=== PATIENT | female | born 1960 | race Caucasian/White ===

== ENCOUNTER 2022-12-29 11:53 | Observation (INO) | payer MEDICAID, SELFPAY ==
[2022-12-29 11:57] VITALS: BP 139/99; PULSE 93; RESP 18; TEMP 36.6; O2SAT 93; BMI 22.6
--- NOTE | 2022-12-29 12:11 | ED.RN ---
INITIAL EMS REPORT THIS RN RECEIVED WAS THAT THE PATIENT WAS HAVING SUDDEN EPISODE OF NAUSEA AND VOMITING HIS MORNING. PT WAS GIVEN ZOFRAN AND FLUIDS PER EMS PRIOR TO ARRIVAL. THIS RN IS TRIAGING, PT REPORTS ONGOING DIZZINESS, LIGHTHEADEDNESS AND DESCRIBES GENERALIZED WEAKNESS AND SWELLING TO RIGHT SIDE OF FACE. DR. RAMIRES INFORMED OF PT SX, AND COMES TO ROOM FOR EVALUATION AT 1208. PT NOW REPORTING TO DR. RAMIRES TALKING SLOWLY AND CLEARLY.
--- NOTE | 2022-12-29 12:17 | CT_ITS ---
STUDY: CTA HEAD AND NECK WITH CONTRAST REASON FOR EXAM: Female, 62 years old. Dysarthria. Sudden onset of nausea and vomiting. Dizziness. History of prior cerebral aneurysm and clipping. RADIATION DOSAGE (If Supplied By Facility): CTDIvol = ( 26.10 ) mGy, DLP = ( 1423.81 ) mGycm TECHNIQUE: CT angiography was performed with a multi-detector CT scanner. Data acquisition was obtained from the skull base through the vertex following intravenous administration of IV 100mL [id number]-[id number]. MIP images were reconstructed from the axial data set. Post-processing of the angiographic images was performed, with multiplanar reformation and 3D reconstruction. Individualized dose optimization techniques were used for this CT. COMPARISON: No relevant priors. FINDINGS: Normal bilateral petrous carotid arteries. Normal right cavernous carotid artery with a normal supraclinoid bifurcation. Normal left cavernous carotid artery with a normal supraclinoid bifurcation. Normal right A1 segments of the anterior cerebral artery. Normal left A1 segments of the anterior cerebral artery. Normal intact anterior communicating artery (ACOM). Normal bilateral A2 segments of the anterior cerebral arteries. Normal right M1 and M2 segments of the middle cerebral arteries, with a normal M1 bifurcation. Normal left M1 and M2 segments of the middle cerebral arteries, with a normal M1 bifurcation. Normal right posterior communicating artery (PCOM). Normal left posterior communicating artery (PCOM). Normal bilateral vertebral arteries. Normal basilar artery with a normal basilar bifurcation. The visualized bilateral superior cerebellar (SCA) arteries are normal. Normal bilateral P1, P2 and visualized P3 segments of the posterior cerebral arteries. There is no demonstrated aneurysm of the [place]. The vascular clip is seen in the region of the right posterior inferior cerebellar artery causing streak artifacts. Mild degree of cerebral atrophy. AORTIC ARCH: There is atherosclerotic calcific plaque formation of the aortic arch and great vessels arising from the aortic arch, without a hemodynamically significant stenosis. There is a normal origin of the brachiocephalic, left common carotid, and left subclavian arteries. RIGHT CAROTID ARTERIES: Normal right common carotid artery (CCA). Normal right common carotid bulb. Normal origin of the right internal carotid (ICA) artery without a hemodynamically significant stenosis. Normal visualized cervical portion of the right internal carotid artery. Normal origin of the right external carotid artery (ECA). LEFT CAROTID ARTERIES: Normal left common carotid artery (CCA). Normal left common carotid bulb. There is mild atherosclerotic plaque formation of the origin of the left internal carotid artery with less than 50% cross sectional diameter stenosis. Normal visualized cervical portion of the left internal carotid artery. Normal origin of the left external carotid artery (ECA). VERTEBRAL ARTERIES: There is enhancement within the bilateral vertebral arteries with a small right vertebral artery, and a dominant left vertebral artery. CT/CTA Head AND Neck W/ Contrast IMPRESSION: Minimal plaque formation at the origin of the left internal carotid artery. Findings include with prior aneurysmal clip placement in the region of the right posterior inferior cerebellar artery. Electronically Signed: Young De Oliveira MD at 13:54 EDT ,
--- NOTE | 2022-12-29 12:17 | EKG12_ITS ---
Test Reason : DIZZINESS Blood Pressure : / mmHG Vent. Rate : 091 BPM Atrial Rate : 091 BPM P-R Int : 144 ms QRS Dur : 116 ms QT Int : 398 ms P-R-T Axes : 065 -48 060 degrees QTc Int : 489 ms Normal sinus rhythm Incomplete right bundle branch block Left anterior fascicular block Minimal voltage criteria for LVH, may be normal variant ( Bereket product ) Septal infarct , age undetermined Cannot rule out Inferior infarct (masked by fascicular block?) , age undetermined Abnormal ECG Confirmed by VICKEY JONES, BLAKE ([id number]), editor city CHERYLE MILLER ([id number]) on 01/01/2023 10:50:12 AM Referred By: Confirmed By:BRIGHT HURD MD
--- NOTE | 2022-12-29 12:19 | EX.ED.DYSGE1 ---
HPI History of Present Illness Chief Complaint: Nausea/Vomiting Informant: patient and EMS Narrative Narrative: 62-year-old female presenting to the emergency room with lightheadedness and vomiting. Patient states that she is moving to the area has never been to this hospital before. She states that several weeks ago she had an episode very similar to this was admitted into the hospital overnight in [place]. She states they gave her IV fluids and was discharged home the next day but I went home in a very bad way. By this she means that she was still sick. States today she was eating when she developed sudden onset of nausea vomiting and dizziness. By dizziness she means lightheaded and blacked out. She states she could not get to her medicine cabinet to get her Zofran. She states that she had her phone with her and called for help. She states that her right side of her face feels swollen. She states she is having a hard time speaking. When asked to describe that further she states that she is not having problems finding the words but the right face feels swollen which is making it hard for her to speak. She denies any headache. No spinning sensation. Patient is a very difficult historian and that I cannot get her to expound on symptoms. I specifically asked her to tell me what symptoms she has and she begins to talk about past diagnoses. For example she starts to tell me that her abdomen and then stops NSAIDs well they looked at that a while ago and then does not tell me anything more other than stating that her abdomen feels okay. Patient states that the symptoms are episodic and she has had them several times before. [facility] Medical History Aneurysm Skin cancer Uterine cancer Allergy/AdvReac Type Severity Reaction Status Date / Time Sulfa (Sulfonamide AdvReac NEEDS Verified 12/29/22 11:57 Antibiotics) FOLLOW-UP BACTRIM AdvReac Intermediate NEEDS Uncoded 12/29/22 11:57 FOLLOW-UP Social History Smoking Status: Former smoker ROS ROS ED ROS Narrative Global weakness and light redness Constitutional Constitutional ED: Denies chills, fever(s) or weight loss Eyes Eyes: Denies change in vision or diplopia ENT ENT ED: Reports other Details: Paresthesias right face ; Denies ear pain, rhinorrhea or sore throat Cardiovascular Cardiovascular: Denies chest pain, orthopnea, palpitations or racing heartbeat Respiratory/Chest Respiratory/Chest: Denies cough, dyspnea or orthopnea Gastrointestinal Gastrointestinal: Reports nausea and vomiting; Denies abdominal pain or diarrhea Genitourinary Genitourinary ED: Denies dysuria, hematuria or urinary frequency Musculoskeletal Musculoskeletal: Denies arthralgias, back pain, myalgias or neck pain Integumentary Denies abscess or rash Neurologic Neurologic: Reports paresthesias and other; Denies headache(s) or weakness Psychiatric Psychiatric: Denies anxiety, depression, suicidal ideation or suicidal thoughts Endocrine Endocrinology: Denies polydipsia, polyphagia or polyuria Allergic/Immunologic Allergic/Immunologic ED: Denies mouth swelling, tongue swelling or urticaria EXAM Physical Exam Const Vital Signs: 12/29/22 11:57 12/29/22 14:49 Temperature 97.9 F Temperature Source Oral Pulse Rate 93 92 Respiratory Rate 18 18 Blood Pressure 139/99 H 147/96 H Blood Pressure Mean 112 113 Pulse Ox 93 96 Oxygen Delivery Method Room Air Room Air Positive well nourished and well developed General Appearance ED: well developed HEENT Reports normocephalic, head/scalp atraumatic and moist mucous membranes Eyes PERRL and EOMs intact bilaterally Eyes Narrative: There is no nystagmus Neck no lymphadenopathy, supple and no JVD Resp normal respiratory effort and clear to auscultation bilaterally Cardio regular rate, regular rhythm and no murmurs GI normal to inspection, nondistended, normoactive bowel sounds and non-tender Palpation: soft Back/Spine no CVA tenderness and normal ROM Extremity normal to inspection General Extremety ED: Negative for edema General Extremity: Negative for edema Neuro oriented x3 and CN's II-XII intact bilaterally Neuro Narrative: NIH is 0. Sensorium / Orientation: alert Motor Exam: strength 5/5 throughout Psych mental status grossly normal Mood & Affect: Negative for depressed or tearful Skin no rashes or lesions noted and no wounds MDM MDM MDM Narrative Medical decision making narrative: White count 10.4 with hemoglobin 13.2. Normal coags. BMP showed a potassium of 3.2. Glucose of 161. Liver enzymes were normal lipase 164. Urinalysis is negative for infection. CTA of the head and neck was obtained which demonstrated no acute stroke hemorrhage or LVO. Patient received IV fluids and Zofran. Patient is still nauseated and retching at times. She states she cannot sit up without getting dizzy in her words I am so dizzy, I know there is so many meetings of that word, I mean lightheaded and blacked out. Patient received additional Zofran andm I will give her some Antivert to see if that will help. There continues to be no facial droop. I score her NIH is 0. History & Record Review Discussion w/independent historian: Patient Lab Data Attestation: I reviewed the patient's lab results. Labs: Laboratory Results - last 24 hr 12/29/22 12/29/22 12:10 14:50 WBC 10.4 RBC 4.48 Hgb 13.2 Hct 39.5 MCV 88.2 MCH 29.5 MCHC 33.4 RDW Std Deviation 43.9 RDW Coeff of Eunice 13.5 Plt Count 361 MPV 9.0 Immature Gran % (Auto) 0.200 Neut % (Auto) 57.0 Lymph % (Auto) 34.0 [place] % (Auto) 7.8 Eos % (Auto) 0.6 Baso % (Auto) 0.4 Absolute Neuts (auto) 5.9 Absolute Lymphs (auto) 3.54 Nucleated RBC % 0 PT 14.0 INR 1.1 APTT 28.6 Sodium 135 L Potassium 3.2 L Chloride 101 Carbon Dioxide 25.0 Anion Gap 9 BUN 8 Creatinine 0.55 Estim Creat Clear Calc 95.43 Est GFR (MDRD) Af Amer 143 Est GFR (MDRD) Non-Af 119 BUN/Creatinine Ratio 14.5 Glucose 161 H Calcium 8.6 Total Bilirubin 0.60 AST 12 L ALT 23 Alkaline Phosphatase 76 Total Protein 7.2 Albumin 3.7 Globulin 3.5 Albumin/Globulin Ratio 1.1 Lipase 164 H Urine Color Yellow Urine Clarity Sl. Cloudy Urine pH 7.0 Ur Specific [place] 1.010 Urine Protein Negative Urine Glucose (UA) Normal Urine Ketones 15 H Urine Occult Blood 25 H Urine Nitrite Negative Urine Bilirubin Negative Urine Urobilinogen Normal Ur Leukocyte Esterase Negative Urine RBC 0-5 SEEN Urine WBC 0 SEEN Ur Squamous Epith Cells 0 SEEN Urine Bacteria 0 SEEN Urine Mucus 0 SEEN Radiography Diagnostic Testing: Clinical Impression(s) from Imaging Studies Head/Neck CTA 12/29/22 12:17 IMPRESSION: Minimal plaque formation at the origin of the left internal carotid artery. Findings include with prior aneurysmal clip placement in the region of the right posterior inferior cerebellar artery. Electronically Signed: Young De Oliveira MD at 13:54 EDT , Chest X-Ray 12/29/22 13:33 IMPRESSION: Hyperinflation. Scattered calcified granulomas. Electronically Signed: Young De Oliveira MD at 13:46 EDT , EKG Initial EKG: Attestation: I personally reviewed and interpreted this EKG as follows: Interpretation: Sinus Rhythm Comments: Normal sinus rhythm with a ventricular rate of 91 bpm. Incomplete right bundle branch block noted. Management Discussion w/another healthcare provider: Hospitalist Discharge Plan Dx/Rx/DC Orders Clinical Impression: Lightheadedness, Intractable vomiting with nausea Disposition Disposition: Acute Care [facility]
--- NOTE | 2022-12-29 12:22 | ED.RN ---
PER DR. RAMIRES NO STROKE ALERT.
[2022-12-29 12:36] LABS: Absolute Lymphocyte Count 3.54 X10^3/uL (0.83-4.51); Absolute Neutrophil Count 5.9 X10^3/uL (2.0-7.7); Basophil# 0.04 X10^3/uL; Basophil% 0.4 % (0-1); Eosinophil# 0.06 X10^3/uL; Eosinophils% 0.6 % (0-5); Hematocrit 39.5 % (37-47); Hemoglobin 13.2 g/dL (12.0-15.0); Lymphocyte # 3.54 X10^3/ul (0.83-4.51); Mean Corp Hgb Conc 33.4 g/dL (32-36); Mean Corpuscular Hgb 29.5 pg (27.0-32.0); Mean Corpuscular Volume 88.2 fL (81-99); Monocyte# 0.81 X10^3/uL; Monocyte% 7.8 % (0-10); NRBC Flagged by Analyzer 0 % (0-5); Neutrophil # 5.94 X10^3/uL (2.7-7.7); Platelet Count 361 K/mm3 (150-450); RBC Distribution Width CV 13.5 % (11.6-14.6); RBC Distribution Width SD 43.9 fl (35.1-43.9); Red Blood Count 4.48 M/mm3 (4.2-5.4); White Blood Count 10.4 K/mm3 (4.4-11.0)
[2022-12-29] MEDS: 0.9% Normal Saline (1000mL) 1,000 ML 1000 ML IV (12:43)
[2022-12-29 12:44] LABS: ALB/GLOB Ratio 1.1 RATIO (0.9-2.4); AST(SGOT) 12 U/L (15-37); Alanine Aminotransfer ALT/SGPT 23 U/L (13-56); Albumin, Serum 3.7 g/dL (3.2-5.0); Alkaline Phosphatase 76 U/L (45-117); Anion Gap 9 (5-15); BUN 8 mg/dL (7-18); BUN/Creat Ratio 14.5 RATIO (10-20); Calcium,Total 8.6 mg/dL (8.5-10.1); Chloride 101 mmol/L (98-107); Creatinine, Serum 0.55 mg/dL (0.55-1.02); EST Glomerular Filtration Rate 119 mL/min (>60); Est Glom Filt Rate - Afr Amer 143 mL/min (>60); Estimated Creatinine Clearance 95.43 ml/min; Globulin 3.5 g/dL (2.2-4.2); Glucose 161 mg/dL (74-106); Lipase 164 U/L (13-75); Potassium 3.2 mmol/L (3.5-5.1); Protein, Total 7.2 g/dL (6.4-8.2); Sodium Level 135 mmol/L (136-145)
[2022-12-29 12:48] LABS: International Normalized Ratio 1.1
[2022-12-29 12:49] LABS: Partial Thromboplast Time 28.6 Seconds (24.1-36.2)
--- NOTE | 2022-12-29 13:04 | NURSING ---
NO OLD EKGS
--- NOTE | 2022-12-29 13:33 | RAD_ITS ---
STUDY: X-RAY CHEST REASON FOR EXAM: Female, 62 years old. Altered mental status. Nausea and vomiting. TECHNIQUE: Single AP portable view of the chest. COMPARISON: None. FINDINGS: EKG electrodes are seen. Hyperinflation. Scattered calcified granulomas. There is no demonstrated pleural abnormality. Normal size heart. Normal mediastinum and anayeli. Normal visualized pulmonary arteries. Normal visualized aortic arch and descending thoracic aorta. Normal visualized thoracic spine. Normal visualized ribs, clavicles, and shoulders. There is no demonstrated abnormality of the visualized soft tissue structures of the upper abdomen. RAD/Chest 1 View (Portable) IMPRESSION: Hyperinflation. Scattered calcified granulomas. Electronically Signed: Young De Oliveira MD at 13:46 EDT ,
[2022-12-29] MEDS: Ondansetron 4 MG/2 ML Vial IV ×2 (14:43→16:09)
[2022-12-29 14:49] VITALS: BP 147/96; PULSE 92; RESP 18; O2SAT 96
[2022-12-29 14:59] LABS: Bacteria 0 SEEN /hpf (None Seen); Mucous, Urine 0 SEEN /hpf (<or=2+); Squamous Epithelial Cells - UA 0 SEEN /hpf (5-10); White Blood Cells 0 SEEN /hpf (0-5)
[2022-12-29 15:03] LABS: Color, Urine Yellow (Yellow); Glucose, Dipstick Normal (Normal); Ketone-Dipstick 15 mg/dl (Negative); Leukocyte Esterase-Dipstick Negative /ul (Negative); Nitrite-Dipstick Negative (Negative); Occult Blood-Urine 25 /ul (Negative); Protein-Dipstick Negative (Negative); Urine Bilirubin Dipstick Negative (Negative); Urine Clarity Sl. Cloudy (Clear); Urine Urobilinogen Normal (Normal)
[2022-12-29 15:15] LABS: Red Blood Cells-Urine 0-5 SEEN /hpf (0-5)
--- NOTE | 2022-12-29 15:52 | HP.PCM.HOS_ITS ---
HPI - General General Date of Admission: 12/29/22 Date of Service: 12/29/22 Chief Complaint: Dizziness, lightheadedness following episodes/bouts of emesis, ongoing N/V, epigastric discomfort. HPI Narrative The patient is a 62 y/o F w/ PMHx: Chronic migraines, Anxiety and Depression, Fibromyalgia, IC Aneurysm s/p clipping, Chart reported history of prior ETOH abuse, Former Tobacco use, Former cocaine abuse who presents to the [facility] ED [place] to ongoing persistent nausea and dizziness with episodes of lightheaded and blackening of her vision following strong bouts of emesis and specifically with positional changes if she is getting up and attempting to move quickly ever since she has been having recurrent nausea, decreased oral intake and epigastric discomfort, admitted approximate 1 week prior to [facility] on 12/08/22 with similar symptoms except at that time she did not have any epigastric discomfort now representing secondary to his noted recurrent issues with now epigastric discomfort as well. Work-up at that facility during that evaluation including chest x-ray with possible nodule right midlung with recommended future follow-up CT, SARS COVID/influenza/RSV PCR negative, EKG with sinus tachycardia with nonspecific changes, CMP with glucose 131 otherwise not marked appearing, lipase 43, high sensitive troponin 2.6, creatinine kinase 65, CBC with WBC 12.37, MCV 8.8, absolute lymphocytes 0.94 otherwise not marked appearing, lactic acid 0.8, magnesium 2.0, CT of the brain with no acute intracranial findings, unchanged postsurgical findings in the right occipital craniectomy with associated chronic fluid collection and right vertebral artery aneurysm coiling, unremarkable urinalysis. Patient was admitted with SIRS with mild tachycardia with intractable nausea and emesis and dehydration felt secondary to GI losses eventually discharged to home on oral Zofran. Patient states that she has remained both clean and sober. Current evaluation included in the ED T97.9, heart rate 93, BP 139/99, respiratory rate 18, 93 to 96% on room air, CBC with WC 10.4 coming 113.2, platelet 361 without marked shift, unremarkable coags, CMP with sodium 135, potassium 3.2, glucose 161, hepatic profile not marked appearing, lipase 134 and as noted during recent prior outside facility evaluation lipase had been 43 at that time, EKG with SR with incomplete RBBB, chest ray with hyperinflation and scattered calcified granulomas, CTA head and neck with minimal plaque formation at the origin of the left ICA and findings with evidence of prior aneurysmal clip placement the region of the right posterior inferior cerebellar artery region. Patient initially was a very poor historian and had initially described her dizziness is potentially a spinning which prompted the CT of the head and neck however upon further discussions she denied any kind of vertigo symptoms and was more forthcoming with her GI discomfort as well as intractable nausea and emesis. [facility] Medical History (Updated 12/29/22 @ 17:[address] Madeleine Zamora MD) Anxiety and depression Fibromyalgia Former tobacco use History of alcohol abuse History of intracranial aneurysm Polysubstance abuse Prolapse of bladder Prolapse of intestine Skin cancer Uterine cancer Home Medications ondansetron 4 mg disintegrating tablet 4 mg PO Q8H PRN nausea and vomiting 12/29/22 [History Last Taken Unknown] tramadol 50 mg tablet 50 mg PO Q8H PRN pain 12/29/22 [History Last Taken Unknown] Allergy/AdvReac Type Severity Reaction Status Date / Time Sulfa (Sulfonamide AdvReac NEEDS Verified 12/29/22 11:57 Antibiotics) FOLLOW-UP BACTRIM AdvReac Intermediate NEEDS Uncoded 12/29/22 11:57 FOLLOW-UP Family History (Updated 12/29/22 @ 17:[address] Madeleine Zamora MD) Father Melanoma Mother Brain aneurysm CVA (cerebral vascular accident) Surgical History (Updated 12/29/22 @ 17:[address] Madeleine Zamora MD) H/O cerebral aneurysm repair History of hysterectomy S/P rotator cuff repair Social History (Updated 12/29/22 @ 17:[address] Madeleine Zamora MD) household members: none Smoking Status: Former smoker how long ago did patient quit smokin/2 ppd until quit 2018. alcohol intake: former details: Previous EtOH abuse, currently sober. substance use type: former substance user Date of last use: Cocaine. ROS ROS Narrative Admission Review of Systems: CONSTITUTIONAL: No weight loss, fever, chills, + weakness or fatigue. HEENT: + Chronic headaches, lightheadedness, dizziness. Eyes: No visual loss, blurred vision, double vision or yellow sclerae. Ears, Nose, Throat: No hearing loss, sneezing, congestion, runny nose or sore throat. SKIN: No rash or itching, lesions, wounds. CARDIOVASCULAR: + LH/dizziness. No chest pain, chest pressure or chest discomfort, palpitations, edema, orthopnea, syncopal events. RESPIRATORY: No shortness of breath, cough or sputum, wheezing, hemoptysis. GASTROINTESTINAL: + anorexia, nausea, vomiting, epigastric discomfort. No curren t diarrhea, melena, BRBPR. GENITOURINARY: No dysuria, frequency, urgency or retention. NEUROLOGICAL: + Chronic headaches, dizziness, lightheadedness. No syncope, paralysis, ataxia, numbness or tingling in the extremities, focal weakness, change in bowel or bladder control, seizure. MUSCULOSKELETAL: + muscle, back pain, joint pain or stiffness. HEMATOLOGIC: No anemia, bleeding or bruising. LYMPHATICS: No enlarged nodes. No history of splenectomy. PSYCHIATRIC: + history of depression or anxiety. ENDOCRINOLOGIC: No reports of sweating, cold or heat intolerance. No polyuria or polydipsia. ALLERGIES: No history of asthma, hives, eczema or rhinitis. Vital Signs Vital Signs Vital Signs: 12/29/22 11:57 12/29/22 14:49 Temperature 97.9 F Temperature Source Oral Pulse Rate 93 92 Respiratory Rate 18 18 Blood Pressure 139/99 H 147/96 H Blood Pressure Mean 112 113 Pulse Ox 93 96 Oxygen Delivery Method Room Air Room Air Weight Weight: 136 lb 0.403 oz Body Mass Index (BMI) 22.6 Physical Exam Narrative Physical Examination: General: Awake, alert, oriented x 3 and cooperative, seated upright in the ED bed in no apparent distress, denies any lightheadedness or dizziness but states it is primarily when she has emesis bouts or significant quick positional changes with her recent symptoms. Skin: Normal color, normal turgor, no icterus, no cyanosis. HEENT: AT/NC, EOMI, PERRLA, dry MM, no carotid bruits or JVD noted. Lungs: CTA bilaterally, moderate effort, mild decrease BL bases, no rales, juan chi or wheezing. Heart: Regular rate and rhythm but certainly upper limits of normal; no gallop, rub audible. Abdomen: Soft, mild epigastric discomfort with palpation with no rebound or guarding, no marked distention, mildly hyperactive BS, difficult to assess HSM given discomfort with deep palpation. Extremities: No cyanosis, clubbing, or edema. Neurological: Patient awake, alert, oriented as noted, cognitive function intact; pupils equally reactive to light and accommodation, cranial nerves II- XII grossly normal, moving all 4 extremities, no focal deficits, strength moderately global decrease secondary to acute presentation complaints. Psychiatric: Affect appears fatigued, uncomfortable, no acute evidence of depressive or anxiety feelings but does have underlying history. Results Lab / Micro Data 12/29/22 12:10 12/29/22 12:10 Labs: Laboratory Results - last 24 hr 12/29/22 12:10: WBC 10.4, RBC 4.48, Hgb 13.2, Hct 39.5, MCV 88.2, MCH 29.5, MCHC 33.4, RDW Std Deviation 43.9, RDW Coeff of [place]unice 13.5, Plt Count 361, MPV 9.0, Immature Gran % (Auto) 0.200, Neut % (Auto) 57.0, Lymph % (Auto) 34.0, [place] % (Auto) 7.8, Eos % (Auto) 0.6, Baso % (Auto) 0.4, Absolute Neuts (auto) 5.9, Absolute Lymphs (auto) 3.54, Nucleated RBC % 0, PT 14.0, INR 1.1, APTT 28.6, Sodium 135 L, Potassium 3.2 L, Chloride 101, Carbon Dioxide 25.0, Anion Gap 9, BUN 8, Creatinine 0.55, Estim Creat Clear Calc 95.43, Est GFR (MDRD) Af Amer 143, Est GFR (MDRD) Non-Af 119, BUN/Creatinine Ratio 14.5, Glucose 161 H, Calcium 8.6, Total Bilirubin 0.60, AST 12 L, ALT 23, Alkaline Phosphatase 76, Total Protein 7.2, Albumin 3.7, Globulin 3.5, Albumin/Globulin Ratio 1.1, Lipase 164 H 12/29/22 14:50: Urine Color Yellow, Urine Clarity Sl. Cloudy, Urine pH 7.0, Ur Specific [place] 1.010, Urine Protein Negative, Urine Glucose (UA) Normal, Urine Ketones 15 H, Urine Occult Blood 25 H, Urine Nitrite Negative, Urine Bilirubin Negative, Urine Urobilinogen Normal, Ur Leukocyte Esterase Negative, Urine RBC 0-5 SEEN, Urine WBC 0 SEEN, Ur Squamous Epith Cells 0 SEEN, Urine Bacteria 0 SEEN, Urine Mucus 0 SEEN Radiology Impression Head/Neck CTA 12/29/22 12:17 IMPRESSION: Minimal plaque formation at the origin of the left internal carotid artery. Findings include with prior aneurysmal clip placement in the region of the right posterior inferior cerebellar artery. Electronically Signed: Young De Oliveira MD at 13:54 EDT , Chest X-Ray 12/29/22 13:33 IMPRESSION: Hyperinflation. Scattered calcified granulomas. Electronically Signed: Young De Oliveira MD at 13:46 EDT , Assessment & Plan Assessment/Plan (1) Intractable vomiting with nausea: PLAN: Plan The patient is a 62 y/o F w/ PMHx: Chronic migraines, Anxiety and Depression, Fibromyalgia, IC Aneurysm s/p clipping, Chart reported history of prior ETOH abuse, Former Tobacco use, Former cocaine abuse who presents to the [facility] ED secondary to ongoing persistent nausea and dizziness with episodes of lightheaded and blackening of her vision following strong bouts of emesis and specifically with positional changes if she is getting up and attempting to move quickly ever since she has been having recurrent nausea, decreased oral intake and epigastric discomfort, admitted approximate 1 week prior to [facility] on 12/08/22 with similar symptoms except at that time she did not have any epigastric discomfort now representing secondary to his noted recurrent issues with now epigastric discomfort as well. #1. Possible Acute pancreatitis w/ persistent abdominal pain, N/V: Will admit to [facility], maintain on IVFs, clears, IV PPI, IV/po pain control, trend lipase, CMP. Will obtain RUQ US, FLP, notes she has been sober, denies EtOH consumption risk as etiology for pancreatitis, if not improving may consider obtaining CT abdomen pelvis as this does not appear to have been performed at outside facility. #2. Hyperglycemia: Admission glucose 161, no diabetic history, HgBA1c requested. #3. Hypokalemia: Admission K+ 3.2, magnesium level requested, supplementation given, repeat level in AM. #4. Anxiety and depression: Not on any chronic regimen, encourage continued outpatient follow-up and assessment with therapy medications if appropriate. #5. History intracranial aneurysm: Status postcraniotomy with clipping and coiling, CT stable compared to previous at [facility]. #6. Former alcohol abuse: Encouraged continued sobriety, denies any recent history of alcohol use although an outside facility did report occasional intake thus alcohol of was up and in the ED and unremarkable. Magnesium and phosphorus levels requested. To be cautious we will maintain on thiamine, folic acid and multivitamin. Case management consulted. #7. Former polysubstance abuse, primarily cocaine: Patient denies any recent use, notes she has been clean, urine drug screen obtained the ED and unremarkable. Case management consulted. #8. Former tobacco use: Encourage continued tobacco cessation. #9. DVT prophylaxis: Low risk for type of admission. Charges/Coding Visit Charges Inpatient E&M: 32124 Init Hosp L3
[2022-12-29] MEDS: Meclizine HCl 25 MG Tablet PO (16:09)
--- NOTE | 2022-12-29 16:10 | NURSING ---
107 OBS WHITE INTRACTABLE NAUSEA, LIGHTHEADEDNESS
[2022-12-29 16:42] VITALS: BP 158/102; PULSE 99; RESP 20; O2SAT 94
[2022-12-29 16:53] VITALS: BMI 20.1
--- NOTE | 2022-12-29 16:53 | US_ITS ---
STUDY: ABDOMINAL ULTRASOUND - RIGHT UPPER QUADRANT REASON FOR VISIT: Female, 62 years old ? Cholelithiasis TECHNIQUE: Ultrasound evaluation of the right upper quadrant was performed with real-time and static robledo-scale imaging. TECHNICAL QUALITY: Adequate. COMPARISON: None. FINDINGS: Liver: The liver measures 18.3 cm. There is normal echogenicity of the liver. The bile ducts are within normal limits. There is hepatic color flow. The direction of portal flow is hepatopetal. There is no demonstrated mass lesion. Gallbladder: Normal distended gallbladder. The gallbladder wall measures 2 mm. There is a negative sonographic Guerrero''s sign. There is no pericholecystic fluid. There is biliary sludge dependent within the gallbladder. Common Bile Duct (C.B.D.): The common bile duct measures 3 mm. Pancreas: Normal size of the head, body and tail of the pancreas. There is normal echogenicity of the pancreas. There is no demonstrated pancreatic mass or cyst. Right Kidney: Normal size of the right kidney. The right kidney measures 12.1 cm. Normal renal cortex. The right cortex measures 1.2 cm. 1.5 cm septated cyst in the midsection of right kidney. There is no right hydronephrosis. US/Gallbladder IMPRESSION: Gallbladder sludge. Electronically Signed: Ruben Amador MD at 20:40 EDT ,
[2022-12-29 17:03] LABS: Magnesium 2.3 mg/dL (1.6-2.6); Phosphorus 2.9 mg/dL (2.5-4.9)
[2022-12-29 17:10] LABS: Amphetamine Urine VISTA NEGATIVE (<1000 ng/mL); Barbiturate Urine VISTA NEGATIVE (< 200 ng/mL); Benzodiazepine Urine VISTA NEGATIVE (< 200 ng/mL); Cocaine Urine VISTA NEGATIVE (< 300 ng/mL); Ecstacy Urine VISTA NEGATIVE (< 500 ng/mL); Methadone Urine VISTA NEGATIVE (< 300 ng/mL); PCP Urine VISTA NEGATIVE (< 25 ng/mL); THC Urine VISTA NEGATIVE (< 50 ng/mL); Vista UDS pH Range 6
[2022-12-29] MEDS: proCHLORPERazine 10 MG/2 ML Vial 5 MG IV (17:15)
[2022-12-29] MEDS: 0.9% Normal Saline (1000mL) 1,000 ML 999 ML IV (17:16)
[2022-12-29 17:22] VITALS: BP 153/93; PULSE 98; RESP 16; TEMP 36.4; O2SAT 96
[2022-12-29 17:27] LABS: Alcohol, Blood (Medical)-Serum < 3.0 mg/dL
[2022-12-29] MEDS: 0.9% Normal Saline (1000mL) 1,000 ML 150 ML IV (17:31)
[2022-12-29 18:00] VITALS: O2SAT 99
[2022-12-29] MEDS: Pantoprazole Sodium 40 MG in 0.9% Normal Saline (100mL MB+) 100 ML 330 MG IV (18:44)
[2022-12-29 20:30] VITALS: O2SAT 96
[2022-12-30 03:00] VITALS: BP 141/82; PULSE 91; RESP 16; TEMP 36.6; O2SAT 96
[2022-12-30 03:34] VITALS: BMI 21.2
[2022-12-30] MEDS: 0.9% Normal Saline (1000mL) 1,000 ML 150 ML IV ×3 (03:39→09:25)
[2022-12-30] MEDS: proCHLORPERazine 10 MG/2 ML Vial 5 MG IV (05:12)
[2022-12-30 06:30] LABS: Absolute Lymphocyte Count 1.94 X10^3/uL (0.83-4.51); Absolute Neutrophil Count 6.9 X10^3/uL (2.0-7.7); Basophil# 0.03 X10^3/uL; Basophil% 0.3 % (0-1); Eosinophil# 0.06 X10^3/uL; Eosinophils% 0.6 % (0-5); Hematocrit 36.6 % (37-47); Hemoglobin 11.9 g/dL (12.0-15.0); Lymphocyte # 1.94 X10^3/ul (0.83-4.51); Lymphocyte % 19.8 % (19-41); Mean Corp Hgb Conc 32.5 g/dL (32-36); Mean Corpuscular Hgb 29.1 pg (27.0-32.0); Mean Corpuscular Volume 89.5 fL (81-99); Mean Platelet Vol. 8.9 fl (6.2-12.0); Monocyte# 0.85 X10^3/uL; Monocyte% 8.7 % (0-10); NRBC Flagged by Analyzer 0 % (0-5); Neutrophil # 6.89 X10^3/uL (2.7-7.7); Neutrophil % 70.3 % (47-70); Platelet Count 317 K/mm3 (150-450); RBC Distribution Width CV 13.7 % (11.6-14.6); RBC Distribution Width SD 45.1 fl (35.1-43.9); Red Blood Count 4.09 M/mm3 (4.2-5.4); White Blood Count 9.8 K/mm3 (4.4-11.0)
[2022-12-30 06:55] LABS: AST(SGOT) 11 U/L (15-37); Alanine Aminotransfer ALT/SGPT 21 U/L (13-56); Alkaline Phosphatase 65 U/L (45-117); Anion Gap 9 (5-15); BUN 5 mg/dL (7-18); BUN/Creat Ratio 13.1 RATIO (10-20); Chloride 112 mmol/L (98-107); Creatinine, Serum 0.38 mg/dL (0.55-1.02); EST Glomerular Filtration Rate 180 mL/min (>60); Est Glom Filt Rate - Afr Amer 218 mL/min (>60); Estimated Creatinine Clearance 138.13 ml/min; Glucose 96 mg/dL (74-106); Lipase 21 U/L (13-75); Potassium 3.2 mmol/L (3.5-5.1); Sodium Level 144 mmol/L (136-145)
[2022-12-30 07:19] VITALS: O2SAT 96
[2022-12-30 09:16] VITALS: BP 146/91; PULSE 104; RESP 18; TEMP 36.8; O2SAT 96
[2022-12-30] MEDS: Potassium Chloride Oral Tablet 20 MEQ 40 MEQ PO (09:22)
[2022-12-30] MEDS: Pantoprazole Sodium 40 MG in 0.9% Normal Saline (100mL MB+) 100 ML 330 MG IV (09:23)
[2022-12-30] MEDS: Ketorolac 30 MG/ML Syringe IV (09:24)
[2022-12-30] MEDS: Thiamine Hydrochloride 100 MG Tablet PO (09:24)
[2022-12-30] MEDS: Folic Acid 1 MG Tablet PO (09:25)
[2022-12-30 09:39] LABS: Hemoglobin A1c 5.3 % (3.8-5.6)
[2022-12-30] MEDS: Acetaminophen 325 MG Tablet 650 MG PO (11:54)
[2022-12-30] MEDS: oxyCODONE 5 MG Tablet PO (11:54)
--- NOTE | 2022-12-30 13:58 | DS.PCM_ITS ---
Providers Date of Admission: 12/29/22 Date of Discharge: 12/30/22 Primary Care Physician: Dr. Lindsey Centeno MD Reason For Visit: SUSPECTED ACUTE PANCRETITIS N/V ABD PAIN Diagnosis Discharge Diagnosis (1) Intractable vomiting with nausea: Status: Acute Code(s): R11.2 - Nausea with vomiting, unspecified Medications at Discharge Home Medications ondansetron 4 mg disintegrating tablet 4 mg PO Q8H PRN nausea and vomiting 12/29/22 tramadol 50 mg tablet 50 mg PO Q8H PRN pain 12/29/22 Hospital Course Operations None Procedures None Summary of Care Provided Minutes Spent on Discharge: 48 Hospital Course: Patient is a 62-year-old female with an extensive past medical history as outlined. She was admitted through the ED on 12/29/2022 with a complaint of nausea and dizziness as well as lightheadedness and vomiting. She had been having worsening vomiting and epigastric discomfort for about a week. She had been admitted at [facility] with similar symptoms and subsequently discharged. Facility she had chest x-ray done which showed right lung nodule with follow-up up recommendation on outpatient basis for CT. There were however no other findings. She came into the ED subsequently with the above-mentioned symptoms. CT of the head and neck showed mild plaque formation at the origin of the left ICA and findings with evidence of prior aneurysmal clip placement in the region of the right posterior inferior cerebellar artery. CBC was unremarkable. No abdominal imaging was done. She was admitted and managed for possible acute pancreatitis in light of mildly elevated creatinine. Right upper lobe quadrant ultrasound done just showed mild biliary sludge but no evidence of thickened gallbladder and no stones. She did have a history of alcohol abuse but says she had not used alcohol in a long while. Patient's abdominal pain subsequently resolved and at time of my review abdomen was completely benign and she denied any nausea or vomiting or any other symptoms. Reviewed abdominal imaging was done, considering the fact that at the time my review Sarabjit determined was soft and nontender, I did not really have a justification to do the abdominal CAT scan. Patient also wanted to be discharged home and says she prefer to follow-up with her primary care doctor for decision to be made about C AT scan as needed. Patient was therefore discharged on 12/30/2022 and is follow-up with her primary care doctor within 1 week. Patient seen and examined prior to discharge. She had no other complaints and had an uneventful night. Review of systems otherwise negative. Labs and vitals reviewed. Home medication reviewed and reconciled. Physical Exam Const alert, oriented x3 and no apparent distress General Appearance: cooperative and comfortable Orientation / Consciousness: awake Exam Limitations: no limitations HEENT normocephalic, head/scalp atraumatic, hearing grossly normal bilaterally and moist oral mucous membranes Mouth: oral and palatal mucosa normal Eyes PERRL, EOMs intact bilaterally and conjunctivae normal Neck no lymphadenopathy, supple and no JVD Resp normal respiratory effort, no retractions, no use of accessory muscles and clear to auscultation bilaterally Cardio regular rate, regular rhythm, S1 normal heart sound, S2 normal heart sound and no murmurs GI normal to inspection, nondistended, normoactive bowel sounds, soft to palpation, non-tender and non-distended Extremity normal to inspection, full ROM and no clubbing, cyanosis or edema Skin no rashes or lesions noted Neuro oriented x3, CN's II-XII intact bilaterally, moves all extremities, no focal motor deficits and no sensory deficits noted Sensorium / Orientation: awake and alert Speech: speech normal Motor Exam: strength 5/5 throughout Psych affect normal Weight / BMI Weight Weight: 127 lb 10.362 oz Body Mass Index (BMI) 21.2 ABG / Lab / Microbiology Data 12/30/22 06:10 12/30/22 06:10 Laboratory: Laboratory Results - last 24 hr 12/29/22 12:10: Phosphorus 2.9, Magnesium 2.3 12/29/22 14:50: Urine Color Yellow, Urine Clarity Sl. Cloudy, Urine pH 7.0, Ur Specific [place] 1.010, Urine Protein Negative, Urine Glucose (UA) Normal, Urine Ketones 15 H, Urine Occult Blood 25 H, Urine Nitrite Negative, Urine Bilirubin Negative, Urine Urobilinogen Normal, Ur Leukocyte Esterase Negative, Urine RBC 0-5 SEEN, Urine WBC 0 SEEN, Ur Squamous Epith Cells 0 SEEN, Urine Bacteria 0 SEEN, Urine Mucus 0 SEEN, Urine Opiates Screen NEGATIVE, Urine Methadone Screen NEGATIVE, Ur Barbiturates Screen NEGATIVE, Ur Phencyclidine Scrn NEGATIVE, Ur Amphetamines Screen NEGATIVE, MDMA (Ecstasy) Screen NEGATIVE, U Benzodiazepines Scrn NEGATIVE, Urine Cocaine Screen NEGATIVE, U Cannabinoids Screen NEGATIVE, Ur Drug Screen Comment 12/29/22 16:15: Ethyl Alcohol < 3.0 12/30/22 06:10: WBC 9.8, RBC 4.09 L, Hgb 11.9 L, Hct 36.6 L, MCV 89.5, MCH 29.1, MCHC 32.5, RDW Std Deviation 45.1 H, RDW Coeff of [place]unice 13.7, Plt Count 317, MPV 8.9, Immature Gran % (Auto) 0.300, Neut % (Auto) 70.3 H, Lymph % (Auto) 19.8, [place] % (Auto) 8.7, Eos % (Auto) 0.6, Baso % (Auto) 0.3, Absolute Neuts (auto) 6.9, Absolute Lymphs (auto) 1.94, Nucleated RBC % 0, Sodium 144, Potassium 3.2 L , Chloride 112 H, Carbon Dioxide 23.0, Anion Gap 9, BUN 5 L, Creatinine 0.38 L, Estim Creat Clear Calc 138.13, Est GFR (MDRD) Af Amer 218, Est GFR (MDRD) Non-Af 180, BUN/Creatinine Ratio 13.1, Glucose 96, Hemoglobin A1c 5.3, Calcium 8.0 L, Total Bilirubin 0.50, AST 11 L, ALT 21, Alkaline Phosphatase 65, Total Protein 6.0 L, Albumin 3.0 L, Globulin 3.0, Albumin/Globulin Ratio 1.0, Lipase 21 Radiography Diagnostic Testing: Radiology Impression Gallbladder Ultrasound 12/29/22 16:53 IMPRESSION: Gallbladder sludge. Electronically Signed: Ruben Amador MD at 20:40 EDT , D/C Instructions Discharge Diet: Low fat / Low cholesterol Discharge Activity: Return to Normal Activity Weight Bearing Status: Weight bearing as tolerated Call your doctor if you observe: Fever of 101 or Higher, Shortness of breath, Swelling in the ankles, Chest pain and Increased palpitations (irregular heartbeat) Meaningful Use Info Meaningful Use Diagnoses (Choose all that apply): None applicable Discharge Plan Admission Admit Date/Time: 12/29/22 16:34 Primary Reason for Your Visit: nausea, vomiting Attending Provider: Fernanda Burch Primary Care Provider: Lindsey Centeno Consulting Providers: Madeleine Zamora Instructions Patient Instructions: ED Gastroenteritis, Viral (Adult) Discharge Orders/Prescriptions Prescriptions: Continued ondansetron 4 mg tablet,disintegrating 4 mg PO Q8H PRN (Reason: nausea and vomiting) Patient Comments: DISSOLVE 1 (ONE) TABLET on the tongue EVERY 6 HOURS NEEDED FOR NAUSEA AND VOMITING tramadol 50 mg tablet 50 mg PO Q8H PRN (Reason: pain) Patient Comments: Take 1 tablet by mouth every 8 hours as needed for pain for up to 90 days. 60 per month; with 2 refills this prescription is for up to 90 days Referrals / Follow Up: Lindsey Centeno MD [Primary Care Provider] - Within 2 Weeks Disposition Disposition (needs filled in before D/C Order can be placed): Home, Self Care Charges/Coding Visit Charges Inpatient E&M: 89555 Disch Hosp >30min
== END 2022-12-30 13:57 | disposition home or self-care (01) ==
LOC: ED 15:56 → PCU 16:47
PROVIDERS: Admitting Provider Family Medicine; Emergency Provider Emergency Medicine; PCP Internal Medicine; Visit Provider Student in an Organized Health Care Education/Training Program
DX: R11.2 Nausea with vomiting, unspecified (principal); R42 Dizziness and giddiness; R55 Syncope and collapse; Z87.891 Personal history of nicotine dependence; R91.1 Solitary pulmonary nodule; E86.0 Dehydration; R10.13 Epigastric pain; M79.7 Fibromyalgia; E87.6 Hypokalemia; R73.9 Hyperglycemia, unspecified
CPT/HCPCS: 36415; 70496; 70498; 71045; 76705; 80053; 80307; 81001; 82077; 83036; 83690; 83735; 84100; 85025; 85610; 85730; 93005; 94668; 96361; 96365; 96366; 96375; 96376; 99221; 99285; J7030; Q9967; A4216; G0378; J2405

== ENCOUNTER 2023-04-03 12:12 | Observation (INO) | payer MEDICAID, SELFPAY ==
[2023-04-03] VITALS (7 sets, daily range): BP systolic 150–167; BP diastolic 99–106; PULSE 83–88; RESP 12–18; TEMP 35.5–36.6; O2SAT 98–100; BMI 21.4
--- NOTE | 2023-04-03 12:58 | EDS_ITS ---
HPI History of Present Illness Chief Complaint: Nausea/Vomiting Informant: patient and EMS Narrative Narrative: 63-year-old female presenting to the emergency department via EMS with a chief complaint of dizziness/nausea/vomiting. This is recurrent for the patient. She was previously hospitalized here in December and before that at [facility] in [place]. No definitive cause has been found. She states that her doctor is trying elimination . She states by this she has seen surgery who did not feel was her gallbladder and she saw cardiology. She does not have an upcoming gastroenterology appointment that she knows about. She reports that she started vomiting this morning. She states there is really nothing different with this episode compared to the others. Patient states that she believes that the dizziness/lightheadedness is the cause for her nausea and vomiting. She states that her symptoms are made worse with turning her head and movements. No ringing in the ears. She has previously at this institution had chest x-ray gallbladder ultrasound a nd head and neck CTA. Patient has had a prior aneurysmal clipping in the cerebellum region. Her last CTA in December when she had the symptoms did not show any concerning features. [facility] Medical History Anxiety and depression Fibromyalgia Former tobacco use History of alcohol abuse History of intracranial aneurysm Polysubstance abuse Prolapse of bladder Prolapse of intestine Skin cancer Uterine cancer Home Medications ondansetron 4 mg disintegrating tablet 4 mg PO Q6H PRN NAUSEA/VOMITING 12/29/22 [History Last Taken Unknown] tramadol 50 mg tablet 50 mg PO 4X/DAY PRN PAIN 12/29/22 [History Last Taken Unkn own] multivitamin 1 tab PO DAILY HEALTH MAINTENANCE 04/03/23 [History Last Taken Unknown] omeprazole 20 mg capsule,delayed release 20 mg PO DAILY ACID REFLUX 04/03/23 [History Last Taken Unknown] promethazine 12.5 mg tablet 12.5 mg PO Q6H PRN NAUSEA/VOMITING 04/03/23 [History Last Taken Unknown] Allergy/AdvReac Type Severity Reaction Status Date / Time sulfamethoxazole Allergy Mild Other Verified 04/03/23 12:14 [From Bactrim] trimethoprim [From Bactrim] Allergy Mild Other Verified 04/03/23 12:14 Sulfa (Sulfonamide AdvReac NEEDS Verified 04/03/23 12:14 Antibiotics) FOLLOW-UP Family History Father Melanoma Mother Brain aneurysm CVA (cerebral vascular accident) Surgical History H/O cerebral aneurysm repair History of hysterectomy S/P rotator cuff repair Social History household members: none Smoking Status: Former smoker how long ago did patient quit smokin/2 ppd until quit 2018. alcohol intake: former details: Previous EtOH abuse, currently sober. substance use type: former substance user Date of last use: Cocaine. ROS ROS ED Constitutional Constitutional ED: Denies chills, fever(s) or weight loss Eyes Eyes: Denies change in vision or diplopia ENT ENT ED: Denies ear pain, rhinorrhea or sore throat Cardiovascular Cardiovascular: Denies chest pain, orthopnea, palpitations or racing heartbeat Respiratory/Chest Respiratory/Chest: Denies cough, dyspnea or orthopnea Gastrointestinal Gastrointestinal: Reports nausea and vomiting; Denies abdominal pain or diarrhea Genitourinary Genitourinary ED: Denies dysuria, hematuria or urinary frequency Musculoskeletal Musculoskeletal: Denies arthralgias or myalgias Integumentary Denies abscess or rash Neurologic Neurologic: Reports other Details: Dizziness/lightheadedness ; Denies headache(s) or weakness Psychiatric Psychiatric: Denies anxiety, depression, suicidal ideation or suicidal thoughts Endocrine Endocrinology: Denies polydipsia, polyphagia or polyuria Allergic/Immunologic Allergic/Immunologic ED: Denies mouth swelling, tongue swelling or urticaria EXAM Physical Exam Narrative Exam Narrative: Patient is holding an emesis bag with tissues in it. Const Vital Signs: 04/03/23 12:15 04/03/23 12:19 04/03/23 14:14 Temperature 95.9 F L Temperature Source Temporal Pulse Rate 83 84 Respiratory Rate 18 12 Blood Pressure 167/106 H 165/99 H Blood Pressure Mean 126 121 Pulse Ox 98 100 Oxygen Delivery Method Room Air Room Air 04/03/23 15:43 Temperature Temperature Source Pulse Rate 84 Respiratory Rate Blood Pressure 150/100 H Blood Pressure Mean 116 Pulse Ox Oxygen Delivery Method Positive well nourished and well developed General Appearance ED: well developed HEENT Reports normocephalic, head/scalp atraumatic and moist mucous membranes Eyes PERRL and EOMs intact bilaterally Eyes Narrative: No nystagmus Neck no lymphadenopathy, supple and no JVD Resp normal respiratory effort and clear to auscultation bilaterally Cardio regular rate, regular rhythm and no murmurs GI normal to inspection, nondistended, normoactive bowel sounds and non-tender Palpation: soft Back/Spine no CVA tenderness and normal ROM Extremity normal to inspection General Extremety ED: Negative for edema General Extremity: Negative for edema Neuro oriented x3 and CN's II-XII intact bilaterally Sensorium / Orientation: alert Motor Exam: strength 5/5 throughout Psych mental status grossly normal Mood & Affect: Negative for depressed or tearful Skin no rashes or lesions noted and no wounds MDM MDM MDM Narrative Medical decision making narrative: Patient received IV fluids Pepcid Ativan and Zofran. She continues to feel very nauseated and have small amounts of emesis. She feels it is related to dizziness. I will write for some diazepam. She is very hesitant as to go home as she lives alone.` Discharge Plan Dx/Rx/DC Orders Clinical Impression: Dizziness, Intractable nausea and vomiting Disposition Disposition: Acute [facility]
[2023-04-03] MEDS: Ondansetron 4 MG/2 ML Vial IV (13:08)
[2023-04-03] MEDS: 0.9% Normal Saline (1000mL) 1,000 ML 999 ML IV (13:08)
[2023-04-03] MEDS: LORazepam 2 MG/ML Syringe 0.5 MG IV (13:09)
[2023-04-03] MEDS: Famotidine 200 MG/20 ML MDV 20 MG in 0.9% Normal Saline (Pres. free 8 ML 300 MG IV (13:15)
--- NOTE | 2023-04-03 16:29 | CT_ITS ---
STUDY: CT BRAIN WITHOUT CONTRAST REASON FOR EXAM: Female, 63 years old. dizziness RADIATION DOSAGE (If Supplied By Facility): CTDIvol = ( 44.99 ) mGy, DLP = ( 779.24 ) mGycm TECHNIQUE: Transaxial CT imaging of the brain was performed without administration of intravenous contrast material. Individualized dose optimization techniques were used for this CT. COMPARISON: 12/29/2022 FINDINGS: Stable appearance of a previous craniotomy in the right occipital region with aneurysm clipping likely at the right posterior inferior cerebellar artery. Normal size ventricles and extra-axial spaces for the patient''s age. Normal white matter tracts of the cerebral hemispheres. Normal basal ganglia and thalami. Normal brainstem. Normal cerebellum. There is no intracranial hemorrhage. There are no findings of an acute ischemic infarction. Normal visualized paranasal sinuses. CT/Brain/Head without Contrast IMPRESSION: Chronic involutional changes of the brain. No acute hemorrhage Stable postsurgical changes in the right occipital region with stable aneurysm clipping in the posterior fossa Electronically Signed: Anton Tavares MD at 17:06 EST ,
--- NOTE | 2023-04-03 16:29 | PCM.HP.STD ---
HPI - General General Date of Admission: 04/03/23 Date of Service: 04/03/23 Chief Complaint: Dizziness, nausea/vomiting HPI Narrative GLORIA DE LA GARZA, is a 63 F who presented to [facility] ED on 04/03/2023 with dizziness and nausea/vomiting. Patient seen at bedside in the ED. Patient was laying in bed and appeared fairly fatigued. She was alert and able to answer my questions appropriately. She appeared somewhat uncomfortable and stated this was due to her ongoing nausea. At the end of our encounter, she stated that she needed to vomit and was heaving when I exited the room. Patient had been given a dose of IV Ativan and a dose of IV Zofran prior to my interview, and she states these were not very helpful for her. She has been taking Phenergan at home as needed for the symptoms with generally good relief, however she threw up multiple doses of Phenergan this morning. Patient states the dizziness began overnight and she had multiple episodes of vomiting this morning before coming into the ED. Patient has had multiple episodes like this over the past year or so. 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 She initially had a coil placed for this by neurosurgery at the [facility] in 2017. However, the coil apparently failed and she had to have a clip placed by neurosurgery in 2019. Patient states that she did not have any episodes like this until about 1 year ago. The aneurysm was incidentally found in 2017. She was hospitalized at [facility] in December 2022 for a very similar presentation. CTA head/neck was negative at that time. Lab workup was fairly benign. Patient improved fairly quickly was able to be discharged home the next day. No clear etiology has been determined for these episodes. Patient did have gallbladder sludge noted on ultrasound during that admission, but this was felt to be an incidental finding and not contributing to her presentation. She has previous history of substance abuse with cocaine, as well as tobacco abuse and alcohol abuse. However, she states she has not been using any substances in the past several months. Urine tox screen done during December admission was clean and alcohol level was 0. Has never used marijuana. Patient states the symptoms do seem to worsen with positional changes of her head. States she has seen physical therapy in the past, but does not remember them doing testing with moving her head to try to elicit symptoms. She denies any recent illnesses. She denies any feelings of ear fullness. Patient otherwise denies any acute pain or discomfort today. No other acute concerns at this time. [facility] History Anxiety and depression Fibromyalgia Former tobacco use History of alcohol abuse History of intracranial aneurysm Polysubstance abuse Prolapse of bladder Prolapse of intestine Skin cancer Uterine cancer Home Medications ondansetron 4 mg disintegrating tablet 4 mg PO Q6H PRN NAUSEA/VOMITING 12/29/22 [History Last Taken Unknown] tramadol 50 mg tablet 50 mg PO 4X/DAY PRN PAIN 12/29/22 [History Last Taken Unknown] albuterol sulfate 90 mcg/actuation aerosol inhaler 2 puff inhalation Q4H PRN shortness of breath or wheezing 04/03/23 [History Last Taken 04/02/23] multivitamin 1 tab PO DAILY HEALTH MAINTENANCE 04/03/23 [History Last Taken Unknown] omeprazole 20 mg capsule,delayed release 20 mg PO DAILY ACID REFLUX 04/03/23 [History Last Taken Unknown] promethazine 12.5 mg tablet 12.5 mg PO Q6H PRN NAUSEA/VOMITING 04/03/23 [History Last Taken Unknown] Allergy/AdvReac Type Severity Reaction Status Date / Time sulfamethoxazole Allergy Mild Other Verified 04/03/23 12:14 [From Bactrim] trimethoprim [From Bactrim] Allergy Mild Other Verified 04/03/23 12:14 Sulfa (Sulfonamide AdvReac NEEDS Verified 04/03/23 12:14 Antibiotics) FOLLOW-UP Family History Father Melanoma Mother Brain aneurysm CVA (cerebral vascular accident) Surgical History H/O cerebral aneurysm repair History of hysterectomy S/P rotator cuff repair Social History household members: none Smoking Status: Former smoker how long ago did patient quit smokin/2 ppd until quit 2018. alcohol intake: former details: Previous EtOH abuse, currently sober. substance use type: former substance user Date of last use: Cocaine. ROS Constitutional Constitutional: Reports fatigue and malaise; Denies chills, fever(s) or weakness Eyes Eyes: Denies change in vision Cardiovascular Cardiovascular: Denies chest pain, dyspnea on exertion or edema Respiratory/Chest Respiratory/Chest: Denies cough, shortness of breath at rest or wheezing Gastrointestinal Gastrointestinal: Reports nausea and vomiting; Denies abdominal pain, constipation or diarrhea Genitourinary Genitourinary: Denies dysuria Musculoskeletal Musculoskeletal: Reports back pain; Denies arthralgias Neurologic Neurologic: Reports disequilibrium and dizziness; Denies abnormal gait, confusion, focal weakness, headache(s), numbness, paresthesias, tingling or tremor(s) Vital Signs Vital Signs Vital Signs: 04/03/23 12:15 04/03/23 12:19 04/03/23 14:14 Temperature 95.9 F L Temperature Source Temporal Pulse Rate 83 84 Respiratory Rate 18 12 Blood Pressure 167/106 H 165/99 H Blood Pressure Mean 126 121 Pulse Ox 98 100 Oxygen Delivery Method Room Air Room Air 04/03/23 15:43 Temperature Temperature Source Pulse Rate 84 Respiratory Rate Blood Pressure 150/100 H Blood Pressure Mean 116 Pulse Ox Oxygen Delivery Method Weight Weight: 58.5 kg Body Mass Index (BMI) 21.4 Physical Exam Const alert, oriented x3 and no apparent distress Constitutional Narrative: Middle-age female, thin and chronically ill-appearing, laying back in bed, appears fatigued but answering questions appropriately, mild distress due to nausea. General Appearance: cooperative HEENT normocephalic, head/scalp atraumatic, hearing grossly normal bilaterally and nasal mucous membranes and turbinates normal Eyes PERRL, EOMs intact bilaterally and conjunctivae normal Neck full ROM, no lymphadenopathy and supple Lymph Lymphatic: no lymphadenopathy noted Chest inspection of chest normal Resp normal respiratory effort, normal air movement, no use of accessory muscles and clear to auscultation bilaterally Cardio regular rate, regular rhythm, no murmurs and peripheral pulses 2+ throughout GI normal to inspection, nondistended, normoactive bowel sounds, soft to palpation, non-tender and non-distended Back/Spine normal ROM Extremity normal to inspection, full ROM and no pedal edema Skin no rashes or lesions noted Neuro moves all extremities and no focal motor deficits Speech: speech normal Motor Exam: strength 5/5 throughout Psych mental status grossly normal Mood & Affect: anxious Results Lab / Micro Data 04/03/23 17:00 04/03/23 17:00 Assessment & Plan Assessment/Plan (1) Dizziness: (2) Intractable nausea and vomiting: (3) Elevated BP without diagnosis of hypertension: PLAN: Plan Patient is a 63-year-old female who presented to [facility] ED on 04/03/2023 with dizziness and nausea/vomiting. 1. Recurrent episodes of dizziness with nausea/vomiting concerning for vertigo Unclear etiology to this point but most likely diagnosis seems to be vertigo. CT brain on admit nonacute. CTA head/neck in December also nonacute. Notably has stable postsurgical changes in right occipital region with stable aneurysm clipping noted on both scans. Lab work fairly benign. No recent illnesses. Unclear if previous cerebellar aneurysm could be contributing to symptoms. ? Admit under observation status to [facility]. Neurology consulted. PT/OT/case management consulted. IM Phenergan every 6 hours as needed and IV Compazine every 4 hours as needed for nausea. Given 1 L IV fluids in ED, encouraged p.o. intake but can supplement with further IV fluids as needed. 2. Elevated blood pressure BP persistently in 150-160/90-100 since admission. Patient has no formal diagnosis of hypertension but states that her blood pressure has been running high over the last several months. On review of vitals during admission in December, blood pressure was consistently in the 140s systolic. Kidney function normal, satting well on room air, very low concern for hypertensive urgency causing her above symptoms. ? Suspect patient does have essential hypertension. Will start amlodipine 5 mg daily and give first dose evening. Will start labetalol every 4 hours as needed for elevated BPs. Monitor. 3. Mild leukocytosis ? WBC count 13.9 on admit. Suspect due to acute stress state and mild hemoconcentration. No infectious symptoms noted, afebrile, hemodynamically stable. Received 1 L of IV fluids in the ED, encouraged p.o. intake as able. Follow-up a.m. CBC. Chronic medical conditions: ? 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 Chronic pain: Continue home tramadol as needed. ? GERD: Continue home PPI. ? History of polysubstance abuse, tobacco abuse, alcohol abuse: Reports abstinence from all substances for many months. Urine drug screen ordered. DVT prophylaxis: Lovenox CODE STATUS: Full code, verified Expected disposition: Home, 1 to 2 days Total clinical time spent by myself addressing the patient's medical issues, reviewing all the data, and collaborating with patient's care team: 55 minutes. Charges/Coding Visit Charges Inpatient E&M: 19415 Init Hosp L2
--- NOTE | 2023-04-03 16:32 | NURSING ---
DR MODESTO RAMIRES
[2023-04-03] MEDS: diazePAM 5 MG Tablet PO (16:41)
--- NOTE | 2023-04-03 16:45 | NURSING ---
MED SURG OBS MOSTELLER VERTIGO, INTRACTABLE VERTIGO
--- OUTSIDE RECORDS SUMMARY | 2023-04-03 16:57 | XMS RPT_ITS | CCD ---
Author Name Unknown Address [address] [place] [address] Organization [facility] Care Team Providers Care Thermite Bomb Loader Name Role Phone Anjum Diggs MD Primary Care Provider Anjum Diggs MD Primary Care Provider Nicole Quintero RN Unavailable Unavailable TALAMPAS, ANJUM D Primary Care Unavailable PEMA RAMIREZ Admitting Unavailable FELICITA HEAD Attending Unavailable ELISE WAGNER Referring Unavailable TALAMPAS, ANJUM D Primary Care Unavailable TALAMPAS, ANJUM D Primary Care Unavailable PRINCESS WHALEN Attending Unavailable PROVIDER, UNKNOWN Referring Unavailable TALAMPAS, ANJUM D Primary Care Unavailable PROVIDER, UNKNOWN Referring Unavailable TALAMPAS, ANJUM D Primary Care Unavailable TALAMPAS, ANJUM D Primary Care Unavailable TALAMPAS, ANJUM D Attending Unavailable ELSY ROSA Attending Unavailable TALAMPAS, ANJUM D Primary Care Unavailable TALAMPAS, ANJUM D Referring Unavailable EMELY WEST Attending Unavailable TALAMPAS, ANJUM D Primary Care Unavailable SLEIK, KHALED MELOUD Attending Unavailable TALAMPAS, ANJUM D Primary Care Unavailable CARTERSUSHANTI Attending Unavailable TALAMPAS, ANJUM D Primary Care Unavailable SLEIK, KHALED MELOUD Referring Unavailable SLEIK, KHALED MELOUD Attending Unavailable TALAMPAS, ANJUM D Primary Care Unavailable TALAMPAS, ANJUM D Primary Care Unavailable TALAMPAS, ANJUM D Attending Unavailable CARTERSUSHANTI Attending Unavailable TALAMPAS, ANJUM D Primary Care Unavailable TALAMPAS, ANJUM D Primary Care Unavailable TALAMPAS, ANJUM D Attending Unavailable CARTER, FABBY Referring Unavailable CARTRESUSHANTI Attending Unavailable TALAMPAS, ANJUM D Primary Care Unavailable ADELAIDA ANDERSON Attending Unavailable TALAMPAS, ANJUM D Primary Care Unavailable TOALEMELY Referring Unavailable TOAL, EMELY Attending Unavailable TALAMPAS, ANJUM D Primary Care Unavailable MARGARET DIAZ Admitting Unavailable TALAMPAS, ANJUM D Primary Care Unavailable JOSE LUIS UREÑA Attending Unavailable SLEIK, KHALED MELOUD Referring Unavailable TALAMPAS, ANJUM D Primary Care Unavailable CARTER, FABBY Attending Unavailable TALAMPAS, ANJUM D Primary Care Unavailable CARTER, FABBY Referring Unavailable TALAMPAS, ANJUM D Primary Care Unavailable TALAMPAS, ANJUM D Primary Care Unavailable TALAMPAS, ANJUM D Attending Unavailable TALAMPAS, ANJUM D Primary Care Unavailable TALAMPAS, ANJUM D Attending Unavailable ADELAIDA ANDERSON Referring Unavailable TALAMPAS, ANJUM D Primary Care Unavailable ADELAIDA ANDERSON Referring Unavailable TALAMPAS, ANJUM D Primary Care Unavailable SLEIK, KHALED MELOUD Referring Unavailable TALAMPAS, ANJUM D Primary Care Unavailable ADELAIDA ANDERSON Referring Unavailable TALAMPAS, ANJUM D Primary Care Unavailable CARTER, FABBY Referring Unavailable TALAMPAS, ANJUM D Primary Care Unavailable CARTER, FABBY Referring Unavailable ELSY ROSA Attending Unavailable TALAMPAS, ANJUM D Primary Care Unavailable Allergies Allergy Classification Reported Allergen(s) Allergy Type Date of Onset Reaction(s) Facility (20 sources) DULoxetine; Translations: [DULOXETINE] Drug Allergy 07-07-19 20 Diarrhea [facility] Work Phone: (20 sources) Sulfamethoxazole; Translations: [SULFAMETHOXAZOLE] Drug Allergy 11-05-19 18 Unknown, Other: See Comments [facility] Work Phone: (20 sources) Sulfamethoxazole / Trimethoprim; Translations: [SULFAMETHOXAZOLE-TR IMETHOPRIM] Drug Allergy 11-05-19 18 Unknown, Other: See Comments [facility] Work Phone: (20 sources) Sulfites; Translations: [SULFITES] Propensity to adverse reactions to drug 11-05-19 18 Unknown, Other: See Comments [facility] Work Phone: (20 sources) topiramate; Translations: [TOPIRAMATE] Drug Allergy 07-07-19 20 Mental Status Change [facility] Work Phone: Medications Current Medications Medication Drug Class(es) Dates Sig (Normalized) Sig (Original) acetaminophen 300 mg / codeine phosphate 30 mg oral tablet (2 sources) Opioid Agonist Start: 04-04-2022 End: 04-11-2022 take 1 tablet by mouth every six hours as needed for pain acetaminophen-cod eine (TYLENOL-CODEINE #3) 300-30 mg per tablet Indications: Vaginal prolapse Take 1 tablet by mouth every 6 hours as needed for pain for up to 7 days. For pain not adequately treated with tramadol 28 tablet 0 04/04/2022 04/11/2022 Active Completed/Discontinued Medications Medication Drug Class(es) Dates Sig (Normalized) Sig (Original) [id number] 200 actuat albuterol 0.09 mg/actuat metered dose inhaler (12 sources) beta2-Adrenergic Agonist Start: 12-12-2022 take 2 puff(s) by inhalation every four hours as needed for wheezing albuterol HFA (VENTOLIN HFA) 90 mcg/actuation inhaler Indications: Acute viral syndrome , Wheezing Inhale 2 Puffs as instructed every 4 hours as needed for wheezing/shortnes s of breath. 1 Each 0 12/12/2022 Active Problems Active Problems Problem Classification Problem Date Documented Date Episodic/Chronic Abdominal pain (4 sources) Generalized abdominal pain; Translations: [Generalized abdominal pain] Episodic Alcohol-related disorders (20 sources) Alcohol abuse; Translations: [Alcohol abuse, uncomplicated] Onset: 11-04-2017 11-07-2017 Chronic Anxiety disorders (20 sources) Mixed anxiety and depressive disorder; Translations: [Anxiety disorder, unspecified] Onset: 03-31-2019 03-31-2019 Chronic Aortic; peripheral; and visceral artery aneurysms (3 sources) Aneurysm; Translations: [Aneurysm of unspecified site] Onset: 03-24-2022 Chronic Biliary tract disease (4 sources) Biliary sludge; Translations: [Other specified diseases of gallbladder] Onset: 01-08-2023 01-02-2023 Episodic Cardiac dysrhythmias (3 sources) Palpitations; Translations: [Palpitations] Onset: 01-29-2023 01-22-2023 Episodic Chronic obstructive pulmonary disease and bronchiectasis (2 sources) Centriacinar emphysema; Translations: [Centrilobular emphysema] Onset: 02-06-2023 01-26-2023 Chronic Chronic obstructive pulmonary disease and bronchiectasis (1 source) Bronchitis, not specified as acute or chronic; Translations: [Sinobronchitis] Onset: 03-21-2023 Episodic Conditions associated with dizziness or vertigo (2 sources) Dizziness; Translations: [Dizziness and giddiness] Episodic Coronary atherosclerosis and other heart disease (2 sources) Stable angina; Translations: [Stable angina pectoris] 01-22-2023 Chronic Disorders of lipid metabolism (1 source) Mixed hyperlipidemia; Translations: [Mixed hyperlipidemia] Chronic Esophageal disorders (1 source) Gastroesophageal reflux disease; Translations: [Gastro-esophageal reflux disease without esophagitis] 01-25-2023 Chronic Essential hypertension (2 sources) Essential hypertension; Translations: [Essential (primary) hypertension] Chronic Fluid and electrolyte disorders (2 sources) Hypokalemia; Translations: [Hypokalemia] Onset: 01-02-2023 01-02-2023 Episodic Headache; including migraine (20 sources) Refractory migraine without aura; Translations: [Migraine without aura, intractable, without status migrainosus] Onset: 02-12-2018 02-12-2018 Chronic Headache; including migraine (1 source) Other headache syndrome; Translations: [Other headache syndrome] Onset: 03-21-2023 Episodic Miscellaneous mental health disorders (2 sources) Dream anxiety disorder; 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 Neoplasms of unspecified nature or uncertain behavior (2 sources) Neoplastic disease; Translations: [Neoplasm of unspecified behavior of bone, soft tissue, and skin] Episodic Other aftercare (1 source) H/O: malignant neoplasm; Translations: [Encounter for follow-up examination after completed treatment for malignant neoplasm] Episodic Other and ill-defined cerebrovascular disease (20 sources) Cerebral arterial aneurysm; Translations: [Cerebral aneurysm, nonruptured] Onset: 11-04-2017 11-07-2017 Chronic Other and ill-defined cerebrovascular disease (20 sources) Aneurysm of posterior inferior cerebellar artery; Translations: [Cerebral aneurysm, nonruptured] Onset: 04-08-2019 04-08-2019 Chronic Other and ill-defined cerebrovascular disease (17 sources) Intracranial aneurysm; Translations: [Cerebral aneurysm, nonruptured] Onset: 03-31-2022 03-31-2022 Chronic Other and ill-defined cerebrovascular disease (1 source) Cerebral aneurysm, nonruptured; Translations: [Cerebral aneurysm] Onset: 03-31-2022 Chronic Other and unspecified benign neoplasm (2 sources) Benign neoplasm of skin; Translations: [Melanocytic nevi of unspecified upper limb, including shoulder] Episodic Other and unspecified benign neoplasm (2 sources) Senile angioma; Translations: [Hemangioma of skin and subcutaneous tissue] Episodic Other circulatory disease (1 source) Labile hypertension due to being in a clinical environment; Translations: [Elevated blood-pressure reading, without diagnosis of hypertension] Episodic Other inflammatory condition of skin (1 source) Seborrheic dermatitis; Translations: [Seborrheic dermatitis, unspecified] Episodic Other injuries and conditions due to external causes (2 sources) Injury of head; Translations: [Unspecified injury of head, subsequent encounter] Episodic Other injuries and conditions due to external causes (1 source) Systemic inflammatory response syndrome (SIRS) of non-infectious origin without acute organ dysfunction; Translations: [SIRS (systemic inflammatory response syndrome) (HCC)] Onset: 12-08-2022 Episodic Other lower respiratory disease (3 sources) Multiple nodules of lung; Translations: [Other nonspecific abnormal finding of lung field] 01-02-2023 Episodic Other lower respiratory disease (2 sources) Dyspnea; Translations: [Shortness of breath] 01-22-2023 Episodic Other lower respiratory disease (1 source) Nodule of lung; Translations: [Solitary pulmonary nodule] 01-26-2023 Episodic Other lower respiratory disease (2 sources) Other nonspecific abnormal finding of lung field; Translations: [Lung nodules] Onset: 01-19-2023 Episodic Other lower respiratory disease (1 source) Shortness of breath; Translations: [Shortness of breath] Onset: 01-29-2023 Episodic Other nervous system disorders (7 sources) Postoperative pain ; Translations: [Other acute postprocedural pain] Episodic Other nervous system disorders (1 source) Other acute postprocedural pain; Translations: [Post-operative pain] Onset: 03-21-2023 Episodic Other non-epithelial cancer of skin (3 sources) History of malignant neoplasm of skin excluding melanoma; Translations: [Personal history of other malignant neoplasm of skin] Episodic Other non-traumatic joint disorders (1 source) Shoulder pain; Translations: [Pain in right shoulder] Episodic Other skin disorders (1 source) Skin lesion; Translations: [Disorder of the skin and subcutaneous tissue, unspecified] Episodic Other skin disorders (1 source) Scar conditions and fibrosis of skin; Translations: [Scar conditions and fibrosis of skin] Episodic Other skin disorders (2 sources) Lentiginosis; Translations: [Other melanin hyperpigmentation] Episodic Other skin disorders (2 sources) Seborrheic keratosis; Translations: [Other seborrheic keratosis] Episodic Other skin disorders (1 source) Actinic keratosis; Translations: [Actinic keratosis] Episodic Other upper respiratory disease (1 source) Seasonal allergic rhinitis; Translations: [Other seasonal allergic rhinitis] Chronic Other upper respiratory infections (1 source) Chronic sinusitis, unspecified; Translations: [Sinobronchitis] Onset: 03-21-2023 Chronic Prolapse of female genital organs (13 sources) Vaginal wall prolapse; Translations: [Cystocele, unspecified] Onset: 03-21-2023 Chronic Residual codes; unclassified (1 source) Family history of malignant melanoma; Translations: [Family history of malignant neoplasm of other organs or systems] 10-09-2022 Episodic Unclassified (1 source) Radiology NM Onset: 03-13-2023 Unclassified (1 source) Stable angina pectoris; Translations: [Stable angina pectoris] Onset: 05-10-2021 Viral infection (1 source) Viral infection, unspecified; Translations: [Acute viral syndrome] Onset: 03-21-2023 Episodic Past or Other Problems Problem Classification Problem Date Documented Date Episodic/Chronic Complications of surgical procedures or medical care (20 sources) Headache disorder; Translations: [Other complications of procedures, not elsewhere classified, initial encounter] Onset: 02-12-2018 02-12-2018 Episodic Genitourinary symptoms and ill-defined conditions (5 sources) Urinary symptoms ; Translations: [Unspecified symptoms and signs involving the genitourinary system] Onset: 05-25-2022 Episodic Immunizations and screening for infectious disease (4 sources) Needs influenza immunization; Translations: [Encounter for immunization] Onset: 12-12-2022 Episodic Nausea and vomiting (4 sources) Vomiting without nausea; Translations: [Vomiting without nausea] Onset: 12-12-2022 Episodic Nonspecific chest pain (20 sources) Chest pain; Translations: [Chest pain, unspecified] Onset: 05-10-2021 05-10-2021 Episodic Other lower respiratory disease (1 source) Wheezing; Translations: [Wheezing] Onset: 12-12-2022 Episodic Other non-traumatic joint disorders (1 source) Pain in right shoulder; Translations: [Acute pain of right shoulder] Onset: 07-04-2022 Episodic Other screening for suspected conditions (not mental disorders or infectious disease) (7 sources) Electrocardiogram abnormal; Translations: [Abnormal electrocardiogram [ECG] [EKG]] Onset: 09-25-2022 Episodic Residual codes; unclassified (20 sources) At risk of apnea; Translations: [Other specified personal risk factors, not elsewhere classified] Onset: 05-10-2021 05-10-2021 Episodic Screening and history of mental health and substance abuse codes (20 sources) Ex-smoker; Translations: [Personal history of nicotine dependence] Onset: 11-05-2017 03-31-2019 Episodic Spondylosis; intervertebral disc disorders; other back problems (2 sources) Neck pain; Translations: [Cervicalgia] Onset: 07-04-2022 Episodic Results Test Name Value Interpretation Reference Range Facil ity Vital Signs Date Time Vital Sign Value Performing Clinician Brenna mao 01-25-2023 08:16-0500 Diastolic blood pressure 86 mm[Hg] Fabby Carter SPEED OPERATOR.SENIOR POLICY ANALYST Work Phone: [facility] 01-25-2023 08:16-0500 Systolic blood pressure 130 mm[Hg] Fabby Carter SPEED OPERATOR.SENIOR POLICY ANALYST Work Phone: [facility] 01-25-2023 08:15-0500 Body weight 57.15 kg Fabby Raul SPEED OPERATOR.SENIOR POLICY ANALYST Work Phone: [facility] 01-25-2023 08:15-0500 Heart rate 101 /min Fabby Carter SPEED OPERATOR.SENIOR POLICY ANALYST Work Phone: [facility] 01-25-2023 08:15-0500 Respiratory rate 16 /min Fabby Carter SPEED OPERATOR.SENIOR POLICY ANALYST Work Phone: [facility] 01-22-2023 10:19-0500 Body weight 58.51 kg Rosa Maria Kelly MD Work Phone: [facility] 01-22-2023 10:19-0500 Diastolic blood pressure 99 mm[Hg] Rosa Maria Kelly MD Work Phone: [facility] 01-22-2023 10:19-0500 Heart rate 107 /min Rosa Maria Kelly MD Work Phone: [facility] 01-22-2023 10:19-0500 SaO2% (BldA) [Mass fraction] 95 % Rosa Maria Kelly MD Work Phone: [facility] 01-22-2023 10:19-0500 Systolic blood pressure 146 mm[Hg] Rosa Maria Kelly MD Work Phone: [facility] 01-08-2023 10:32-0400 Body height 165.1 cm Elsy Rosa MD Work Phone: [facility] 01-08-2023 10:32-0400 Body temperature 97 [degF] Elsy Rosa MD Work Phone: [facility] 01-08-2023 10:32-0400 Body weight 56.7 kg Elsy Rosa MD Work Phone: [facility] 01-08-2023 10:32-0400 Diastolic blood pressure 88 mm[Hg] Elsy Rosa MD Work Phone: [facility] 01-08-2023 10:32-0400 Heart rate 110 /min Elsy Rosa MD Work Phone: [facility] 01-08-2023 10:32-0400 SaO2% (BldA) [Mass fraction] 95 % Elsy Rosa MD Work Phone: [facility] 01-08-2023 10:32-0400 Systolic blood pressure 142 mm[Hg] Elsy Rosa MD Work Phone: [facility] 01-02-2023 10:15-0400 Body weight 57.15 kg Fabby Carter SPEED OPERATOR.SENIOR POLICY ANALYST Work Phone: [facility] 01-02-2023 10:15-0400 Diastolic blood pressure 91 mm[Hg] Fabby Carter SPEED OPERATOR.SENIOR POLICY ANALYST Work Phone: [facility] 01-02-2023 10:15-0400 Heart rate 105 /min Fabby Carter SPEED OPERATOR.SENIOR POLICY ANALYST Work Phone: [facility] 01-02-2023 10:15-0400 Respiratory rate 16 /min Fabby Carter SPEED OPERATOR.SENIOR POLICY ANALYST Work Phone: [facility] 01-02-2023 10:15-0400 Systolic blood pressure 134 mm[Hg] Fabby Carter SPEED OPERATOR.SENIOR POLICY ANALYST Work Phone: [facility] 07-04-2022 14:52-0400 Body weight 58.51 kg Fabby Carter SPEED OPERATOR.SENIOR POLICY ANALYST Work Phone: [facility] 07-04-2022 14:52-0400 Diastolic blood pressure 88 mm[Hg] Fabby Carter SPEED OPERATOR.SENIOR POLICY ANALYST Work Phone: [facility] 07-04-2022 14:52-0400 Heart rate 101 /min Fabby Carter SPEED OPERATOR.SENIOR POLICY ANALYST Work Phone: [facility] 07-04-2022 14:52-0400 Respiratory rate 16 /min Fabby Carter SPEED OPERATOR.SENIOR POLICY ANALYST Work Phone: [facility] 07-04-2022 14:52-0400 SaO2% (BldA) [Mass fraction] 99 % Fabby Carter SPEED OPERATOR.SENIOR POLICY ANALYST Work Phone: [facility] 07-04-2022 14:52-0400 Systolic blood pressure 138 mm[Hg] Fabby Carter SPEED OPERATOR.SENIOR POLICY ANALYST Work Phone: [facility] 06-21-2022 14:56-0400 Body temperature 97.7 [degF] Anjum Diggs MD Work Phone: [facility] 06-21-2022 14:56-0400 Body weight 57.29 kg Anjum Diggs MD Work Phone: [facility] 06-21-2022 14:56-0400 Diastolic blood pressure 66 mm[Hg] Anjum Diggs MD Work Phone: [facility] 06-21-2022 14:56-0400 Heart rate 104 /min Anjum Diggs MD Work Phone: [facility] 06-21-2022 14:56-0400 Respiratory rate 18 /min Anjum Diggs MD Work Phone: [facility] 06-21-2022 14:56-0400 SaO2% (BldA) [Mass fraction] 97 % Anjum Diggs MD Work Phone: [facility] 06-21-2022 14:56-0400 Systolic blood pressure 112 mm[Hg] Anjum Diggs MD Work Phone: [facility] 04-19-2022 12:03-0500 Body temperature 97.9 [degF] Anjum Diggs MD Work Phone: [facility] 04-19-2022 12:03-0500 Body weight 58.97 kg Anjum Diggs MD Work Phone: [facility] 04-19-2022 12:03-0500 Diastolic blood pressure 88 mm[Hg] Anjum Diggs MD Work Phone: [facility] 04-19-2022 12:03-0500 Heart rate 99 /min Anjum Diggs MD Work Phone: [facility] 04-19-2022 12:03-0500 Respiratory rate 18 /min Anjum Diggs MD Work Phone: [facility] 04-19-2022 12:03-0500 SaO2% (BldA) [Mass fraction] 98 % Anjum Diggs MD Work Phone: [facility] 04-19-2022 12:03-0500 Systolic blood pressure 138 mm[Hg] Anjum Diggs MD Work Phone: [facility] 03-21-2022 15:01-0500 Body temperature 98.6 [degF] Anjum Diggs MD Work Phone: [facility] 03-21-2022 15:01-0500 Body weight 57.61 kg Anjum Diggs MD Work Phone: [facility] 03-21-2022 15:01-0500 Diastolic blood pressure 62 mm[Hg] Anjum Diggs MD Work Phone: [facility] 03-21-2022 15:01-0500 Heart rate 94 /min Anjum Diggs MD Work Phone: [facility] 03-21-2022 15:01-0500 Respiratory rate 18 /min Anjum Diggs MD Work Phone: [facility] 03-21-2022 15:01-0500 SaO2% (BldA) [Mass fraction] 96 % Anjum Diggs MD Work Phone: [facility] 03-21-2022 15:01-0500 Systolic blood pressure 116 mm[Hg] Anjum Diggs MD Work Phone: [facility] 12-20-2021 15:18-0400 Body weight 58.51 kg Anjum Diggs MD Work Phone: [facility] 12-20-2021 15:18-0400 Diastolic blood pressure 82 mm[Hg] Anjum Diggs MD Work Phone: [facility] 12-20-2021 15:18-0400 Heart rate 98 /min Anjum Diggs MD Work Phone: [facility] 12-20-2021 15:18-0400 SaO2% (BldA) [Mass fraction] 98 % Anjum Diggs MD Work Phone: [facility] 12-20-2021 15:18-0400 Systolic blood pressure 132 mm[Hg] Anjum Diggs MD Work Phone: [facility] 11-28-2021 14:47-0400 Body weight 58.97 kg Fabby Carter SPEED OPERATOR.SENIOR POLICY ANALYST Work Phone: [facility] 11-28-2021 14:47-0400 Diastolic blood pressure 82 mm[Hg] Fabby Martinezs SPEED OPERATOR.SENIOR POLICY ANALYST Work Phone: [facility] 11-28-2021 14:47-0400 Heart rate 80 /min Fabby Carter SPEED OPERATOR.SENIOR POLICY ANALYST Work Phone: [facility] 11-28-2021 14:47-0400 Respiratory rate 16 /min Fabby Carter SPEED OPERATOR.SENIOR POLICY ANALYST Work Phone: [facility] 11-28-2021 14:47-0400 Systolic blood pressure 136 mm[Hg] Fabby Carter SPEED OPERATOR.SENIOR POLICY ANALYST Work Phone: [facility] 10-17-2021 09:33-0400 Body weight 57.61 kg Jacque Yaritza SPEED OPERATOR.RUG WASHER Work Phone: [facility] 10-17-2021 09:33-0400 Diastolic blood pressure 90 mm[Hg] Jacque Yaritza SPEED OPERATOR.RUG WASHER Work Phone: [facility] 10-17-2021 09:33-0400 Heart rate 96 /min Jacque Yaritza SPEED OPERATOR.RUG WASHER Work Phone: [facility] 10-17-2021 09:33-0400 Systolic blood pressure 150 mm[Hg] Jacque Yaritza SPEED OPERATOR.RUG WASHER Work Phone: [facility] 09-02-2021 11:32-0400 Body weight 58.06 kg Mili Older SPEED OPERATOR.RUG WASHER Work Phone: [facility] 09-02-2021 11:32-0400 Diastolic blood pressure 84 mm[Hg] Mili Older SPEED OPERATOR.RUG WASHER Work Phone: [facility] 09-02-2021 11:32-0400 Heart rate 92 /min Mili Older SPEED OPERATOR.RUG WASHER Work Phone: [facility] 09-02-2021 11:32-0400 Respiratory rate 16 /min Mili Older SPEED OPERATOR.RUG WASHER Work Phone: [facility] 09-02-2021 11:32-0400 Systolic blood pressure 122 mm[Hg] Mili Older SPEED OPERATOR.RUG WASHER Work Phone: [facility] 08-15-2021 10:37-0400 Body weight 58.51 kg Anjum Diggs MD Work Phone: [facility] 08-15-2021 10:37-0400 Diastolic blood pressure 84 mm[Hg] Anjum Diggs MD Work Phone: [facility] 08-15-2021 10:37-0400 Heart rate 83 /min Anjum Diggs MD Work Phone: [facility] 08-15-2021 10:37-0400 SaO2% (BldA) [Mass fraction] 98 % Anjum Diggs MD Work Phone: [facility] 08-15-2021 10:37-0400 Systolic blood pressure 122 mm[Hg] Anjum Diggs MD Work Phone: [facility] 05-10-2021 16:04-0500 Diastolic blood pressure 88 mm[Hg] Anjum Diggs MD Work Phone: [facility] 05-10-2021 16:04-0500 Systolic blood pressure 130 mm[Hg] Anjum Diggs MD Work Phone: [facility] 05-10-2021 15:09-0500 Body weight 58.06 kg Anjum Diggs MD Work Phone: [facility] 05-10-2021 15:09-0500 Heart rate 102 /min Anjum Diggs MD Work Phone: [facility] Encounters Encounter Date Encounter Type Care Provider Facility Start: 03-21-2023 End: 03-22-2023 ambulatory ANJUM DIGGS Facility:[facility] Start: 03-19-2023 End: 03-19-2023 ambulatory ROSA MARIA KELLY Facility:[facility] Start: 03-13-2023 ambulatory UNKNOWN PROVIDER Facili ty:[facility] Start: 02-21-2023 ambulatory Anjum rosenberg MD Work Phone: [facility] [place] Start: 02-19-2023 End: 02-19-2023 ambulatory DHARMESHD LOU KELLY Facility:[facility] Start: 02-19-2023 End: 02-19-2023 Patient encounter procedure Nurse Card Admin [facility] Work Phone: Cardiology Procedures Date Procedure Procedure Detail Performing Clinician Start: 01-02-2023 PFIZER-BIONTECH COVI D-19 VACCINE (2022- SEASON) AGE 12+ YR Fabby Carter SPEED OPERATOR.SENIOR POLICY ANALYST Work Phone: Start: 04-19-2022 Culture bacterial quanttative colony count urine Anjum Diggs MD Work Phone: Start: 04-19-2022 Urnls dip stick/tabl et rgnt auto w/o microscopy Anjum Diggs MD Work Phone: Start: 04-10-2022 CRYOTHERAPY SKIN LESION Emely West PA-C Work Phone: Start: 03-21-2022 Culture bacterial quanttative colony count urine Anjum Diggs MD Work Phone: Start: 03-21-2022 Urnls dip stick/tabl et rgnt auto w/o microscopy Anjum Diggs MD Work Phone: Start: 12-20-2021 PFIZER-BIONTECH COVI D-19 BIVALENT BOOSTER VACCINE, AGE 12+ YR Anjum Diggs MD Work Phone: Start: 11-28-2021 INFLUENZA VACCINE QUADRIVALENT 6 MO - 64 YRS IM Fabby Carter SPEED OPERATOR.SENIOR POLICY ANALYST Work Phone: Start: 11-07-2021 Myocardial spect mul tiple studies Jacque Vigil SPEED OPERATOR.RUG WASHER Work Phone: Start: 05-09-2021 Lipid 1996 panel - S filemon or Plasma Anjum Diggs MD Work Phone: Start: 10-04-2020 Mammography Anjum hester MD Work Phone: H/O: surgery Status post Mohs surgery Da Olivier MD Work Phone: Plan of Treatment Date Care Activity Detail Author Start: 05-09-2026 Lipid 1996 panel - S filemon or Plasma Lipid Screening [facility] Start: 05-09-2026 Lipid panel Lipid Screening [facility] Start: 05-09-2026 LIPID SCREEN LIPID SCREEN [facility] Start: 01-02-2026 Diabetes Screening Diabetes Screenin g [facility] Start: 12-08-2025 Diabetes Screening Diabetes Screenin g [facility] Start: 12-07-2025 Diabetes Screening Diabetes Screenin g [facility] Start: 03-24-2025 DIABETES SCREEN DIABETES SCREEN [facility] Start: 05-09-2024 DIABETES SCREEN DIABETES SCREEN [facility] Start: 01-20-2024 Influenza vaccination Lung Cancer Sc reening [facility] Start: 01-20-2024 Screening for malign ant neoplasm of lung Lung Cancer Screening [facility] Start: 12-13-2023 Annual PCP Team Pipe Maker dionna Disease Visit Annual PCP Team Chronic Disease Visit [facility] Start: 09-20-2023 SHINGRIX VACCINE (2 of 3) MILAIN GRIX VACCINE (2 of 3) [facility] Immunizations Immunization Date Immunization Notes Care Provider Fa tank 01-02-2023 COVID-19 vaccine, ag e 12+ yr, season (PFIZER-BIONTECH) Fabby Carter SPEED OPERATOR.SENIOR POLICY ANALYST Work Phone: [facility] Work Phone: 12-12-2022 influenza, injectabl e, quadrivalent, contains preservative Anjum Diggs MD Work Phone: [facility] 12-20-2021 pneumococcal Conjuga te, unspecified formulation Anjum Diggs MD Work Phone: [facility] Work Phone: 12-20-2021 COVID-19 booster vaccine, age 12+ yr, bivalent (PFIZER-BIONTECH) Anjum Diggs MD Work Phone: [facility] 12-20-2021 pneumococcal (PCV20) vaccine, 20 valent (PREVNAR 20) Anjum Diggs MD Work Phone: [facility] 11-28-2021 influenza, injectabl e, quadrivalent, contains preservative Fabby Carter APRN.SENIOR POLICY ANALYST Work Phone: [facility] Work Phone: 11-28-2021 influenza virus vacc ine, unspecified formulation Anjum Diggs MD Work Phone: [facility] 12-13-2020 influenza, injectabl e, quadrivalent, contains preservative Anjum Diggs MD Work Phone: [facility] Work Phone: 04-14-2020 influenza, seasonal, injectable Anjum Diggs MD Work Phone: [facility] Work Phone: 04-14-2020 pneumococcal polysaccharide vaccine, 23 valent Anjum Diggs MD Work Phone: [facility] Work Phone: 04-08-2019 influenza, injectabl e, quadrivalent, preservative free Anjum Diggs MD Work Phone: [facility] 03-26-2012 zoster vaccine, live Anjum pierre MD Work Phone: [facility] Payers Date Payer Category Payer Medicaid [id number] 2020 Medicaid [employer] [id number] 2020-[facility] [phone] [address] Medicaid [id number] 2020 Medicaid [id number] 2020 Medicaid [id number] Social History Date Type Detail Facility Start: 01-29-2018 End: 01-26-2023 Tobacco smoking status NHIS Ex-smoker [facility] End: 03-12-2017 History of tobacco use Current smoker [facility] End: 03-12-2017 History of tobacco use Cigarette Smoker [facility] Start: 01-29-2018 End: 09-18-2022 Cigarettes smoked current (pack per day) - Reported 0.5 [facility] Start: 01-29-2018 End: 01-26-2023 Tobacco use and exposure Smokeless tobacco non-user [facility] Start: 05-10-2021 End: 02-06-2023 Alcohol intake Current drinker of alcohol (finding) [facility] Start: 05-10-2021 History SDOH Alcohol Frequency 98 [facility] Start: 05-09-2021 History SDOH Alcohol Comment Social [facility] Start: 05-10-2021 History SDOH Social Connections Phone 5 [facility] Start: 05-10-2021 History SDOH Social Connections Membership 1 [facility] Start: 05-10-2021 History SDOH Physica l Activity MPS 6 [facility] Start: 05-10-2021 History SDOH Stress 2 [facility] Start: 05-10-2021 History SDOH Food Worry 3 [facility] Start: 07-07-2019 Education 12 [facility] Start: 1960 Sex Assigned At Not on file [facility] Start: 04-09-2021 End: 12-20-2021 Exposure to SARS-CoV-2 (event) Not sure [facility] Start: 06-25-2021 End: 07-05-2021 Exposure to SARS-CoV-2 (event) Unable to assess [facility] Work Phone: Start: 12-13-2020 End: 03-21-2022 Alcohol intake Ex-drinker (finding) [facility] Start: 05-25-2022 Alcohol Comment Rarely [facility] Start: 12-20-2021 End: 09-18-2022 Social connection and isolation panel [facility] Do you belong to any clubs or organizations such as moravian groups, unions, fraternal or athletic groups, or school groups? Yes [facility] Are you now , , , , never or living with a partner? [facility] How often to you hav e a drink containing alcohol? Never [facility] How many standard dr inks containing alcohol do you have on a typical day? Patient does not drink [facility] How hard is it for y ou to pay for the very basics like food, housing, medical care, and heating Somewhat hard [facility] Do you feel stress - tense, restless, nervous, or anxious, or unable to sleep at night because your mind is troubled all the time - these days [OSQ] Only a little [facility] (I/We) worried wheth er (my/our) food would run out before (I/we) got money to buy more. Often true [facility] The food that (I/we) bought just didn't last, and (I/we) didn't have money to get more. Sometimes true [facility] In the past 12 month s, was there a time when you were not able to pay the mortgage or rent on time? No [facility] Medical Equipment Procedure Code Equipment Code Equipment Original Text Equipment Identifier Dates Lazic Clip 7mm P erm Light Cvd L-Clip [id number] Start: 04-08-2019 Patch Durepair B ovine Collagen Matrix 2x2in Dural Resorbable Duraplasty - [id number] Start: 04-08-2019 Mesh Standard Go ld Titanium 90x90x.6mm Dynamic Craniomaxillofacial - [id number] Start: 04-08-2019 Screw 1.5mm 4mm Bone Self Drill Cross Pin Craniomaxillofacial - [id number] Start: 04-08-2019 Clinical Notes 11-05-2017 to 03-19-2023 Stacie Rincon RN - 02/19/2023 2:32 PM Adelaida Carpio MD - 01/26/2023 3:15 PM Fabby Latham APRN.SENIOR POLICY ANALYST - 01/25/2023 9:07 AM Rosa Maria Connell MD - 01/22/2023 12:18 PM EST Note Date & Type Note Facility 03-19-2023 Note HNO ID: [id number] Author: ROSA MARIA KELLY MD Service: ? Author Type: Physician Type: Progress Notes Filed: 03/19/2023 12:14 Note Text: Rosa Maria Kelly MD Interventional Cardiology [address] [place] [address] [id number] Chief Complaint Patient presents with: Follow Up HISTORY OF PRESENT ILLNESS: Ms. Pandey is a 63 year old female seen in my office for follow-up and assessment of her cardiovascular testing patient had prior history of intracranial aneurysm required coiling and eventually surgical clipping she has been having recurrent episodes of sudden dizziness Holter monitor was ordered shows no evidence of arrhythmias just premature ectopics and ventricular ectopics Cardiac Risk Factors age (male over 45, female over 55), family history of CAD PAST MEDICAL HISTORY Diagnosis Date At risk for sleep apnea 05/10/2021 Chest pain 05/10/2021 Depression Emphysema lung (HCC) Fibromyalgia HTN (hypertension) Inguinal hernia 2019 Intracranial aneurysm 2018 Cerebral clip PAST SURGICAL HISTORY Procedure Laterality Date COLONOSCOPY 2000 HYSTERECTOMY PAST SURGICAL HISTORY OF 10/2018 Titanium coil and stent instertion for intracranial aneurysm PAST SURGICAL HISTORY OF 03/2019 brain aneurysm repair PAST SURGICAL HISTORY OF Rotator cuff repair FAMILY HISTORY Problem Relation Age of Onset other (Aortic aneurysm) Mother Melanoma Father Stroke Father Anesthesia Problems No Family History Social History Tobacco Use Smoking status: Former Packs/day: 0.50 Years: 45.00 Additional pack years: 0.00 Total pack years: 22.50 Types: Cigarettes Quit date: 2017 Years since quittin.0 Smokeless tobacco: Never Vaping Use Vaping Use: Never used Substance Use Topics Alcohol use: Yes Comment: Rarely Drug use: Not Currently Types: Cocaine ALLERGIES Allergen Reactions Cymbalta [Duloxetin* Diarrhea Severe diarrhea Topamax [Topiramate] Mental Status Change Terrible confusion Bactrim [Sulfametho* Other: See Comments Yeast Infection Sulfamethoxazole Other: See Comments Yeast Infection Sulfites Other: See Comments Yeast Infection Medications: Current Outpatient Medications Medication Sig Dispense Refill omeprazole (PRILOSEC) 20 mg capsule Take 1 capsule by mouth daily before breakfast. 90 capsule 1 promethazine (PHENERGAN) 12.5 mg tablet Take 1 tablet by mouth every 6 hours as needed for nausea/vomiting. 20 tablet 0 mometasone (NASONEX) 50 mcg/actuation nasal spray Use 2 Sprays in the nose once daily. Rinse mouth after use. 17 g 2 multivitamin tablet Take 1 tablet by mouth once daily. 90 tablet 3 traMADol (ULTRAM) 50 mg tablet Take 1 tablet by mouth every 8 hours as needed for pain for up to 90 days. 60 per month; with 2 refills this prescription is for up to 90 days 60 tablet 2 albuterol HFA (VENTOLIN HFA) 90 mcg/actuation inhaler Inhale 2 Puffs as instructed every 4 hours as needed for wheezing/shortness of breath. 1 Each 0 ondansetron (ZOFRAN) 4 mg tablet Take 1 tablet by mouth every 8 hours as needed for nausea/vomiting. 30 tablet 0 methocarbamol (ROBAXIN) 750 mg tablet Take 1 tablet by mouth three times daily as needed (Neck pain/soreness). 40 tablet 2 naproxen (NAPROSYN) 500 mg tablet Take 1 tablet by mouth twice daily as needed for pain (for pain/inflammation). Take with food. 60 tablet 0 Ceramides 1,3,6-11 (CERAVE) clsr Apply 1 application to affected area once daily. 355 mL 4 ceramides 1,3,6-II (CERAVE) Apply to affected area as needed. 453 g 5 sucralfate (CARAFATE) 1 gram tablet Take 1 tablet by mouth before meals and at bedtime. (Patient not taking: Reported on 01/25/2023) 56 tablet 0 No current facility-administered medications for this visit. Review of Systems Constitutional: Negative for chills, diaphoresis, fever, malaise/fatigue and weight loss. HENT: Negative for congestion, ear discharge, ear pain, hearing loss, nosebleeds, sinus pain, sore throat and tinnitus. Eyes: Negative for blurred vision, double vision, photophobia, pain, discharge and redness. Respiratory: Negative for cough, hemoptysis, sputum production, shortness of breath, wheezing and stridor. Cardiovascular: Negative for chest pain, palpitations, orthopnea, claudication, leg swelling and PND. Gastrointestinal: Negative for abdominal pain, blood in stool, constipation, diarrhea, heartburn, melena, nausea and vomiting. Genitourinary: Negative for dysuria, flank pain, frequency, hematuria and urgency. Musculoskeletal: Negative for back pain, falls, joint pain, myalgias and neck pain. Skin: Negative for itching and rash. Neurological: Negative for dizziness, tingling, tremors, sensory change, speech change, focal weakness, seizures, loss of consciousness, weakness and headaches. Endo/Heme/Allergies: Negative for environmental allergies and polydipsia. Does not bruise/bleed easily. Psychiatric/Behavio (more content not included)... [facility] 03-13-2023 Note HNO ID: [id number] Author: Eddi Rico RT(R) Service: Nuclear Medicine Author Type: Technologist Type: Progress Notes Filed: 03/13/2023 1:09 PM Note Text: RADIOLOGY SERVICE PROGRESS NOTE SERVICE DATE: 03/13/2023 SERVICE TIME: 1:06 PM PATIENT IDENTITY VERIFICATION COMPLETED USING TWO (2) STANDARD IDENTIFIERS: Name and Date of confirmed by patient verbally FALL SCREENING: Has the patient had 2 falls in the last year or 1 fall with injury or currently using an Ambulatory Assistive Device (Walker, Cane, Wheelchair, Crutches, etc.)? No PATIENT GENDER DATA: .female : No ALLERGIES: Reviewed and unchanged MEDICATIONS REVIEWED: Yes PATIENT RELEVANT IMPLANT DATA REVIEWED: Not Applicable CREATININE: Creatinine Date Value Ref Range Status 01/02/2023 0.56 (L) 0.58 - 0.96 mg/dL Final 12/08/2022 0.47 (L) 0.51 - 0.95 mg/dL Final Comment: Patients receiving either N-Acetylcysteine (NAC) or Metamizole prior to venipuncture, may have falsely depressed results. 12/07/2022 0.50 (L) 0.51 - 0.95 mg/dL Final Comment: Patients receiving either N-Acetylcysteine (NAC) or Metamizole prior to venipuncture, may have falsely depressed results. Estimated Glomerular Filtration Rate Date Value Ref Range Status 01/02/2023 103 >=60 mL/min/1.73m? Final Comment: Estimated Glomerular Filtration Rate (eGFR) is calculated using the 2020 CKD-EPI creatinine equation. This equation utilizes serum creatinine, sex, and age as parameters. The creatinine assay has traceable calibration to isotope dilution-mass spectrometry. Refer to KDIGO guidelines for clinical interpretation. In patients with unstable renal function, e.g. those with acute kidney injury, the eGFR may not accurately reflect actual GFR. eGFR- Date Value Ref Range Status 10/15/2020 >60 Final P.O.C.T. RESULTS: N/A March 13, [address] PERFORMED: No IV SITE: Ambulatory: NM only - direct IV injection in the Right antecubital site POST EXAM PIV STATUS: Not applicable PROCEDURE TYPE: NM INJECT: PET/CT BODY SCAN. 8.3 mCi F18 FDG. No other medications given.. ADMINISTRATION TIME: 1308 PATIENT DISCHARGED TO: Ambulatory patient, left NM department area. A Diagnostic radioactive procedure has taken place, with no further precautions necessary other than routine body substance precautions. More information regarding radiation safety can be found using this link: [email or web address] SIGNATURE: Eddi Rico RT(R) PATIENT NAME: Gloria Pandey DATE: March 13, 2023 TIME: 1:06 PM PAGER/CONTACT #: [facility] 02-21-2023 Note Patient Outreach (IN TMMN) HOLLIGLORIA ([id number]) 1960 F Date Time Provider Department 02/21/23 ANJUM DIGGS During your visit today, we recorded the following information about you: Allergies As of Date: 02/21/2023 Noted Allergy Reaction CYMBALTA (DULOXETINE) 07/07/2019 6 - Diarrhea Comments: Severe diarrhea TOPAMAX (TOPIRAMATE) 07/07/2019 1 - Mental Status Change Comments: Terrible confusion BACTRIM (SULFAMETHOXAZOLE-TRIMETH*2017 14 - Other: See Comments Comments: Yeast Infection SULFAMETHOXAZOLE 11/04/2017 14 - Other: See Comments Comments: Yeast Infection SULFITES 11/04/2017 14 - Other: See Comments Comments: Yeast Infection Date Reviewed: 01/26/2023 Reviewed by: Adelaida Anderson MD - Fully Assessed Visit Diagnosis:Encounter for screening mammogram for breast cancer [Z12.31] Order(s):[facility] SCREENING [[id number]] Order #: [id number] FUTURE Prescriptions as of 02/26/2023 - omeprazole (PRILOSEC) 20 mg capsule Take 1 capsule by mouth daily before breakfast. - sucralfate (CARAFATE) 1 gram tablet Take 1 tablet by mouth before meals and at bedtime. - promethazine (PHENERGAN) 12.5 mg tablet Take 1 tablet by mouth every 6 hours as needed for nausea/vomiting. - mometasone (NASONEX) 50 mcg/actuation nasal spray Use 2 Sprays in the nose once daily. Rinse mouth after use. - multivitamin tablet Take 1 tablet by mouth once daily. - traMADol (ULTRAM) 50 mg tablet Take 1 tablet by mouth every 8 hours as needed for pain for up to 90 days. 60 per month; with 2 refills this prescription is for up to 90 days - albuterol HFA (VENTOLIN HFA) 90 mcg/actuation inhaler Inhale 2 Puffs as instructed every 4 hours as needed for wheezing/shortness of breath. - ondansetron (ZOFRAN) 4 mg tablet Take 1 tablet by mouth every 8 hours as needed for nausea/vomiting. - methocarbamol (ROBAXIN) 750 mg tablet Take 1 tablet by mouth three times daily as needed (Neck pain/soreness). - naproxen (NAPROSYN) 500 mg tablet Take 1 tablet by mouth twice daily as needed for pain (for pain/inflammation). Take with food. - Ceramides 1,3,6-11 (CERAVE) clsr Apply 1 application to affected area once daily. - ceramides 1,3,6-II (CERAVE) Apply to affected area as needed. Problem List As Of Date 02/21/2023 Noted Resolved Cerebral aneurysm without rupture [I67.1] 11/04/2017 01/12/2023 Alcohol abuse [F10.10] 11/04/2017 Cocaine abuse (HCC) [F14.10] 11/04/2017 11/06/2017 Bilateral leg numbness [R20.0] 11/05/2017 11/06/2017 Former smoker [Z87.891] 11/05/2017 Unruptured cerebral aneurysm [I67.1] 11/04/2017 01/12/2023 Post-procedural headache [T81.89XA, R51.9] 02/12/2018 Intractable migraine without aura and without s*02/12/2018 Anxiety and depression [F41.9, F32.A] 03/31/2019 Aneurysm of posterior inferior cerebellar arter*04/08/2019 01/12/2023 At risk for sleep apnea [Z91.89] 05/10/2021 Chest pain [R07.9] 05/10/2021 Cerebral aneurysm [I67.1] 03/31/2022 01/12/2023 SIRS (systemic inflammatory response syndrome) *12/08/2022 12/08/2022 Tachycardia [R00.0] 12/08/2022 12/08/2022 Intractable nausea and vomiting [R11.2] 12/08/2022 12/08/2022 Dehydration [E86.0] 12/08/2022 12/08/2022 Encounter Status:Closed by EPIC, PRODUSER on 02/26/23 [facility] 02-19-2023 Note HNO ID: [id number] Author: Stacie Rincon RN Service: ? Author Type: Registered Nurse Type: Progress Notes Filed: 02/19/2023 2:33 PM Note Text: Due to physical limitations patient unable to complete stress Echo. Dr. Kelly notified. Stacie Rincon RN [facility] 02-19-2023 History of Presen t illness Narrative Due to physical limitations patient unable to complete stress Echo. Dr. Kelly notified. Stacie Rincon RN documented in this encounter [facility] 02-06-2023 Note HNO ID: [id number] Author: Maria T Padilla RPFT Service: ? Author Type: Respiratory Therapist Type: Progress Notes Filed: 02/06/2023 2:24 PM Note Text: PULM FUNCTION SMARTBLOCK: Provider: Adelaida Anderson MD Assisting Tech: Adelaida Anderson MD Spirometry w/BD: 1 DLCO: 1 LV - Box: 1 [facility] 01-26-2023 Note HNO ID: [id number] Author: Adelaida Anderson MD Service: ? Author Type: Physician Type: Progress Notes Filed: 01/26/2023 6:01 PM Note Text: . Respiratory [place] Note Patient name: Gloria Pandey PCP: Anjum Diggs MD Referring Physician: Fabby Carter CNP Consultation requested by Fabby Carter for an opinion regarding lung nodule. My final recommendations will be communicated back to the requesting physician by way of shared Medical record or letter to requesting physician via US mail. CC: lung nodule HPI: Gloria A Malavite 62 year old female former [id number] smoker, quitting in 2018 with PMH significant for fibromyalgia, cerebral aneurysm, HTN with incidental note of lung nodule. Recently seen by her PCP for left upper arm pain, patient states it felt like a tooth ache. Associated chest pain and fluttering in chest. Chest CT pertinent for a 2 x 1.3 x 2.4 cm RLL spiculated nodule/infiltrate. Pending PET scan. She has had chronic cough without much mucus production. Denies any shortness of breath or wheezing. No weight loss. No recent upper respiratory infection or pneumonia. She is being evaluated by cardiology and currently has a Zio patch in place. Other symptoms consist of intermittent dizziness and nausea and vomiting. DATA: PFT: None on file Labs: Component Ref Range AND Units 1 mo ago (12/07/22) WBC 3.70 - 11.00 k/uL 12.37 High RBC 3.90 - 5.20 m/uL 4.90 Hemoglobin 11.5 - 15.5 g/dL 14.6 Hematocrit 36.0 - 46.0 % 42.3 MCV 80.0 - 100.0 fL 86.3 MCH 26.0 - 34.0 pg 29.8 MCHC 30.5 - 36.0 g/dL 34.5 RDW-CV 11.5 - 15.0 % 13.6 Platelet Count 150 - 400 k/uL 368 MPV 9.0 - 12.7 fL 8.8 Low Neutrophils % % 89.1 Abs Neut 1.45 - 7.50 k/uL 11.02 High Lymphocytes % % 7.6 Abs Lymph 1.00 - 4.00 k/uL 0.94 Low Monocytes % % 2.8 Abs Gilliam <0.87 k/uL 0.35 Eosinophils % % 0.0 Abs Eosin <0.46 k/uL <0.03 Basophils % % 0.1 Abs Baso <0.11 k/uL <0.03 Immature Granulocytes % % 0.4 Abs Immature Gran <0.10 k/uL 0.05 NRBC /100 WBC 0.0 Absolute nRBC <0.01 k/uL <0.01 Diff Type Auto Imaging / Diagnostic Studies: DATE OF EXAM: Jan 19 2023 8:27AM [facility] [id number] - CT CHEST WO IVCON / EXAMINATION: CHEST CT WITHOUT CONTRAST CLINICAL HISTORY: Possible nodule in the RIGHT midlung seen on chest radiograph on 12/07/2022. Comparison: Chest radiograph on 12/07/2022. RESULT: Limitations: None. Lines, tubes, and devices: None. Lung parenchyma and airways: Moderate centrilobular emphysema. Spiculated bilobed 2.0 x 1.3 x 2.4 cm nodule the superior segment of the RIGHT lower lobe that abuts the oblique fissure. Nodule in the superior segment of the RIGHT lower lobe on series 6 image 87. Mild bilateral lower lobe atelectasis. Pleural space: No pleural effusion. No pleural thickening. Lower neck, lymph nodes, and mediastinum: The imaged thyroid gland is normal. No lymphadenopathy in the supraclavicular, axillary, mediastinal, or hilar regions. Heart, pericardium, and thoracic vessels: The thoracic aorta and main pulmonary artery are normal in caliber. The cardiac chambers are normal in size. No coronary artery atherosclerotic calcifications are noted, although the study is not optimized for coronary assessment. No pericardial effusion or thickening. Bones and soft tissues: No destructive bone lesion. Chest wall is unremarkable. Upper abdomen: No abnormality in the imaged upper abdomen. IMPRESSION: 1. Superior segment RIGHT lower lobe bilobed nodule with features highly suspicious for pulmonary neoplasm. Fleischner Society recommends PET/CT, biopsy, or close CT follow-up. Biopsy and/or PET/CT is suggested in this case given suspicious features and persistence from chest radiograph performed over one month prior. 2. Moderate centrilobular emphysema. I personally reviewed the images as well as with the patient shows a suspicious right lower lobe spiculated/lobulated nodule/infiltrate, prominent nodes with fatty hilum PAST MEDICAL HISTORY Diagnosis Date At risk for sleep apnea 05/10/2021 Chest pain 05/10/2021 Depression Fibromyalgia Inguinal hernia 2020 Intracranial aneurysm ALLERGIES Allergen Reactions Bactrim [Sulfametho* Other: See Comments Yeast Infection Cymbalta [Duloxetin* Diarrhea Severe diarrhea Sulfamethoxazole Other: See Comments Yeast Infection Sulfites Other: See Comments Yeast Infection Topamax [Topiramate] Mental Status Change Terrible confusion omeprazole (PRILOSEC) 20 mg capsuleTake 1 capsule by mouth daily before breakfast.Disp: 90 capsuleRfl: 1 sucralfate (CARAFATE) 1 gram tabletTake 1 tablet by mouth before meals and at bedtime.Disp: 56 tabletRfl: 0 (Patient not taking: Reported on 01/25/2023) promethazine (PHENERGAN) 12.5 mg tabletTake 1 tablet by mouth every 6 hours as needed for nausea/vomiting.Disp: 20 table (more content not included)... [facility] 01-26-2023 History of Presen t illness Narrative Images from the original note were not included. . Respiratory [facility]ay[facility] Note Patient name: Gloria Pandey PCP: Anjum Diggs MD Referring Physician: Fabby Carter CNP Consultation requested by Fabby Carter for an opinion regarding lung nodule. My final recommendations will be communicated back to the requesting physician by way of shared Medical record or letter to requesting physician via US mail. CC: lung nodule HPI: Gloria Pandey 62 year old female former [id number] smoker, quitting in 2018 with PMH significant for fibromyalgia, cerebral aneurysm, HTN with incidental note of lung nodule. Recently seen by her PCP for left upper arm pain, patient states it felt like a tooth ache. Associated chest pain and fluttering in chest. Chest CT pertinent for a 2 x 1.3 x 2.4 cm RLL spiculated nodule/infiltrate. Pending PET scan. She has had chronic cough without much mucus production. Denies any shortness of breath or wheezing. No weight loss. No recent upper respiratory infection or pneumonia. She is being evaluated by cardiology and currently has a Zio patch in place. Other symptoms consist of intermittent dizziness and nausea and vomiting. DATA: PFT: None on file Labs: Component Ref Range & Units 1 mo ago (12/07/22) WBC 3.70 - 11.00 k/uL 12.37 High RBC 3.90 - 5.20 m/uL 4.90 Hemoglobin 11.5 - 15.5 g/dL 14.6 Hematocrit 36.0 - 46.0 % 42.3 MCV 80.0 - 100.0 fL 86.3 MCH 26.0 - 34.0 pg 29.8 MCHC 30.5 - 36.0 g/dL 34.5 RDW-CV 11.5 - 15.0 % 13.6 Platelet Count 150 - 400 k/uL 368 MPV 9.0 - 12.7 fL 8.8 Low Neutrophils % % 89.1 Abs Neut 1.45 - 7.50 k/uL 11.02 High Lymphocytes % % 7.6 Abs Lymph 1.00 - 4.00 k/uL 0.94 Low Monocytes % % 2.8 Abs Gilliam <0.87 k/uL 0.35 Eosinophils % % 0.0 Abs Eosin <0.46 k/uL <0.03 Basophils % % 0.1 Abs Baso <0.11 k/uL <0.03 Immature Granulocytes % % 0.4 Abs Immature Gran <0.10 k/uL 0.05 NRBC /100 WBC 0.0 Absolute nRBC <0.01 k/uL <0.01 Diff Type Auto Imaging / Diagnostic Studies: DATE OF EXAM: Jan 19 2023 8:27AM [facility] [id number] - CT CHEST WO IVCON / EXAMINATION: CHEST CT WITHOUT CONTRAST CLINICAL HISTORY: Possible nodule in the RIGHT midlung seen on chest radiograph on 12/07/2022. Comparison: Chest radiograph on 12/07/2022. RESULT: Limitations: None. Lines, tubes, and devices: None. Lung parenchyma and airways: Moderate centrilobular emphysema. Spiculated bilobed 2.0 x 1.3 x 2.4 cm nodule the superior segment of the RIGHT lower lobe that abuts the oblique fissure. Nodule in the superior segment of the RIGHT lower lobe on series 6 image 87. Mild bilateral lower lobe atelectasis. Pleural space: No pleural effusion. No pleural thickening. Lower neck, lymph nodes, and mediastinum: The imaged thyroid gland is normal. No lymphadenopathy in the supraclavicular, axillary, mediastinal, or hilar regions. Heart, pericardium, and thoracic vessels: The thoracic aorta and main pulmonary artery are normal in caliber. The cardiac chambers are normal in size. No coronary artery atherosclerotic calcifications are noted, although the study is not optimized for coronary assessment. No pericardial effusion or thickening. Bones and soft tissues: No destructive bone lesion. Chest wall is unremarkable. Upper abdomen: No abnormality in the imaged upper abdomen. IMPRESSION: 1. Superior segment RIGHT lower lobe bilobed nodule with features highly suspicious for pulmonary neoplasm. Fleischner Society recommends PET/CT, biopsy, or close CT follow-up. Biopsy and/or PET/CT is suggested in this case given suspicious features and persistence from chest radiograph performed over one month prior. 2. Moderate centrilobular emphysema. I personally reviewed the images as well as with the patient shows a suspicious right lower lobe spiculated/lobulated nodule/infiltrate, prominent nodes with fatty hilum PAST MEDICAL HISTORY Diagnosis Date At risk for sleep apnea 05/10/2021 Chest pain 05/10/2021 Depression Fibromyalgia Inguinal hernia 2019 Intracranial aneurysm ALLERGIES Allergen Reactions Bactrim [Sulfametho* Other: See Comments Yeast Infection Cymbalta [Duloxetin* Diarrhea Severe diarrhea Sulfamethoxazole Other: See Comments Yeast Infection Sulfites Other: See Comments Yeast Infection Topamax [Topiramate] Mental Status Change Terrible confusion omeprazole (PRILOSEC) 20 mg capsule^Take 1 capsule by mouth daily before breakfast.^Disp: 90 capsule^Rfl: 1 sucralfate (CARAFATE) 1 gram tablet^Take 1 tablet by mouth before meals and at bedtime.^Disp: 56 tablet^Rfl: 0 (Patient not taking: Reported on 01/25/2023) promethazine (PHENERGAN) 12.5 mg tablet^Take 1 tablet by mouth every 6 hours as needed for nausea/vomiting.^Disp: 20 tablet^Rfl: 0 mometasone (NASONEX) 50 mcg/actuation nasal spray^Use 2 Sprays in the nose once daily. Rinse mouth after use.^Disp: 17 g^Rfl: 2 multivitamin tablet^Take 1 tablet by mouth once daily.^Disp: 90 tablet^Rfl: 3 traMADol (ULTRAM) 50 mg tablet^Take 1 tablet by mouth every 8 hours as needed for pain for up to 90 days. 60 per month; with 2 refills this prescription is for up to 90 days^Disp: 60 tablet^Rfl: 2 albuterol HFA (VENTOLIN HFA) 90 mcg/actuation inhaler^Inhale 2 Puffs as instructed every 4 hours as needed for wheezing/shortness of breath.^Disp: 1 Each^Rfl: 0 ondansetron (ZOFRAN) 4 mg tablet^Take 1 tablet by mouth every 8 hours as needed for nausea/vomiting.^Disp: 30 tablet^Rfl: 0 methocarbamol (ROBAXIN) 750 mg tablet^Take 1 tablet by mouth three times daily as needed (Neck pain/soreness).^Disp: 40 tablet^Rfl: 2 naproxen (NAPROSYN) 500 mg tablet^Take 1 tablet by mouth twice daily as needed for pain (for pain/inflammation). Take with food.^Disp: 60 tablet^Rfl: 0 Ceramides 1,3,6-11 (CERAVE) clsr^Apply 1 application to affected area once daily.^Disp: 355 mL^Rfl: 4 ceramides 1,3,6-II (CERAVE)^Apply to affected area as needed.^Disp: 453 g^Rfl: 5 Social History Tobacco Use Smoking status: Former Packs/day: .5 Types: Cigarettes Quit date: 2017 Years since quittin.8 Smokeless tobacco: Never Vaping Use Vaping Use: Never used Substance Use Topics Alcohol use: Yes Comment: Rarely Drug use: Not Currently Types: Cocaine FAMILY HISTORY Problem Relation Age of Onset Aneurysm Mother Melanoma Father Stroke Father Anesthesia Problems No Family History PAST SURGICAL HISTORY Procedure Laterality Date COLONOSCOPY 2000 HYSTERECTOMY PAST SURGICAL HISTORY OF 10/2018 Titanium coil and stent instertion for intracranial aneurysm PAST SURGICAL HISTORY OF 03/2019 brain aneurysm repair PAST SURGICAL HISTORY OF Rotator cuff repair PMH, Social history, family history and surgical history reviewed and updated in EMR REVIEW OF SYSTEMS: CONSTITUTIONAL: No fevers, chills, nightsweats, unintended weight loss HEENT: Denies headaches, nasal congestion/sinus symptoms, allergy problems. EYES: No diplopia or blurry vision. CARDIOVASCULAR: No chest pain, dyspnea, palpitations, orthopnea, PND,edema. PULM: See HPI GI: No dysphagia/odynophagia, problematic reflux. Nausea with vomiting but no abdominal pain : No dysuria, gross hematuria or pyuria. NEURO: No peripheral weakness/paresthesias or numbness of concern. Dizzy spells MUSC-SKEL: No new joint pain, swelling, or erythema. PSY: No concerns regarding depression, anxiety INTEGUMENTARY: No new skin changes or rashes PHYSICAL EXAMINATION: Wt 57.2 kg, BP 144/90, pulse 102, RR 16 SpO2 98% General Appearance: Age-appropriate female, NAD. Skin: Skin color, texture, turgor normal, no suspicious rashes or lesions. Head: Normocephalic, no masses, lesions, tenderness or abnormalities. Eyes: Sclera, conjunctiva normal. Oropharynx: Upper plate, no oral lesions. Neck: No JVD, no masses no thyromegaly. Lungs: Not labored, normal to percussion, no wheezes or crackles. Heart: Regular rate and rhythm, no murmurs or gallops. Extremities: No edema or clubbing. Musculoskeletal: No joint deformities or effusions. Neurologic: Alert and oriented, no focal findings. Lymph Nodes: No cervical lymphadenopathy and No supraclavicular lymphadenopathy. Assessment/Plan: 1. Lung nodule -Size and contour concerning for possible bronchogenic carcinoma -Pending PET scan which will guide biopsy site -If activity only contained to chest, would recommend EBUS biopsy 2. Centrilobular emphysema -Emphysema noted on CT -Pulmonary function tests -Continue smoking cessation 3. Former cigarette smoker -Former smoker with sequelae of emphysema -Continue abstinence Adelaida Anderson MD Respiratory [facility] documented in this encounter [facility] 01-25-2023 Note HNO ID: [id number] Author: Fabby Carter APRN.SENIOR POLICY ANALYST Service: ? Author Type: Nurse Specialist Type: Progress Notes Filed: 02/06/2023 1:17 PM Note Text: SUBJECTIVE: Pap Testing Never done HPV Testing Never done Colorectal Cancer Screening Never done RSV Vaccine(1 - 1-dose 60+ series) Never done Mammogram Screening due on 10/04/2021 HPI Gloria Pandey is a 62 year old female. PMH significant for ACTIVE PROBLEM LIST Alcohol Abuse Former Smoker Post-Procedural Headache Intractable Migraine Without Aura and Without Status Migrainosus Anxiety and Depression At Risk for Sleep Apnea Chest Pain HPI excerpted from previous visits: She notes neck pain and lower occipital area and right shoulder with acute sharp pain that is intermittent lasting seconds to minutes. Can radiate from her shoulder down to her right shoulder blade. Nothing seems to aggravate or alleviate this for her. Passes without intervention. Has taken tramadol but does not seem to be helping much. Pain is described as sharp and shooting of moderate intensity. At times severe enough to make her feel nauseous. She reports no vision speech or mobility problems. Has not taken Robaxin. Presents for emergency department follow-up visit. She was seen at [facility] December 29, 2022 for intractable nausea and vomiting abdominal pain and lightheadedness. Concern for acute pancreatitis. Initial lipase December 29, 2022 was elevated at 164, normalized with recheck on December 30, 2022. Hypokalemia noted. Sodium and chloride elevated. She reports no further nausea vomiting or RUQ abdominal pain. Notes zofran did not seem to work when occurring. Notes eating a mild diet. CXR-[facility] December 07 showed right lung nodule, follow-up CT recommended. Former smoker. Presents today noting she is not sure if she needs gallbladder surgery. She reports GERD symptoms today. Not sure if she has had heartburn. Has had nausea but no vomiting. Continues with right upper quadrant discomfort. Notes this can be sharp at times but mostly achy. She noted this was worse before breakfast recently. No report of BRBPR or black or tarry stools. No constipation or diarrhea reported. She has been eating a mild diet. She has noted intermittent lightheadedness. Reports drinking sufficient fluid. Since last seen she had a cardiology visit with Dr. Kelly. Echocardiogram ordered. ZIO is being completed. She notes GERD symptoms and abdominal pain seem resolved on PPI. Reports did not tolerate Carafate, gave her a dry mouth so stopped taking this. Follow-up CT chest has been completed for right lung nodule. She notes prolapse seems much worse and is interested in seeing urogynecology sooner than currently scheduled if possible. Review of Systems Constitutional: Negative. Gastrointestinal: Negative. Objective BP 130/86 Pulse 101 Resp 16 Wt 57.2 kg (126 lb) BMI 20.97 kg/m? Physical Exam Vitals and nursing note reviewed. Constitutional: Appearance: Normal appearance. HENT: Head: Normocephalic and atraumatic. Eyes: Conjunctiva/sclera: Conjunctivae normal. Neck: Thyroid: No thyromegaly. Vascular: Normal carotid pulses. No JVD. Cardiovascular: Rate and Rhythm: Normal rate and regular rhythm. Heart sounds: Normal heart sounds. Pulmonary: Effort: Pulmonary effort is normal. Breath sounds: Normal breath sounds. Abdominal: General: Bowel sounds are normal. There is no distension. Palpations: Abdomen is soft. There is no mass. Tenderness: There is no abdominal tenderness. There is no guarding. Skin: General: Skin is warm and dry. Neurological: General: No focal deficit present. Mental Status: She is alert. ALLERGIES Allergen Reactions Cymbalta [Duloxetin* Diarrhea Severe diarrhea Topamax [Topiramate] Mental Status Change Terrible confusion Bactrim [Sulfametho* Other: See Comments Yeast Infection Sulfamethoxazole Other: See Comments Yeast Infection Sulfites Other: See Comments Yeast Infection Medications: omeprazole (PRILOSEC) 20 mg capsule Take 1 capsule by mouth daily before breakfast. promethazine (PHENERGAN) 12.5 mg tablet Take 1 tablet by mouth every 6 hours as needed for nausea/vomiting. mometasone (NASONEX) 50 mcg/actuation nasal spray Use 2 Sprays in the nose once daily. Rinse mouth after use. multivitamin tablet Take 1 tablet by mouth once daily. traMADol (ULTRAM) 50 mg tablet Take 1 tablet by mouth every 8 hours as needed for pain for up to 90 days. 60 per month; with 2 refills this prescription is for up to 90 days albuterol HFA (VENTOLIN HFA) 90 mcg/actuation inhaler Inhale 2 Puffs as instructed every 4 hours as needed for wheezing/shortness of breath. ondansetron (ZOFRAN) 4 mg tablet Take 1 tablet by mouth every 8 hours as needed for nausea/vomiting. methocarbamol (ROBAXIN) 750 mg tablet Take 1 tablet by mouth three times daily as ne (more content not included)... [facility] 01-25-2023 History of Presen t illness Narrative SUBJECTIVE: Pap Testing Never done HPV Testing Never done Colorectal Cancer Screening Never done RSV Vaccine(1 - 1-dose 60+ series) Never done Mammogram Screening due on 10/04/2021 HPI Gloria Pandey is a 62 year old female. PMH significant for ACTIVE PROBLEM LIST Alcohol Abuse Former Smoker Post-Procedural Headache Intractable Migraine Without Aura and Without Status Migrainosus Anxiety and Depression At Risk for Sleep Apnea Chest Pain HPI excerpted from previous visits: She notes neck pain and lower occipital area and right shoulder with acute sharp pain that is intermittent lasting seconds to minutes. Can radiate from her shoulder down to her right shoulder blade. Nothing seems to aggravate or alleviate this for her. Passes without intervention. Has taken tramadol but does not seem to be helping much. Pain is described as sharp and shooting of moderate intensity. At times severe enough to make her feel nauseous. She reports no vision speech or mobility problems. Has not taken Robaxin. Presents for emergency department follow-up visit. She was seen at [facility] December 29, 2022 for intractable nausea and vomiting abdominal pain and lightheadedness. Concern for acute pancreatitis. Initial lipase December 29, 2022 was elevated at 164, normalized with recheck on December 30, 2022. Hypokalemia noted. Sodium and chloride elevated. She reports no further nausea vomiting or RUQ abdominal pain. Notes zofran did not seem to work when occurring. Notes eating a mild diet. CXR-[facility] December 07 showed right lung nodule, follow-up CT recommended. Former smoker. Presents today noting she is not sure if she needs gallbladder surgery. She reports GERD symptoms today. Not sure if she has had heartburn. Has had nausea but no vomiting. Continues with right upper quadrant discomfort. Notes this can be sharp at times but mostly achy. She noted this was worse before breakfast recently. No report of BRBPR or black or tarry stools. No constipation or diarrhea reported. She has been eating a mild diet. She has noted intermittent lightheadedness. Reports drinking sufficient fluid. Since last seen she had a cardiology visit with Dr. Kelly. Echocardiogram ordered. ZIO is being completed. She notes GERD symptoms and abdominal pain seem resolved on PPI. Reports did not tolerate Carafate, gave her a dry mouth so stopped taking this. Follow-up CT chest has been completed for right lung nodule. She notes prolapse seems much worse and is interested in seeing urogynecology sooner than currently scheduled if possible. Review of Systems Constitutional: Negative. Gastrointestinal: Negative. Objective BP 130/86 Pulse 101 Resp 16 Wt 57.2 kg (126 lb) BMI 20.97 kg/m Physical Exam Vitals and nursing note reviewed. Constitutional: Appearance: Normal appearance. HENT: Head: Normocephalic and atraumatic. Eyes: Conjunctiva/sclera: Conjunctivae normal. Neck: Thyroid: No thyromegaly. Vascular: Normal carotid pulses. No JVD. Cardiovascular: Rate and Rhythm: Normal rate and regular rhythm. Heart sounds: Normal heart sounds. Pulmonary: Effort: Pulmonary effort is normal. Breath sounds: Normal breath sounds. Abdominal: General: Bowel sounds are normal. There is no distension. Palpations: Abdomen is soft. There is no mass. Tenderness: There is no abdominal tenderness. There is no guarding. Skin: General: Skin is warm and dry. Neurological: General: No focal deficit present. Mental Status: She is alert. ALLERGIES Allergen Reactions Bactrim [Sulfametho* Other: See Comments Yeast Infection Cymbalta [Duloxetin* Diarrhea Severe diarrhea Sulfamethoxazole Other: See Comments Yeast Infection Sulfites Other: See Comments Yeast Infection Topamax [Topiramate] Mental Status Change Terrible confusion Medications: omeprazole (PRILOSEC) 20 mg capsule^Take 1 capsule by mouth daily before breakfast.^Disp: 90 capsule^Rfl: 1 promethazine (PHENERGAN) 12.5 mg tablet^Take 1 tablet by mouth every 6 hours as needed for nausea/vomiting.^Disp: 20 tablet^Rfl: 0 mometasone (NASONEX) 50 mcg/actuation nasal spray^Use 2 Sprays in the nose once daily. Rinse mouth after use.^Disp: 17 g^Rfl: 2 multivitamin tablet^Take 1 tablet by mouth once daily.^Disp: 90 tablet^Rfl: 3 traMADol (ULTRAM) 50 mg tablet^Take 1 tablet by mouth every 8 hours as needed for pain for up to 90 days. 60 per month; with 2 refills this prescription is for up to 90 days^Disp: 60 tablet^Rfl: 2 albuterol HFA (VENTOLIN HFA) 90 mcg/actuation inhaler^Inhale 2 Puffs as instructed every 4 hours as needed for wheezing/shortness of breath.^Disp: 1 Each^Rfl: 0 ondansetron (ZOFRAN) 4 mg tablet^Take 1 tablet by mouth every 8 hours as needed for nausea/vomiting.^Disp: 30 tablet^Rfl: 0 methocarbamol (ROBAXIN) 750 mg tablet^Take 1 tablet by mouth three times daily as needed (Neck pain/soreness).^Disp: 40 tablet^Rfl: 2 naproxen (NAPROSYN) 500 mg tablet^Take 1 tablet by mouth twice daily as needed for pain (for pain/inflammation). Take with food.^Disp: 60 tablet^Rfl: 0 Ceramides 1,3,6-11 (CERAVE) clsr^Apply 1 application to affected area once daily.^Disp: 355 mL^Rfl: 4 ceramides 1,3,6-II (CERAVE)^Apply to affected area as needed.^Disp: 453 g^Rfl: 5 sucralfate (CARAFATE) 1 gram tablet^Take 1 tablet by mouth before meals and at bedtime.^Disp: 56 tablet^Rfl: 0 (Patient not taking: Reported on 01/25/2023) PAST MEDICAL HISTORY Diagnosis Date At risk for sleep apnea 05/10/2021 Chest pain 05/10/2021 Depression Fibromyalgia Inguinal hernia 2020 Intracranial aneurysm Social History Tobacco Use Smoking status: Former Packs/day: .5 Types: Cigarettes Quit date: 2017 Years since quittin.8 Smokeless tobacco: Never Vaping Use Vaping Use: Never used Substance Use Topics Alcohol use: Yes Comment: Rarely Drug use: Not Currently Types: Cocaine Component Latest Ref Rng & Units 12/07/2022 12/08/2022 12/08/2022 12/08/2022 12/08/2022 1:18 AM 1:18 AM 6:06 AM 11:45 AM WBC 3.70 - 11.00 k/uL 12.37 (H) 13.88 (H) RBC 3.90 - 5.20 m/uL 4.90 4.39 Hemoglobin 11.5 - 15.5 g/dL 14.6 12.8 Hematocrit 36.0 - 46.0 % 42.3 38.4 MCV 80.0 - 100.0 fL 86.3 87.5 MCH 26.0 - 34.0 pg 29.8 29.2 MCHC 30.5 - 36.0 g/dL 34.5 33.3 RDW-CV 11.5 - 15.0 % 13.6 13.8 Platelet Count 150 - 400 k/uL 368 339 MPV 9.0 - 12.7 fL 8.8 (L) 8.8 (L) Neut% % 89.1 Abs Neut (ANC) 1.45 - 7.50 k/uL 11.02 (H) Lymph% % 7.6 Abs Lymph 1.00 - 4.00 k/uL 0.94 (L) Gilliam% % 2.8 Abs Gilliam <0.87 k/uL 0.35 Eosin% % 0.0 Abs Eosin <0.46 k/uL <0.03 Baso% % 0.1 Abs Baso <0.11 k/uL <0.03 Immature Gran % % 0.4 IMMATURE GRANS (ABS) <0.10 k/uL 0.05 NRBC /100 WBC 0.0 Absolute nRBC <0.01 k/uL <0.01 <0.01 DTYPE Auto Protein, Total 6.0 - 8.5 g/dL 7.7 6.2 Albumin 3.2 - 5.0 g/dL 4.5 3.6 Calcium 8.5 - 10.5 mg/dL 9.7 8.4 (L) Bilirubin, Total 0.2 - 1.0 mg/dL 0.4 0.4 Alkaline Phosphatase 45 - 117 U/L 86 65 AST 8 - 34 U/L 18 16 ALT 13 - 61 U/L 19 14 Glucose 70 - 100 mg/dL 131 (H) 98 BUN 7 - 26 mg/dL 14 9 Creatinine 0.51 - 0.95 mg/dL 0.50 (L) 0.47 (L) Sodium 136 - 145 mmol/L 140 144 Potassium 3.5 - 5.1 mmol/L 4.0 3.6 Chloride 98 - 107 mmol/L 105 112 (H) CO2 21 - 32 mmol/L 24 23 Anion Gap 5 - 16 mmol/L 11 9 eGFR >=60 mL/min/1.73m 106 108 Color Yellow Yellow Clarity Clear Clear Glucose, Urine Negative Negative Bilirubin, Urine Negative Negative Ketones, Urine Negative 1+ (A) Specific [place], Ur 1.005 - 1.030 1.012 Hemoglobin/Blood,Ur Negative 2+ (A) pH, Urine 5.0 - 8.0 6.0 Protein, Urine Negative Negative Urobilinogen Negative Negative Nitrites Negative Negative Leukest Negative Negative WBC, Urine 0-5 /HPF 0-5 /HPF RBC, Urine 0-3 /HPF 11-25 /HPF (A) Bacteria None Seen /HPF None Seen Epithelial Cells /HPF Few COVID 19 Result See comment Not detected Influenza A PCR Not Detected Not detected Influenza B PCR Not Detected Not detected RSV PCR Not Detected Not detected Lipase 12 - 60 U/L 43 CK 28 - 152 U/L 65 TROPONIN I HIGH SENSITIVITY 0.0 - 34.0 pg/mL 2.6 7.6 6.5 Lactate 0.4 - 2.0 mmol/L 0.8 Magnesium 1.6 - 2.6 mg/dL 2.0 1.9 Culture No growth 5 days No growth 5 days ASSESSMENT/PLAN: 1. Lung nodules - ICD9: 793.19, ICD10: R91.8 (primary diagnosis) 2. Former smoker - ICD9: V15.82, ICD10: Z87.[address] chest suspicious for pulmonary neoplasm. PET/CT, biopsy or close CT follow-up is recommended. Biopsy and/or PET/CT is suggested in this case given suspicious for features and persistence from chest radiograph performed over 1 month prior. Follow-up within 4 weeks recommended. - CONSULT TO PULM/CRITICAL CARE - NM PET/CT WHOLE BODY INITIAL 3. Gallbladder sludge - ICD9: 575.8, ICD10: K82.8 4. Gastroesophageal reflux disease, unspecified whether esophagitis present - ICD9: 530.81, ICD10: K21.9 5. Right upper quadrant pain - ICD9: 789.01, ICD10: R10.11 Improved with PPI treatment, continue for 2 to 3 months at least. 6. Vaginal prolapse N81.10 She notes this is much worse and interested in sooner appointment with Dr. Chon Carter APRN.CNS Medical Decision Making: Problems: Moderate: 1+ chronic illnesses with change Data: Unique test(s) ordered: 1 Risk: Moderate: Drug management Medical Decision Making Level: 4 - Moderate documented in this encounter [facility] 01-22-2023 Note HNO ID: [id number] Author: Rosa Maria Kelly MD Service: ? Author Type: Physician Type: Progress Notes Filed: 01/22/2023 12:25 PM Note Text: Rosa Maria Kelly MD Interventional Cardiology [address] [place] [address] Chief Complaint Patient presents with: Consult HISTORY OF PRESENT ILLNESS: Ms. Pandey is a 62 year old female seen in my office today for assessment of palpitation and lightheadedness patient had prior history of subarachnoid hemorrhage with cerebral aneurysms with failed coiling and eventually went for surgical clipping in 2018 over the last couple of few weeks and months she has been having recurrent episodes of what she describes as a spell where she feels extremely lightheaded with racing heart and she vomits 2 episode required evaluation at [facility] she is also experiencing recurrent episode of retrosternal chest pain and arm pain not exertional suspicion for possible underlying arrhythmia associated with palpitation No prior cardiac history no history of stent or bypass surgery in the past Cardiac Risk Factors age (male over 45, female over 55), history of smoking, family history of CAD PAST MEDICAL HISTORY Diagnosis Date At risk for sleep apnea 05/10/2021 Chest pain 05/10/2021 Depression Fibromyalgia Inguinal hernia 2019 Intracranial aneurysm PAST SURGICAL HISTORY Procedure Laterality Date COLONOSCOPY 2000 HYSTERECTOMY PAST SURGICAL HISTORY OF 10/2018 Titanium coil and stent instertion for intracranial aneurysm PAST SURGICAL HISTORY OF 03/2019 brain aneurysm repair PAST SURGICAL HISTORY OF Rotator cuff repair FAMILY HISTORY Problem Relation Age of Onset Aneurysm Mother Melanoma Father Stroke Father Anesthesia Problems No Family History Social History Tobacco Use Smoking status: Former Packs/day: .5 Types: Cigarettes Quit date: 2017 Years since quittin.8 Smokeless tobacco: Never Vaping Use Vaping Use: Never used Substance Use Topics Alcohol use: Yes Comment: Rarely Drug use: Not Currently Types: Cocaine ALLERGIES Allergen Reactions Bactrim [Sulfametho* Other: See Comments Yeast Infection Cymbalta [Duloxetin* Diarrhea Severe diarrhea Sulfamethoxazole Other: See Comments Yeast Infection Sulfites Other: See Comments Yeast Infection Topamax [Topiramate] Mental Status Change Terrible confusion Medications: Current Outpatient Medications Medication Sig Dispense Refill omeprazole (PRILOSEC) 20 mg capsule Take 1 capsule by mouth daily before breakfast. 90 capsule 1 sucralfate (CARAFATE) 1 gram tablet Take 1 tablet by mouth before meals and at bedtime. 56 tablet 0 promethazine (PHENERGAN) 12.5 mg tablet Take 1 tablet by mouth every 6 hours as needed for nausea/vomiting. 20 tablet 0 mometasone (NASONEX) 50 mcg/actuation nasal spray Use 2 Sprays in the nose once daily. Rinse mouth after use. 17 g 2 multivitamin tablet Take 1 tablet by mouth once daily. 90 tablet 3 traMADol (ULTRAM) 50 mg tablet Take 1 tablet by mouth every 8 hours as needed for pain for up to 90 days. 60 per month; with 2 refills this prescription is for up to 90 days 60 tablet 2 albuterol HFA (VENTOLIN HFA) 90 mcg/actuation inhaler Inhale 2 Puffs as instructed every 4 hours as needed for wheezing/shortness of breath. 1 Each 0 ondansetron (ZOFRAN) 4 mg tablet Take 1 tablet by mouth every 8 hours as needed for nausea/vomiting. 30 tablet 0 methocarbamol (ROBAXIN) 750 mg tablet Take 1 tablet by mouth three times daily as needed (Neck pain/soreness). 40 tablet 2 naproxen (NAPROSYN) 500 mg tablet Take 1 tablet by mouth twice daily as needed for pain (for pain/inflammation). Take with food. 60 tablet 0 Ceramides 1,3,6-11 (CERAVE) clsr Apply 1 application to affected area once daily. 355 mL 4 ceramides 1,3,6-II (CERAVE) Apply to affected area as needed. 453 g 5 Current Facility-Administered Medications Medication Dose Route Frequency Provider Last Rate Last Admin perflutren lipid microspheres 1.3 mL in NaCl (PF) 0.9% 10 mL injection (DEFINITY) INTRAVENOUS DIRECTED PRRosa Maria Perez MD sodium chloride 0.9 % (flush) 10 mL (BD POSIFLUSH) 10 mL INTRAVENOUS DIRECTED PRRosa Maria Perez MD perflutren lipid microspheres 1.3 mL in NaCl (PF) 0.9% 10 mL injection (DEFINITY) INTRAVENOUS DIRECTED PRRosa Maria Perez MD sodium chloride 0.9 % (flush) 10 mL (BD POSIFLUSH) 10 mL INTRAVENOUS DIRECTED Rosa Maria Nicole MD Review of Systems Constitutional: Negative for chills, diaphoresis, fever, malaise/fatigue and weight loss. HENT: Negative for congestion, ear discharge, ear pain, hearing loss, nosebleeds, sinus pain, sore throat and tinnitus. Eyes: Negative for blurred vision, double vision, photophobia, pain, discharge and redness. Respiratory: Positive for shortness of breath. Negative for cough, hemoptysis, sputum production, w (more content not included)... [facility] 01-22-2023 Note HNO ID: [id number] Author: Marcelina Elizondo RN Service: ? Author Type: Registered Nurse Type: Progress Notes Filed: 01/22/2023 12:25 PM Note Text: EVENT MONITOR DISPOSABLE PATCH INSTRUCTIONS Patient Name: Gloria Pandey Clinic Number: [id number] Skin prepped and cleansed with alcohol Patch secured to prepped area Monitor Activated Serial #: [id number] Patient Instructed: Prescribed order timeframe Bathing guidelines Usage of event button and diary documentation Return of monitor at the end of prescribed order Call with problems [phone] or [phone]. [phone] Patient expresses a good understanding of instructions Marcelina Elizondo RN [facility] 01-22-2023 History of Presen t illness Narrative Images from the original note were not included. Rosa Maria Kelly MD Interventional Cardiology [address] [place] [address] Chief Complaint Patient presents with: Consult HISTORY OF PRESENT ILLNESS: Ms. Pandey is a 62 year old female seen in my office today for assessment of palpitation and lightheadedness patient had prior history of subarachnoid hemorrhage with cerebral aneurysms with failed coiling and eventually went for surgical clipping in 2018 over the last couple of few weeks and months she has been having recurrent episodes of what she describes as a spell where she feels extremely lightheaded with racing heart and she vomits 2 episode required evaluation at [facility] she is also experiencing recurrent episode of retrosternal chest pain and arm pain not exertional suspicion for possible underlying arrhythmia associated with palpitation No prior cardiac history no history of stent or bypass surgery in the past Cardiac Risk Factors age (male over 45, female over 55), history of smoking, family history of CAD PAST MEDICAL HISTORY Diagnosis Date At risk for sleep apnea 05/10/2021 Chest pain 05/10/2021 Depression Fibromyalgia Inguinal hernia 2019 Intracranial aneurysm PAST SURGICAL HISTORY Procedure Laterality Date COLONOSCOPY 2000 HYSTERECTOMY PAST SURGICAL HISTORY OF 10/2018 Titanium coil and stent instertion for intracranial aneurysm PAST SURGICAL HISTORY OF 03/2019 brain aneurysm repair PAST SURGICAL HISTORY OF Rotator cuff repair FAMILY HISTORY Problem Relation Age of Onset Aneurysm Mother Melanoma Father Stroke Father Anesthesia Problems No Family History Social History Tobacco Use Smoking status: Former Packs/day: .5 Types: Cigarettes Quit date: 2018 Years since quittin.8 Smokeless tobacco: Never Vaping Use Vaping Use: Never used Substance Use Topics Alcohol use: Yes Comment: Rarely Drug use: Not Currently Types: Cocaine ALLERGIES Allergen Reactions Bactrim [Sulfametho* Other: See Comments Yeast Infection Cymbalta [Duloxetin* Diarrhea Severe diarrhea Sulfamethoxazole Other: See Comments Yeast Infection Sulfites Other: See Comments Yeast Infection Topamax [Topiramate] Mental Status Change Terrible confusion Medications: Current Outpatient Medications Medication Sig Dispense Refill omeprazole (PRILOSEC) 20 mg capsule Take 1 capsule by mouth daily before breakfast. 90 capsule 1 sucralfate (CARAFATE) 1 gram tablet Take 1 tablet by mouth before meals and at bedtime. 56 tablet 0 promethazine (PHENERGAN) 12.5 mg tablet Take 1 tablet by mouth every 6 hours as needed for nausea/vomiting. 20 tablet 0 mometasone (NASONEX) 50 mcg/actuation nasal spray Use 2 Sprays in the nose once daily. Rinse mouth after use. 17 g 2 multivitamin tablet Take 1 tablet by mouth once daily. 90 tablet 3 traMADol (ULTRAM) 50 mg tablet Take 1 tablet by mouth every 8 hours as needed for pain for up to 90 days. 60 per month; with 2 refills this prescription is for up to 90 days 60 tablet 2 albuterol HFA (VENTOLIN HFA) 90 mcg/actuation inhaler Inhale 2 Puffs as instructed every 4 hours as needed for wheezing/shortness of breath. 1 Each 0 ondansetron (ZOFRAN) 4 mg tablet Take 1 tablet by mouth every 8 hours as needed for nausea/vomiting. 30 tablet 0 methocarbamol (ROBAXIN) 750 mg tablet Take 1 tablet by mouth three times daily as needed (Neck pain/soreness). 40 tablet 2 naproxen (NAPROSYN) 500 mg tablet Take 1 tablet by mouth twice daily as needed for pain (for pain/inflammation). Take with food. 60 tablet 0 Ceramides 1,3,6-11 (CERAVE) clsr Apply 1 application to affected area once daily. 355 mL 4 ceramides 1,3,6-II (CERAVE) Apply to affected area as needed. 453 g 5 Current Facility-Administered Medications Medication Dose Route Frequency Provider Last Rate Last Admin perflutren lipid microspheres 1.3 mL in NaCl (PF) 0.9% 10 mL injection (DEFINITY) INTRAVENOUS DIRECTED PRN Rosa Maria Kelly MD sodium chloride 0.9 % (flush) 10 mL (BD POSIFLUSH) 10 mL INTRAVENOUS DIRECTED PRN Rosa Maria Kelly MD perflutren lipid microspheres 1.3 mL in NaCl (PF) 0.9% 10 mL injection (DEFINITY) INTRAVENOUS DIRECTED PRN Rosa Maria Kelly MD sodium chloride 0.9 % (flush) 10 mL (BD POSIFLUSH) 10 mL INTRAVENOUS DIRECTED PRN Rosa Maria Kelly MD Review of Systems Constitutional: Negative for chills, diaphoresis, fever, malaise/fatigue and weight loss. HENT: Negative for congestion, ear discharge, ear pain, hearing loss, nosebleeds, sinus pain, sore throat and tinnitus. Eyes: Negative for blurred vision, double vision, photophobia, pain, discharge and redness. Respiratory: Positive for shortness of breath. Negative for cough, hemoptysis, sputum production, wheezing and stridor. Cardiovascular: Positive for chest pain and palpitations. Negative for orthopnea, claudication, leg swelling and PND. Gastrointestinal: Negative for abdominal pain, blood in stool, constipation, diarrhea, heartburn, melena, nausea and vomiting. Genitourinary: Negative for dysuria, flank pain, frequency, hematuria and urgency. Musculoskeletal: Negative for back pain, falls, joint pain, myalgias and neck pain. Skin: Negative for itching and rash. Neurological: Negative for dizziness, tingling, tremors, sensory change, speech change, focal weakness, seizures, loss of consciousness, weakness and headaches. Endo/Heme/Allergies: Negative for environmental allergies and polydipsia. Does not bruise/bleed easily. Psychiatric/Behavioral: Negative for depression, hallucinations, memory loss, substance abuse and suicidal ideas. The patient is not nervous/anxious and does not have insomnia. Physical Examination: Vitals:BP 146/99 Pulse 107 Wt 129 lb (58.5kg) SpO2 95% BP w/Orthostatic Vitals Date and Time Orthostatic BP Orthostatic Pulse BP Pulse BP Position BP Site BP Cuff Size 01/22/23 1019 -- -- 146/99 107 Sitting Right Arm Regular Adult Last 2 Encounter Wt Readings: Date: Wt: 01/22/2023 58.5 kg (129 lb) 01/18/2023 57.6 kg (127 lb) Physical Exam Constitutional: General: She is not in acute distress. Appearance: She is not diaphoretic. HENT: Head: Normocephalic and atraumatic. Right Ear: External ear normal. Left Ear: External ear normal. Nose: Nose normal. Mouth/Throat: Pharynx: Oropharynx is clear. Eyes: General: Right eye: No discharge. Left eye: No discharge. Conjunctiva/sclera: Conjunctivae normal. Pupils: Pupils are equal, round, and reactive to light. Cardiovascular: Rate and Rhythm: Normal rate and regular rhythm. Heart sounds: Normal heart sounds, S1 normal and S2 normal. No murmur heard. No friction rub. No gallop. No S3 or S4 sounds. Pulmonary: Effort: Pulmonary effort is normal. No respiratory distress. Breath sounds: Normal breath sounds. No wheezing or rales. Chest: Chest wall: No tenderness. Musculoskeletal: General: Normal range of motion. Cervical back: Normal range of motion and neck supple. Skin: General: Skin is warm and dry. Neurological: Mental Status: She is alert and oriented to person, place, and time. Psychiatric: Mood and Affect: Mood normal. Thought Content: Thought content normal. Pertinent Labs: CBC: Hemoglobin Date Value 12/08/2022 12.8 g/dL 08/27/2020 13.5 G/DL Hematocrit (%) Date Value 12/08/2022 38.4 08/27/2020 40.1 WBC Date Value 12/08/2022 13.88 k/uL 08/27/2020 9.9 K/CUMM Platelet Count Date Value 12/08/2022 339 k/uL 08/27/2020 381 K/CU MM BMP: Glucose Date Value 01/02/2023 90 mg/dL 08/27/2020 112 MG/DL Potassium Date Value 01/02/2023 4.3 mmol/L 08/27/2020 4.0 MMOL/L Sodium Date Value 01/02/2023 138 mmol/L 08/27/2020 135 MMOL/L Chloride Date Value 01/02/2023 99 mmol/L 08/27/2020 100 MMOL/L CO2 Date Value 01/02/2023 28 mmol/L 08/27/2020 26.0 MMOL/L Creatinine Date Value 01/02/2023 0.56 mg/dL 08/27/2020 0.64 MG/DL BUN Date Value 01/02/2023 7 mg/dL 08/27/2020 14 MG/DL Anion Gap Date Value 01/02/2023 11 mmol/L 08/27/2020 9 MMOL/L Calcium (MG/DL) Date Value 08/27/2020 9.8 Calcium, Total (mg/dL) Date Value 01/02/2023 9.6 INR: Lipid Profile: Cholesterol, Total Date Value Ref Range Status 05/09/2021 222 (H) <200 mg/dL Final Comment: <200 mg/dL, Desirable 200-239 mg/dL, Borderline high >239 mg/dL, High HDL Cholesterol Date Value Ref Range Status 05/09/2021 93 >39 mg/dL Final Comment: 40-59 mg/dL, Acceptable >59 mg/dL, High: Negative risk factor for coronary heart disease <40 mg/dL, Low: Positive risk factor for coronary heart disease LDL Cholesterol Date Value Ref Range Status 05/09/2021 114 (H) <100 mg/dL Final Comment: <100 mg/dL, Optimal 100-129 mg/dL, Near optimal/above optimal 130-159 mg/dL, Borderline high 160-189 mg/dL, High >189 mg/dL, Very high Secondary prevention optimal LDL Cholesterol levels are recommended to be < 70 mg/dL Triglyceride Date Value Ref Range Status 05/09/2021 73 <150 mg/dL Final Comment: <150 mg/dL, Normal 150-199 mg/dL, Borderline high 200-499 mg/dL, High >499 mg/dL, Very high Hemoglobin A1C: No results found for: HGBA1C TSH: TSH Date Value Ref Range Status 03/06/2019 0.522 0.358 - 3.740 uIU/mL Final Prior Cardiac Testing EKG Assessment and Plan: 62 years old female patient with recurrent episode of lightheadedness and palpitation and chest pain ASSESSMENT/PLAN: 1. Palpitations - ICD9: 785.1, ICD10: R00.2 (primary diagnosis) Possible underlying atrial fibrillation scheduled for 2 weeks monitor - OUTSIDE VENDOR CARDIAC OUTPATIENT EXTENDED RHYTHM RECORDING (WITHOUT TELEMETRY) - ECHO - PERFLUTREN LIPID MICROSPHERES 1.1 MG/ML INJECTION IN NS 10 ML - SODIUM CHLORIDE 0.9 % (FLUSH) INJECTION SYRINGE - STRESS ECHO TREADMILL - PERFLUTREN LIPID MICROSPHERES 1.1 MG/ML INJECTION IN NS 10 ML - SODIUM CHLORIDE 0.9 % (FLUSH) INJECTION SYRINGE 2. Shortness of breath - ICD9: 786.05, ICD10: R06.02 Shortness of breath with exertion possible underlying coronary artery disease intermediate risk of obstructive CAD Scheduled for stress echocardiography - ECHO - PERFLUTREN LIPID MICROSPHERES 1.1 MG/ML INJECTION IN NS 10 ML - SODIUM CHLORIDE 0.9 % (FLUSH) INJECTION SYRINGE - STRESS ECHO TREADMILL - PERFLUTREN LIPID MICROSPHERES 1.1 MG/ML INJECTION IN NS 10 ML - SODIUM CHLORIDE 0.9 % (FLUSH) INJECTION SYRINGE 3. Stable angina pectoris - ICD9: 413.9, ICD10: I20.89 Chest pain with radiation to the arm scheduled for stress echocardiography - ECHO - PERFLUTREN LIPID MICROSPHERES 1.1 MG/ML INJECTION IN NS 10 ML - SODIUM CHLORIDE 0.9 % (FLUSH) INJECTION SYRINGE - STRESS ECHO TREADMILL - PERFLUTREN LIPID MICROSPHERES 1.1 MG/ML INJECTION IN NS 10 ML - SODIUM CHLORIDE 0.9 % (FLUSH) INJECTION SYRINGE Rosa Maria Kelly MD Follow up plannin WEEKS Electronically signed by Rosa Maria Kelly MD on January 22, 2023, 12:18 PM The above note was partially created using a dictation recognition software. A reasonable attempt has been made to correct any errors. EVENT MONITOR DISPOSABLE PATCH INSTRUCTIONS [facility] Number: [id number] Skin prepped and cleansed with alcohol Patch secured to prepped area Monitor Activated Serial #: [id number] Patient Instructed: Prescribed order timeframe Bathing guidelines Usage of event button and diary documentation Return of monitor at the end of prescribed order Call with problems [phone] or [phone]. [phone] Patient expresses a good understanding of instructions Marcelina Elizondo RN documented in this encounter [facility] 01-22-2023 Note HNO ID: [id number] Author: Rosa Maria Kelly MD Service: Cardiovascular Surgery Author Type: Physician Type: Procedures Filed: 02/16/2023 6:49 AM Note Text: Patient Name: Gloria Pandey : 1960 Ordering Provider: Rosa Maria Kelly Indication: R00.2 Palpitations Type of Monitor: Extended Monitoring-Zio Patch Enrollment Dates: 01/22/2023-02/04/2023 [facility] 01-19-2023 Note HNO ID: [id number] Author: Maddy Franks RT(R) Service: ? Author Type: Firer Helper Type: Progress Notes Filed: 01/19/2023 12:11 PM Note Text: Radiology Service Progress Note PATIENT NAME: Gloria Pandey DATE OF SERVICE: January 19, 2023 TIME: 12:11 PM PATIENT IDENTITY VERIFICATION COMPLETED USING TWO (2) IDENTIFIERS: Name and Date of confirmed by patient verbally. FALL SCREENING: Has the patient had 2 falls in the last year or 1 fall with injury or currently using an Ambulatory Assistive Device (Walker, Cane, Wheelchair, Crutches, etc.)? No PATIENT GENDER DATA: Female. status: : No status: NO. PATIENT RELEVANT IMPLANT DATA REVIEWED: Yes RADIOLOGY DEPARTMENT: CT; Exam(s) Completed: Chest PERIPHERAL IV DATA: Not applicable SIGNED BY: RT John(R) January 19, 2023 12:11 PM [facility] 01-19-2023 History of Presen t illness Narrative Radiology Service Progress Note PATIENT NAME: Gloria Pandey DATE OF SERVICE: January 19, 2023 TIME: 12:11 PM PATIENT IDENTITY VERIFICATION COMPLETED USING TWO (2) IDENTIFIERS: Name and Date of confirmed by patient verbally. FALL SCREENING: Has the patient had 2 falls in the last year or 1 fall with injury or currently using an Ambulatory Assistive Device (Walker, Cane, Wheelchair, Crutches, etc.)? No PATIENT GENDER DATA: Female. status: : No status: NO. PATIENT RELEVANT IMPLANT DATA REVIEWED: Yes RADIOLOGY DEPARTMENT: CT; Exam(s) Completed: Chest PERIPHERAL IV DATA: Not applicable SIGNED BY: RT John(R) January 19, 2023 12:11 PM documented in this encounter [facility] 01-18-2023 Note HNO ID: [id number] Author: Fabby Carter APRN.SENIOR POLICY ANALYST Service: ? Author Type: Nurse Specialist Type: Progress Notes Filed: 01/18/2023 9:19 AM Note Text: SUBJECTIVE: Pap Testing Never done HPV Testing Never done Colorectal Cancer Screening Never done RSV Vaccine(1 - 1-dose 60+ series) Never done Mammogram Screening due on 10/04/2021 HPI Gloria Pandey is a 62 year old female. PMH significant for ACTIVE PROBLEM LIST Alcohol Abuse Former Smoker Post-Procedural Headache Intractable Migraine Without Aura and Without Status Migrainosus Anxiety and Depression At Risk for Sleep Apnea Chest Pain HPI excerpted from previous visit: She notes neck pain and lower occipital area and right shoulder with acute sharp pain that is intermittent lasting seconds to minutes. Can radiate from her shoulder down to her right shoulder blade. Nothing seems to aggravate or alleviate this for her. Passes without intervention. Has taken tramadol but does not seem to be helping much. Pain is described as sharp and shooting of moderate intensity. At times severe enough to make her feel nauseous. She reports no vision speech or mobility problems. Has not taken Robaxin. Presents for emergency department follow-up visit. She was seen at [facility] December 29, 2022 for intractable nausea and vomiting abdominal pain and lightheadedness. Concern for acute pancreatitis. Initial lipase December 29, 2022 was elevated at 164, normalized with recheck on December 30, 2022. Hypokalemia noted. Sodium and chloride elevated. She reports no further nausea vomiting or RUQ abdominal pain. Notes zofran did not seem to work when occurring. Notes eating a mild diet. CXR-[facility] December 07 showed right lung nodule, follow-up CT recommended. Former smoker. Presents today noting she is not sure if she needs gallbladder surgery. She reports GERD symptoms today. Not sure if she has had heartburn. Has had nausea but no vomiting. Continues with right upper quadrant discomfort. Notes this can be sharp at times but mostly achy. She noted this was worse before breakfast recently. No report of BRBPR or black or tarry stools. No constipation or diarrhea reported. She has been eating a mild diet. She has noted intermittent lightheadedness. Reports drinking sufficient fluid. Review of Systems Constitutional: Negative. Gastrointestinal: Positive for abdominal pain. Objective There were no vitals taken for this visit. Physical Exam Vitals and nursing note reviewed. Constitutional: Appearance: Normal appearance. HENT: Head: Normocephalic and atraumatic. Eyes: Conjunctiva/sclera: Conjunctivae normal. Neck: Thyroid: No thyromegaly. Vascular: Normal carotid pulses. No JVD. Cardiovascular: Rate and Rhythm: Normal rate and regular rhythm. Heart sounds: Normal heart sounds. Pulmonary: Effort: Pulmonary effort is normal. Breath sounds: Normal breath sounds. Abdominal: General: Bowel sounds are normal. There is no distension. Palpations: Abdomen is soft. There is no mass. Tenderness: There is abdominal tenderness (RUQ, TTP). There is no guarding. Skin: General: Skin is warm and dry. Neurological: General: No focal deficit present. Mental Status: She is alert. ALLERGIES Allergen Reactions Bactrim [Sulfametho* Other: See Comments Yeast Infection Cymbalta [Duloxetin* Diarrhea Severe diarrhea Sulfamethoxazole Other: See Comments Yeast Infection Sulfites Other: See Comments Yeast Infection Topamax [Topiramate] Mental Status Change Terrible confusion Medications: promethazine (PHENERGAN) 12.5 mg tablet Take 1 tablet by mouth every 6 hours as needed for nausea/vomiting. mometasone (NASONEX) 50 mcg/actuation nasal spray Use 2 Sprays in the nose once daily. Rinse mouth after use. multivitamin tablet Take 1 tablet by mouth once daily. traMADol (ULTRAM) 50 mg tablet Take 1 tablet by mouth every 8 hours as needed for pain for up to 90 days. 60 per month; with 2 refills this prescription is for up to 90 days albuterol HFA (VENTOLIN HFA) 90 mcg/actuation inhaler Inhale 2 Puffs as instructed every 4 hours as needed for wheezing/shortness of breath. ondansetron (ZOFRAN) 4 mg tablet Take 1 tablet by mouth every 8 hours as needed for nausea/vomiting. methocarbamol (ROBAXIN) 750 mg tablet Take 1 tablet by mouth three times daily as needed (Neck pain/soreness). naproxen (NAPROSYN) 500 mg tablet Take 1 tablet by mouth twice daily as needed for pain (for pain/inflammation). Take with food. Ceramides 1,3,6-11 (CERAVE) clsr Apply 1 application to affected area once daily. ceramides 1,3,6-II (CERAVE) Apply to affected area as needed. PAST MEDICAL HISTORY Diagnosis Date At risk for sleep apnea 05/10/2021 Chest pain 05/10/2021 Depression Fibromyalgia Inguinal hernia 2020 Intracranial aneurysm Social History Tobacco Use Smoking status: Former (more content not included)... [facility] 01-15-2023 Miscellaneous Notes Patient calls to report left arm pain and maybe numbness and weakness but not certain its just a weird feeling, I am not really sure how to describe it. Reports CP or heartburn over the weekend but not able to describe it. Several recent episodes of passing out and vomiting spells. Patient talks about a brain aneurysm. Nurse triage completed. Protocol recommends go to ED Now. Patient verbalizes understanding and aware she should have someone else drive her. Reason for Disposition [1] Age > 40 AND [2] no obvious cause AND [3] pain even when not moving the arm (Exception: Pain is clearly made worse by moving arm or bending neck.) Answer Assessment - Initial Assessment Questions 1. ONSET: Yesterday 2. LOCATION: Left arm bicep area and some below. 3. PAIN: - MILD (1-3): Doesn't interfere with normal activities. - MODERATE (4-7): Interferes with normal activities (e.g., work or school) or awakens from sleep. 4. WORK OR EXERCISE: no 5. CAUSE: Patient not certain. She reports multiple health issues, brain aneurysm, several recent passing out episodes with vomiting. 6. OTHER SYMPTOMS: No neck pain, swelling, rash, fever, numbness, weakness. Several recent passing out episodes with vomiting. Chest pain or heart burn. Patient not a good historian at symptoms. Protocols used: Arm [id number] documented in this encounter [facility] 01-08-2023 Note HNO ID: [id number] Author: Elsy Rosa MD Service: ? Author Type: Physician Type: Progress Notes Filed: 01/10/2023 2:49 PM Note Text: HISTORY AND PHYSICAL Gloria Yumiko Pandey 1960 REFERRING PHYSICIAN: Fabby Carter APRN.SENIOR POLICY ANALYST CHIEF COMPLAINT: Follow Up ([facility] ER 12/29/22, Ultrasound [facility] ) HPI: The patient is a 62 year old female presents with abnormal ultrasound of gallbladder. She was found to have biliary sludge. She has multiple chronic GI complaints and non specific complaints - fevers/chills, light headedness, dizziness, fainting, nausea/emesis, generalized cramping abdominal pain, alternating constipation and diarrhea. She had presented to [facility] ED on 12/29/2022 with complaint of light headedness and black out. A CTA of head was normal, normal WBC, normal LFTs and RUQ US which revealed biliary sludge/normal bile ducts/normal wall. She does complain of RUQ abdominal pain. PAST MEDICAL HISTORY Diagnosis Date At risk for sleep apnea 05/10/2021 Chest pain 05/10/2021 Depression Fibromyalgia Inguinal hernia 2019 Intracranial aneurysm PAST SURGICAL HISTORY Procedure Laterality Date COLONOSCOPY 1999 HYSTERECTOMY PAST SURGICAL HISTORY OF 10/2018 Titanium coil and stent instertion for intracranial aneurysm PAST SURGICAL HISTORY OF 03/2019 brain aneurysm repair PAST SURGICAL HISTORY OF Rotator cuff repair Current Outpatient Medications Medication Sig promethazine (PHENERGAN) 12.5 mg tablet Take 1 tablet by mouth every 6 hours as needed for nausea/vomiting. mometasone (NASONEX) 50 mcg/actuation nasal spray Use 2 Sprays in the nose once daily. Rinse mouth after use. multivitamin tablet Take 1 tablet by mouth once daily. traMADol (ULTRAM) 50 mg tablet Take 1 tablet by mouth every 8 hours as needed for pain for up to 90 days. 60 per month; with 2 refills this prescription is for up to 90 days albuterol HFA (VENTOLIN HFA) 90 mcg/actuation inhaler Inhale 2 Puffs as instructed every 4 hours as needed for wheezing/shortness of breath. ondansetron (ZOFRAN) 4 mg tablet Take 1 tablet by mouth every 8 hours as needed for nausea/vomiting. methocarbamol (ROBAXIN) 750 mg tablet Take 1 tablet by mouth three times daily as needed (Neck pain/soreness). naproxen (NAPROSYN) 500 mg tablet Take 1 tablet by mouth twice daily as needed for pain (for pain/inflammation). Take with food. Ceramides 1,3,6-11 (CERAVE) clsr Apply 1 application to affected area once daily. ceramides 1,3,6-II (CERAVE) Apply to affected area as needed. No current facility-administered medications for this visit. ALLERGIES: Bactrim [Sulfamethoxazole-Trimethoprim], Cymbalta [Duloxetine], Sulfamethoxazole, Sulfites, and Topamax [Topiramate] PERSONAL HISTORY: Social History Tobacco Use Smoking status: Former Packs/day: .5 Types: Cigarettes Quit date: 2017 Years since quittin.8 Smokeless tobacco: Never Vaping Use Vaping Use: Never used Substance Use Topics Alcohol use: Yes Comment: Rarely Drug use: Not Currently Types: Cocaine FAMILY HISTORY Problem Relation Age of Onset Aneurysm Mother Melanoma Father Stroke Father Anesthesia Problems No Family History REVIEW OF SYMPTOMS: The review of systems data was entered by the nurse and reviewed by me There are no exam notes on file for this visit. PHYSICAL EXAMINATION: General: The patient is 62 year old female, well nourished, well hydrated in no acute distress. The patient is oriented to time, place, and person. VITALS: Blood pressure 142/88, pulse 110, temperature 36.1 ?C (97 ?F), height 165.1 cm (5' 5 ), weight 56.7 kg (125 lb), SpO2 95 %. Body mass index is 20.8 kg/m?. Head - Normocephalic. EOM intact with sclera clear and no icterus noted. Wearing glasses. Mouth with mucus membranes moist. Neck - supple with no jugular venous distention noted. Trachea is midline. Lungs - clear to auscultation. Normal breath sounds. No rales/rhonchi/wheezing noted. No labored breathing noted, such as retractions. No cough heard. Heart - normal S1 and S2 auscultated. No rubs/clicks/murmurs noted. Regular rate. Abdomen - soft and benign. . Extremities - no calf tenderness noted. No pitting edema noted. Skin - normal skin integrity. Neurological - gait normal, no focal deficits noted. Psych - calm and appropriate Assessment IMPRESSION: abnormal gallbladder ultrasound - sludge PLAN: I have discussed the above with the patient. Patient has multiple GI complaints and non specific complaints I have offered laparoscopic cholecystectomy, possible cholangiograms but I have explained to her that it removal of gallbladder is unlikely to alleviate her above-mentioned symptoms. I have explained the procedure to the patient. I have counseled the patient as to the risks of the procedure, including but not limited to: infection, bleeding, injury to any blood vessels/nerves, scar tissue, injury (more content not included)... [facility] 01-08-2023 History of Presen t illness Narrative HISTORY AND PHYSICAL Gloria Murciashannon 1960 REFERRING PHYSICIAN: Fabby Carter APRN.SENIOR POLICY ANALYST CHIEF COMPLAINT: Follow Up ([facility] 12/29/22, Ultrasound [facility] ) HPI: The patient is a 62 year old female presents with abnormal ultrasound of gallbladder. She was found to have biliary sludge. She has multiple chronic GI complaints and non specific complaints - fevers/chills, light headedness, dizziness, fainting, nausea/emesis, generalized cramping abdominal pain, alternating constipation and diarrhea. She had presented to [facility] ED on 12/29/2022 with complaint of light headedness and black out. A CTA of head was normal, normal WBC, normal LFTs and RUQ US which revealed biliary sludge/normal bile ducts/normal wall. She does complain of RUQ abdominal pain. PAST MEDICAL HISTORY Diagnosis Date At risk for sleep apnea 05/10/2021 Chest pain 05/10/2021 Depression Fibromyalgia Inguinal hernia 2019 Intracranial aneurysm PAST SURGICAL HISTORY Procedure Laterality Date COLONOSCOPY 1999 HYSTERECTOMY PAST SURGICAL HISTORY OF 10/2018 Titanium coil and stent instertion for intracranial aneurysm PAST SURGICAL HISTORY OF 03/2019 brain aneurysm repair PAST SURGICAL HISTORY OF Rotator cuff repair Current Outpatient Medications Medication Sig promethazine (PHENERGAN) 12.5 mg tablet Take 1 tablet by mouth every 6 hours as needed for nausea/vomiting. mometasone (NASONEX) 50 mcg/actuation nasal spray Use 2 Sprays in the nose once daily. Rinse mouth after use. multivitamin tablet Take 1 tablet by mouth once daily. traMADol (ULTRAM) 50 mg tablet Take 1 tablet by mouth every 8 hours as needed for pain for up to 90 days. 60 per month; with 2 refills this prescription is for up to 90 days albuterol HFA (VENTOLIN HFA) 90 mcg/actuation inhaler Inhale 2 Puffs as instructed every 4 hours as needed for wheezing/shortness of breath. ondansetron (ZOFRAN) 4 mg tablet Take 1 tablet by mouth every 8 hours as needed for nausea/vomiting. methocarbamol (ROBAXIN) 750 mg tablet Take 1 tablet by mouth three times daily as needed (Neck pain/soreness). naproxen (NAPROSYN) 500 mg tablet Take 1 tablet by mouth twice daily as needed for pain (for pain/inflammation). Take with food. Ceramides 1,3,6-11 (CERAVE) clsr Apply 1 application to affected area once daily. ceramides 1,3,6-II (CERAVE) Apply to affected area as needed. No current facility-administered medications for this visit. ALLERGIES: Bactrim [Sulfamethoxazole-Trimethoprim], Cymbalta [Duloxetine], Sulfamethoxazole, Sulfites, and Topamax [Topiramate] PERSONAL HISTORY: Social History Tobacco Use Smoking status: Former Packs/day: .5 Types: Cigarettes Quit date: 2017 Years since quittin.8 Smokeless tobacco: Never Vaping Use Vaping Use: Never used Substance Use Topics Alcohol use: Yes Comment: Rarely Drug use: Not Currently Types: Cocaine FAMILY HISTORY Problem Relation Age of Onset Aneurysm Mother Melanoma Father Stroke Father Anesthesia Problems No Family History REVIEW OF SYMPTOMS: The review of systems data was entered by the nurse and reviewed by me There are no exam notes on file for this visit. PHYSICAL EXAMINATION: General: The patient is 62 year old female, well nourished, well hydrated in no acute distress. The patient is oriented to time, place, and person. VITALS: Blood pressure 142/88, pulse 110, temperature 36.1 C (97 F), height 165.1 cm (5' 5 ), weight 56.7 kg (125 lb), SpO2 95 %. Body mass index is 20.8 kg/m . Head - Normocephalic. EOM intact with sclera clear and no icterus noted. Wearing glasses. Mouth with mucus membranes moist. Neck - supple with no jugular venous distention noted. Trachea is midline. Lungs - clear to auscultation. Normal breath sounds. No rales/rhonchi/wheezing noted. No labored breathing noted, such as retractions. No cough heard. Heart - normal S1 and S2 auscultated. No rubs/clicks/murmurs noted. Regular rate. Abdomen - soft and benign. . Extremities - no calf tenderness noted. No pitting edema noted. Skin - normal skin integrity. Neurological - gait normal, no focal deficits noted. Psych - calm and appropriate Assessment IMPRESSION: abnormal gallbladder ultrasound - sludge PLAN: I have discussed the above with the patient. Patient has multiple GI complaints and non specific complaints I have offered laparoscopic cholecystectomy, possible cholangiograms but I have explained to her that it removal of gallbladder is unlikely to alleviate her above-mentioned symptoms. I have explained the procedure to the patient. I have counseled the patient as to the risks of the procedure, including but not limited to: infection, bleeding, injury to any blood vessels/nerves, scar tissue, injury to any intrabdominal organs, injury to bowel/bladder, injury to the common bile duct/biliary tree, bile leakage, intraabdominal abscess/bleeding, hernias at incisional sites, wound infections, complications of anesthesia, etc. - the patient understands. The patient wishes to proceed. I have once again explained that surgery may not resolve her complaints and with potential complications, she may come out of surgery worse, than prior to surgery. She still wishes to proceed. I have answered all questions to the patient s satisfaction and the patient has no further questions. Surgery will be scheduled at [facility] . Diagnoses: (K82.8) Gallbladder sludge I have confirmed and edited as necessary, the PFSH and ROS obtained by others. Consultation requested by Fabby Catrer for an opinion regarding patient's abnormal ultrasound of gallbladder. My final recommendations will be communicated back to the requesting physician by way of shared Medical record or letter to requesting physician via US mail. Medical Decision Making: Problems: Low: Stable chronic illness Risk: High: Decision on elective major surgery w/ risk factors Medical Decision Making Level: 3 - Low Elsy Rosa MD documented in this encounter [facility] 01-04-2023 Miscellaneous Notes Pt called and is notified of providers results and instructions. Pt voices understanding. She states at this time she is holding off on the mammogram, and will get a hold of Dr Givens. Emerita Retana, RN Metabolic panel is in acceptable range, normal potassium. All of the appointments can be made at her convenience. She will call and speak with the cafe associate to get things set up. She needs an appointment with Dr. Givens, mammogram, chest CT. If she is feeling well with no nausea or vomiting or abdominal pain she can hold off on scheduling an appointment with general surgery. Patient calling, asking for results of lab work. Patient also does not remember what is priority for her right now. Asking if she should setup the appointment with General Surgery now. Please advise. documented in this encounter [facility] 01-02-2023 Miscellaneous Notes There is an order for CT chest that needs scheduled, not MRI. Mammogram was ordered Mar 2022. No orders for MRI or mammogram are in place. KAY and MRI need to be scheduled. Patient said to make them for whenever because she was late to something but there are questions that need answered on the decision trees. documented in this encounter [facility] 01-02-2023 Note HNO ID: [id number] Author: Fabby Carter APRN.CNS Service: ? Author Type: Nurse Specialist Type: Progress Notes Filed: 01/02/2023 11:26 AM Note Text: SUBJECTIVE: Pap Testing Never done HPV Testing Never done Colorectal Cancer Screening Never done RSV Vaccine(1 - 1-dose 60+ series) Never done Mammogram Screening due on 10/04/2021 Covid-19 Vaccine(2022- season) due on 11/10/2022 DAYANNA Pandey is a 62 year old female. PMH significant for ACTIVE PROBLEM LIST Cerebral Aneurysm Without Rupture Alcohol Abuse Former Smoker Unruptured Cerebral Aneurysm Post-Procedural Headache Intractable Migraine Without Aura and Without Status Migrainosus Anxiety and Depression Aneurysm of Posterior Inferior Cerebellar Artery At Risk for Sleep Apnea Chest Pain Cerebral Aneurysm She notes neck pain and lower occipital area and right shoulder with acute sharp pain that is intermittent lasting seconds to minutes. Can radiate from her shoulder down to her right shoulder blade. Nothing seems to aggravate or alleviate this for her. Passes without intervention. Has taken tramadol but does not seem to be helping much. Pain is described as sharp and shooting of moderate intensity. At times severe enough to make her feel nauseous. She reports no vision speech or mobility problems. Has not taken Robaxin. Presents for emergency department follow-up visit. She was seen at [facility] December 29, 2022 for intractable nausea and vomiting abdominal pain and lightheadedness. Concern for acute pancreatitis. Initial lipase December 29, 2022 was elevated at 164, normalized with recheck on December 30, 2022. Hypokalemia noted. Sodium and chloride elevated. She reports no further nausea vomiting or RUQ abdominal pain. Notes zofran did not seem to work when occurring. Notes eating a mild diet. CXR-[facility] December 07 showed right lung nodule, follow-up CT recommended. Former smoker. Review of Systems Constitutional: Negative. Gastrointestinal: Negative. Musculoskeletal: Positive for myalgias, neck pain and neck stiffness. Objective BP 134/91 Pulse 105 Resp 16 Wt 57.2 kg (126 lb) BMI 21.63 kg/m? Physical Exam Vitals and nursing note reviewed. Constitutional: Appearance: Normal appearance. HENT: Head: Normocephalic and atraumatic. Eyes: Conjunctiva/sclera: Conjunctivae normal. Neck: Thyroid: No thyromegaly. Vascular: Normal carotid pulses. No JVD. Cardiovascular: Rate and Rhythm: Normal rate and regular rhythm. Heart sounds: Normal heart sounds. Pulmonary: Effort: Pulmonary effort is normal. Breath sounds: Normal breath sounds. Abdominal: General: Bowel sounds are normal. There is no distension. Palpations: Abdomen is soft. There is no mass. Tenderness: There is no abdominal tenderness. There is no guarding. Skin: General: Skin is warm and dry. Neurological: General: No focal deficit present. Mental Status: She is alert. ALLERGIES Allergen Reactions Bactrim [Sulfametho* Other: See Comments Yeast Infection Cymbalta [Duloxetin* Diarrhea Severe diarrhea Sulfamethoxazole Other: See Comments Yeast Infection Sulfites Other: See Comments Yeast Infection Topamax [Topiramate] Mental Status Change Terrible confusion Medications: mometasone (NASONEX) 50 mcg/actuation nasal spray Use 2 Sprays in the nose once daily. Rinse mouth after use. multivitamin tablet Take 1 tablet by mouth once daily. traMADol (ULTRAM) 50 mg tablet Take 1 tablet by mouth every 8 hours as needed for pain for up to 90 days. 60 per month; with 2 refills this prescription is for up to 90 days albuterol HFA (VENTOLIN HFA) 90 mcg/actuation inhaler Inhale 2 Puffs as instructed every 4 hours as needed for wheezing/shortness of breath. ondansetron (ZOFRAN) 4 mg tablet Take 1 tablet by mouth every 8 hours as needed for nausea/vomiting. methocarbamol (ROBAXIN) 750 mg tablet Take 1 tablet by mouth three times daily as needed (Neck pain/soreness). naproxen (NAPROSYN) 500 mg tablet Take 1 tablet by mouth twice daily as needed for pain (for pain/inflammation). Take with food. Ceramides 1,3,6-11 (CERAVE) clsr Apply 1 application to affected area once daily. ceramides 1,3,6-II (CERAVE) Apply to affected area as needed. PAST MEDICAL HISTORY Diagnosis Date At risk for sleep apnea 05/10/2021 Chest pain 05/10/2021 Depression Fibromyalgia Inguinal hernia 2020 Intracranial aneurysm Social History Tobacco Use Smoking status: Former Packs/day: .5 Types: Cigarettes Quit date: 2018 Years since quittin.8 Smokeless tobacco: Never Vaping Use Vaping Use: Never used Substance Use Topics Alcohol use: Yes Comment: Rarely Drug use: Not Currently Types: Cocaine Component Latest Ref Rng AND Units 12/07/2022 12/08/2022 12/08/2022 12/08/2022 12/08/2022 1:18 AM 1:18 AM 6:06 AM 11:45 AM WBC 3.70 - 11.00 k/uL 12.37 (H) 13.88 (more content not included)... [facility] 01-02-2023 History of Presen t illness Narrative SUBJECTIVE: Pap Testing Never done HPV Testing Never done Colorectal Cancer Screening Never done RSV Vaccine(1 - 1-dose 60+ series) Never done Mammogram Screening due on 10/04/2021 Covid-19 Vaccine( season) due on 11/10/2022 HPI Gloria Pandey is a 62 year old female. PMH significant for ACTIVE PROBLEM LIST Cerebral Aneurysm Without Rupture Alcohol Abuse Former Smoker Unruptured Cerebral Aneurysm Post-Procedural Headache Intractable Migraine Without Aura and Without Status Migrainosus Anxiety and Depression Aneurysm of Posterior Inferior Cerebellar Artery At Risk for Sleep Apnea Chest Pain Cerebral Aneurysm She notes neck pain and lower occipital area and right shoulder with acute sharp pain that is intermittent lasting seconds to minutes. Can radiate from her shoulder down to her right shoulder blade. Nothing seems to aggravate or alleviate this for her. Passes without intervention. Has taken tramadol but does not seem to be helping much. Pain is described as sharp and shooting of moderate intensity. At times severe enough to make her feel nauseous. She reports no vision speech or mobility problems. Has not taken Robaxin. Presents for emergency department follow-up visit. She was seen at [facility] December 29, 2022 for intractable nausea and vomiting abdominal pain and lightheadedness. Concern for acute pancreatitis. Initial lipase December 29, 2022 was elevated at 164, normalized with recheck on December 30, 2022. Hypokalemia noted. Sodium and chloride elevated. She reports no further nausea vomiting or RUQ abdominal pain. Notes zofran did not seem to work when occurring. Notes eating a mild diet. CXR-[facility] December 07 showed right lung nodule, follow-up CT recommended. Former smoker. Review of Systems Constitutional: Negative. Gastrointestinal: Negative. Musculoskeletal: Positive for myalgias, neck pain and neck stiffness. Objective BP 134/91 Pulse 105 Resp 16 Wt 57.2 kg (126 lb) BMI 21.63 kg/m Physical Exam Vitals and nursing note reviewed. Constitutional: Appearance: Normal appearance. HENT: Head: Normocephalic and atraumatic. Eyes: Conjunctiva/sclera: Conjunctivae normal. Neck: Thyroid: No thyromegaly. Vascular: Normal carotid pulses. No JVD. Cardiovascular: Rate and Rhythm: Normal rate and regular rhythm. Heart sounds: Normal heart sounds. Pulmonary: Effort: Pulmonary effort is normal. Breath sounds: Normal breath sounds. Abdominal: General: Bowel sounds are normal. There is no distension. Palpations: Abdomen is soft. There is no mass. Tenderness: There is no abdominal tenderness. There is no guarding. Skin: General: Skin is warm and dry. Neurological: General: No focal deficit present. Mental Status: She is alert. ALLERGIES Allergen Reactions Bactrim [Sulfametho* Other: See Comments Yeast Infection Cymbalta [Duloxetin* Diarrhea Severe diarrhea Sulfamethoxazole Other: See Comments Yeast Infection Sulfites Other: See Comments Yeast Infection Topamax [Topiramate] Mental Status Change Terrible confusion Medications: mometasone (NASONEX) 50 mcg/actuation nasal spray Use 2 Sprays in the nose once daily. Rinse mouth after use. multivitamin tablet Take 1 tablet by mouth once daily. traMADol (ULTRAM) 50 mg tablet Take 1 tablet by mouth every 8 hours as needed for pain for up to 90 days. 60 per month; with 2 refills this prescription is for up to 90 days albuterol HFA (VENTOLIN HFA) 90 mcg/actuation inhaler Inhale 2 Puffs as instructed every 4 hours as needed for wheezing/shortness of breath. ondansetron (ZOFRAN) 4 mg tablet Take 1 tablet by mouth every 8 hours as needed for nausea/vomiting. methocarbamol (ROBAXIN) 750 mg tablet Take 1 tablet by mouth three times daily as needed (Neck pain/soreness). naproxen (NAPROSYN) 500 mg tablet Take 1 tablet by mouth twice daily as needed for pain (for pain/inflammation). Take with food. Ceramides 1,3,6-11 (CERAVE) clsr Apply 1 application to affected area once daily. ceramides 1,3,6-II (CERAVE) Apply to affected area as needed. PAST MEDICAL HISTORY Diagnosis Date At risk for sleep apnea 05/10/2021 Chest pain 05/10/2021 Depression Fibromyalgia Inguinal hernia 2020 Intracranial aneurysm Social History Tobacco Use Smoking status: Former Packs/day: .5 Types: Cigarettes Quit date: 2017 Years since quittin.8 Smokeless tobacco: Never Vaping Use Vaping Use: Never used Substance Use Topics Alcohol use: Yes Comment: Rarely Drug use: Not Currently Types: Cocaine Component Latest Ref Rng & Units 12/07/2022 12/08/2022 12/08/2022 12/08/2022 12/08/2022 1:18 AM 1:18 AM 6:06 AM 11:45 AM WBC 3.70 - 11.00 k/uL 12.37 (H) 13.88 (H) RBC 3.90 - 5.20 m/uL 4.90 4.39 Hemoglobin 11.5 - 15.5 g/dL 14.6 12.8 Hematocrit 36.0 - 46.0 % 42.3 38.4 MCV 80.0 - 100.0 fL 86.3 87.5 MCH 26.0 - 34.0 pg 29.8 29.2 MCHC 30.5 - 36.0 g/dL 34.5 33.3 RDW-CV 11.5 - 15.0 % 13.6 13.8 Platelet Count 150 - 400 k/uL 368 339 MPV 9.0 - 12.7 fL 8.8 (L) 8.8 (L) Neut% % 89.1 Abs Neut (ANC) 1.45 - 7.50 k/uL 11.02 (H) Lymph% % 7.6 Abs Lymph 1.00 - 4.00 k/uL 0.94 (L) Gilliam% % 2.8 Abs Gilliam <0.87 k/uL 0.35 Eosin% % 0.0 Abs Eosin <0.46 k/uL <0.03 Baso% % 0.1 Abs Baso <0.11 k/uL <0.03 Immature Gran % % 0.4 IMMATURE GRANS (ABS) <0.10 k/uL 0.05 NRBC /100 WBC 0.0 Absolute nRBC <0.01 k/uL <0.01 <0.01 DTYPE Auto Protein, Total 6.0 - 8.5 g/dL 7.7 6.2 Albumin 3.2 - 5.0 g/dL 4.5 3.6 Calcium 8.5 - 10.5 mg/dL 9.7 8.4 (L) Bilirubin, Total 0.2 - 1.0 mg/dL 0.4 0.4 Alkaline Phosphatase 45 - 117 U/L 86 65 AST 8 - 34 U/L 18 16 ALT 13 - 61 U/L 19 14 Glucose 70 - 100 mg/dL 131 (H) 98 BUN 7 - 26 mg/dL 14 9 Creatinine 0.51 - 0.95 mg/dL 0.50 (L) 0.47 (L) Sodium 136 - 145 mmol/L 140 144 Potassium 3.5 - 5.1 mmol/L 4.0 3.6 Chloride 98 - 107 mmol/L 105 112 (H) CO2 21 - 32 mmol/L 24 23 Anion Gap 5 - 16 mmol/L 11 9 eGFR >=60 mL/min/1.73m 106 108 Color Yellow Yellow Clarity Clear Clear Glucose, Urine Negative Negative Bilirubin, Urine Negative Negative Ketones, Urine Negative 1+ (A) Specific [place], Ur 1.005 - 1.030 1.012 Hemoglobin/Blood,Ur Negative 2+ (A) pH, Urine 5.0 - 8.0 6.0 Protein, Urine Negative Negative Urobilinogen Negative Negative Nitrites Negative Negative Leukest Negative Negative WBC, Urine 0-5 /HPF 0-5 /HPF RBC, Urine 0-3 /HPF 11-25 /HPF (A) Bacteria None Seen /HPF None Seen Epithelial Cells /HPF Few COVID 19 Result See comment Not detected Influenza A PCR Not Detected Not detected Influenza B PCR Not Detected Not detected RSV PCR Not Detected Not detected Lipase 12 - 60 U/L 43 CK 28 - 152 U/L 65 TROPONIN I HIGH SENSITIVITY 0.0 - 34.0 pg/mL 2.6 7.6 6.5 Lactate 0.4 - 2.0 mmol/L 0.8 Magnesium 1.6 - 2.6 mg/dL 2.0 1.9 Culture No growth 5 days No growth 5 days ASSESSMENT/PLAN: 1. Nausea and vomiting, unspecified vomiting type - ICD9: 787.01, ICD10: R11.2 (primary diagnosis) Resolved 2. Gallbladder sludge - ICD9: 575.8, ICD10: K82.8 - CONSULT TO GENERAL SURGERY 3. Hypokalemia - ICD9: 276.8, ICD10: E87.6 Labs today - BASIC METABOLIC PNL 4. Encounter for immunization - ICD9: V03.89, ICD10: Z23 - [employer] COVID-19 VACCINE ( SEAS[place]) AGE 12+ YR 5. Vaginal prolapse - ICD9: 618.00, ICD10: N81.10 Needs appointment scheduled with urogynecologist 6. Right upper quadrant pain - ICD9: 789.01, ICD10: R10.11 Currently resolved. No current nausea or vomiting. If recurrence, consider follow-up with general surgery. Consult has been placed. 7. Lung nodules - ICD9: 793.19, ICD10: R91.8 - CT CHEST WO IVCON schedule appointment with Dr. Givens's office urogynecology 6 mo follow up Anjum Diggs MD labs today Schedule mammogram Fabby Carter APRN.CNS Medical Decision Making: Problems: Moderate: Acute illness with systemic symptoms Data: Unique source(s) for external note(s) reviewed: 1 Unique test result(s) reviewed: 3+ Unique test(s) ordered: 2 Risk: Moderate: Drug management Medical Decision Making Level: 4 - Moderate documented in this encounter [facility] 12-23-2022 Note HNO ID: [id number] Author: Note, Interface Service: ? Author Type: ? Type: Progress Notes Filed: 12/23/2022 5:55 AM Note Text: Epic Scheduled Downtime: 12/23/2022 1:00:00 AM to 12/23/2022 1:28:00 AM [facility] 12-22-2022 Miscellaneous Notes The following approved medication requests have been transmitted electronically. Requested Prescriptions Signed Prescriptions Disp Refills mometasone (NASONEX) 50 mcg/actuation nasal spray 17 g 2 Sig: Use 2 Sprays in the nose once daily. Rinse mouth after use. Authorizing Provider: ANJUM DIGGS multivitamin tablet 90 tablet 3 Sig: Take 1 tablet by mouth once daily. Authorizing Provider: ANJUM DIGGS traMADol (ULTRAM) 50 mg tablet 60 tablet 2 Sig: Take 1 tablet by mouth every 8 hours as needed for pain for up to 90 days. 60 per month; with 2 refills this prescription is for up to 90 days Authorizing Provider: ANJUM DIGGS MD Patient has been identified by name and date of : Yes, Hilda Suero RN Date 12/22/2022 Time 9:21 am Patient phones for refill(s): Requested Prescriptions Pending Prescriptions Disp Refills mometasone (NASONEX) 50 mcg/actuation nasal spray 17 g 2 Sig: Use 2 Sprays in the nose once daily. Rinse mouth after use. multivitamin tablet 90 tablet 3 Sig: Take 1 tablet by mouth once daily. traMADol (ULTRAM) 50 mg tablet 60 tablet 2 Sig: Take 1 tablet by mouth every 8 hours as needed for pain for up to 90 days. 60 per month; with 2 refills this prescription is for up to 90 days Date of last office visit with pcp: 12/12/2022 Future appt: none Last 2 Encounter Wt Readings: Date: Wt: 12/12/2022 58.1 kg (128 lb) 12/07/2022 62.1 kg (137 lb) Previous labs/tests for medication: Blood Pressure: BUN Date Value 12/08/2022 9 mg/dL 08/27/2020 14 MG/DL Sodium Date Value 12/08/2022 144 mmol/L 08/27/2020 135 MMOL/L Last 1 Encounter BP Readings: Date: BP: 12/12/2022 136/96 Liver Function: ALT (U/L) Date Value 12/08/2022 14 11/08/2017 16 AST (U/L) Date Value 12/08/2022 16 11/08/2017 17 Please advise. Thank you. Hilda Suero RN documented in this encounter [facility] 12-12-2022 Note HNO ID: [id number] Author: Anjum Diggs MD Service: ? Author Type: Physician Type: Progress Notes Filed: 01/12/2023 1:08 AM Note Text: This note was created using [employer]. Subjective Gloria Pandey is a 62 year old female. Patient presents with: Hospital F/U--TCM follow up appointment SUBJECTIVE: Gloria Pandey is a 62 year old year old lady here today for Hospital/TCM follow up appointment for review of medical conditions. Noted experience in ER. Not good. Noted had severe vomiting after eating out at [employer] [facility] Developed severe nausea and vomiting. Went to ER by squad. Was checked for COVID and flu. Was given rapid hydration. After 11 hours, no urination. Nurse told ER doctor who was planning on sending her home. Checked for urinary retention but none so was admitted overnight. Noted that was exposed to mice droppings. Wonders if associated with her illness. Noted that was burning up and felt feverish and had sweats before squad came. Was having chills at the hospital. Having head drainage. Lungs feel like filling up with congestion. Using nasal spray and allergy pill Coughing up clear phlegm. PAST MEDICAL HISTORY Diagnosis Date At risk for sleep apnea 05/10/2021 Chest pain 05/10/2021 Depression Fibromyalgia Inguinal hernia 2019 Intracranial aneurysm Current Outpatient Medications Medication Sig traMADol (ULTRAM) 50 mg tablet Take 1 tablet by mouth every 8 hours as needed for pain for up to 90 days. 60 per month; with 2 refills this prescription is for up to 90 days methocarbamol (ROBAXIN) 750 mg tablet Take 1 tablet by mouth three times daily as needed (Neck pain/soreness). naproxen (NAPROSYN) 500 mg tablet Take 1 tablet by mouth twice daily as needed for pain (for pain/inflammation). Take with food. ondansetron orally disintegrating (ZOFRAN ODT) 4 mg disintegrating tablet Take 1 tablet by mouth every 6 hours as needed for nausea/vomiting. mometasone (NASONEX) 50 mcg/actuation nasal spray Use 2 Sprays in the nose once daily. Rinse mouth after use. Ceramides 1,3,6-11 (CERAVE) clsr Apply 1 application to affected area once daily. ceramides 1,3,6-II (CERAVE) Apply to affected area as needed. multivitamin tablet Take 1 tablet by mouth once daily. No current facility-administered medications for this visit. Review of Systems Objective BP 136/96 Pulse 107 Temp 37.2 ?C (99 ?F) Resp 18 Wt 58.1 kg (128 lb) SpO2 97% BMI 21.97 kg/m? Physical Exam Constitutional: Appearance: Normal appearance. HENT: Head: Normocephalic. Eyes: Conjunctiva/sclera: Conjunctivae normal. Cardiovascular: Rate and Rhythm: Normal rate and regular rhythm. Heart sounds: Normal heart sounds. Pulmonary: Effort: Pulmonary effort is normal. Breath sounds: Normal breath sounds. Skin: General: Skin is warm and dry. Neurological: General: No focal deficit present. Mental Status: She is alert and oriented to person, place, and time. Psychiatric: Attention and Perception: Attention and perception normal. Mood and Affect: Affect normal. Mood is anxious. Speech: Speech normal. Behavior: Behavior normal. Thought Content: Thought content normal. Judgment: Judgment normal. Reviewed labs. Component Latest Ref Rng AND Units 12/07/2022 12/08/2022 12/08/2022 12/08/2022 12/08/2022 1:18 AM 1:18 AM 6:06 AM 11:45 AM WBC 3.70 - 11.00 k/uL 12.37 (H) 13.88 (H) RBC 3.90 - 5.20 m/uL 4.90 4.39 Hemoglobin 11.5 - 15.5 g/dL 14.6 12.8 Hematocrit 36.0 - 46.0 % 42.3 38.4 MCV 80.0 - 100.0 fL 86.3 87.5 MCH 26.0 - 34.0 pg 29.8 29.2 MCHC 30.5 - 36.0 g/dL 34.5 33.3 RDW-CV 11.5 - 15.0 % 13.6 13.8 Platelet Count 150 - 400 k/uL 368 339 MPV 9.0 - 12.7 fL 8.8 (L) 8.8 (L) Neut% % 89.1 Abs Neut (ANC) 1.45 - 7.50 k/uL 11.02 (H) Lymph% % 7.6 Abs Lymph 1.00 - 4.00 k/uL 0.94 (L) Gilliam% % 2.8 Abs Gilliam <0.87 k/uL 0.35 Eosin% % 0.0 Abs Eosin <0.46 k/uL <0.03 Baso% % 0.1 Abs Baso <0.11 k/uL <0.03 Immature Gran % % 0.4 IMMATURE GRANS (ABS) <0.10 k/uL 0.05 NRBC /100 WBC 0.0 Absolute nRBC <0.01 k/uL <0.01 <0.01 DTYPE Auto Protein, Total 6.0 - 8.5 g/dL 7.7 6.2 Albumin 3.2 - 5.0 g/dL 4.5 3.6 Calcium 8.5 - 10.5 mg/dL 9.7 8.4 (L) Bilirubin, Total 0.2 - 1.0 mg/dL 0.4 0.4 Alkaline Phosphatase 45 - 117 U/L 86 65 AST 8 - 34 U/L 18 16 ALT 13 - 61 U/L 19 14 Glucose 70 - 100 mg/dL 131 (H) 98 BUN 7 - 26 mg/dL 14 9 Creatinine 0.51 - 0.95 mg/dL 0.50 (L) 0.47 (L) Sodium 136 - 145 mmol/L 140 144 Potassium 3.5 - 5.1 mmol/L 4.0 3.6 Chloride 98 - 107 mmol/L 105 112 (H) CO2 21 - 32 mmol/L 24 23 Anion Gap 5 - 16 mmol/L 11 9 eGFR >=60 mL/min/1.73mA? 106 108 Color Yellow Yellow Clarity Clear Clear Glucose, Urine Negative Negative Bilirubin, Urine Negative Negative Ketones, Urine Negative 1+ (A) Specific [place], Ur 1.005 - 1.030 1.012 Hemoglobin/Blood,Ur Negative 2+ (A) pH, Urine 5.0 - 8.0 6.0 Protein, Urine Negative N (more content not included)... [facility] 12-11-2022 Note HNO ID: [id number] Author: Nicole Quintero RN Service: ? Author Type: Registered Nurse Type: Progress Notes Filed: 12/11/2022 4:03 PM Note Text: TCM Home Visit Referral Source of Stratification: [facility] Admission Status: Discharged Readmission Risk Score: 8 MICHELINE Score: 4 Patient meets program referral criteria: No Patient does not qualify for High Risk TCM Home Visit program due to: Discharged home, does not meet program criteria Nicole Quintero RN December 11, 2022 3:47 PM TRANSITIONAL CARE MANAGEMENT (TCM) COMMUNITY MONITORING PROGRAM Provider FYI: Future apt TCM 12.12.22 Ambulates without assistive devices but may discuss Rx for Walker at [facility] apt Patient states or reports the following: Weak d/t to dehydration but otherwise feeling better Denies new or worsening symptoms Denies chest pain, fever, nausea or vomiting Occasional chills but does not feel feverish; advised to monitor temp Tolerable sob r/t to hay fever; managed with nasonex Reports transient lightheadedness/dizziness when changing positions; advised ankle pumps, slow positional changes and pausing in place briefly before first steps Eating and hydrating well Denies further questions or concerns SUMMARY: Discharge Network Status: In-Network Discharge Pt discharged from [facility] on 12.08.22. Admitted for: SIRS (systemic inflammatory response syndrome) ([facility]) Contact made with patient: Yes Hi my name is Nicole Quintero RN and I am calling from the [facility] on behalf of your PCP, Anjum Diggs MD I understand you were recently in the hospital so I am calling to check in with you to ensure you are feeling well now that you're home. May I ask you a few questions related to your hospital stay and well-being? Yes Contact with patient post discharge, spoke to patient. Patient identified by name and . Do you feel your health is BETTER, WORSE, or the SAME since leaving the hospital? Better ACTION TAKEN: Patient indicated symptoms are better or same, no action required. Continue outreach. MEDICATIONS: Many patients have questions or concerns about their medications once they are home. Do you have any questions about taking your medications or which medication you should be on? No Do you need any medication refills at this time, including any of the medications you might take only when needed? No ACTION TAKEN: No action required For RNs or Pharmacy completing outreach ONLY, was a medication review completed? No SOCIAL: We would like to make sure you have what you need so that your basics needs are met - including your personal safety, food, housing and medications. Would you like to speak with a social work team automobile assembler to help give you support for any of these needs? No It can be normal to feel anxious or down during a time like this. Would you like to talk to a mental health professional about how you have been feeling? Yes ACTION TAKEN: No action taken DISCHARGE INTRUCTIONS: Your discharge instructions / After Visit Summary (AVS) are important in guiding you through the recovery process. Do you have any questions related to your discharge instructions? No Do you have all the necessary equipment and supplies at home? Yes ACTION TAKEN: No action required I would like to help you schedule a hospital follow-up virtual or telephone visit with your PCP. This is a great way for you to connect with your provider to ensure you have safely transitioned home. If you are agreeable, I will send your request to a cafe associate who will contact and assist you with that appointment. This will give you an opportunity to ask any questions or address any concerns you may have with your PCP. Inform the patient that if they have any questions or concerns prior to that appointment, to call their PCP's office right away. ACTION TAKEN: No action required, patient already has an appointment scheduled. Your doctor would like us to remind you of the recommendations regarding the coronavirus (Covid19) outbreak: Avoid public places as much as possible. Avoid close contact (within 6 feet) with others you don?t live with, especially if they are sick. Stay home if you are sick. Wash your hands regularly for at least 20 seconds with soap and water. Wear a cloth mask in public places to help reduce community spread. Do not go to your Doctor?s office unless instructed to do so. For any non-emergency symptoms, call your Doctor?s office to get instructions on how to manage (we might recommend a telephone or virtual visit). For emergency symptoms, proceed to Emergency Department as usual but inform them of cough and fever symptoms BELLA if present (or call on the way if possible). [employer] Education Ordered -: No Nicole Quintero GLOBAL PROGRAM MANAGER Primary Care Transitional [employer] [facility] 12-11-2022 Note Patient Outreach ([facility] GLORIA PANDEY ([id number]) 1960 F Date Time Provider Department 12/11/22 NICOLE QUINTERO During your visit today, we recorded the following information about you: Nicole Quintero RN 12/11/2022 4:03 PM Signed TCM Home Visit Referral Source of Stratification: [facility] Admission Status: Discharged Readmission Risk Score: 8 MICHELINE Score: 4 Patient meets program referral criteria: No Patient does not qualify for High Risk TCM Home Visit program due to: Discharged home, does not meet program criteria Nicole Quintero RN December 11, 2022 3:47 PM TRANSITIONAL CARE MANAGEMENT (TCM) COMMUNITY MONITORING PROGRAM Provider FYI: Future apt [facility] 12.12.22 Ambulates without assistive devices but may discuss Rx for Walker at [facility] apt Patient states or reports the following: Weak d/t to dehydration but otherwise feeling better Denies new or worsening symptoms Denies chest pain, fever, nausea or vomiting Occasional chills but does not feel feverish; advised to monitor temp Tolerable sob r/t to hay fever; managed with nasonex Reports transient lightheadedness/dizziness when changing positions; advised ankle pumps, slow positional changes and pausing in place briefly before first steps Eating and hydrating well Denies further questions or concerns SUMMARY: Discharge Network Status: In-Network Discharge Pt discharged from [facility] on 12.08.22. Admitted for: SIRS (systemic inflammatory response syndrome) (HCC) Contact made with patient: Yes Hi my name is Nicole Quintero RN and I am calling from the [facility] on behalf of your PCP, Anjum Diggs MD I understand you were recently in the hospital so I am calling to check in with you to ensure you are feeling well now that you're home. May I ask you a few questions related to your hospital stay and well-being? Yes Contact with patient post discharge, spoke to patient. Patient identified by name and . Do you feel your health is BETTER, WORSE, or the SAME since leaving the hospital? Better ACTION TAKEN: Patient indicated symptoms are better or same, no action required. Continue outreach. MEDICATIONS: Many patients have questions or concerns about their medications once they are home. Do you have any questions about taking your medications or which medication you should be on? No Do you need any medication refills at this time, including any of the medications you might take only when needed? No ACTION TAKEN: No action required For RNs or Pharmacy completing outreach ONLY, was a medication review completed? No SOCIAL: We would like to make sure you have what you need so that your basics needs are met - including your personal safety, food, housing and medications. Would you like to speak with a social work team automobile assembler to help give you support for any of these needs? No It can be normal to feel anxious or down during a time like this. Would you like to talk to a mental health professional about how you have been feeling? Yes ACTION TAKEN: No action taken DISCHARGE INTRUCTIONS: Your discharge instructions / After Visit Summary (AVS) are important in guiding you through the recovery process. Do you have any questions related to your discharge instructions? No Do you have all the necessary equipment and supplies at home? Yes ACTION TAKEN: No action required I would like to help you schedule a hospital follow-up virtual or telephone visit with your PCP. This is a great way for you to connect with your provider to ensure you have safely transitioned home. If you are agreeable, I will send your request to a cafe associate who will contact and assist you with that appointment. This will give you an opportunity to ask any questions or address any concerns you may have with your PCP. Inform the patient that if they have any questions or concerns prior to that appointment, to call their PCP's office right away. ACTION TAKEN: No action required, patient already has an appointment scheduled. Your doctor would like us to remind you of the recommendations regarding the coronavirus (Covid19) outbreak: Avoid public places as much as possible. Avoid close contact (within 6 feet) with others you don?t live with, especially if they are sick. Stay home if you are sick. Wash your hands regularly for at least 20 seconds with soap and water. Wear a cloth mask in public places to help reduce community spread. Do not go to your Doctor?s office unless instructed to do so. For any non-emergency symptoms, call your Doctor?s office to get instructions on how to manage (we might recommend a telephone or virtual visit). For emergency symptoms, proceed to Emergency Department as usual but inform them of cough and fever symptoms BELLA if present (or call on the way if possible). [employer] Education Orde (more content not included)... [facility] documented as of this encounter (statuses as of 12/23/2022) [place] [id number] History of Past illness Narrative* Problem Noted Date Diagnosed Date Resolved Date SIRS (systemic inflammatory response syndrome) 12/08/2022 12/08/2022 Tachycardia 12/08/2022 12/08/2022 Intractable nausea and vomiting 12/08/2022 12/08/2022 Dehydration 12/08/2022 12/08/2022 Bilateral leg numbness 11/05/201711/06 Last Assessment & Plan: -consider neurology consult for further work up of transient leg numbness Cocaine abuse 11/04/2017 11/06/2017 Last Assessment & Plan: Tested positive at [facility] PLAN: Monitor for withdrawals Avoid beta blockers documented as of this encounter (statuses as of 01/02/2023) [facility] History of Past illness Narrative* Problem Noted Date Diagnosed Date Resolved Date SIRS (systemic inflammatory response syndrome) 12/08/2022 12/08/2022 Tachycardia 12/08/2022 12/08/2022 Intractable nausea and vomiting 12/08/2022 12/08/2022 Dehydration 12/08/2022 12/08/2022 Bilateral leg numbness 11/05/201711/06 Last Assessment & Plan: -consider neurology consult for further work up of transient leg numbness Cocaine abuse 11/04/2017 11/06/2017 Last Assessment & Plan: Tested positive at [facility] PLAN: Monitor for withdrawals Avoid beta blockers documented as of this encounter (statuses as of 01/03/2023) [facility]2023 History of Past illness Narrative* Problem Noted Date Diagnosed Date Resolved Date SIRS (systemic inflammatory response syndrome) 12/08/2022 12/08/2022 Tachycardia 12/08/2022 12/08/2022 Intractable nausea and vomiting 12/08/2022 12/08/2022 Dehydration 12/08/2022 12/08/2022 Bilateral leg numbness 11/05/201711/06 Last Assessment & Plan: -consider neurology consult for further work up of transient leg numbness Cocaine abuse 11/04/2017 11/06/2017 Last Assessment & Plan: Tested positive at [facility] PLAN: Monitor for withdrawals Avoid beta blockers documented as of this encounter (statuses as of 01/04/2023) [facility] History of Past illness Narrative* Problem Noted Date Diagnosed Date Resolved Date SIRS (systemic inflammatory response syndrome) 12/08/2022 12/08/2022 Tachycardia 12/08/2022 12/08/2022 Intractable nausea and vomiting 12/08/2022 12/08/2022 Dehydration 12/08/2022 12/08/2022 Bilateral leg numbness 11/05/201711/06 Last Assessment & Plan: -consider neurology consult for further work up of transient leg numbness Cocaine abuse 11/04/2017 11/06/2017 Last Assessment & Plan: Tested positive at [facility] PLAN: Monitor for withdrawals Avoid beta blockers documented as of this encounter (statuses as of 01/11/2023) [facility] History of Past illness Narrative* Problem Noted Date Diagnosed Date Resolved Date SIRS (systemic inflammatory response syndrome) 12/08/2022 12/08/2022 Tachycardia 12/08/2022 12/08/2022 Intractable nausea and vomiting 12/08/2022 12/08/2022 Dehydration 12/08/2022 12/08/2022 Cerebral aneurysm 03/31/2022 01/12/2023 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 01/12/2023 Last Assessment & Plan: 04/08/2019 Right far-lateral approach for clipping of right vertebral artery to thrombose recurrent right PICA aneurysm 04/09 S/p angiogram confirming: Interval clipping of the nondominant right vertebral artery proximal to the previously stent-coiled right PICA aneurysm and associated fenestration Interval thrombosis of the previously filling portion of the aneurysm with no residual aneurysm present, likely due to altered flow dynamics due to retrograde flow into the right PICA -Pain, nausea control -SQH, SCDs -PT, OT, mobilize - [facility] Bilateral leg numbness 11/05/201711/06 Last Assessment & Plan: -consider neurology consult for further work up of transient leg numbness Cerebral aneurysm without rupture 11/04/2017 01/12/2023 Overview: Present on admission Evaluated with angio Plan for treatment with stent-assisted coil 11/08 Last Assessment & Plan: 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 Follows with neurosurgery. Cocaine abuse 11/04/2017 11/06/2017 Last Assessment & Plan: Tested positive at [facility] PLAN: Monitor for withdrawals Avoid beta blockers Unruptured cerebral aneurysm 11/04/2017 01/12/2023 Overview: Added automatically from request for surgery [id number] documented as of this encounter (statuses as of 01/16/2023) [facility] History of Past illness Narrative* Problem Noted Date Diagnosed Date Resolved Date SIRS (systemic inflammatory response syndrome) 12/08/2022 12/08/2022 Tachycardia 12/08/2022 12/08/2022 Intractable nausea and vomiting 12/08/2022 12/08/2022 Dehydration 12/08/2022 12/08/2022 Cerebral aneurysm 03/31/2022 01/12/2023 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 01/12/2023 Last Assessment & Plan: 04/08/2019 Right far-lateral approach for clipping of right vertebral artery to thrombose recurrent right PICA aneurysm 04/09 S/p angiogram confirming: Interval clipping of the nondominant right vertebral artery proximal to the previously stent-coiled right PICA aneurysm and associated fenestration Interval thrombosis of the previously filling portion of the aneurysm with no residual aneurysm present, likely due to altered flow dynamics due to retrograde flow into the right PICA -Pain, nausea control -SQH, SCDs -PT, OT, mobilize - [facility] Bilateral leg numbness 11/05/201711/06 Last Assessment & Plan: -consider neurology consult for further work up of transient leg numbness Cerebral aneurysm without rupture 11/04/2017 01/12/2023 Overview: Present on admission Evaluated with angio Plan for treatment with stent-assisted coil 11/08 Last Assessment & Plan: 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 Follows with neurosurgery. Cocaine abuse 11/04/2017 11/06/2017 Last Assessment & Plan: Tested positive at [facility] PLAN: Monitor for withdrawals Avoid beta blockers Unruptured cerebral aneurysm 11/04/2017 01/12/2023 Overview: Added automatically from request for surgery [id number] documented as of this encounter (statuses as of 01/20/2023) [facility] History of Past illness Narrative* Problem Noted Date Diagnosed Date Resolved Date SIRS (systemic inflammatory response syndrome) 12/08/2022 12/08/2022 Tachycardia 12/08/2022 12/08/2022 Intractable nausea and vomiting 12/08/2022 12/08/2022 Dehydration 12/08/2022 12/08/2022 Cerebral aneurysm 03/31/2022 01/12/2023 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 01/12/2023 Last Assessment & Plan: 04/08/2019 Right far-lateral approach for clipping of right vertebral artery to thrombose recurrent right PICA aneurysm 04/09 S/p angiogram confirming: Interval clipping of the nondominant right vertebral artery proximal to the previously stent-coiled right PICA aneurysm and associated fenestration Interval thrombosis of the previously filling portion of the aneurysm with no residual aneurysm present, likely due to altered flow dynamics due to retrograde flow into the right PICA -Pain, nausea control -SQH, SCDs -PT, OT, mobilize - [facility] Bilateral leg numbness 11/05/201711/06 Last Assessment & Plan: -consider neurology consult for further work up of transient leg numbness Cerebral aneurysm without rupture 11/04/2017 01/12/2023 Overview: Present on admission Evaluated with angio Plan for treatment with stent-assisted coil 11/08 Last Assessment & Plan: 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 Follows with neurosurgery. Cocaine abuse 11/04/2017 11/06/2017 Last Assessment & Plan: Tested positive at [facility] PLAN: Monitor for withdrawals Avoid beta blockers Unruptured cerebral aneurysm 11/04/2017 01/12/2023 Overview: Added automatically from request for surgery [id number] documented as of this encounter (statuses as of 01/22/2023) [facility]09-29-2023 History of Past illness Narrative* Problem Noted Date Diagnosed Date Resolved Date SIRS (systemic inflammatory response syndrome) 12/08/2022 12/08/2022 Tachycardia 12/08/2022 12/08/2022 Intractable nausea and vomiting 12/08/2022 12/08/2022 Dehydration 12/08/2022 12/08/2022 Cerebral aneurysm 03/31/2022 01/12/2023 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 01/12/2023 Last Assessment & Plan: 04/08/2019 Right far-lateral approach for clipping of right vertebral artery to thrombose recurrent right PICA aneurysm 04/09 S/p angiogram confirming: Interval clipping of the nondominant right vertebral artery proximal to the previously stent-coiled right PICA aneurysm and associated fenestration Interval thrombosis of the previously filling portion of the aneurysm with no residual aneurysm present, likely due to altered flow dynamics due to retrograde flow into the right PICA -Pain, nausea control -SQH, SCDs -PT, OT, mobilize - [facility] Bilateral leg numbness 11/05/201711/06 Last Assessment & Plan: -consider neurology consult for further work up of transient leg numbness Cerebral aneurysm without rupture 11/04/2017 01/12/2023 Overview: Present on admission Evaluated with angio Plan for treatment with stent-assisted coil 11/08 Last Assessment & Plan: 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 Follows with neurosurgery. Cocaine abuse 11/04/2017 11/06/2017 Last Assessment & Plan: Tested positive at [facility] PLAN: Monitor for withdrawals Avoid beta blockers Unruptured cerebral aneurysm 11/04/2017 01/12/2023 Overview: Added automatically from request for surgery [id number] documented as of this encounter (statuses as of 01/25/2023) [facility]09-29[facility]23 History of Past illness Narrative* Problem Noted Date Diagnosed Date Resolved Date SIRS (systemic inflammatory response syndrome) 12/08/2022 12/08/2022 Tachycardia 12/08/2022 12/08/2022 Intractable nausea and vomiting 12/08/2022 12/08/2022 Dehydration 12/08/2022 12/08/2022 Cerebral aneurysm 03/31/2022 01/12/2023 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 01/12/2023 Last Assessment & Plan: 04/08/2019 Right far-lateral approach for clipping of right vertebral artery to thrombose recurrent right PICA aneurysm 04/09 S/p angiogram confirming: Interval clipping of the nondominant right vertebral artery proximal to the previously stent-coiled right PICA aneurysm and associated fenestration Interval thrombosis of the previously filling portion of the aneurysm with no residual aneurysm present, likely due to altered flow dynamics due to retrograde flow into the right PICA -Pain, nausea control -SQH, SCDs -PT, OT, mobilize - [facility] Bilateral leg numbness 11/05/201711/06 Last Assessment & Plan: -consider neurology consult for further work up of transient leg numbness Cerebral aneurysm without rupture 11/04/2017 01/12/2023 Overview: Present on admission Evaluated with angio Plan for treatment with stent-assisted coil 11/08 Last Assessment & Plan: 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 Follows with neurosurgery. Cocaine abuse 11/04/2017 11/06/2017 Last Assessment & Plan: Tested positive at [facility] PLAN: Monitor for withdrawals Avoid beta blockers Unruptured cerebral aneurysm 11/04/2017 01/12/2023 Overview: Added automatically from request for surgery [id number] documented as of this encounter (statuses as of 01/27/2023) [facility]09-29-2023 History of Past illness Narrative* Problem Noted Date Diagnosed Date Resolved Date SIRS (systemic inflammatory response syndrome) 12/08/2022 12/08/2022 Tachycardia 12/08/2022 12/08/2022 Intractable nausea and vomiting 12/08/2022 12/08/2022 Dehydration 12/08/2022 12/08/2022 Cerebral aneurysm 03/31/2022 01/12/2023 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 01/12/2023 Last Assessment & Plan: 04/08/2019 Right far-lateral approach for clipping of right vertebral artery to thrombose recurrent right PICA aneurysm 04/09 S/p angiogram confirming: Interval clipping of the nondominant right vertebral artery proximal to the previously stent-coiled right PICA aneurysm and associated fenestration Interval thrombosis of the previously filling portion of the aneurysm with no residual aneurysm present, likely due to altered flow dynamics due to retrograde flow into the right PICA -Pain, nausea control -SQH, SCDs -PT, OT, mobilize - [facility] Bilateral leg numbness 11/05/201711/06 Last Assessment & Plan: -consider neurology consult for further work up of transient leg numbness Cerebral aneurysm without rupture 11/04/2017 01/12/2023 Overview: Present on admission Evaluated with angio Plan for treatment with stent-assisted coil 11/08 Last Assessment & Plan: 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 Follows with neurosurgery. Cocaine abuse 11/04/2017 11/06/2017 Last Assessment & Plan: Tested positive at [facility] PLAN: Monitor for withdrawals Avoid beta blockers Unruptured cerebral aneurysm 11/04/2017 01/12/2023 Overview: Added automatically from request for surgery [id number] documented as of this encounter (statuses as of 02/20/2023) [facility]09-29-2023 History of Past illness Narrative* Problem Noted Date Diagnosed Date Resolved Date SIRS (systemic inflammatory response syndrome) 12/08/2022 12/08/2022 Tachycardia 12/08/2022 12/08/2022 Intractable nausea and vomiting 12/08/2022 12/08/2022 Dehydration 12/08/2022 12/08/2022 Cerebral aneurysm 03/31/2022 01/12/2023 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 01/12/2023 Last Assessment & Plan: 04/08/2019 Right far-lateral approach for clipping of right vertebral artery to thrombose recurrent right PICA aneurysm 04/09 S/p angiogram confirming: Interval clipping of the nondominant right vertebral artery proximal to the previously stent-coiled right PICA aneurysm and associated fenestration Interval thrombosis of the previously filling portion of the aneurysm with no residual aneurysm present, likely due to altered flow dynamics due to retrograde flow into the right PICA -Pain, nausea control -SQH, SCDs -PT, OT, mobilize - [facility] Bilateral leg numbness 11/05/201711/06 Last Assessment & Plan: -consider neurology consult for further work up of transient leg numbness Cerebral aneurysm without rupture 11/04/2017 01/12/2023 Overview: Present on admission Evaluated with angio Plan for treatment with stent-assisted coil 11/08 Last Assessment & Plan: 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 Follows with neurosurgery. Cocaine abuse 11/04/2017 11/06/2017 Last Assessment & Plan: Tested positive at [facility] PLAN: Monitor for withdrawals Avoid beta blockers Unruptured cerebral aneurysm 11/04/2017 01/12/2023 Overview: Added automatically from request for surgery [id number] documented as of this encounter (statuses as of 02/26/2023) [facility]09-28-2023 Miscellaneous Notes* Telephone Encounter - Emerita Retana RN - 12/07/2022 3:50 PM EDT Pt states she is going to get her stuff together and will call EMS. * Telephone Encounter - Fabby Carter APRN.CNS - 12/07/2022 3:34 PM EDT Noted, agree should go to ER [facility]. * Telephone Encounter - Emerita Retana RN - 12/07/2022 2:46 PM EDT Protocol recommends go to ER now. Pt states she does not want to go to [facility]. She asked if I would call her daughter, she wants her to take her to [place] ER. Left message on daughter VM. Care plan reviewed with patient. Patient voices understanding. Advised patient that if symptoms get worse tocall EMS to get her. Reason for Disposition [1] SEVERE vomiting (e.g., 6 or more times/day) AND [2] present > 8 hours (Exception: patient sounds well, is drinking liquids, does not sound dehydrated, and vomiting has lasted less than 24 hours) Answer Assessment - Initial Assessment Questions 1. VOMITING SEVERITY: - MILD: 1 - 2 times/day - MODERATE: 3 - 5 times/day, decreased oral intake without significant weight loss or symptoms of dehydration - SEVERE: 6 or more times/day, vomits everything or nearly everything, with significant weight loss, symptoms of dehydration 20 times, reports she was vomiting this morning and now she is gagging up foamy phlegm. 2. ONSET: 4 am 3. FLUIDS: Pt denies drinking fluids or food to vomited up. 4. ABDOMINAL PAIN: Pt denies abdominal pain. 5. DIARRHEA: Pt denies diarrhea, states she had a BM this morning. 6. CONTACTS: Neighbor was in the hospital last week and she was in the hospital 4-5 days last week.She lives in [place] housing and there are 100 + people. 7. CAUSE: Pt does not know, thinking maybe the flu. 8. HYDRATION STATUS: Pt states she is weak, but does not know if she can stand. States she needs tourinate now, but is afraid to go be go because she is lightheaded. 9. OTHER SYMPTOMS: Pt states she woke up all sweaty so may have had a fever, dull headache, extremedizziness could not walk for 3 hours this morning (better now), weakness, had a BM this morning butnot diarrhea. Pt denies vomiting blood or coffee grounds or recent head injury. 10. : Postmenopausal Protocols used: [id number] documented in this encounterC[facility] NoteHNO ID: [id number] Author: Ingrid Martinez, Abigail Hernandez Service: ? Author Type: ? Type: Progress Notes Filed: 10/10/2022 5:07 AM Note Text: Gloria Pandey is a 62 year old female who presents today for Patient presents with: Full Body Skin Check Current Treatment: Skin exam Past Treatment: As above History of nonmelanoma skin cancer: 01/2021 BCC right nasal ala History of Melanoma: no Family history of skin cancer: father MM Dermatology History: Specialty Problems None Allergies: Bactrim [Sulfamethoxazole-Trimethoprim], Cymbalta [Duloxetine], Sulfamethoxazole, Sulfites, and Topamax [Topiramate] Past Medical History: PAST MEDICAL HISTORY Diagnosis Date At risk for sleep apnea 05/10/2021 Chest pain 05/10/2021 Depression Fibromyalgia Inguinal hernia 2019 Intracranial aneurysm MEDS: Current Outpatient Medications on File Prior to Visit Medication Sig traMADol (ULTRAM) 50 mg tablet Take 1 tablet by mouth every 8 hours as needed for pain for up to 90 days. 60 per month; with 2 refills this prescription is for up to 90 days methocarbamol (ROBAXIN) 750 mg tablet Take 1 tablet by mouth three times daily as needed (Neck pain/soreness). naproxen (NAPROSYN) 500 mg tablet Take 1 tablet by mouth twice daily as needed for pain (for pain/inflammation). Take with food. ondansetron orally disintegrating (ZOFRAN ODT) 4 mg disintegrating tablet Take 1 tablet by mouth every 6 hours as needed for nausea/vomiting. mometasone (NASONEX) 50 mcg/actuation nasal spray Use 2 Sprays in the nose once daily. Rinse mouth after use. Ceramides 1,3,6-11 (CERAVE) clsr Apply 1 application to affected area once daily. ceramides 1,3,6-II (CERAVE) Apply to affected area as needed. multivitamin tablet Take 1 tablet by mouth once daily. No current facility-administered medications on file prior to visit. Review of systems No Has pacemaker / defibrillator No Takes aspirin / anticoagulant daily No Has valve disorders No Other problems elsewhere on skin No Adelaida Campos RN The above was entered by the nursing staff. I have reviewed the documentation and I concur. Emely BEASLEY HPI: Chief Complaint Skin check Location Full body Duration 6 months Timing constant Severity mild Quality mild Modifying Factors: No new lesions itching, bleeding, tender, growing Physical Exam - Area(s) Examined: The pt is alert and oriented, in NAD. Skin examination of scalp/hair, head/face, Conj/Eyelids, Neck, Lips/Teeth/Gums, Chest/Breast/Axilla, Back, Abdomen, Genitalia/Groin/Buttocks, Right Upper Extremity, Left Upper Extremity, Right Lower Extremity, Left Lower Extremity, and Digits/Nails was significant for: Items identified on Diagram above Brown stuck on papules and plaques throughout Light chand macules on sun exposed areas Bright cabral red papules throughout Regular and symmetric hyperpigmented macules/papules throughout, documented above Right Shoulder - Posterior A) 3mm pink pearly pigmented papule Right Nasal Sidewall Well healed scar without evidence of recurrent disease Assessment / Plan: (D49.2) Neoplasm of unspecified behavior of bone, soft tissue, and skin (primary encounter diagnosis) Comment: exam As above Plan: Shave of lesion to establish and confirm diagnosis: Photo taken: Yes Risks, benefits, alternatives and personnel required for shave biopsy reviewed with patient. Pt and provider agree as to site(s) to be biopsied. Pt verbalizes understanding and wishes to proceed. Site(s) prepped with alcohol and anesthetized with 1% lidocaine with epinephrine. Shave of lesion(s) performed to the level of the dermis. 1 specimen(s) from see below sent for pathology to r/o see below. Hyfrecator used and bandaging applied. Written and verbal wound care instructions provided to patient, understanding verbalized. OK to call with results. EBL: scant SURGICAL PATHOLOGY Ordered at: 10/09/22 1407 Source of specimen(s): SKIN SHAVE BIOPSY Clinical History: right posterior shoulder r/o skin cancer Adelaida Campos RN (Z85.828) Hx of nonmelanoma skin cancer Comment: scar NER Plan: Continue to monitor for growth/change. Continue SPF/sun precautions (broad spectrum SPF of at least 15 or greater) Continue regular FBSE Q6 months. (D22.70, D22.5, D22.60) Multiple benign nevi of upper extremity, lower extremity, and trunk Comment: stable, regular and symmetric on exam Plan: Continue to monitor for growth/change Monitor with monthly self-skin exams/serial photography Patient counseled on ABCDEs of melanoma Sunscreen and photoprotection advised, broad spectrum, at least SPF 15 or greater Patient to contact office for any new or changing lesions or other concerns (L81.4) Lentigines Comment:scattered throughout sun exposed surfaces Plan: continue to monitor/observe (D18.01) Cabral angioma Comment: scattered throughout (more content not included)...[facility]07-31-2023 Nurse Note* Adelaida Campos RN - 10/09/2022 2:08 PM EDT DERMATOLOGY AMBULATORY PATIENT EDUCATION TOPIC: Wound Care READINESS TO LEARN COGNITIVE ABILITY: A&Ox3 MOTIVATION TO LEARN: Eager and Interested FAMILY SUPPORT: None- unavailable/ disinterested INSTRUCTION PROVIDED TO: Patient PATIENT LEARNS BEST BY: Verbal instruction and Written instruction FACTORS AFFECTING LEARNING: None PHYSICAL LIMITATIONS AFFECTING LEARNING: None RESPONSE TO EDUCATION DIAGNOSIS: N/A PROCEDURE: Shave biopsy METHOD OF INSTRUCTION: Written instruction and Verbal instruction PATIENT / FAMILY RESPONSE: Patient verbalizes understanding. SUPPLEMENTAL MATERIAL: General wound care FOLLOW-UP PLAN: Pt instructed to call with any further questions or concerns. Contact information provided to patient. Adelaida Campos RN documented in this encounterC[facility] Instructions* Patient Instructions* Adelaida Campos RN - 10/09/2022 2:07 PM EDT Shave biopsy A shave biopsy was completed today in the office. Vaseline and a bandage(unless the biopsy took place in an area with hair, for example the scalp) have been applied. Wound care instructions are below. 1. Leave Vaseline and bandage in place for 24 hours. 2. After 24 hours, remove the bandage. 3. Wash site with soap (antimicrobial) and warm water. 4. Allow site to air dry. 5. Apply Vaseline and a clean bandage. 6. Continue the above process 2 times a day for the next 7 to 14 days (or until completely healed),starting tomorrow with the first bandage change. What to watch for: 1. Redness spreading away from the biopsy site(it is normal for redness to appear directly around the biopsy site edges). 2. Thick yellow/green drainage. Note: Clear yellow drainage on the bandage is expected. If any of the above symptoms occur, please call the office at [phone]. documented in this encounterC[facility] History of Present illness Narrative* Racheleshakira MichelleAbigail R - 10/09/2022 1:28 PM EDT Images from the original note were not included. Gloria Pandey is a 62 year old female who presents today for Patient presents with: Full Body Skin Check Current Treatment: Skin exam Past Treatment: As above History of nonmelanoma skin cancer: 01/2021 BCC right nasal ala History of Melanoma: no Family history of skin cancer: father MM Dermatology History: Specialty Problems None Allergies: Bactrim [Sulfamethoxazole-Trimethoprim], Cymbalta [Duloxetine], Sulfamethoxazole, Sulfites, and Topamax [Topiramate] Past Medical History: PAST MEDICAL HISTORY Diagnosis Date At risk for sleep apnea 05/10/2021 Chest pain 05/10/2021 Depression Fibromyalgia Inguinal hernia 2019 Intracranial aneurysm MEDS: Current Outpatient Medications on File Prior to Visit Medication Sig traMADol (ULTRAM) 50 mg tablet Take 1 tablet by mouth every 8 hours as needed for pain for up to 90days. 60 per month; with 2 refills this prescription is for up to 90 days methocarbamol (ROBAXIN) 750 mg tablet Take 1 tablet by mouth three times daily as needed (Neck pain/soreness). naproxen (NAPROSYN) 500 mg tablet Take 1 tablet by mouth twice daily as needed for pain (for pain/inflammation). Take with food. ondansetron orally disintegrating (ZOFRAN ODT) 4 mg disintegrating tablet Take 1 tablet by mouth every 6 hours as needed for nausea/vomiting. mometasone (NASONEX) 50 mcg/actuation nasal spray Use 2 Sprays in the nose once daily. Rinse mouth after use. Ceramides 1,3,6-11 (CERAVE) clsr Apply 1 application to affected area once daily. ceramides 1,3,6-II (CERAVE) Apply to affected area as needed. multivitamin tablet Take 1 tablet by mouth once daily. No current facility-administered medications on file prior to visit. Review of systems No Has pacemaker / defibrillator No Takes aspirin / anticoagulant daily No Has valve disorders No Other problems elsewhere on skin No Adelaida Campos RN The above was entered by the nursing staff. I have reviewed the documentation and I concur. Emely BEASLEY HPI: Chief Complaint Skin check Location Full body Duration 6 months Timing constant Severity mild Quality mild Modifying Factors: No new lesions itching, bleeding, tender, growing Physical Exam - Area(s) Examined: The pt is alert and oriented, in NAD. Skin examination of scalp/hair, head/face, Conj/Eyelids, Neck, Lips/Teeth/Gums, Chest/Breast/Axilla, Back, Abdomen, Genitalia/Groin/Buttocks, Right Upper Extremity, Left Upper Extremity, Right Lower Extremity, Left Lower Extremity, and Digits/Nails was significant for: Items identified on Diagram above Brown stuck on papules and plaques throughout Light chand macules on sun exposed areas Bright cabral red papules throughout Regular and symmetric hyperpigmented macules/papules throughout, documented above Right Shoulder - Posterior A) 3mm pink pearly pigmented papule Right Nasal Sidewall Well healed scar without evidence of recurrent disease Assessment / Plan: (D49.2) Neoplasm of unspecified behavior of bone, soft tissue, and skin (primary encounter diagnosis) Comment: exam As above Plan: Shave of lesion to establish and confirm diagnosis: Photo taken: Yes Risks, benefits, alternatives and personnel required for shave biopsy reviewed with patient. Pt andprovider agree as to site(s) to be biopsied. Pt verbalizes understanding and wishes to proceed. Site(s) prepped with alcohol and anesthetized with 1% lidocaine with epinephrine. Shave of lesion(s) performed to the level of the dermis. 1 specimen(s) from see below sent for pathology to r/o see below. Hyfrecator used and bandaging applied. Written and verbal wound care instructions provided to patient, understanding verbalized. OK to call with results. EBL: scant SURGICAL PATHOLOGY Ordered at: 10/09/22 5069 Source of specimen(s): SKIN SHAVE BIOPSY Clinical History: right posterior shoulder r/o skin cancer Adelaida Campos RN (Z85.828) Hx of nonmelanoma skin cancer Comment: scar NER Plan: Continue to monitor for growth/change. Continue SPF/sun precautions (broad spectrum SPF of at least 15 or greater) Continue regular FBSE Q6 months. (D22.70, D22.5, D22.60) Multiple benign nevi of upper extremity, lower extremity, and trunk Comment: stable, regular and symmetric on exam Plan: Continue to monitor for growth/change Monitor with monthly self-skin exams/serial photography Patient counseled on ABCDEs of melanoma Sunscreen and photoprotection advised, broad spectrum, at least SPF 15 or greater Patient to contact office for any new or changing lesions or other concerns (L81.4) Lentigines Comment:scattered throughout sun exposed surfaces Plan: continue to monitor/observe (D18.01) Cabral angioma Comment: scattered throughout Plan: discussed benign nature, continue to monitor/observe (L82.1) Seborrheic keratoses Comment: scattered throughout Plan: discussed benign nature, continue to monitor/observe (Z80.8) Family history of malignant melanoma Comment: father with h/o MM Plan: recommend yearly FBSE for all 1st degree relatives By signing my name below, I, Adelaida Campos RN, attest that this documentation has been prepared under the direction and in the presence of Emely BEASLEY. Electronically Signed: Adelaida Campos RN, Scribe. October 09, 2022 1:28 PM. I, Emely BEASLEY, personally performed the services described in this documentation. All medical record entries made by the scribe were at my direction and in my presence. I have reviewed the chart and discharge instructions (if applicable) and agree that the record reflects my personal performanceand is accurate and complete. Electronically Signed: Leila Chun MD and Emely BEASLEY October 09, 2022 2:02 PM. Patient to return to clinic in 6 months for follow-up re-evaluation RTC pending pathology results Patient to contact office as needed with questions/concerns, unimproved or worsening of symptoms Emely West PA-C documented in this encounterC[facility] NoteHNO ID: [id number] Author: Elsy Rosa MD Service: ? Author Type: Physician Type: Progress Notes Filed: 09/29/2022 11:50 AM Note Text: HISTORY AND PHYSICAL Gloria Calderon [place] 1960 REFERRING PHYSICIAN: Anjum Diggs MD CHIEF COMPLAINT: Consult (Colon cancer screening) HPI: The patient is a 62 year old female referred for endoscopy. Gloria has had alternating constipation and diarrhea for years . Has chronic lower intermittent cramping pain for years . The patient denies blood in stools, and denies changes in bowel habits. The patient notes no colon cancer in immediate family. The patient has had previous colonoscopy in 1999. She had a titanium coil placed for brain aneurysm in 2018. PAST MEDICAL HISTORY Diagnosis Date At risk for sleep apnea 05/10/2021 Chest pain 05/10/2021 Depression Fibromyalgia Inguinal hernia 2019 Intracranial aneurysm PAST SURGICAL HISTORY Procedure Laterality Date COLONOSCOPY 1999 HYSTERECTOMY PAST SURGICAL HISTORY OF 10/2018 Titanium coil and stent instertion for intracranial aneurysm PAST SURGICAL HISTORY OF 03/2019 brain aneurysm repair PAST SURGICAL HISTORY OF Rotator cuff repair Current Outpatient Medications Medication Sig traMADol (ULTRAM) 50 mg tablet Take 1 tablet by mouth every 8 hours as needed for pain for up to 90 days. 60 per month; with 2 refills this prescription is for up to 90 days methocarbamol (ROBAXIN) 750 mg tablet Take 1 tablet by mouth three times daily as needed (Neck pain/soreness). naproxen (NAPROSYN) 500 mg tablet Take 1 tablet by mouth twice daily as needed for pain (for pain/inflammation). Take with food. ondansetron orally disintegrating (ZOFRAN ODT) 4 mg disintegrating tablet Take 1 tablet by mouth every 6 hours as needed for nausea/vomiting. mometasone (NASONEX) 50 mcg/actuation nasal spray Use 2 Sprays in the nose once daily. Rinse mouth after use. Ceramides 1,3,6-11 (CERAVE) clsr Apply 1 application to affected area once daily. ceramides 1,3,6-II (CERAVE) Apply to affected area as needed. multivitamin tablet Take 1 tablet by mouth once daily. No current facility-administered medications for this visit. ALLERGIES: Bactrim [Sulfamethoxazole-Trimethoprim], Cymbalta [Duloxetine], Sulfamethoxazole, Sulfites, and Topamax [Topiramate] PERSONAL HISTORY: Social History Tobacco Use Smoking status: Former Packs/day: 0.50 Types: Cigarettes Quit date: 2017 Years since quittin.5 Smokeless tobacco: Never Vaping Use Vaping Use: Never used Substance Use Topics Alcohol use: Yes Comment: Rarely Drug use: Not Currently Types: Cocaine FAMILY HISTORY Problem Relation Age of Onset Aneurysm Mother Melanoma Father Stroke Father Anesthesia Problems No Family History The review of systems data was entered by the nurse and reviewed by me Nursing Notes: Michael PhyllisDESHAUN wong 09/25/2022 9:55 AM Signed REVIEW OF SYSTEMS: General: The patient denies fatigue, denies weight loss, denies weight gain, denies feeling hot, and denies feelings of cold. Eyes: The patient denies glaucoma, denies eye injury/surgery, wears glasses or contacts. Ear/Nose/Throat: The patient NOTES allergies, denies hayfever, denies ear infections, and denies bloody noses. Cardiovascular: The patient NOTES chest pain, denies heart disease, NOTES high blood pressure,denies cardiac stent, denies prior heart attack, denies irregular heart beat, denies high cholesterol, denies poor circulation, denies heart failure, other cardiac issues, denies claudication, denies cold feet, denies peripheral arterial stent. Respiratory: The patient denies tuberculosis, denies pneumonia, denies frequent cough, denies pulmonary embolism, denies shortness of breath, and denies coughing up blood. Gastrointestinal: The patient denies difficulty swallowing, denies acid reflux, denies ulcers, denies vomiting, denies jaundice/hepatitis, denies gallbladder problems, denies black or tarry stools, denies hemorrhoids, denies bleeding from rectum, denies diverticulitis, denies constipation, denies diarrhea, denies loss of stool control, and NOTES hernias. Kidney/Bladder: The patient denies kidney stones, denies urine infections, and denies bloody urine. Skin: The patient denies a history of skin cancer, denies bleeding/changing moles, and denies a history of skin rash. Neurologic: The patient denies a history of epilepsy/convulsions, NOTES headaches, denies head/spinal injuries, and denies stroke/TIA. Psychiatric: The patient denies psychiatric medications, denies depression, and denies voices, NOTES substance abuse. Endocrine: The patient denies thyroid disorders, denies diabetes, and denies hormonal problems. Hematologic: The patient denies a history of bruising, denies bleeding, and denies anemia, denies blood clots. Infections: The patient denies a history of measles and mumps, denies rheumatic fe (more content not included)...[facility] 09-19-[facility]22 NoteHNO ID: [id number] Author: Anjum Diggs MD Service: ? Author Type: Physician Type: Progress Notes Filed: 09/20/2022 12:54 AM Note Text: This note was created using [employer]. Subjective Gloria Pandey is a 62 year old female. Patient presents with: F/U 3 Month SUBJECTIVE: Gloria Pandey is a 62 year old year old lady here today for 3 month follow up appointment for review of medical conditions. On waiting list for housing now. [facility]ing to [facility] at [facility] in [place] closer to family. Currently at [facility]. Issues with right inguinal hernia and urinary incontinence. Wearing hernia belt. Considering pursuing surgery again. Saw Dr. Godinez in 2020. Needing to take tramadol more for hernia pain. Also neck pain and head pain in area of the titanium plate. Reviewed had Shingles already. Ready to do colonoscopy now. PAST MEDICAL HISTORY Diagnosis Date At risk for sleep apnea 05/10/2021 Chest pain 05/10/2021 Depression Fibromyalgia Intracranial aneurysm PAST SURGICAL HISTORY Procedure Laterality Date COLONOSCOPY 1999 HYSTERECTOMY PAST SURGICAL HISTORY OF 10/2018 Titanium coil and stent instertion for intracranial aneurysm PAST SURGICAL HISTORY OF 03/2019 brain aneurysm repair PAST SURGICAL HISTORY OF Rotator cuff repair Current Outpatient Medications Medication Sig methocarbamol (ROBAXIN) 750 mg tablet Take 1 tablet by mouth three times daily as needed (Neck pain/soreness). naproxen (NAPROSYN) 500 mg tablet Take 1 tablet by mouth twice daily as needed for pain (for pain/inflammation). Take with food. ondansetron orally disintegrating (ZOFRAN ODT) 4 mg disintegrating tablet Take 1 tablet by mouth every 6 hours as needed for nausea/vomiting. mometasone (NASONEX) 50 mcg/actuation nasal spray Use 2 Sprays in the nose once daily. Rinse mouth after use. traMADol (ULTRAM) 50 mg tablet Take 1 tablet by mouth every 8 hours as needed for pain for up to 90 days. 60 per month; with 2 refills this prescription is for up to 90 days Ceramides 1,3,6-11 (CERAVE) clsr Apply 1 application to affected area once daily. ceramides 1,3,6-II (CERAVE) Apply to affected area as needed. multivitamin tablet Take 1 tablet by mouth once daily. No current facility-administered medications for this visit. Review of Systems Objective BP 120/82 Pulse 111 Temp 37.4 ?C (99.4 ?F) Resp 18 Wt 58.1 kg (128 lb) SpO2 97% BMI 20.98 kg/m? Last 5 Encounter Wt Readings: Date: Wt: 09/19/2022 58.1 kg (128 lb) 07/04/2022 58.5 kg (129 lb) 06/21/2022 57.3 kg (126 lb 4.8 oz) 05/25/2022 58.1 kg (128 lb) 04/19/2022 59 kg (130 lb) No waist measurement recorded Estimated body mass index is 20.98 kg/m? as calculated from the following: Height as of 05/09/21: 166.4 cm (5' 5.5 ). Weight as of this encounter: 58.1 kg (128 lb). Last 5 Encounter BP Readings: Date: BP: 09/19/2022 120/82 07/04/2022 138/88 06/21/2022 112/66 05/25/2022 143/84 04/19/2022 138/88 Physical Exam Constitutional: Appearance: Normal appearance. HENT: Head: Normocephalic. Eyes: Conjunctiva/sclera: Conjunctivae normal. Cardiovascular: Rate and Rhythm: Normal rate and regular rhythm. Heart sounds: Normal heart sounds. Pulmonary: Effort: Pulmonary effort is normal. Breath sounds: Normal breath sounds. Skin: General: Skin is warm and dry. Neurological: General: No focal deficit present. Mental Status: She is alert and oriented to person, place, and time. Psychiatric: Attention and Perception: Attention and perception normal. Mood and Affect: Mood and affect normal. Speech: Speech normal. Behavior: Behavior normal. Thought Content: Thought content normal. Cognition and Memory: Cognition and memory normal. Judgment: Judgment normal. Component Latest Ref Rng AND Units 10/15/2020 05/09/2021 03/24/2022 WBC 3.70 - 11.00 k/uL 12.23 (H) 10.94 7.60 RBC 3.90 - 5.20 m/uL 4.51 4.64 4.92 Hemoglobin 11.5 - 15.5 g/dL 13.1 13.5 14.5 Hematocrit 36.0 - 46.0 % 41.1 42.4 45.0 MCV 80.0 - 100.0 fL 91.1 91.4 91.5 MCH 26.0 - 34.0 pg 29.0 29.1 MCHC 30.5 - 36.0 g/dL 31.9 31.8 32.2 RDW-CV 11.5 - 15.0 % 15.8 (H) 14.0 13.5 Platelet Count 150 - 400 k/uL 337 367 388 MPV 9.0 - 12.7 fL 9.9 9.3 8.8 (L) Neut% % 68.3 77.5 Abs Neut (ANC) 1.45 - 7.50 k/uL 8.35 (H) 8.48 (H) Lymph% % 22.4 14.1 Abs Lymph 1.00 - 4.00 k/uL 2.74 1.54 Gilliam% % 7.4 7.0 Abs Gilliam <0.87 k/uL 0.91 (H) 0.77 Eosin% % 0.8 0.5 Abs Eosin <0.46 k/uL 0.10 0.05 Baso% % 0.5 0.5 Abs Baso <0.11 k/uL 0.06 0.06 Immature Gran % % 0.6 0.4 IMMATURE GRANS (ABS) <0.10 k/uL 0.07 0.04 NRBC /100 WBC 0.0 0.0 Absolute nRBC <0.01 k/uL <0.01 <0.01 DTYPE Auto Auto Protein, Total 6.3 - 8.0 g/dL 7.4 Albumin 3.9 - 4.9 g/dL 4.8 Calcium 8.5 - 10.5 mg/dL 9.4 9.8 10.1 Bilirubin, Total 0.2 - 1.3 mg/dL 0.4 Alkaline Phosphatase 34 - 123 U/L 85 AST 13 - 35 U/L 17 ALT 7 - 38 U/L 15 Glucose 70 - 100 mg/dL 89 96 89 BUN 7 - (more content not included)...[place] [id number] Miscellaneous Notes* Telephone Encounter - Candace Veronica LPN - 07/17/2022 4:33 PM EDT Order faxed to [facility] in [place] and message left for patient order has been faxed. * Telephone Encounter - Amara Sheffield APRN.CNP - 07/17/2022 3:26 PM EDT Order printed, will sign, please fax. * Telephone Encounter - Cheryl Wiseman LPN - 07/17/2022 2:11 PM EDT Pt calls to report she hasn't seen the specialist for bladder prolapse yet. Pt reports she heard about a bladder belt that helps support the bladder. Pt reports she went to [facility] to buy one but was advised she needs a rx from provider. Pt is asking for rx for a bladder beot to be faxed to [facility]. It cannot be escripted. Cheryl Wiseman LPN documented in this encounterC[facility]04-25-[facility]23 NoteHNO ID: [id number] Author: Fabby Carter APRN.SENIOR POLICY ANALYST Service: ? Author Type: Nurse Specialist Type: Progress Notes Filed: 07/04/2022 5:00 PM Note Text: SUBJECTIVE: DTAP,TDAP,TD(1 - Tdap) Never done PAP TESTING Never done HPV TESTING Never done COLORECTAL CANCER SCREENING Never done MAMMOGRAM due on 10/04/2021 HPI Gloria Pandey is a 61 year old female. PMH significant for ACTIVE PROBLEM LIST Cerebral Aneurysm Without Rupture Alcohol Abuse Former Smoker Unruptured Cerebral Aneurysm Post-Procedural Headache Intractable Migraine Without Aura and Without Status Migrainosus Anxiety and Depression Aneurysm of Posterior Inferior Cerebellar Artery At Risk for Sleep Apnea Chest Pain Cerebral Aneurysm She notes neck pain and lower occipital area and right shoulder with acute sharp pain that is intermittent lasting seconds to minutes. Can radiate from her shoulder down to her right shoulder blade. Nothing seems to aggravate or alleviate this for her. Passes without intervention. Has taken tramadol but does not seem to be helping much. Pain is described as sharp and shooting of moderate intensity. At times severe enough to make her feel nauseous. She reports no vision speech or mobility problems. Has not taken Robaxin. Review of Systems Constitutional: Negative. Musculoskeletal: Positive for arthralgias, myalgias, neck pain and neck stiffness. Objective BP 138/88 Pulse 101 Resp 16 Wt 58.5 kg (129 lb) SpO2 99% BMI 21.14 kg/m? Physical Exam Vitals and nursing note reviewed. Constitutional: Appearance: Normal appearance. HENT: Head: Normocephalic and atraumatic. Eyes: Conjunctiva/sclera: Conjunctivae normal. Cardiovascular: Rate and Rhythm: Normal rate. Pulmonary: Effort: Pulmonary effort is normal. Musculoskeletal: Comments: TTP right upper shoulder, cervical spine and lower occipital areas, decreased ROM, at baseline neck Skin: General: Skin is warm and dry. Neurological: General: No focal deficit present. Mental Status: She is alert. ALLERGIES Allergen Reactions Bactrim [Sulfametho* Other: See Comments Yeast Infection Cymbalta [Duloxetin* Diarrhea Severe diarrhea Sulfamethoxazole Other: See Comments Yeast Infection Sulfites Other: See Comments Yeast Infection Topamax [Topiramate] Mental Status Change Terrible confusion Medications: ondansetron orally disintegrating (ZOFRAN ODT) 4 mg disintegrating tabletTake 1 tablet by mouth every 6 hours as needed for nausea/vomiting.Disp: 30 tabletRfl: 2 mometasone (NASONEX) 50 mcg/actuation nasal sprayUse 2 Sprays in the nose once daily. Rinse mouth after use.Disp: 17 gRfl: 2 traMADol (ULTRAM) 50 mg tabletTake 1 tablet by mouth every 8 hours as needed for pain for up to 90 days. 60 per month; with 2 refills this prescription is for up to 90 daysDisp: 60 tabletRfl: 2 methocarbamol (ROBAXIN) 750 mg tabletTake 1 tablet by mouth three times daily as needed (Neck pain/soreness).Disp: 40 tabletRfl: 2 Ceramides 1,3,6-11 (CERAVE) clsrApply 1 application to affected area once daily.Disp: 355 mLRfl: 4 ceramides 1,3,6-II (CERAVE)Apply to affected area as needed.Disp: 453 gRfl: 5 multivitamin tabletTake 1 tablet by mouth once daily.Disp: 90 tabletRfl: 3 PAST MEDICAL HISTORY Diagnosis Date At risk for sleep apnea 05/10/2021 Chest pain 05/10/2021 Depression Fibromyalgia Intracranial aneurysm Social History Tobacco Use Smoking status: Former Packs/day: 0.50 Types: Cigarettes Quit date: 2017 Years since quittin.3 Smokeless tobacco: Never Vaping Use Vaping Use: Never used Substance Use Topics Alcohol use: Yes Comment: Rarely Drug use: Not Currently Types: Cocaine ASSESSMENT/PLAN: 1. Cervicalgia - ICD9: 723.1, ICD10: M54.2 (primary diagnosis) 2. Acute pain of right shoulder - ICD9: 719.41, ICD10: M25.511 Recommend gentle range of motion, avoid painful activities, take muscle relaxer and naproxen [id number] for the next couple of days then as needed. If not feeling improved, consider imaging therapy, referral if needed. - METHOCARBAMOL 750 MG TABLET - NAPROXEN 500 MG TABLET - KETOROLAC 60 MG/2 ML INTRAMUSCULAR SOLUTION -in office today Fabby Carter APRN.SENIOR POLICY ANALYST Medical Decision Making: Problems: Low: Acute, uncomplicated illness or injury Risk: Moderate: Drug management Medical Decision Making Level: 3 - [facility] of Present illness Narrative* Fabby Carter APRN.SENIOR POLICY ANALYST - 07/04/2022 3:24 PM EDT SUBJECTIVE: DTAP,TDAP,TD(1 - Tdap) Never done PAP TESTING Never done HPV TESTING Never done COLORECTAL CANCER SCREENING Never done MAMMOGRAM due on 10/04/2021 HPI Gloria Pandey is a 61 year old female. PMH significant for ACTIVE PROBLEM LIST Cerebral Aneurysm Without Rupture Alcohol Abuse Former Smoker Unruptured Cerebral Aneurysm Post-Procedural Headache Intractable Migraine Without Aura and Without Status Migrainosus Anxiety and Depression Aneurysm of Posterior Inferior Cerebellar Artery At Risk for Sleep Apnea Chest Pain Cerebral Aneurysm She notes neck pain and lower occipital area and right shoulder with acute sharp pain that is intermittent lasting seconds to minutes. Can radiate from her shoulder down to her right shoulder blade. Nothing seems to aggravate or alleviate this for her. Passes without intervention. Has taken tramadol but does not seem to be helping much. Pain is described as sharp and shooting of moderate intensity. At times severe enough to make her feel nauseous. She reports no vision speech or mobility problems. Has not taken Robaxin. Review of Systems Constitutional: Negative. Musculoskeletal: Positive for arthralgias, myalgias, neck pain and neck stiffness. Objective BP 138/88 Pulse 101 Resp 16 Wt 58.5 kg (129 lb) SpO2 99% BMI 21.14 kg/m Physical Exam Vitals and nursing note reviewed. Constitutional: Appearance: Normal appearance. HENT: Head: Normocephalic and atraumatic. Eyes: Conjunctiva/sclera: Conjunctivae normal. Cardiovascular: Rate and Rhythm: Normal rate. Pulmonary: Effort: Pulmonary effort is normal. Musculoskeletal: Comments: TTP right upper shoulder, cervical spine and lower occipital areas, decreased ROM, at baseline neck Skin: General: Skin is warm and dry. Neurological: General: No focal deficit present. Mental Status: She is alert. ALLERGIES Allergen Reactions Bactrim [Sulfametho* Other: See Comments Yeast Infection Cymbalta [Duloxetin* Diarrhea Severe diarrhea Sulfamethoxazole Other: See Comments Yeast Infection Sulfites Other: See Comments Yeast Infection Topamax [Topiramate] Mental Status Change Terrible confusion Medications: ondansetron orally disintegrating (ZOFRAN ODT) 4 mg disintegrating tablet^Take 1 tablet by mouth every 6 hours as needed for nausea/vomiting.^Disp: 30 tablet^Rfl: 2 mometasone (NASONEX) 50 mcg/actuation nasal spray^Use 2 Sprays in the nose once daily. Rinse mouth after use.^Disp: 17 g^Rfl: 2 traMADol (ULTRAM) 50 mg tablet^Take 1 tablet by mouth every 8 hours as needed for pain for up to 90days. 60 per month; with 2 refills this prescription is for up to 90 days^Disp: 60 tablet^Rfl: 2 methocarbamol (ROBAXIN) 750 mg tablet^Take 1 tablet by mouth three times daily as needed (Neck pain/soreness).^Disp: 40 tablet^Rfl: 2 Ceramides 1,3,6-11 (CERAVE) clsr^Apply 1 application to affected area once daily.^Disp: 355 mL^Rfl:4 ceramides 1,3,6-II (CERAVE)^Apply to affected area as needed.^Disp: 453 g^Rfl: 5 multivitamin tablet^Take 1 tablet by mouth once daily.^Disp: 90 tablet^Rfl: 3 PAST MEDICAL HISTORY Diagnosis Date At risk for sleep apnea 05/10/2021 Chest pain 05/10/2021 Depression Fibromyalgia Intracranial aneurysm Social History Tobacco Use Smoking status: Former Packs/day: 0.50 Types: Cigarettes Quit date: 2017 Years since quittin.3 Smokeless tobacco: Never Vaping Use Vaping Use: Never used Substance Use Topics Alcohol use: Yes Comment: Rarely Drug use: Not Currently Types: Cocaine ASSESSMENT/PLAN: 1. Cervicalgia - ICD9: 723.1, ICD10: M54.2 (primary diagnosis) 2. Acute pain of right shoulder - ICD9: 719.41, ICD10: M25.511 Recommend gentle range of motion, avoid painful activities, take muscle relaxer and naproxen [id number] for the next couple of days then as needed. If not feeling improved, consider imaging therapy, referral if needed. - METHOCARBAMOL 750 MG TABLET - NAPROXEN 500 MG TABLET - KETOROLAC 60 MG/2 ML INTRAMUSCULAR SOLUTION -in office today Fabby Carter APRN.SENIOR POLICY ANALYST Medical Decision Making: Problems: Low: Acute, uncomplicated illness or injury Risk: Moderate: Drug management Medical Decision Making Level: 3 - Low documented in this encounterC[facility]04-12-2023 NoteHNO ID: [id number] Author: Anjum Diggs MD Service: ? Author Type: Physician Type: Progress Notes Filed: 06/21/2022 5:42 PM Note Text: This note was created using [employer]. Subjective Gloria Pandey is a 62 year old female. Patient presents with: F/U 3 Month SUBJECTIVE: Gloria Pandey is a 62 year old year old lady here today for 3 month follow up appointment for review of medical conditions. Stable on pain med. Chronic pain but tramadol still helps No adverse effects. Some months lasts 30 days or more and other less. Zofran--needs to have on hand. Allergies acting up. Sneezing, rhinorrhea (clear). No fevers. Using Bronchaid. Bladder issue better after treated with antibiotic through UC. Studies were negative. Macrobid did help though. PAST MEDICAL HISTORY Diagnosis Date At risk for sleep apnea 05/10/2021 Chest pain 05/10/2021 Depression Fibromyalgia Intracranial aneurysm Current Outpatient Medications Medication Sig traMADol (ULTRAM) 50 mg tablet Take 1 tablet by mouth every 8 hours as needed for pain for up to 90 days. Do not start before March 30, 2022. methocarbamol (ROBAXIN) 750 mg tablet Take 1 tablet by mouth three times daily as needed (Neck pain/soreness). Ceramides 1,3,6-11 (CERAVE) clsr Apply 1 application to affected area once daily. ceramides 1,3,6-II (CERAVE) Apply to affected area as needed. multivitamin tablet Take 1 tablet by mouth once daily. ondansetron orally disintegrating (ZOFRAN ODT) 4 mg disintegrating tablet Take 1 tablet by mouth every 6 hours as needed for Nausea/Vomiting. Current Facility-Administered Medications Medication Dose Route Frequency perflutren lipid microspheres 1.3 mL in NaCl (PF) 0.9% 10 mL injection (DEFINITY) INTRAVENOUS DIRECTED PRN sodium chloride 0.9 % (flush) 10 mL (BD POSIFLUSH) 10 mL INTRAVENOUS DIRECTED PRN Review of Systems Objective BP 112/66 Pulse 104 Temp 36.5 ?C (97.7 ?F) Resp 18 Wt 57.3 kg (126 lb 4.8 oz) SpO2 97% BMI 20.70 kg/m? Physical Exam Constitutional: Appearance: Normal appearance. HENT: Head: Normocephalic. Eyes: Conjunctiva/sclera: Conjunctivae normal. Neck: Comments: Indicates pain upper neck and right occipital area s/p surgery Cardiovascular: Rate and Rhythm: Normal rate and regular rhythm. Heart sounds: Normal heart sounds. Pulmonary: Effort: Pulmonary effort is normal. Breath sounds: Normal breath sounds. Skin: General: Skin is warm and dry. Neurological: General: No focal deficit present. Mental Status: She is alert and oriented to person, place, and time. Psychiatric: Mood and Affect: Mood normal. Behavior: Behavior normal. Thought Content: Thought content normal. Judgment: Judgment normal. Assessment and Plan Encounter Diagnosis ICD-10-CM 1. Seasonal allergic rhinitis, unspecified trigger J30.2 Discussed medications. Further evaluation and treatment as needed 2. Post-operative pain G89.18 traMADol (ULTRAM) 50 mg tablet DISCONTINUED: traMADol (ULTRAM) 50 mg tablet 3. Other headache syndrome G44.89 traMADol (ULTRAM) 50 mg tablet DISCONTINUED: traMADol (ULTRAM) 50 mg tablet Increased pain lately 4. Vaginal prolapse N81.10 traMADol (ULTRAM) 50 mg tablet DISCONTINUED: traMADol (ULTRAM) 50 mg tablet Above issues addressed with patient. Patient involved in shared decision making for management of medical issues. History and medications reviewed. Epic updated as needed Refills and/or prescriptions taken care of and meds adjusted as indicated after reviewed history, exam and labs. Health Maintenance reviewed. Updated record and/or ordered tests as recorded. Encouraged on efforts at healthy diet and regular exercise and adequate sleep. Had to send tramadol RX with explanation that RX with 2 refills is for 90 days. Stable with control of chronic pain though some months are better than others. Post-op pain. Consider referral to pain management to see if any interventions (like nerve block) might help. No signs of diversion or abuse of medication(s); no adverse effects. Continue present management. Anjum Diggs [facility]04-12-2023 History of Present illness Narrative* Anjum Diggs MD - 06/21/2022 3:57 PM EDT This note was created using NoteWriter. Subjective Gloria Pandey is a 62 year old female. Patient presents with: F/U 3 Month SUBJECTIVE: Gloria Pandey is a 62 year old year old lady here today for 3 month follow up appointment for review of medical conditions. Stable on pain med. Chronic pain but tramadol still helps No adverse effects. Some months lasts 30 days or more and other less. Zofran--needs to have on hand. Allergies acting up. Sneezing, rhinorrhea (clear). No fevers. Using Bronchaid. Bladder issue better after treated with antibiotic through UC. Studies were negative. Macrobid did help though. PAST MEDICAL HISTORY Diagnosis Date At risk for sleep apnea 05/10/2021 Chest pain 05/10/2021 Depression Fibromyalgia Intracranial aneurysm Current Outpatient Medications Medication Sig traMADol (ULTRAM) 50 mg tablet Take 1 tablet by mouth every 8 hours as needed for pain for up to 90days. Do not start before March 30, 2022. methocarbamol (ROBAXIN) 750 mg tablet Take 1 tablet by mouth three times daily as needed (Neck pain/soreness). Ceramides 1,3,6-11 (CERAVE) clsr Apply 1 application to affected area once daily. ceramides 1,3,6-II (CERAVE) Apply to affected area as needed. multivitamin tablet Take 1 tablet by mouth once daily. ondansetron orally disintegrating (ZOFRAN ODT) 4 mg disintegrating tablet Take 1 tablet by mouth every 6 hours as needed for Nausea/Vomiting. Current Facility-Administered Medications Medication Dose Route Frequency perflutren lipid microspheres 1.3 mL in NaCl (PF) 0.9% 10 mL injection (DEFINITY) INTRAVENOUS DIRECTED PRN sodium chloride 0.9 % (flush) 10 mL (BD POSIFLUSH) 10 mL INTRAVENOUS DIRECTED PRN Review of Systems Objective BP 112/66 Pulse 104 Temp 36.5 C (97.7 F) Resp 18 Wt 57.3 kg (126 lb 4.8 oz) SpO2 97% BMI 20.70 kg/m Physical Exam Constitutional: Appearance: Normal appearance. HENT: Head: Normocephalic. Eyes: Conjunctiva/sclera: Conjunctivae normal. Neck: Comments: Indicates pain upper neck and right occipital area s/p surgery Cardiovascular: Rate and Rhythm: Normal rate and regular rhythm. Heart sounds: Normal heart sounds. Pulmonary: Effort: Pulmonary effort is normal. Breath sounds: Normal breath sounds. Skin: General: Skin is warm and dry. Neurological: General: No focal deficit present. Mental Status: She is alert and oriented to person, place, and time. Psychiatric: Mood and Affect: Mood normal. Behavior: Behavior normal. Thought Content: Thought content normal. Judgment: Judgment normal. Assessment and Plan Encounter Diagnosis ICD-10-CM 1. Seasonal allergic rhinitis, unspecified trigger J30.2 Discussed medications. Further evaluation and treatment as needed 2. Post-operative pain G89.18 traMADol (ULTRAM) 50 mg tablet DISCONTINUED: traMADol (ULTRAM) 50 mg tablet 3. Other headache syndrome G44.89 traMADol (ULTRAM) 50 mg tablet DISCONTINUED: traMADol (ULTRAM) 50 mg tablet Increased pain lately 4. Vaginal prolapse N81.10 traMADol (ULTRAM) 50 mg tablet DISCONTINUED: traMADol (ULTRAM) 50 mg tablet Above issues addressed with patient. Patient involved in shared decision making for management of medical issues. History and medications reviewed. Epic updated as needed Refills and/or prescriptions taken care of and meds adjusted as indicated after reviewed history, exam and labs. Health Maintenance reviewed. Updated record and/or ordered tests as recorded. Encouraged on efforts at healthy diet and regular exercise and adequate sleep. Had to send tramadol RX with explanation that RX with 2 refills is for 90 days. Stable with control of chronic pain though some months are better than others. Post-op pain. Consider referral to pain management to see if any interventions (like nerve block) might help. No signs of diversion or abuse of medication(s); no adverse effects. Continue present management. Anjum Diggs MD [facility] NoteHNO ID: [id number] Author: Princess Whalen MD Service: ? Author Type: Physician Type: Progress Notes Filed: 05/25/2022 6:48 PM Note Text: Gloria Pandey is a 62 year old female who presents with Urinary Odor and Lower Right Sided Abdominal/Groin Pain (Patient states she does have a hernia and a prolapsed bladder and bowel. Symptoms started today. ) 62-year-old female presented here complaining of she onset of pain on the right groin where the hernia sat. Denies any fevers or chills. She has a history of prolapsed bladder. PAST MEDICAL HISTORY Diagnosis Date At risk for sleep apnea 05/10/2021 Chest pain 05/10/2021 Depression Fibromyalgia Intracranial aneurysm ACTIVE PROBLEM LIST Cerebral Aneurysm Without Rupture Alcohol Abuse Former Smoker Unruptured Cerebral Aneurysm Post-Procedural Headache Intractable Migraine Without Aura and Without Status Migrainosus Anxiety and Depression Aneurysm of Posterior Inferior Cerebellar Artery At Risk for Sleep Apnea Chest Pain Cerebral Aneurysm Current Outpatient Medications Medication Sig Dispense Refill traMADol (ULTRAM) 50 mg tablet Take 1 tablet by mouth every 8 hours as needed for pain for up to 90 days. Do not start before March 30, 2022. 60 tablet 2 methocarbamol (ROBAXIN) 750 mg tablet Take 1 tablet by mouth three times daily as needed (Neck pain/soreness). 40 tablet 2 Ceramides 1,3,6-11 (CERAVE) clsr Apply 1 application to affected area once daily. 355 mL 4 ceramides 1,3,6-II (CERAVE) Apply to affected area as needed. 453 g 5 multivitamin tablet Take 1 tablet by mouth once daily. 90 tablet 3 ondansetron orally disintegrating (ZOFRAN ODT) 4 mg disintegrating tablet Take 1 tablet by mouth every 6 hours as needed for Nausea/Vomiting. 30 tablet 2 nitrofurantoin monohydrate and macrocrystal (MACROBID) 100 mg capsule Take 1 capsule by mouth twice daily for 7 days. 14 capsule 0 Current Facility-Administered Medications Medication Dose Route Frequency Provider Last Rate Last Admin perflutren lipid microspheres 1.3 mL in NaCl (PF) 0.9% 10 mL injection (DEFINITY) INTRAVENOUS DIRECTED PRN Inder Renee MD sodium chloride 0.9 % (flush) 10 mL (BD POSIFLUSH) 10 mL INTRAVENOUS DIRECTED PRN Inder Renee MD Social History Tobacco Use Smoking status: Former Packs/day: 0.50 Types: Cigarettes Quit date: 2017 Years since quittin.2 Smokeless tobacco: Never Vaping Use Vaping Use: Never used Substance Use Topics Alcohol use: Yes Comment: Rarely Drug use: Not Currently Types: Cocaine Alcohol Use: Yes (Rarely) Tobacco Use: 0.5 packs/day Quit 03/12/2017. Types: Cigarettes FAMILY HISTORY Problem Relation Age of Onset Melanoma Father Aneurysm Mother Anesthesia Problems No Family History Review of Systems Genitourinary: Positive for dysuria and urgency. All other systems reviewed and are negative. BP 143/84 Pulse 93 Temp 98.1 Resp 20 Wt 128 lb (58.1kg) SpO2 95% Physical Exam Vitals and nursing note reviewed. Constitutional: Appearance: Normal appearance. Cardiovascular: Rate and Rhythm: Normal rate and regular rhythm. Pulses: Normal pulses. Heart sounds: Normal heart sounds. Pulmonary: Effort: Pulmonary effort is normal. Breath sounds: Normal breath sounds. Abdominal: Palpations: Abdomen is soft. Neurological: Mental Status: She is alert. ASSESSMENT/PLAN: 1. Dysuria - ICD9: 788.1, ICD10: R30.0 Discussed with patient treatments and plan we will wait for the urine culture Place patient on Macrobid 100 mg twice a day for 7 days. - URINALYSIS, DIPSTICK ONLY - URINE CULTURE [facility]03-16-2023 Miscellaneous Notes* Telephone Encounter - Coral Deluca RN - 05/25/2022 4:25 PM EDT Patient notified and agreeable to go to nearest Urgent Care/Express Care in her area today. Coral Deluca RN * Telephone Encounter - Fabby Carter APRN.CNS - 05/25/2022 3:45 PM EDT Recommend she come into urgent care for quickest check and treatment for UTI symptoms. * Telephone Encounter - Wilda Kellogg RN - 05/25/2022 3:17 PM EDT Patient calls and states that her urine is smelling foul. Patient has some burning in area. Patientasking if orders can be placed to check urine for UTI? Please review and advise, Wilda Kellogg RN documented in [facility] encounterC[facility] NoteHNO ID: [id number] Author: Anjum Diggs MD Service: ? Author Type: Physician Type: Progress Notes Filed: 05/21/2022 11:04 PM Note Text: This note was created using EverythingMeter. Subjective Gloria Pandey is a 62 year old female. Patient presents with: Established Patient: 2 spells of dizziness with emesis x 1, questioning UTI SUBJECTIVE: Gloria Pandey is a 62 year old year old lady here today for acute appointment for review of medical conditions. Yesterday scared her so bad almost called the squad. Gets sudden onset dizziness with vomiting once. Was hours after eating Was just sitting there listening to the news. Not associated with movement or something she ate. Yesterday was able to eat afterwards oatmeal and grapefruit A couple hours later felt dizzy but not as long and no emesis Was able to go for walk afterwards. Prior worst episodes when had just gotten out of bed and had coffee and drank water. Frequency: 4 to 5 times over the past year. Prior episode was 3 months prior. Usually emesis times 1. Vision would go out when these episodes happen. Could see. Maybe blurry. Noted that codeine for pain had helped after procedure for aneurysm. Has some UTI symptoms with irritation. Still with bladder prolapse issues. Prolapses every day. Has had increased cramping and pain since recent angiogram. Discussed loves grapefruit and eats a few times a week if on sale. Does have tramadol but does not recall if took any last night. Did not take in the AM. PAST MEDICAL HISTORY Diagnosis Date At risk for sleep apnea 05/10/2021 Chest pain 05/10/2021 Depression Fibromyalgia Intracranial aneurysm Current Outpatient Medications Medication Sig traMADol (ULTRAM) 50 mg tablet Take 1 tablet by mouth every 8 hours as needed for pain for up to 90 days. Do not start before March 30, 2022. methocarbamol (ROBAXIN) 750 mg tablet Take 1 tablet by mouth three times daily as needed (Neck pain/soreness). Ceramides 1,3,6-11 (CERAVE) clsr Apply 1 application to affected area once daily. ceramides 1,3,6-II (CERAVE) Apply to affected area as needed. multivitamin tablet Take 1 tablet by mouth once daily. ondansetron orally disintegrating (ZOFRAN ODT) 4 mg disintegrating tablet Take 1 tablet by mouth every 6 hours as needed for Nausea/Vomiting. Current Facility-Administered Medications Medication Dose Route Frequency perflutren lipid microspheres 1.3 mL in NaCl (PF) 0.9% 10 mL injection (DEFINITY) INTRAVENOUS DIRECTED PRN sodium chloride 0.9 % (flush) 10 mL (BD POSIFLUSH) 10 mL INTRAVENOUS DIRECTED PRN Review of Systems Objective BP 138/88 Pulse 99 Temp 36.6 ?C (97.9 ?F) Resp 18 Wt 59 kg (130 lb) SpO2 98% BMI 21.30 kg/m? Physical Exam Constitutional: Appearance: Normal appearance. HENT: Head: Normocephalic. Eyes: Extraocular Movements: Extraocular movements intact. Conjunctiva/sclera: Conjunctivae normal. Pupils: Pupils are equal, round, and reactive to light. Cardiovascular: Rate and Rhythm: Normal rate and regular rhythm. Heart sounds: Normal heart sounds. Pulmonary: Effort: Pulmonary effort is normal. Breath sounds: Normal breath sounds. Skin: General: Skin is warm and dry. Neurological: General: No focal deficit present. Mental Status: She is alert and oriented to person, place, and time. Psychiatric: Mood and Affect: Mood normal. Behavior: Behavior normal. Thought Content: Thought content normal. Judgment: Judgment normal. Urine dip--trace blood; otherwise negative Assessment and Plan Encounter Diagnosis ICD-10-CM 1. Severe dizziness R42 Emesis with just first episode yesterday 2. Vomiting without nausea, unspecified vomiting type R11.11 Did not feel like having the flu. Just dizziness sudden onset with emesis 3. Generalized abdominal pain R10.84 UA DIP, URINE (POC) 4. UTI symptoms R39.9 UA DIP, URINE (POC) URINALYSIS, WITH MICROSCOPIC URINE CULTURE 5. Vaginal prolapse N81.10 nitrofurantoin monohydrate and macrocrystal (MACROBID) 100 mg capsule Above issues addressed with patient. Patient involved in shared decision making for management of medical issues. History and medications reviewed. Epic updated as needed Refills and/or prescriptions taken care of and meds adjusted as indicated after reviewed history, exam and labs. Health Maintenance reviewed. Updated record and/or ordered tests as recorded. Encouraged on efforts at healthy diet and regular exercise and adequate sleep. Monitor for red flag symptoms to go to ER. None noted. Was able to eat afterwards. Will see if nay correlation with grapefruit intake and tramadol dosing. Anjum Diggs [facility]02-08-2023 History of Present illness Narrative* Anjum Diggs MD - 04/19/2022 12:06 PM EST This note was created using NoteWriter. Subjective Gloria Pandey is a 62 year old female. Patient presents with: Established Patient: 2 spells of dizziness with emesis x 1, questioning UTI SUBJECTIVE: Gloria Pandey is a 62 year old year old lady here today for acute appointment for review of medical conditions. Yesterday scared her so bad almost called the squad. Gets sudden onset dizziness with vomiting once. Was hours after eating Was just sitting there listening to the news. Not associated with movement or something she ate. Yesterday was able to eat afterwards oatmeal and grapefruit A couple hours later felt dizzy but not as long and no emesis Was able to go for walk afterwards. Prior worst episodes when had just gotten out of bed and had coffee and drank water. Frequency: 4 to 5 times over the past year. Prior episode was 3 months prior. Usually emesis times 1. Vision would go out when these episodes happen. Could see. Maybe blurry. Noted that codeine for pain had helped after procedure for aneurysm. Has some UTI symptoms with irritation. Still with bladder prolapse issues. Prolapses every day. Has had increased cramping and pain since recent angiogram. Discussed loves grapefruit and eats a few times a week if on sale. Does have tramadol but does not recall if took any last night. Did not take in the AM. PAST MEDICAL HISTORY Diagnosis Date At risk for sleep apnea 05/10/2021 Chest pain 05/10/2021 Depression Fibromyalgia Intracranial aneurysm Current Outpatient Medications Medication Sig traMADol (ULTRAM) 50 mg tablet Take 1 tablet by mouth every 8 hours as needed for pain for up to 90days. Do not start before March 30, 2022. methocarbamol (ROBAXIN) 750 mg tablet Take 1 tablet by mouth three times daily as needed (Neck pain/soreness). Ceramides 1,3,6-11 (CERAVE) clsr Apply 1 application to affected area once daily. ceramides 1,3,6-II (CERAVE) Apply to affected area as needed. multivitamin tablet Take 1 tablet by mouth once daily. ondansetron orally disintegrating (ZOFRAN ODT) 4 mg disintegrating tablet Take 1 tablet by mouth every 6 hours as needed for Nausea/Vomiting. Current Facility-Administered Medications Medication Dose Route Frequency perflutren lipid microspheres 1.3 mL in NaCl (PF) 0.9% 10 mL injection (DEFINITY) INTRAVENOUS DIRECTED PRN sodium chloride 0.9 % (flush) 10 mL (BD POSIFLUSH) 10 mL INTRAVENOUS DIRECTED PRN Review of Systems Objective BP 138/88 Pulse 99 Temp 36.6 C (97.9 F) Resp 18 Wt 59 kg (130 lb) SpO2 98% BMI 21.30 kg/m Physical Exam Constitutional: Appearance: Normal appearance. HENT: Head: Normocephalic. Eyes: Extraocular Movements: Extraocular movements intact. Conjunctiva/sclera: Conjunctivae normal. Pupils: Pupils are equal, round, and reactive to light. Cardiovascular: Rate and Rhythm: Normal rate and regular rhythm. Heart sounds: Normal heart sounds. Pulmonary: Effort: Pulmonary effort is normal. Breath sounds: Normal breath sounds. Skin: General: Skin is warm and dry. Neurological: General: No focal deficit present. Mental Status: She is alert and oriented to person, place, and time. Psychiatric: Mood and Affect: Mood normal. Behavior: Behavior normal. Thought Content: Thought content normal. Judgment: Judgment normal. Urine dip--trace blood; otherwise negative Assessment and Plan Encounter Diagnosis ICD-10-CM 1. Severe dizziness R42 Emesis with just first episode yesterday 2. Vomiting without nausea, unspecified vomiting type R11.11 Did not feel like having the flu. Just dizziness sudden onset with emesis 3. Generalized abdominal pain R10.84 UA DIP, URINE (POC) 4. UTI symptoms R39.9 UA DIP, URINE (POC) URINALYSIS, WITH MICROSCOPIC URINE CULTURE 5. Vaginal prolapse N81.10 nitrofurantoin monohydrate and macrocrystal (MACROBID) 100 mg capsule Above issues addressed with patient. Patient involved in shared decision making for management of medical issues. History and medications reviewed. Epic updated as needed Refills and/or prescriptions taken care of and meds adjusted as indicated after reviewed history, exam and labs. Health Maintenance reviewed. Updated record and/or ordered tests as recorded. Encouraged on efforts at healthy diet and regular exercise and adequate sleep. Monitor for red flag symptoms to go to ER. None noted. Was able to eat afterwards. Will see if nay correlation with grapefruit intake and tramadol dosing. Anjum Diggs MD documented in [facility] encounterC[facility] NoteHNO ID: [id number] Author: Emely West PA-C Service: ? Author Type: Physician Occupational Therapy Program Director Type: Progress Notes Filed: 04/10/2022 4:02 PM Note Text: Gloria Pandey is a 62 year old female who presents today for Patient presents with: Skin Check Current Treatment: Skin exam Past Treatment: As above History of nonmelanoma skin cancer: 01/2021 BCC right nasal ala History of Melanoma: none Family history of skin cancer: father-MM Dermatology History: Specialty Problems None Allergies: Bactrim [Sulfamethoxazole-Trimethoprim], Cymbalta [Duloxetine], Sulfamethoxazole, Sulfites, and Topamax [Topiramate] Past Medical History: PAST MEDICAL HISTORY Diagnosis Date At risk for sleep apnea 05/10/2021 Chest pain 05/10/2021 Depression Fibromyalgia Intracranial aneurysm MEDS: Current Outpatient Medications on File Prior to Visit Medication Sig acetaminophen-codeine (TYLENOL-CODEINE #3) 300-30 mg per tablet Take 1 tablet by mouth every 6 hours as needed for pain for up to 7 days. For pain not adequately treated with tramadol traMADol (ULTRAM) 50 mg tablet Take 1 tablet by mouth every 8 hours as needed for pain for up to 90 days. Do not start before March 30, 2022. methocarbamol (ROBAXIN) 750 mg tablet Take 1 tablet by mouth three times daily as needed (Neck pain/soreness). Ceramides 1,3,6-11 (CERAVE) clsr Apply 1 application to affected area once daily. ceramides 1,3,6-II (CERAVE) Apply to affected area as needed. multivitamin tablet Take 1 tablet by mouth once daily. ondansetron orally disintegrating (ZOFRAN ODT) 4 mg disintegrating tablet Take 1 tablet by mouth every 6 hours as needed for Nausea/Vomiting. Current Facility-Administered Medications on File Prior to Visit Medication perflutren lipid microspheres 1.3 mL in NaCl (PF) 0.9% 10 mL injection (DEFINITY) sodium chloride 0.9 % (flush) 10 mL (BD POSIFLUSH) Review of systems NA Has pacemaker / defibrillator No Takes aspirin / anticoagulant daily No Has valve disorders No Other problems elsewhere on skin No Abigail Quintero Ma The above was entered by the nursing staff. I have reviewed the documentation and I concur. Emely BEASLEY HPI: Chief Complaint Skin exam Location Full body Duration 6 months Timing constant Severity mild Quality Skin lesion upper left forehead Modifying Factors: H/O BCC Physical Exam - Area(s) Examined: The pt is alert and oriented, in NAD. Skin examination of head/scalp, face, neck, chest, back, abdomen, bilateral upper, lower extremities, groin/buttocks, hands, feet, digits, and nails. was significant for: Items identified on Diagram above Left Preauricular Area, Left Confucianism, Right Proximal 2nd Finger Red papules with gritty adherent scale. Right Ala Nasi Well healed scar without evidence of recurrent disease Right Forearm - Posterior A) 1cm x 0.6cm hyperkeratotic erythematous plaque Brown stuck on papules and plaques throughout Light chand macules on sun exposed areas Bright cabral red papules throughout Regular and symmetric hyperpigmented macules/papules throughout, documented above Assessment / Plan: (D22.70, D22.5, D22.60) Multiple benign nevi of upper extremity, lower extremity, and trunk (primary encounter diagnosis) Comment: stable, regular and symmetric on exam Plan: Continue to monitor for growth/change Monitor with monthly self-skin exams/serial photography Patient counseled on ABCDEs of melanoma Sunscreen and photoprotection advised Patient to contact office for any new or changing lesions or other concerns (L81.4) Lentigines Comment:scattered throughout sun exposed surfaces Plan: continue to monitor/observe (D18.01) Cabral angioma Comment: scattered throughout Plan: discussed benign nature, continue to monitor/observe (L82.1) Seborrheic keratosis Comment: scattered throughout Plan: discussed benign nature, continue to monitor/observe (L57.0) AK (actinic keratosis) Comment: x3 Plan: CRYOTHERAPY SKIN LESION Liquid nitrogen treatment: We discussed liquid nitrogen treatment and the expected redness, as well as the risks of swelling, blistering, crusting, hypopigmentation and scarring. The patient verbalized understanding. The lesions are treated with liquid nitrogen cryostat spray gun with two 10-15 second freeze-thaw cycles. The patient tolerated this well. Wound care discussed. (Z85.828) Hx of nonmelanoma skin cancer Comment: scar NER Plan: Continue to monitor for growth/change. Continue SPF/sun precautions. Continue regular FBSE Q6 months. (D49.2) Neoplasm of unspecified behavior of bone, soft tissue, and skin Comment: exam As above Plan: Shave of lesion to establish and confirm diagnosis: Photo taken: Yes Risks, benefits, alternatives and personnel required for shave biopsy reviewed with patient. Pt and provider agree as to site(s) to be biopsied. Pt verbalizes understanding and wishes (more content not included)...[facility]01-30-2023 History of Present illness Narrative* Emely West PA-C - 04/10/2022 2:41 PM EST Images from the original note were not included. Gloria Pandey is a 62 year old female who presents today for Patient presents with: Skin Check Current Treatment: Skin exam Past Treatment: As above History of nonmelanoma skin cancer: 01/2021 BCC right nasal ala History of Melanoma: none Family history of skin cancer: father-MM Dermatology History: Specialty Problems None Allergies: Bactrim [Sulfamethoxazole-Trimethoprim], Cymbalta [Duloxetine], Sulfamethoxazole, Sulfites, and Topamax [Topiramate] Past Medical History: PAST MEDICAL HISTORY Diagnosis Date At risk for sleep apnea 05/10/2021 Chest pain 05/10/2021 Depression Fibromyalgia Intracranial aneurysm MEDS: Current Outpatient Medications on File Prior to Visit Medication Sig acetaminophen-codeine (TYLENOL-CODEINE #3) 300-30 mg per tablet Take 1 tablet by mouth every 6 hours as needed for pain for up to 7 days. For pain not adequately treated with tramadol traMADol (ULTRAM) 50 mg tablet Take 1 tablet by mouth every 8 hours as needed for pain for up to 90days. Do not start before March 30, 2022. methocarbamol (ROBAXIN) 750 mg tablet Take 1 tablet by mouth three times daily as needed (Neck pain/soreness). Ceramides 1,3,6-11 (CERAVE) clsr Apply 1 application to affected area once daily. ceramides 1,3,6-II (CERAVE) Apply to affected area as needed. multivitamin tablet Take 1 tablet by mouth once daily. ondansetron orally disintegrating (ZOFRAN ODT) 4 mg disintegrating tablet Take 1 tablet by mouth every 6 hours as needed for Nausea/Vomiting. Current Facility-Administered Medications on File Prior to Visit Medication perflutren lipid microspheres 1.3 mL in NaCl (PF) 0.9% 10 mL injection (DEFINITY) sodium chloride 0.9 % (flush) 10 mL (BD POSIFLUSH) Review of systems NA Has pacemaker / defibrillator No Takes aspirin / anticoagulant daily No Has valve disorders No Other problems elsewhere on skin No Abigail Quintero Ma The above was entered by the nursing staff. I have reviewed the documentation and I concur. Emely BEASLEY HPI: Chief Complaint Skin exam Location Full body Duration 6 months Timing constant Severity mild Quality Skin lesion upper left forehead Modifying Factors: H/O BCC Physical Exam - Area(s) Examined: The pt is alert and oriented, in NAD. Skin examination of head/scalp, face, neck, chest, back, abdomen, bilateral upper, lower extremities, groin/buttocks, hands, feet, digits, and nails. was significant for: Items identified on Diagram above Left Preauricular Area, Left Confucianism, Right Proximal 2nd Finger Red papules with gritty adherent scale. Right Ala Nasi Well healed scar without evidence of recurrent disease Right Forearm - Posterior A) 1cm x 0.6cm hyperkeratotic erythematous plaque Brown stuck on papules and plaques throughout Light chand macules on sun exposed areas Bright cabral red papules throughout Regular and symmetric hyperpigmented macules/papules throughout, documented above Assessment / Plan: (D22.70, D22.5, D22.60) Multiple benign nevi of upper extremity, lower extremity, and trunk (primary encounter diagnosis) Comment: stable, regular and symmetric on exam Plan: Continue to monitor for growth/change Monitor with monthly self-skin exams/serial photography Patient counseled on ABCDEs of melanoma Sunscreen and photoprotection advised Patient to contact office for any new or changing lesions or other concerns (L81.4) Lentigines Comment:scattered throughout sun exposed surfaces Plan: continue to monitor/observe (D18.01) Cabral angioma Comment: scattered throughout Plan: discussed benign nature, continue to monitor/observe (L82.1) Seborrheic keratosis Comment: scattered throughout Plan: discussed benign nature, continue to monitor/observe (L57.0) AK (actinic keratosis) Comment: x3 Plan: CRYOTHERAPY SKIN LESION Liquid nitrogen treatment: We discussed liquid nitrogen treatment and the expected redness, as well as the risks of swelling, blistering, crusting, hypopigmentation and scarring. The patient verbalized understanding. The lesions are treated with liquid nitrogen cryostat spray gun with two 10-15 second freeze-thaw cycles. Thepatient tolerated this well. Wound care discussed. (Z85.828) Hx of nonmelanoma skin cancer Comment: scar NER Plan: Continue to monitor for growth/change. Continue SPF/sun precautions. Continue regular FBSE Q6 months. (D49.2) Neoplasm of unspecified behavior of bone, soft tissue, and skin Comment: exam As above Plan: Shave of lesion to establish and confirm diagnosis: Photo taken: Yes Risks, benefits, alternatives and personnel required for shave biopsy reviewed with patient. Pt andprovider agree as to site(s) to be biopsied. Pt verbalizes understanding and wishes to proceed. Site(s) prepped with alcohol and anesthetized with 1% lidocaine with epinephrine. Shave of lesion(s) performed to the level of the dermis. 1 specimen(s) from see below sent for pathology to r/o see below. Hyfrecator used and bandaging applied. Written and verbal wound care instructions provided to patient, understanding verbalized. OK to call with results. EBL: scant SURGICAL PATHOLOGY Ordered at: 04/10/22 1511 Source of specimen(s): SKIN SHAVE BIOPSY Clinical History: Right dorsal forearm R/O NMSC vs other By signing my name below, I, Abigail Quintero Ma, attest that this documentation has been preparedunder the direction and in the presence of Emely BEASLEY. Electronically Signed: Philippe Betancourt Ma. April 10, 2022 2:42 PM. I, Emely BEASLEY, personally performed the services described in this documentation. All medical record entries made by the scribe were at my direction and in my presence. I have reviewed the chart and discharge instructions (if applicable) and agree that the record reflects my personal performanceand is accurate and complete. Electronically Signed: Emely BEASLEY April 10, 2022 3:03 PM. Patient to return to clinic in ~6 months for follow-up re-evaluation Patient to contact office as needed with questions/concerns, unimproved or worsening of symptoms Emely West PA-C documented in [facility] encounterC[facility] Miscellaneous Notes* Telephone Encounter - Mohan Marte Ma - 04/04/2022 2:45 PM EST Patient notified, verbalized understanding. Patient states that she does not have anything scheduled with her surgeon at this time as she was waiting until her derm appt at the end of this month. Advised pt to call prior to that. Pt agreed. Mohan Marte Ma * Telephone Encounter - Anjum Diggs MD - 04/04/2022 1:20 PM EST Does she have follow up with surgeon to get rescheduled for surgery? Note that Tylenol with codeine can contribute to constipation so needs to make sure prevents this given prolapse issues. Will see how long this prescription lasts. Hope does not need to take 4 times daily on a routine basis. Follow up as needed with me--needs to address worsening pain with her surgeon so they can decide about doing surgery. The following approved medication requests have been transmitted electronically. Requested Prescriptions Signed Prescriptions Disp Refills acetaminophen-codeine (TYLENOL-CODEINE #3) 300-30 mg per tablet 28 tablet 0 Sig: Take 1 tablet by mouth every 6 hours as needed for pain for up to 7 days. For pain not adequately treated with tramadol Authorizing Provider: ANJUM DIGGS MD * Telephone Encounter - Christiano Kapoor RN - 04/03/2022 1:07 PM EST Patient reports she is having a lot of discomfort with her prolapsed bowel and bladder, and her right groin hernia also. Reports the pain is about an 8/10. Reports it's a 10/10 when she stands up, and she also has to hold herself to support the prolapse. Reports at the lowest, she would rate her pain at 5/10. Reports she is taking tylenol and also tramadol, which is not lasting. The pain is just not going away anymore. Reports she is able to move her bowels but it is painful also. Reports she did have an appt to have this fixed, but d/t covid was cancelled and has not yet been rescheduled. Asking if pcp would be able to order tylenol w/codeine to see if that helps? States she is aware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 surgical risk calculator The patient is ok for this low risk procedure 1. Preop exam for internal medicine - ICD9: V72.83, ICD10: Z01.818 - as above - patient with no current cardiac symptoms, assessment negative, and vitals normal. Prior to any high risk surgeries or generalized anesthesia, patient would need further workup or cardiac clearance. Mili Carpenter APRN.CNP documented in this encounterC[facility] Miscellaneous Notes* Telephone Encounter - Dana Trinidad Ma - 08/22/2021 1:19 PM EDT Has been addressed since * Telephone Encounter - Emerita Retana RN - 07/13/2021 3:58 PM EDT Pt called in asking about medication refill, let Pt know it had not gone through yet. Pt also wanted to let provider know that she thinks her hernia may be getting worse. She states she had a couple days of severe pain by her groin. She reports it could also be from her prolapsed bladder. Patient has been identified by name and date of : Yes Patient phones for refill(s): Pending Prescriptions Disp Refills TRAMADOL 50 MG TABLET 60 tablet 1 Sig: Take 1 tablet by mouth every 8 hours as needed for pain for up to 60 days. LALY Class: C-IV NATALIIA: No Date of last office visit in primary care: 05/10/21 Future visit: 08/15/21 Last 2 Encounter Wt Readings: Date: Wt: 05/10/2021 58.1 kg (128 lb) 05/09/2021 58.5 kg (128 lb 14.4 oz) Previous labs/tests for medication: Blood Pressure: BUN (mg/dL) Date Value 05/09/2021 11 04/10/2019 7 Sodium (mmol/L) Date Value 05/09/2021 136 04/10/2019 141 Last 1 Encounter BP Readings: Date: BP: 05/10/2021 130/88 Liver Function: ALT (U/L) Date Value 10/15/2020 15 11/08/2017 16 AST (U/L) Date Value 10/15/2020 17 11/08/2017 17 Please advise. Thank you. Emerita Retana, RN documented in this encounterC[facility]06-10-2022 Miscellaneous Notes* Telephone Encounter - Anjum Diggs MD - 08/19/2021 6:06 PM EDT If someone in office still, may fill today 08/19 * Telephone Encounter - Alissa Mendez LPN - 08/18/2021 10:42 AM EDT Bubba from [facility] states he received an Rx for pt for ultram & to not fill until 08/20/21. Bubba states the pharmacy will be closed that day d/t staffing shortage & is asking if he can fill one day early on 08/19/21 or wait until 08/21/21? Please advise. Alissa Mendez LPN documented in this encounterC[facility]06-06-[facility]22 History of Present illness Narrative* Anjum Diggs MD - 08/15/2021 10:49 AM EDT This note was created using [employer]. Subjective Gloria Pandey is a 61 year old female. Patient presents with: Follow Up SUBJECTIVE: Gloria Pandey is a 61 year old year old lady here today for 4 month follow up appointment for review of medical conditions. Noted that plans for stress testing with the control cabinet assembler discussed. Rescheduled as discussed. Then after that is done and assuming fine, will see RUG WASHER to have preop for the PSYCHOLOGICAL EXAMINER surgery. Everything else stable right now. Still gets the headaches in site of the titanium plate and achor. Does stretching exercises for head and neck. Med list whittled down to vitamins and tramadol. Tramadol on average 2 per day; some days does not need. No acute issues going on now--no signs of infection. No CP or SOB now. PAST MEDICAL HISTORY Diagnosis Date At risk for sleep apnea 05/10/2021 Chest pain 05/10/2021 Depression Fibromyalgia Intracranial aneurysm Current Outpatient Medications Medication Sig traMADol (ULTRAM) 50 mg tablet Take 1 tablet by mouth every 8 hours as needed for pain for up to 60days. Blood Pressure Monitor (BLOOD PRESSURE KIT) Check blood pressure as directed. (R03.0) Elevated blood pressure, situational diclofenac, EC, (VOLTAREN) 50 mg EC tablet Take 1 tablet by mouth twice daily. TAKE WITH FOOD. (Patient not taking: Reported on 05/09/2021 ) multivitamin tablet Take 1 tablet by mouth once daily. methocarbamol (ROBAXIN) 750 mg tablet Take 1 tablet by mouth three times daily as needed (Neck pain/soreness). ondansetron orally disintegrating (ZOFRAN ODT) 4 mg disintegrating tablet Take 1 tablet by mouth every 6 hours as needed for Nausea/Vomiting. docusate sodium (COLACE) 100 mg capsule Take 1 capsule by mouth twice daily as needed for Constipation. Current Facility-Administered Medications Medication Dose Route Frequency perflutren lipid microspheres 1.3 mL in NaCl (PF) 0.9% 10 mL injection (DEFINITY) INTRAVENOUS DIRECTED PRN sodium chloride 0.9 % (flush) 10 mL (BD POSIFLUSH) 10 mL INTRAVENOUS DIRECTED PRN Review of Systems Objective BP 122/84 Pulse 83 Wt 58.5 kg (129 lb) SpO2 98% BMI 21.14 kg/m Last 5 Encounter Wt Readings: Date: Wt: 08/15/2021 58.5 kg (129 lb) 05/10/2021 58.1 kg (128 lb) 05/09/2021 58.5 kg (128 lb 14.4 oz) 05/03/2021 58.1 kg (128 lb) 02/10/2021 56.7 kg (125 lb) No waist measurement recorded Estimated body mass index is 21.14 kg/m as calculated from the following: Height as of 05/09/21: 166.4 cm (5' 5.5 ). Weight as of this encounter: 58.5 kg (129 lb). Last 5 Encounter BP Readings: Date: BP: 08/15/2021 122/84 05/10/2021 130/88 05/09/2021 121/88 05/03/2021 162/116 03/03/2021 165/107 Physical Exam Constitutional: Appearance: Normal appearance. HENT: Head: Normocephalic. Eyes: Conjunctiva/sclera: Conjunctivae normal. Cardiovascular: Rate and Rhythm: Normal rate and regular rhythm. Heart sounds: Normal heart sounds. Pulmonary: Effort: Pulmonary effort is normal. Breath sounds: Normal breath sounds. Skin: General: Skin is warm and dry. Neurological: General: No focal deficit present. Mental Status: She is alert and oriented to person, place, and time. Psychiatric: Mood and Affect: Mood normal. Behavior: Behavior normal. Thought Content: Thought content normal. Judgment: Judgment normal. Assessment and Plan Encounter Diagnosis ICD-10-CM 1. Vaginal prolapse N81.10 traMADol (ULTRAM) 50 mg tablet traMADol (ULTRAM) 50 mg tablet 2. Post-operative pain G89.18 traMADol (ULTRAM) 50 mg tablet traMADol (ULTRAM) 50 mg tablet 3. Other headache syndrome G44.89 traMADol (ULTRAM) 50 mg tablet traMADol (ULTRAM) 50 mg tablet Increased pain lately; having MRI per Dr. Diaz Above issues addressed with patient. Patient involved in shared decision making for management of medical issues. History and medications reviewed. Epic updated as needed Refills and/or prescriptions taken care of and meds adjusted as indicated after reviewed history, exam and labs. Health Maintenance reviewed. Updated record and/or ordered tests as recorded. Encouraged on efforts at healthy diet and regular exercise and adequate sleep. Stable with control of pain. At this time benefits outweigh risks. Continue to monitor for adverse effects and indications for decreasing dose or tapering off. No signs of diversion or abuse of medication(s); no adverse effects. Continue present management. Anjum Diggs MD documented in this encounterC[facility]03-10-2022 Miscellaneous Notes* Telephone Encounter - Anjum Diggs MD - 05/19/2021 10:11 AM EST See MyChart reply documented in this encounterC[facility]03-01-2022 History of Present illness Narrative* Anjum Diggs MD - 05/10/2021 3:37 PM EST This note was created using [employer]. Subjective Gloria Pandey is a 61 year old female. Patient presents with: Follow Up: Blood pressure SUBJECTIVE: Gloria Pandey is a 61 year old year old lady here today for BP follow up appointment for review ofmedical conditions. BP had been high at general surgeon's office. Was fine when rechecked at the pharmacy. Sometimes feels like going to hyperventilate after taking diclofenac. Did get BP cuff today. Does need the bladder surgery for prolapse done. Knows does feel panic at the thought of surgery since had the aneurysm surgery. Also noted that had prior colonoscopy in 2004 and was bad experience. Had fissures and polyps, etc.Not wanting to pursue another colonoscopy. Will discuss again later. Noted that woke up during the end of the procedure. PAST MEDICAL HISTORY Diagnosis Date At risk for sleep apnea 05/10/2021 Chest pain 05/10/2021 Depression Fibromyalgia Intracranial aneurysm Current Outpatient Medications Medication Sig traMADol (ULTRAM) 50 mg tablet Take 1 tablet by mouth every 8 hours as needed for pain for up to 60days. multivitamin tablet Take 1 tablet by mouth once daily. methocarbamol (ROBAXIN) 750 mg tablet Take 1 tablet by mouth three times daily as needed (Neck pain/soreness). ondansetron orally disintegrating (ZOFRAN ODT) 4 mg disintegrating tablet Take 1 tablet by mouth every 6 hours as needed for Nausea/Vomiting. docusate sodium (COLACE) 100 mg capsule Take 1 capsule by mouth twice daily as needed for Constipation. Blood Pressure Monitor (BLOOD PRESSURE KIT) Check blood pressure as directed. (R03.0) Elevated blood pressure, situational diclofenac, EC, (VOLTAREN) 50 mg EC tablet Take 1 tablet by mouth twice daily. TAKE WITH FOOD. (Patient not taking: Reported on 05/09/2021 ) No current facility-administered medications for this visit. Review of Systems Objective BP 158/102 Pulse 102 Wt 58.1 kg (128 lb) BMI 20.98 kg/m Last 5 Encounter BP Readings: Date: BP: 05/10/2021 158/102 05/09/2021 121/88 05/03/2021 162/116 03/03/2021 165/107 02/10/2021 120/78 Last 5 Encounter Wt Readings: Date: Wt: 05/10/2021 58.1 kg (128 lb) 05/09/2021 58.5 kg (128 lb 14.4 oz) 05/03/2021 58.1 kg (128 lb) 02/10/2021 56.7 kg (125 lb) 12/21/2020 56.1 kg (123 lb 11.2 oz) 05/10/21 1509 05/10/21 1604 BP: 158/102 130/88 Pulse: 102 Weight: 58.1 kg (128 lb) Physical Exam Constitutional: Appearance: Normal appearance. HENT: Head: Normocephalic. Eyes: Conjunctiva/sclera: Conjunctivae normal. Cardiovascular: Rate and Rhythm: Normal rate and regular rhythm. Heart sounds: Normal heart sounds. Pulmonary: Effort: Pulmonary effort is normal. Breath sounds: Normal breath sounds. Skin: General: Skin is warm and dry. Neurological: General: No focal deficit present. Mental Status: She is alert and oriented to person, place, and time. Psychiatric: Mood and Affect: Mood normal. Behavior: Behavior normal. Thought Content: Thought content normal. Judgment: Judgment normal. ECG: NORMAL SINUS RHYTHM LEFT AXIS DEVIATION INCOMPLETE RIGHT BUNDLE BRANCH BLOCK INFERIOR MYOCARDIAL INFARCTION , AGE UNDETERMINED ABNORMAL ECG Assessment and Plan ASSESSMENT/PLAN: 1. White coat syndrome with high blood pressure but without hypertension - ICD9: 796.2, ICD10: R03.0 (primary diagnosis) BP much improved on recheck - Recommended regular aerobic exercise. - Recommend home blood pressure monitoring, to bring results in on next visit - .Continue present management. - Might need med started perioperatively to control so not running high day of surgery, or considerprn med to help control before surgery. - Goal of BP <130/80 - ECG COMPLETE 2. Abnormal ECG - ICD9: 794.31, ICD10: R94.31 Will await reading by control cabinet assembler If confirms reading of possible ischemia, will need to see control cabinet assembler and decide about cardiac evaluation prior to elective surgery. Further evaluation and treatment as indicated. Anjum Diggs MD documented in this encounterC[facility]11-18-2021 History of Present illness Narrative* Tamiko Corcoran - 01/27/2021 7:18 PM EST DATE OF SERVICE: 01/24/2021 CHIEF COMPLAINT: Shooting pain in the vaginal area with urination. HISTORY OF PRESENT ILLNESS: The patient is a 60-year-old female who presents today with a 4-day history of shooting pain in the vaginal area when urinating. She states that she has a history of bladder prolapse. She gets UTIs often from this and she thinks she may have one now. She rated her pain a 6/10 and was wanting to come in order to be evaluate for this. PAST MEDICAL HISTORY: Cancer, frequent headaches. PAST SURGICAL HISTORY: Shoulder and brain. CURRENT MEDICATIONS: Reviewed and considered. ALLERGIES: TO SULFATES. SOCIAL HISTORY: Denies alcohol or tobacco use. REVIEW OF SYSTEMS: General: Denies fevers, chills, body aches. Respiratory: Denies cough, wheezing and shortness of breath. Cardiovascular: Denies dyspnea, chest pain, palpitations. Abdomen: Denies nausea, vomiting, diarrhea, abdominal pain. Genitourinary: Admits to dysuria. Denies urgency or frequency. Denies flank pain. PHYSICAL EXAMINATION: Vital Signs: Blood pressure 165/99, pulse 94, respiration rate 20, temperature 97.2, pulse oximetry room air 97%. General: The patient is alert and oriented x3, appears to be in no acute distress. Respiratory: Normal breath sounds heard in all lung honeycutt. No wheezing, rhonchi or rales present. Cardiac: Regular rate and rhythm, no murmurs noted. Abdomen: Normal bowel sounds heard in all 4 quadrants. No abdominal bruits noted. No tenderness to palpation of all 4 quadrants. No distension, guarding or organomegaly present. Negative CVA tenderness bilaterally. TESTS: Urinalysis was done in the office today. It showed a yellow, clear liquid with specific gravity of 1.015, pH of 6, blood 80, leukocyte esterase 15. DIAGNOSIS: Urinary tract infection. PLAN: Macrobid was sent to the pharmacy for the patient. She is to take as directed. She is to increase her fluid use during this time and follow up at her primary care doctor if needed. We will send her urine out for culture. The patient agrees and understands the plan at this time. The patient was stable upon discharge from [facility]. THALIA Pedroza/[id number] SSI File#: [id number] END OF DOCUMENT / CHANGE LOG FOLLOWS Last Edited By Susanna. Signed By Tamiko Corcoran PAC #[id number] Tamiko Corcoran PAC #[id number] on 02/17/2021 16:25 ET on 02/17/2021 16:25 ET Revision Number - 2 ^^^ Verified/Reviewed by 02/17/21 1625 [id number] [facility] PATIENT NAME: GLORIA PANDEY [address] [place] [address] Dr. Reynoso MEDICAL REC #: [id number] [place] [address] [facility] STAT[facility] PHYSICIAN documented in this encounterCleveland Clinic [facility]10-26-2021 NoteHNO ID: [id number] Author: Cheryl Wang PT Service: ? Author Type: Physical Therapist Type: Progress Notes Filed: 01/04/2021 11:53 AM Note Text: 01/04/2021 [facility] PHYSICAL THERAPY DISCONTINUANCE OF CARE Plan of Care Period: Start of Care Date: 10/15/20 Last Visit Date: 11/01/2020 Therapy Program: The following is a summary of the interventions provided for this episode of care; Therapeutic exercise, Therapeutic activities and Patient/Family/Caregiver Education Assessment: Based on most recent visit, patient was progressing slower than expected toward functional goals based on pain levels. Unable to formally assess goal achievement, as patient has not returned to therapy or scheduled additional follow-up appointments. Reason for Discontinuation of Care: Patient has not returned to therapy or scheduled additional follow-up appointments. [facility] History of Past illness Narrative* Problem Noted Date Resolved Date Bilateral leg numbness 11/05/2017 8 Last Assessment & Plan: -consider neurology consult for further work up of transient leg numbness Cocaine abuse 11/04/2017 11/06/2017 Last Assessment & Plan: [facility]: Monitor for withdrawals Avoid beta blockers documented as of this encounter (statuses as of 06/02/2021) [facility] History of Past illness Narrative* Problem Noted Date Resolved Date Bilateral leg numbness 11/05/2017 8 Last Assessment & Plan: -consider neurology consult for further work up of transient leg numbness Cocaine abuse 11/04/2017 11/06/2017 Last [facility] Monitor for withdrawals Avoid beta blockers documented as of this encounter (statuses as of 06/09/2021) [facility] History of Past illness Narrative* Problem Noted Date Resolved Date Bilateral leg numbness 11/05/2017 8 Last Assessment & Plan: -consider neurology consult for further work up of transient leg numbness Cocaine abuse 11/04/2017 11/06/2017 Last Assessment & Plan: [facility]AN: Monitor for withdrawals Avoid beta blockers documented as of this encounter (statuses as of 08/01/2021) [facility] History of Past illness Narrative* Problem Noted Date Resolved Date Bilateral leg numbness 11/05/2017 8 Last Assessment & Plan: -consider neurology consult for further work up of transient leg numbness Cocaine abuse 11/04/2017 11/06/2017 Last Assessment & Plan: [facility] PLAN: Monitor for withdrawals Avoid beta blockers documented as of this encounter (statuses as of 08/16/2021) [facility] History of Past illness Narrative* Problem Noted Date Resolved Date Bilateral leg numbness 11/05/2017 8 Last Assessment & Plan: -consider neurology consult for further work up of transient leg numbness Cocaine abuse 11/04/2017 11/06/2017 Last Assessment & Plan: [facility] PLAN: Monitor for withdrawals Avoid beta blockers documented as of this encounter (statuses as of 08/20/2021) [facility] History of Past illness Narrative* Problem Noted Date Resolved Date Bilateral leg numbness 11/05/2017 8 Last Assessment & Plan: -consider neurology consult for further work up of transient leg numbness Cocaine abuse 11/04/2017 11/06/2017 Last Assessment & Plan: [facility] PLAN: Monitor for withdrawals Avoid beta blockers documented as of this encounter (statuses as of 08/22/2021) [facility] History of Past illness Narrative* Problem Noted Date Resolved Date Bilateral leg numbness 11/05/2017 8 Last Assessment & Plan: -consider neurology consult for further work up of transient leg numbness Cocaine abuse 11/04/2017 11/06/2017 Last Assessment & Plan: [facility] PLAN: Monitor for withdrawals Avoid beta blockers documented as of this encounter (statuses as of 09/02/2021) [facility] History of Past illness Narrative* Problem Noted Date Resolved Date Bilateral leg numbness 11/05/2017 8 Last Assessment & Plan: -consider neurology consult for further work up of transient leg numbness Cocaine abuse 11/04/2017 11/06/2017 Last Assessment [facility]: [facility] Monitor for withdrawals Avoid beta blockers documented as of this encounter (statuses as of 09/30/2021) [facility]08-27-2018 History of Past illness Narrative* Problem Noted Date Resolved Date Bilateral leg numbness 11/05/2017 8 Last Assessment & Plan: -consider neurology consult for further work up of transient leg numbness Cocaine abuse 11/04/2017 11/06/2017 Last Assessment & Plan: Tested positive at [facility] PLAN: Monitor for withdrawals Avoid beta blockers documented as of this encounter (statuses as of 10/09/2021) [facility]08-27-2018 History of Past illness Narrative* Problem Noted Date Resolved Date Bilateral leg numbness 11/05/2017 8 Last Assessment & Plan: -consider neurology consult for further work up of transient leg numbness Cocaine abuse 11/04/2017 11/06/2017 Last Assessment & Plan: Tested positive at [facility] PLAN: Monitor for withdrawals Avoid beta blockers documented as of this encounter (statuses as of 10/17/2021) [facility]-2018 History of Past illness Narrative* Problem Noted Date Resolved Date Bilateral leg numbness 11/05/2017 8 Last Assessment & Plan: -consider neurology consult for further work up of transient leg numbness Cocaine abuse 11/04/2017 11/06/2017 Last Assessment & Plan: Tested positive at [facility] PLAN: Monitor for withdrawals Avoid beta blockers documented as of this encounter (statuses as of 11/01/2021) [facility]-2018 History of Past illness Narrative* Problem Noted Date Resolved Date Bilateral leg numbness 11/05/2017 8 Last Assessment & Plan: -consider neurology consult for further work up of transient leg numbness Cocaine abuse 11/04/2017 11/06/2017 Last Assessment & Plan: [facility] PLAN: Monitor for withdrawals Avoid beta blockers documented as of this encounter (statuses as of 11/07/2021) [facility]2018 History of Past illness Narrative* Problem Noted Date Resolved Date Bilateral leg numbness 11/05/2017 8 Last Assessment & Plan: -consider neurology consult for further work up of transient leg numbness Cocaine abuse 11/04/2017 11/06/2017 Last Assessment & Plan: Tested positive at [facility] PLAN: Monitor for withdrawals Avoid beta blockers documented as of this encounter (statuses as of 11/07/2021) [facility]2018 History of Past illness Narrative* Problem Noted Date Resolved Date Bilateral leg numbness 11/05/2017 8 Last Assessment & Plan: -consider neurology consult for further work up of transient leg numbness Cocaine abuse 11/04/2017 11/06/2017 Last Assessment & Plan: Tested positive at [facility] PLAN: Monitor for withdrawals Avoid beta blockers documented as of this encounter (statuses as of 11/08/2021) [facility]2018 History of Past illness Narrative* Problem Noted Date Resolved Date Bilateral leg numbness 11/05/2017 8 Last Assessment & Plan: -consider neurology consult for further work up of transient leg numbness Cocaine abuse 11/04/2017 11/06/2017 Last Assessment & Plan: Tested positive at [facility] PLAN: Monitor for withdrawals Avoid beta blockers documented as of this encounter (statuses as of 11/08/2021) [address]27-2018 History of Past illness Narrative* Problem Noted Date Resolved Date Bilateral leg numbness 11/05/2017 8 Last Assessment & Plan: -consider neurology consult for further work up of transient leg numbness Cocaine abuse 11/04/2017 11/06/2017 Last Assessment & Plan: Tested positive at [facility] PLAN: Monitor for withdrawals Avoid beta blockers documented as of this encounter (statuses as of 11/28/2021) [facility]2018 History of Past illness Narrative* Problem Noted Date Resolved Date Bilateral leg numbness 11/05/2017 8 Last Assessment & Plan: -consider neurology consult for further work up of transient leg numbness Cocaine abuse 11/04/2017 11/06/2017 Last Assessment & Plan: Tested positive at [facility] PLAN: Monitor for withdrawals Avoid beta blockers documented as of this encounter (statuses as of 11/29/2021) [facility]2018 History of Past illness Narrative* Problem Noted Date Resolved Date Bilateral leg numbness 11/05/2017 8 Last Assessment & Plan: -consider neurology consult for further work up of transient leg numbness Cocaine abuse 11/04/2017 11/06/2017 Last Assessment & Plan: Tested positive at [facility] PLAN: Monitor for withdrawals Avoid beta blockers documented as of this encounter (statuses as of 11/29/2021) [facility]2018 History of Past illness Narrative* Problem Noted Date Resolved Date Bilateral leg numbness 11/05/2017 8 Last Assessment & Plan: -consider neurology consult for further work up of transient leg numbness Cocaine abuse 11/04/2017 11/06/2017 Last Assessment & Plan: Tested positive at [facility] PLAN: Monitor for withdrawals Avoid beta blockers documented as of this encounter (statuses as of 11/30/2021) [facility]2018 History of Past illness Narrative* Problem Noted Date Resolved Date Bilateral leg numbness 11/05/2017 8 Last Assessment & Plan: -consider neurology consult for further work up of transient leg numbness Cocaine abuse 11/04/2017 11/06/2017 Last Assessment & Plan: Tested positive at [facility] PLAN: Monitor for withdrawals Avoid beta blockers documented as of this encounter (statuses as of 11/30/2021) [facility]2018 History of Past illness Narrative* Problem Noted Date Resolved Date Bilateral leg numbness 11/05/2017 8 Last Assessment & Plan: -consider neurology consult for further work up of transient leg numbness Cocaine abuse 11/04/2017 11/06/2017 Last Assessment & Plan: Tested positive at [facility] PLAN: Monitor for withdrawals Avoid beta blockers documented as of this encounter (statuses as of 12/01/2021) [facility]2018 History of Past illness Narrative* Problem Noted Date Resolved Date Bilateral leg numbness 11/05/2017 8 Last Assessment & Plan: -consider neurology consult for further work up of transient leg numbness Cocaine abuse 11/04/2017 11/06/2017 Last Assessment & Plan: Tested positive at [facility] PLAN: Monitor for withdrawals Avoid beta blockers documented as of this encounter (statuses as of 12/01/2021) [facility]2018 History of Past illness Narrative* Problem Noted Date Resolved Date Bilateral leg numbness 11/05/2017 8 Last Assessment & Plan: -consider neurology consult for further work up of transient leg numbness Cocaine abuse 11/04/2017 11/06/2017 Last Assessment & Plan: Tested positive at [facility] PLAN: Monitor for withdrawals Avoid beta blockers documented as of this encounter (statuses as of 01/19/2022) [facility]2018 History of Past illness Narrative* Problem Noted Date Resolved Date Bilateral leg numbness 11/05/2017 8 Last Assessment & Plan: -consider neurology consult for further work up of transient leg numbness Cocaine abuse 11/04/2017 11/06/2017 Last Assessment & Plan: Tested positive at [facility] PLAN: Monitor for withdrawals Avoid beta blockers documented as of this encounter (statuses as of 02/21/2022) [facility]2018 History of Past illness Narrative* Problem Noted Date Resolved Date Bilateral leg numbness 11/05/2017 8 Last Assessment & Plan: -consider neurology consult for further work up of transient leg numbness Cocaine abuse 11/04/2017 11/06/2017 Last Assessment & Plan: Tested positive at [facility] PLAN: Monitor for withdrawals Avoid beta blockers documented as of this encounter (statuses as of 03/16/2022) [facility]2018 History of Past illness Narrative* Problem Noted Date Resolved Date Bilateral leg numbness 11/05/2017 8 Last Assessment & Plan: -consider neurology consult for further work up of transient leg numbness Cocaine abuse 11/04/2017 11/06/2017 Last Assessment & Plan: Tested positive at [facility] PLAN: Monitor for withdrawals Avoid beta blockers documented as of this encounter (statuses as of 03/17/2022) [facility]2018 History of Past illness Narrative* Problem Noted Date Resolved Date Bilateral leg numbness 11/05/2017 8 Last Assessment & Plan: -consider neurology consult for further work up of transient leg numbness Cocaine abuse 11/04/2017 11/06/2017 Last Assessment & Plan: Tested positive at [facility] PLAN: Monitor for withdrawals Avoid beta blockers documented as of this encounter (statuses as of 03/24/2022) [facility]2018 History of Past illness Narrative* Problem Noted Date Resolved Date Bilateral leg numbness 11/05/2017 8 Last Assessment & Plan: -consider neurology consult for further work up of transient leg numbness Cocaine abuse 11/04/2017 11/06/2017 Last Assessment & Plan: [facility] PLAN: Monitor for withdrawals Avoid beta blockers documented as of this encounter (statuses as of 04/04/2022) [facility]2018 History of Past illness Narrative* Problem Noted Date Resolved Date Bilateral leg numbness 11/05/2017 8 Last Assessment & Plan: -consider neurology consult for further work up of transient leg numbness Cocaine abuse 11/04/2017 11/06/2017 Last Assessment & Plan: Tested positive at [facility] PLAN: Monitor for withdrawals Avoid beta blockers documented as of this encounter (statuses as of 04/11/2022) [facility]2018 History of Past illness Narrative* Problem Noted Date Resolved Date Bilateral leg numbness 11/05/2017 8 Last Assessment & Plan: -consider neurology consult for further work up of transient leg numbness Cocaine abuse 11/04/2017 11/06/2017 Last Assessment & Plan: Tested positive at [facility] PLAN: Monitor for withdrawals Avoid beta blockers documented as of this encounter (statuses as of 04/14/2022) [facility] History of Past illness Narrative* Problem Noted Date Resolved Date Bilateral leg numbness 11/05/2017 8 Last Assessment & Plan: -consider neurology consult for further work up of transient leg numbness Cocaine abuse 11/04/2017 11/06/2017 Last Assessment & Plan: [facility] PLAN: Monitor for withdrawals Avoid beta blockers documented as of this encounter (statuses as of 05/22/2022) [facility] History of Past illness Narrative* Problem Noted Date Resolved Date Bilateral leg numbness 11/05/2017 8 Last Assessment & Plan: -consider neurology consult for further work up of transient leg numbness Cocaine abuse 11/04/2017 11/06/2017 Last Assessment & Plan: [facility] PLAN: Monitor for withdrawals Avoid beta blockers documented as of this encounter (statuses as of 05/26/2022) [facility] History of Past illness Narrative* Problem Noted Date Resolved Date Bilateral leg numbness 11/05/2017 8 Last Assessment & Plan: -consider neurology consult for further work up of transient leg numbness Cocaine abuse 11/04/2017 11/06/2017 Last Assessment & Plan: Tested positive at [facility] PLAN: Monitor for withdrawals Avoid beta blockers documented as of this encounter (statuses as of 05/31/2022) [facility]2018 History of Past illness Narrative* Problem Noted Date Resolved Date Bilateral leg numbness 11/05/2017 8 Last Assessment & Plan: -consider neurology consult for further work up of transient leg numbness Cocaine abuse 11/04/2017 11/06/2017 Last Assessment & Plan: Tested positive at [facility] PLAN: Monitor for withdrawals Avoid beta blockers documented as of this encounter (statuses as of 06/22/2022) [facility]2018 History of Past illness Narrative* Problem Noted Date Resolved Date Bilateral leg numbness 11/05/2017 8 Last Assessment & Plan: -consider neurology consult for further work up of transient leg numbness Cocaine abuse 11/04/2017 11/06/2017 Last Assessment & Plan: Tested positive at [facility] PLAN: Monitor for withdrawals Avoid beta blockers documented as of this encounter (statuses as of 07/05/2022) [facility] History of Past illness Narrative* Problem Noted Date Resolved Date Bilateral leg numbness 11/05/2017 8 Last Assessment & Plan: -consider neurology consult for further work up of transient leg numbness Cocaine abuse 11/04/2017 11/06/2017 Last Assessment & Plan: Tested positive [facility] PLAN: Monitor for withdrawals Avoid beta blockers documented as of this encounter (statuses as of 07/07/2022) [facility] History of Past illness Narrative* Problem Noted Date Resolved Date Bilateral leg numbness 11/05/2017 8 Last Assessment & Plan: -consider neurology consult for further work up of transient leg numbness Cocaine abuse 11/04/2017 11/06/2017 Last Assessment & Plan: [facility] PLAN: Monitor for withdrawals Avoid beta blockers documented as of this encounter (statuses as of 07/18/2022) [facility] History of Past illness Narrative* Problem Noted Date Diagnosed Date Resolved Date Bilateral leg numbness 11/05/201711/06 Last Assessment & Plan: -consider neurology consult for further work up of transient leg numbness Cocaine abuse 11/04/2017 11/06/2017 Last [facility] Monitor for withdrawals Avoid beta blockers documented as of this encounter (statuses as of 10/10/2022) [facility] History of Past illness Narrative* Problem Noted Date Diagnosed Date Resolved Date Bilateral leg numbness 11/05/201711/06 Last Assessment & Plan: -consider neurology consult for further work up of transient leg numbness Cocaine abuse 11/04/2017 11/06/2017 Last Assessment [facility] Plan[facility] Monitor for withdrawals Avoid beta blockers documented as of this encounter (statuses as of 12/08/2022) [facility] Diagnosis White coat syndrome with high blood pressure but without hypertension- Primary Abnormal ECG Nonspecific abnormal electrocardiogram (ECG) (EKG) [facility] Diagnosis Vaginal prolapse Unspecified prolapse of vaginal morris Post-operative pain Other acute postoperative pain Other headache syndrome [facility] Diagnosis Preop exam for internal medicine- Primary Other specified pre-operative examination [facility] Diagnosis Vaginal prolapse Unspecified prolapse of vaginal morris Post-operative pain Other acute postoperative pain Other headache syndrome [facility] Diagnosis Abnormal electrocardiogram- Primary Nonspecific abnormal electrocardiogram (ECG) (EKG) Encounter for other preprocedural examination Primary hypertension Unspecified essential hypertension Mixed hyperlipidemia [facility] Diagnosis Screening for ischemic heart disease- Primary [facility] Diagnosis Abnormal electrocardiogram Nonspecific abnormal electrocardiogram (ECG) (EKG) Encounter for other preprocedural examination Primary hypertension Unspecified essential hypertension [facility] Diagnosis Need for influenza vaccination- Primary Need for prophylactic vaccination and inoculation against influenza Anxiety Anxiety state, unspecified Nightmares Other dysfunctions of sleep stages or arousal from sleep Injury of head, subsequent encounter Skin lesion Unspecified disorder of skin and subcutaneous tissue [facility] Diagnosis Anxiety Anxiety state, unspecified Nightmares Other dysfunctions of sleep stages or arousal from sleep Injury of head, subsequent encounter [facility] Diagnosis Vaginal prolapse Unspecified prolapse of vaginal morris Post-operative pain Other acute postoperative pain Other headache syndrome [facility] Diagnosis Vaginal prolapse- Primary Unspecified prolapse of vaginal morris Post-operative pain Other acute postoperative pain Other headache syndrome Need for vaccination Need for prophylactic vaccination and inoculation against unspecified single disease [facility] Diagnosis Scar conditions and fibrosis of skin- Primary Scar condition and fibrosis of skin Status post Mohs surgery Other postprocedural status Encounter for follow-up examination after completed treatment for malignant neoplasm Unspecified follow-up examination History of nonmelanoma skin cancer Personal history of other malignant neoplasm of skin Seborrheic dermatitis Seborrheic dermatitis, unspecified [facility] Diagnosis Aneurysm (HCC)- Primary [facility]ys[facility] of [facility] UTI symptoms- Primary Other symptoms involving urinary system Aneurysm (HCC) Aneurysm of unspecified site [facility] Diagnosis Vaginal prolapse- Primary Unspecified prolapse of vaginal morris Other headache syndrome Migraine with aura and without status migrainosus, not intractable Migraine with aura, without mention of intractable migraine without mention of status migrainosus Cerebral aneurysm without rupture Cerebral aneurysm, nonruptured [facility] Diagnosis Multiple benign nevi of upper extremity, lower extremity, and trunk- Primary Lentigines Other dyschromia Seborrheic keratosis Other seborrheic keratosis Cabral angioma Nevus, non-neoplastic [place] (actinic keratosis) Actinic keratosis Hx of nonmelanoma skin cancer Personal history of other malignant neoplasm of skin Neoplasm of unspecified behavior of bone, soft tissue, and skin [facility] Diagnosis UTI symptoms- Primary Other symptoms involving urinary system Vaginal prolapse Unspecified prolapse of vaginal morris Post-operative pain Other acute postoperative pain Other headache syndrome Breast cancer screening by mamm[facility] Severe dizziness- Primary Dizziness and giddiness Vomiting without nausea, unspecified vomiting type Generalized abdominal pain Abdominal pain, generalized UTI symptoms Other symptoms involving urinary system Vaginal prolapse Unspecified prolapse of vaginal morris [facility] Diagnosis UTI symptoms- Primary Other symptoms involving urinary system [facility] Diagnosis Seasonal allergic rhinitis, unspecified trigger- Primary Post-operative pain Other acute postoperative pain Other headache syndrome Vaginal prolapse Unspecified prolapse of vaginal morris [facility] Diagnosis Cervicalgia- Primary Acute pain of right shoulder [facility] Diagnosis Female bladder prolapse- Primary Cystocele, midline [facility] Diagnosis Neoplasm of unspecified behavior of bone, soft tissue, and skin- Primary Hx of nonmelanoma skin cancer Personal history of other malignant neoplasm of skin Multiple benign nevi of upper extremity, lower extremity, and trunk Lentigines Other dyschromia Cabral angioma Nevus, non-neoplastic Seborrheic keratoses Other seborrheic keratosis Family history of malignant melanoma Family history of other specified malignant neoplasm [facility] Diagnosis Vaginal prolapse Unspecified prolapse of vaginal morris Post-operative pain Other acute postoperative pain Other headache syndrome documented in this encounter [facility] note* Diagnosis Nausea and vomiting, unspecified vomiting type- Primary Gallbladder sludge Other specified disorder of gallbladder Hypokalemia Hypopotassemia Encounter for immunization Need for other specified prophylactic vaccination against single bacterial disease Vaginal prolapse Unspecified prolapse of vaginal morris Right upper quadrant pain Abdominal pain, right upper quadrant Lung nodules Other nonspecific abnormal finding of lung field documented in this encounter [facility] note* Diagnosis Gallbladder sludge Other specified disorder of gallbladder Nausea and vomiting, unspecified vomiting type Light headedness Dizziness and giddiness Generalized abdominal pain Abdominal pain, generalized Cyst of gallbladder Other specified disorder of gallbladder [facility] Diagnosis Lung nodules Other nonspecific abnormal finding of lung field documented in this encounter [facility] note* Diagnosis Palpitations- Primary Shortness of breath Stable angina pectoris documented in this encounter [facility] note* Diagnosis Lung nodules- Primary Other nonspecific abnormal finding of lung field Former smoker Personal history of tobacco use, presenting hazards to health Gallbladder sludge Other specified disorder of gallbladder Gastroesophageal reflux disease, unspecified whether esophagitis present Right upper quadrant pain Abdominal pain, right upper quadrant Vaginal prolapse Unspecified prolapse of vaginal morris [facility] Diagnosis Lung nodule- Primary Solitary pulmonary nodule Centrilobular emphysema (HCC) Other emphysema Former smoker Personal history of tobacco use, presenting hazards to health [facility] Diagnosis Palpitations Shortness of breath Stable angina pectoris documented in this encounter [facility] note* Diagnosis Encounter for screening mammogram for breast cancer documented in this encounter [facility] for referral (narrative)* Outpatient Procedure (Routine) - Pending Review Specialty Diagnoses / Procedures Referred By Chon solorzano Referred To [facility] Diagnoses White coat syndrome with high blood pressure but without hypertension Procedures ECG COMPLETE ECG ROUTINE ECG W/LEAST 12 LDS W/I&R Anjum Diggs MD [address] [place] [address] [facility] [address] [place] [address] Referral ID Status Reason Start Date Expiration Date Visits Requested Visits Authorized [id number] Pending Review Auto-Generat ed Referral 05/10/2021 05/10/2022 1 1 [facility] for referral (narrative)* Diagnostic Procedure Only (Routine) - Authorized Specialty Diagnoses / Procedures Referred By Contac t Referred To Contact [facility] Diagnoses Abnormal electrocardiogram Encounter for other preprocedural examination Primary hypertension Procedures NM CARDIAC PERF STRESS/PHARM MYOCARDIAL SPECT MULTIPLE STUDIES Jacque Vigil APRN.CNP [address] [place] [address] [place], [place] [phone] Fax: [facility] [address] [place] [address] Referral ID Status Reason Start Date Expiration Date Visits Requested Visits Authorized [id number] Authorized Auto-Generat ed Referral 10/17/2021 11/16/2022 1 1 [facility] for referral (narrative)* Diagnostic Procedure Only (Routine) - Closed Specialty Diagnoses / Procedures [facility] Referred To Contact MOLECULAR & FUNCTIONAL IMAGING Diagnoses Abnormal electrocardiogram Encounter for other preprocedural examination Primary hypertension Procedures NM CARDIAC PERF STRESS/PHARM MYOCARDIAL SPECT MULTIPLE STUDIES Jacque Vigil APRN.CNP [address] [place] [address] [place] [phone] Fax: [facility] [address] [place] [address] Referral ID Status Reason Start Date Expiration Date V isits Requested Visits Authorized [id number] Closed Auto-Generate d Referral 10/17/2021 11/16/2022 1 1 [facility] for referral (narrative)* Diagnostic Procedure Only (Routine) - Pending Review Specialty Diagnoses / Procedures Referred By Contac t Referred To Contact BR IMAGING Diagnoses Breast cancer screening by mammogram Procedures KAY SCREENING W SY SCREENING DIGITAL BREAST TOMOSYNTHESIS BI SCREENING MAMMOGRAPHY BI 2-VIEW BREAST INC CAD Anjum Diggs MD [address] [place] [address] Br Imaging [address] [place] [address] Referral ID Status Reason Start Date Expiration Date Visits Requested Visits Authorized [id number] Pending Review Auto-Generat ed Referral 03/21/2022 04/20/2023 1 1 [facility] Outpatient Procedure (Routine) - Authorized Specialty Diagnoses / Procedures Referred By Chon solorzano Referred To Contact [facility] Diagnoses Palpitations Shortness of breath Stable angina pectoris Procedures STRESS ECHO TREADMILL ECHO TTHRC R-T 2D W/WO M-MODE COMPLETE REST&ST Rosa Maria Kelly MD [address] [place] [address] Fax: [facility] [employer] [facility] [employer] [facility] [place] [address] [place] [address] Referral ID Status Reason Start Date Expiration Date Visits Requested Visits Authorized [id number] Authorized Auto-Generat ed Referral 3 01/22/2024 1 1 * Outpatient Procedure (Routine) - Authorized Specialty Diagnoses / Procedures Referred By Chon solorzano Referred To Contact [facility] Diagnoses Palpitations Shortness of breath Stable angina pectoris Procedures ECHO ECHO TTHRC R-T 2D W/WOM-MODE COMPL SPEC&COLR Rosa Maria Jones MD [address] [place] [address] Fax: [facility] [address] [address] Referral ID Status Reason Start Date Expiration Date Visits Requested Visits Authorized [id number] Authorized Auto-Generat ed Referral 3 01/22/2024 1 1 [facility] for referral (narrative)* Diagnostic Procedure Only (Routine) - Open Specialty Diagnoses / Procedures [facility] To Contact MOLECULAR & FUNCTIONAL IMAGING Diagnoses Lung nodules Former smoker Procedures NM PET/CT WHOLE BODY INITIAL PET IMAGING FOR CT ATTENUATION WHOLE BODY Fabby Carter APRN.SENIOR POLICY ANALYST [address] [place] [address] [facility] [address] [place] [phone] Referral ID Status Reason Start Date Expiration Date V isits Requested Visits Authorized [id number] Open Auto-Generate d Referral 01/25/2023 02/24/2024 1 1 * Consult, Test, Treat (Routine) - Pending Review Specialty Diagnoses / Procedures Referred By [facility] Referred To Contact Pulmonary and Critical Care Medicine Diagnoses Lung nodules Former smoker Procedures CONSULT TO PULM/CRITICAL CARE OFFICE/OUTPATIENT [facility], [facility]–1983 MDM 60-74 MINUTES Fabby Carter APRN.SENIOR POLICY ANALYST [address] [place] [address] Referral ID Status Reason Start Date Expiration Date Visits Requested Visits Authorized [id number] Pending Review PCP Requested Referral 3 01/25/2024 1 1 [facility] for referral (narrative)* Outpatient Procedure (Routine) - Authorized Specialty Diagnoses / Procedures [facility] Diagnoses Centrilobular emphysema (HCC) Procedures LUNG DIFFUSION CAPACITY (DLCO) DIFFUSING CAPACITY Adelaida Anderson MD [address] [facility] [place] [address] Res[facility] [place] [address] [place] [address] Referral ID Status Reason Start Date Expiration Date Visits Requested Visits Authorized [id number] Authorized Auto-Generat ed Referral 3 02/25/2024 1 1 * Outpatient Procedure (Routine) - Authorized Specialty Diagnoses / Procedures Referred By Chon solorzano Referred To [facility] Diagnoses Centrilobular emphysema (HCC) Procedures LUNG VOLUMES Adelaida Anderson MD [address] [place] [address] [facility] [place] [address] [place] [phone] Referral ID Status Reason Start Date Expiration Date Visits Requested Visits Authorized [id number] Authorized Auto-Generat ed Referral 3 02/25/2024 1 1 * Outpatient Procedure (Routine) - Authorized Specialty Diagnoses / Procedures Referred By Chon solorzano Referred [facility] Diagnoses Centrilobular emphysema (HCC) Procedures SPIROMETRY WITH DILATOR IF OBSTRUCTED BRNCDILAT RSPSE SPMTRY PRE&POST-BRNCDILAT ADMN Adelaida Anderson MD [address] [place] [address] [address] Referral ID Status Reason Start Date Expiration Date Visits Requested Visits Authorized [id number] Authorized Auto-Generat ed Referral 3 02/25/2024 1 1 [facility] for referral (narrative)* Diagnostic Procedure Only (Routine) - Pending Review Specialty Diagnoses / Procedures Referred By Chon solorzano Referred To Contact [facility] IMAGING Diagnoses Encounter for screening mammogram for breast cancer Procedures KAY SCREENING SCREENING MAMMOGRAPHY BI 2-VIEW BREAST INC CAD Anjum Diggs MD [address] [place] [address] Br Imaging [address] [place] [address] Referral ID Status Reason Start Date Expiration Date Visits Requested Visits Authorized [id number] Pending Review Auto-Generat ed Referral 3 03/22/2024 1 1 [facility] for visit Narrative* Diagnostic Procedure Only (Routine) - Closed Specialty Diagnoses / Procedures Referred By Chon solorzano Referred To Contact MOLECULAR & FUNCTIONAL IMAGING Diagnoses Abnormal electrocardiogram Encounter for other preprocedural examination Primary hypertension Procedures NM CARDIAC PERF STRESS/PHARM MYOCARDIAL SPECT MULTIPLE STUDIES Jacque Vigil, SPEED OPERATOR.RUG WASHER [address] [address] Molecular [facility] Functional Imaging [address] [phone] Referral ID Status Reason Start Date Expiration Date V isits Requested Visits Authorized [id number] Closed Auto-Generate d Referral 10/17/2021 11/16/2022 1 1 [facility] for visit Narrative* Outpatient Procedure (Routine) - Closed Specialty Diagnoses / Procedures Referred By Chon solorzano Referred To Contact [facility] Diagnoses Palpitations Shortness of breath Stable angina pectoris Procedures STRESS ECHO TREADMILL ECHO TTHRC R-T 2D W/WO M-MODE COMPLETE REST&ST SleikRosa Maria MD [address] [place] [address] [facility] [place] [address] [place] [address] Referral ID Status Reason Start Date Expiration Date V isits Requested Visits Authorized [id number] Closed Auto-Generate d Referral 01/22/2023 01/22/2024 1 1 [facility] Summary Purpose Family History No Family History Records FoundNo Family History Records FoundNo Family History Records FoundNo Family History Records FoundNo Family History Records FoundNo Family History Records FoundNo Family History Records FoundNo Family History Records Found Advance Directives No Advanced Directives Records FoundDocuments on File Type Date Recorded Patient Pricing Lead Expl anation Advance Directive(s) 04/21/2021 12:38 PM Advance Directive(s) 04/21/2020 4:09 PM Advance Directive(s) 03/03/2020 1:34 PM Advance Directive(s) 04/08/2019 5:49 AM Advance Directive(s) 03/27/2019 12:24 PM Advance Directive(s) 03/18/2019 8:38 PM Advance Directive(s) 02/25/2019 6:10 PM Advance Directive(s) 10/31/2018 8:29 AM Advance Directive(s) 11/05/2017 1:25 PM Advance Directive(s) 11/05/2017 1:24 PM Advance Directive(s) 11/04/2017 7:55 PM Documents on File Type Date Recorded Patient Pricing Lead Expl anation Advance Directive(s) 04/21/2021 12:38 PM Advance Directive(s) 04/21/2020 4:09 PM Advance Directive(s) 03/03/2020 1:34 PM Advance Directive(s) 04/08/2019 5:49 AM Advance Directive(s) 03/27/2019 12:24 PM Advance Directive(s) 03/18/2019 8:38 PM Advance Directive(s) 02/25/2019 6:10 PM Advance Directive(s) 10/31/2018 8:29 AM Advance Directive(s) 11/05/2017 1:25 PM Advance Directive(s) 11/05/2017 1:24 PM Advance Directive(s) 11/04/2017 7:55 PM Documents on File Type Date Recorded Patient Pricing Lead Expl anation Advance Directive(s) 11/05/2017 1:24 PM Documents on File Type Date Recorded Patient Pricing Lead Expl anation Advance Directive(s) 11/05/2017 1:24 PM Latest Code Status on File Code Status Date Activated Date Inactivated Comments Full Code 12/08/2022 3:12 AM Question Answer Comments Full Code Order Discussed With: Patient Latest Code Status on File Code Status Date Activated Date Inactivated Comments Full Code 12/08/2022 3:12 AM 12/08/2022 8:16 PM Question Answer Comments Full Code Order Discussed With: Patient Latest Code Status on File Code Status Date Activated Date Inactivated Comments Full Code 12/08/2022 3:12 AM 12/08/2022 8:16 PM Question Answer Comments Full Code Order Discussed With: Patient Reason for Referral Specialty Diagnoses / Procedures Referred By Chon solorzano Referred To Contact Psychology Diagnoses Anxiety Nightmares Injury of head, subsequent encounter Procedures CONSULT TO PSYCHOLOGY OFFICE/OUTPATIENT NEW HIGH MDM 60-74 MINUTES Fabby Carter, MARII.SENIOR POLICY ANALYST [address] [place] [address] Referral ID Status Reason Start Date Expiration Date Visits Requested Visits Authorized [id number] Pending Review PCP Requested Referral 11/28/2021 11/28/2022 1 1 Specialty Diagnoses / Procedures Referred By Contac t Referred To Contact Anjum Diggs MD [address] [place] [address] Referral ID Status Reason Start Date Expiration Date Visits Re quested Visits Authorized [id number] Closed 1 1 Specialty Diagnoses / Procedures Referred By Contac t Referred To Contact CT IMAGING Diagnoses Lung nodules Procedures CT CHEST WO IVCON DIAGNOSTIC COMPUTED TOMOGRAPHY THORAX W/O CNTRST Fabby Carter, SPEED OPERATOR.SENIOR POLICY ANALYST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 sacrifice 03/2019 Reason Comments Patient Question Reason Comments Skin Check Reason Onset Date Comments F/U 3 Month Breast Problem 03/21/2022 Mammogram at [facility] Reason Comments Established Patient 2 spells of dizzines s with emesis x 1, questioning UTI Reason Comments Lab Orders Reason Comments F/U 3 Month Reason Comments Pain (Shoulder Pain) Reason Comments prolapsed bladder Reason Comments Full Body Skin Check Reason Comments Vomiting Reason Onset Date Comments Refill Request 12/22/2022 Reason Comments Hospital F/U Reason Comments Follow Up [facility] ER 12/29/22, Ult rasound [facility] Specialty Diagnoses / Procedures Referred By Chon solorzano Referred To Contact General Surgery Diagnoses Gallbladder sludge Procedures CONSULT TO GENERAL SURGERY OFFICE/OUTPATIENT NEW HIGH MDM 60-74 MINUTES Fabby Carter, SPEED OPERATOR.SENIOR POLICY ANALYST [address] [place] [address] Referral ID Status Reason Start Date Expiration Date Visits Requested Visits Authorized [id number] Pending Review PCP Requested Referral 01/02/2024 1 1 Reason Comments Arm Pain Reason Comments Radiology CT Specialty Diagnoses / Procedures Referred By Chon solorzano Referred To Contact CT IMAGING Diagnoses Lung nodules Procedures CT CHEST WO IVCON DIAGNOSTIC COMPUTED TOMOGRAPHY THORAX W/O CNTRST Fabby Carter, SPEED OPERATOR.SENIOR POLICY ANALYST [address] [place] [address] [place] [address] Referral ID Status Reason Start Date Expiration Date V isits Requested Visits Authorized [id number] Closed Auto-Generate d Referral 01/02/2023 02/01/2024 1 1 Reason Comments Consult Reason Comments Follow Up Reason Comments New Patient lung nodule FOR RECORDS PERTAINING TO PATIENTS WHO ARE OR HAVE BEEN ENROLLED IN A CHEMICAL DEPENDENCY/SUBSTANCEABUSE PROGRAM, SOME INFORMATION MAY BE OMITTED. This clinical summary was aggregated from multiple sources. Caution should be exercised in using it in the provision of clinical care. This summary normalizes information from multiple sources, and as a consequence, information in this document may materially change the coding, format and clinical context of patient data. In addition, data may be omitted in some cases. CLINICAL DECISIONS SHOULD BE BASED ON THE PRIMARY CLINICAL RECORDS. [facility]. provides no warranty or guarantee of the accuracy or completeness of information in this document.
[2023-04-03 17:09] LABS: Absolute Lymphocyte Count 1.05 X10^3/uL (0.83-4.51); Absolute Neutrophil Count 12.5 X10^3/uL (2.0-7.7); Basophil# 0.03 X10^3/uL; Basophil% 0.2 % (0-1); Hematocrit 37.9 % (37-47); Hemoglobin 12.5 g/dL (12.0-15.0); Lymphocyte # 1.05 X10^3/ul (0.83-4.51); Lymphocyte % 7.6 % (19-41); Mean Corpuscular Hgb 28.5 pg (27.0-32.0); Mean Corpuscular Volume 86.3 fL (81-99); Mean Platelet Vol. 8.8 fl (6.2-12.0); Monocyte# 0.26 X10^3/uL; Monocyte% 1.9 % (0-10); NRBC Flagged by Analyzer 0 % (0-5); Neutrophil # 12.45 X10^3/uL (2.7-7.7); Neutrophil % 89.8 % (47-70); Platelet Count 349 K/mm3 (150-450); RBC Distribution Width CV 13.5 % (11.6-14.6); RBC Distribution Width SD 42.6 fl (35.1-43.9); Red Blood Count 4.39 M/mm3 (4.2-5.4); White Blood Count 13.9 K/mm3 (4.4-11.0)
[2023-04-03 17:29] LABS: ALB/GLOB Ratio 1.2 RATIO (0.9-2.4); AST(SGOT) 13 U/L (15-37); Alanine Aminotransfer ALT/SGPT 23 U/L (13-56); Albumin, Serum 3.8 g/dL (3.2-5.0); Alkaline Phosphatase 79 U/L (45-117); Anion Gap 5 (5-15); BUN 8 mg/dL (7-18); BUN/Creat Ratio 14.6 RATIO (10-20); Calcium,Total 8.8 mg/dL (8.5-10.1); Chloride 104 mmol/L (98-107); Creatinine, Serum 0.55 mg/dL (0.55-1.02); EST Glomerular Filtration Rate 119 mL/min (>60); Est Glom Filt Rate - Afr Amer 144 mL/min (>60); Estimated Creatinine Clearance 94.21 ml/min; Globulin 3.2 g/dL (2.2-4.2); Glucose 155 mg/dL (74-106); Potassium 3.6 mmol/L (3.5-5.1); Sodium Level 136 mmol/L (136-145)
[2023-04-03] MEDS: proMETHazine 25 MG/ML Syringe IM (18:37)
[2023-04-04] VITALS (7 sets, daily range): BP systolic 115–144; BP diastolic 78–103; PULSE 69–111; RESP 16–18; TEMP 36.6–37; O2SAT 96–100
[2023-04-04] MEDS: proCHLORPERazine 10 MG/2 ML Vial 5 MG IV (01:13)
[2023-04-04] MEDS: 0.9% Saline Lock 10 ML Syringe IV (01:14)
[2023-04-04] MEDS: amLODIPine 5 MG Tablet PO ×2 (01:15→08:34)
[2023-04-04 07:31] LABS: Mucous, Urine 0 SEEN /hpf (<or=2+); Red Blood Cells-Urine 0 SEEN /hpf (0-5)
[2023-04-04 07:34] LABS: Color, Urine Yellow (Yellow); Glucose, Dipstick Normal (Normal); Ketone-Dipstick 15 mg/dl (Negative); Leukocyte Esterase-Dipstick 100 /ul (Negative); Nitrite-Dipstick Negative (Negative); Occult Blood-Urine 10 /ul (Negative); Protein-Dipstick Negative (Negative); Urine Bilirubin Dipstick Negative (Negative); Urine Clarity Sl. Cloudy (Clear); Urine Urobilinogen Normal (Normal)
--- NOTE | 2023-04-04 07:40 | PCM.PN.HOSP ---
Reason for Visit Reason for Visit: Diagnoses Elevated blood-pressure reading, without diagnosis of hypertension (04/03/23) Nausea with vomiting, unspecified (04/03/23) Dizziness and giddiness (04/03/23) Subjective Subjective Patient is a 63-year-old female who presented who presented with dizziness was associated intractable nausea and vomiting Objective Data Objective Data Vital Signs: Vital Signs Temp Pulse Resp BP Pulse Ox O2 Del Method 98.6 F 95 18 133/89 H 96 Room Air 04/04/23 06:25 04/04/23 06:25 04/04/23 06:25 04/04/23 06:25 04/04/23 06:25 04/04/23 06:25 Oxygen Delivery Method Room Air Weight: 58.5 kg Body Mass Index (BMI) 21.4 Intake & Output: Intake and Output for Last 24 Hours 04/02/23 04/03/23 04/04/23 23:59 23:59 23:59 Intake Total 1010 / 1010 Balance 1010 / 1010 Lab / Micro Data 04/03/23 17:00 04/03/23 17:00 Labs: Laboratory Results - last 24 hr 04/03/23 07:25: Urine Color Yellow, Urine Clarity Sl. Cloudy, Urine pH 7.0, Ur Specific [place] 1.010, Urine Protein Negative, Urine Glucose (UA) Normal, Urine Ketones 15 H, Urine Occult Blood 10 H, Urine Nitrite Negative, Urine Bilirubin Negative, Urine Urobilinogen Normal, Ur Leukocyte Esterase 100 H, Ur Drug Screen Comment 04/03/23 17:00: WBC 13.9 H, RBC 4.39, Hgb 12.5, Hct 37.9, MCV 86.3, MCH 28.5, MCHC 33.0, RDW Std Deviation 42.6, RDW Coeff of Eunice 13.5, Plt Count 349, MPV 8.8, Immature Gran % (Auto) 0.500, Neut % (Auto) 89.8 H, Lymph % (Auto) 7.6 L, Elk % (Auto) 1.9, Eos % (Auto) 0.0, Baso % (Auto) 0.2, Absolute Neuts (auto) 12.5 H, Absolute Lymphs (auto) 1.05, Nucleated RBC % 0, Sodium 136, Potassium 3.6, Chloride 104, Carbon Dioxide 27.0, Anion Gap 5, BUN 8, Creatinine 0.55, Estim Creat Clear Calc 94.21, Est GFR (MDRD) Af Amer 144, Est GFR (MDRD) Non-Af 119, BUN/Creatinine Ratio 14.6, Glucose 155 H, Calcium 8.8, Total Bilirubin 0.30, AST 13 L, ALT 23, Alkaline Phosphatase 79, Total Protein 7.0, Albumin 3.8, Globulin 3.2, Albumin/Globulin Ratio 1.2 Radiography Diagnostic Testing: Radiology Impression Brain CT 04/03/23 16:29 IMPRESSION: Chronic involutional changes of the brain. No acute hemorrhage Stable postsurgical changes in the right occipital region with stable aneurysm clipping in the posterior fossa Electronically Signed: Anton Tavares MD at 17:06 EST Reading Location ID and State: [facility] / [place] , Service support , Physical Exam Narrative GENERAL: cooperative HEENT: Atraumatic; normocephalic EYES; Anicteric, Normal Conjunctiva NECK; supple, normal thyroid, RESPIRATORY: Diminished to auscultation CARDIOVASCULAR: Regular S1 S2, GI: soft, normoactive bowel sounds, : No Renal angle tenderness; EXTREMITIES: No edema, no clubbing, MUSCULOSKELETAL: no muscle wasting NEURO: Awake; no lateralizing signs. SKIN: No Rash PSYCH; Flat affect Assessment & Plan Assessment/Plan (1) Dizziness: (2) Intractable nausea and vomiting: (3) Elevated BP without diagnosis of hypertension: PLAN: Plan Patient is a 63-year-old female who presented who presented with dizziness was associated intractable nausea and vomiting 1. 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 Admitted to regular nursing floor for symptom management consult placed to neurology. Also ordered MRI to rule out posterior circulation CVA. The order for the MRI discussed with the radiology plan is to obtain old records for [facility] since patient has history of cerebral artery aneurysm clip 2. Essential hypertension ? Patient blood pressure was elevated on admission did resume home medications in addition to hydralazine for systolic blood pressure greater than 160 as needed 3. 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 Chronic pain syndrome ? Patient is on tramadol as needed 5. GERD ? On PPI 6. Tobacco dependence - Counseled on cessation, offered nicotine patch for tobacco cravings 7. DVT prophylaxis ? SC Lovenox Time spent in the patient's overall evaluation,decision-making process, review of diagnostic data, adjustment of management, discussion with other providers, nursing nursing and ancillary staff involved in patient's care documentation, 50 Minutes Charges/Coding Visit Charges Inpatient E&M: 74216 Subs Hosp L3
[2023-04-04 07:45] LABS: White Blood Cells 10-25 SEEN /hpf (0-5)
[2023-04-04 07:46] LABS: Bacteria 1+ /hpf (None Seen); Squamous Epithelial Cells - UA 0-5 SEEN /hpf (5-10)
[2023-04-04 07:59] LABS: Hematocrit 40.1 % (37-47); Hemoglobin 12.7 g/dL (12.0-15.0); Mean Corp Hgb Conc 31.7 g/dL (32-36); Mean Corpuscular Hgb 28.3 pg (27.0-32.0); Mean Corpuscular Volume 89.5 fL (81-99); Mean Platelet Vol. 9.1 fl (6.2-12.0); Platelet Count 369 K/mm3 (150-450); RBC Distribution Width CV 13.9 % (11.6-14.6); Red Blood Count 4.48 M/mm3 (4.2-5.4); White Blood Count 11.8 K/mm3 (4.4-11.0)
[2023-04-04 08:01] LABS: Amphetamine Urine VISTA NEGATIVE (<1000 ng/mL); Barbiturate Urine VISTA NEGATIVE (< 200 ng/mL); Benzodiazepine Urine VISTA POSITIVE (< 200 ng/mL); Cocaine Urine VISTA NEGATIVE (< 300 ng/mL); Ecstacy Urine VISTA NEGATIVE (< 500 ng/mL); Methadone Urine VISTA NEGATIVE (< 300 ng/mL); PCP Urine VISTA NEGATIVE (< 25 ng/mL); THC Urine VISTA NEGATIVE (< 50 ng/mL); Vista UDS pH Range 6
[2023-04-04 08:25] LABS: Anion Gap 5 (5-15); BUN 6 mg/dL (7-18); BUN/Creat Ratio 14.1 RATIO (10-20); Chloride 106 mmol/L (98-107); Creatinine, Serum 0.43 mg/dL (0.55-1.02); EST Glomerular Filtration Rate 159 mL/min (>60); Est Glom Filt Rate - Afr Amer 192 mL/min (>60); Glucose 103 mg/dL (74-106); Potassium 3.1 mmol/L (3.5-5.1); Sodium Level 136 mmol/L (136-145)
[2023-04-04] MEDS: Multivitamins,Therapeutic Tablet 1 TABLET PO (08:35)
[2023-04-04] MEDS: Enoxaparin 40 MG/0.4 ML Syringe SC (08:35)
[2023-04-04] MEDS: Pantoprazole Sodium 20 MG Tablet PO (08:35)
--- NOTE | 2023-04-04 09:49 | PN.NEURO_ITS ---
Assessment and Plan: Neuro Assessment/Plan GLORIA DE LA GARZA is a 63 F with a past medical history of right cerebellar artery aneurysm coiling and clipping being evaluated by Teleneurology for episodes of lightheadedness,unsteadiness, nausea,vomiting off and on since one year. She has extensive work up done in the past with no obvious finding. Neurological exam intact except subjective tingling feeling involving bilateral face and arm as well as wide based gait. Differentials include stroke , peripheral vertigo , cardiogenic ? / GI related as she mentioned that this usually happens after her breakfast. Less likely to be TIA given time frame. Plan: Vestibular rehab as an outpatient PT for gait MRI Brain w/o contrast Recommend ENT consult as an outpatient Meclizine 25 mg Q8hr for 5-7 days Rest of work up as perprimary team Transfer to [facility] for the following reasons: none I personally attended this patient and spent a total time of 50 minutes evaluating this patient including clinical assessment, review of chart, medical history imaging, and determining appropriate treatment and workup. [facility] Neurology Department Subject: Neurology Subjective 63 year old female admitted with dizziness,nausea and vomiting. She has been dealing with these symptoms for last one year off and on and had extensive work up with no obvious cause. She denied numbness, tingling ,slurred speech but do endorse difficulty maintaining balance. Had history of right cerebellar artery aneurysm coiling followed by clipping. She denies any history of strokes. On my evaluation,her symptoms resolved and she feels much better. EEG Results Procedure Details EEG Procedure Details: GLORIA DE LA GARZA is a 63 year old F with a past medical history of , who presents for evaluation of Electroencephalogram on DATE at TIME Objective Data Objective Data Vital Signs: Vital Signs Temp Pulse Resp BP Pulse Ox O2 Del Method 97.9 F 97 16 135/90 H 96 Room Air 04/04/23 08:38 04/04/23 08:38 04/04/23 08:38 04/04/23 08:38 04/04/23 08:38 04/04/23 08:38 Oxygen Delivery Method Room Air Weight: 58.5 kg Body Mass Index (BMI) 21.4 Intake & Output: Intake and Output for Last 24 Hours 01/22/24 01/23/24 01/24/24 23:59 23:59 23:59 Intake Total 1010 / 1010 Balance 1010 / 1010 Lab / Micro Data 04/04/23 07:13 04/04/23 07:13 Labs: Laboratory Results - last 24 hr 04/03/23 07:25: Urine Color Yellow, Urine Clarity Sl. Cloudy, Urine pH 7.0, Ur Specific [place] 1.010, Urine Protein Negative, Urine Glucose (UA) Normal, Urine Ketones 15 H, Urine Occult Blood 10 H, Urine Nitrite Negative, Urine Bilirubin N egative, Urine Urobilinogen Normal, Ur Leukocyte Esterase 100 H, Urine RBC 0 SEEN, Urine WBC 10-25 SEEN, Ur Squamous Epith Cells 0-5 SEEN, Urine Bacteria 1+, Urine Mucus 0 SEEN, Urine Opiates Screen NEGATIVE, Urine Methadone Screen NEGATIVE, Ur Barbiturates Screen NEGATIVE, Ur Phencyclidine Scrn NEGATIVE, Ur Amphetamines Screen NEGATIVE, MDMA (Ecstasy) Screen NEGATIVE, U Benzodiazepines Scrn POSITIVE H, Urine Cocaine Screen NEGATIVE, U Cannabinoids Screen NEGATIVE, Ur Drug Screen Comment 04/03/23 17:00: WBC 13.9 H, RBC 4.39, Hgb 12.5, Hct 37.9, MCV 86.3, MCH 28.5, MCHC 33.0, RDW Std Deviation 42.6, RDW Coeff of Eunice 13.5, Plt Count 349, MPV 8.8, Immature Gran % (Auto) 0.500, Neut % (Auto) 89.8 H, Lymph % (Auto) 7.6 L, Dewitt % (Auto) 1.9, Eos % (Auto) 0.0, Baso % (Auto) 0.2, Absolute Neuts (auto) 12.5 H, Absolute Lymphs (auto) 1.05, Nucleated RBC % 0, Sodium 136, Potassium 3.6, Chloride 104, Carbon Dioxide 27.0, Anion Gap 5, BUN 8, Creatinine 0.55, Estim Creat Clear Calc 94.21, Est GFR (MDRD) Af Amer 144, Est GFR (MDRD) Non-Af 119, BUN/Creatinine Ratio 14.6, Glucose 155 H, Calcium 8.8, Total Bilirubin 0.30, AST 13 L, ALT 23, Alkaline Phosphatase 79, Total Protein 7.0, Albumin 3.8, Globulin 3.2, Albumin/Globulin Ratio 1.2 04/04/23 07:13: WBC 11.8 H, RBC 4.48, Hgb 12.7, Hct 40.1, MCV 89.5, MCH 28.3, MCHC 31.7 L, RDW Std Deviation 45.0 H, RDW Coeff of Eunice 13.9, Plt Count 369, MPV 9.1, Sodium 136, Potassium 3.1 L, Chloride 106, Carbon Dioxide 25.0, Anion Gap 5, BUN 6 L, Creatinine 0.43 L, Estim Creat Clear Calc 120.50, Est GFR (MDRD) Af Amer 192, Est GFR (MDRD) Non-Af 159, BUN/Creatinine Ratio 14.1, Glucose 103, Calcium 9.0 Radiography Diagnostic Testing: Radiology Impression Brain CT 04/03/23 16:29 IMPRESSION: Chronic involutional changes of the brain. No acute hemorrhage Stable postsurgical changes in the right occipital region with stable aneurysm clipping in the posterior fossa Electronically Signed: Anton Tavares MD at 17:06 EST , Physical Exam Neuro Neuro Narrative: -? General: Laying comfortably in bed; in no acute distress. -? HENT: Normal oropharynx and mucosa. Normal external appearance of ears and nose. Exophthalmos. -? Neck: Supple, no pain or tenderness -? CV:? No peripheral edema. -? Pulmonary:? Normal respiratory effort. -? Ext: No cyanosis, edema, or deformity -? Skin: No rash. Normal palpation of skin.? -? Musculoskeletal: full range of motion; no joint tenderness. Normal digits and nails by inspection. No clubbing. -? NEURO: -? Mental Status: The patient was alert and oriented to time, place, and person. Normal recent/remote memory, concentration, and general fund of knowledge. -? Language: speech is fluent.? Naming, repetition, fluency, and compre hension intact. -? Cranial Nerves: PERRL 3 mm/brisk. EOMI, visual honeycutt full, no facial asymmetry, facial sensation intact, hearing intact, tongue midline, no evidence of atrophy or fibrillations. As performed by the nurse. Sternocleidomastoid and trapezius were equally strong. Soft palate raises equally, no uvular deviations -? Motor: normal bulk, tone, and strength throughout. No pronator drift or satelliting. Upper and lower extremities equal bilaterally. : R L -? Tone: is normal and bulk is normal -? Sensation- Intact to light touch bilaterally -? Coordination: No dysmetria on [id number], finger follow finger or [id number]. -? Gait- Gait is wide based and uses walker at baseline.
[2023-04-04] MEDS: Acetaminophen 325 MG Tablet 650 MG PO (12:36)
--- NOTE | 2023-04-04 14:54 | NURSING ---
reviewed student charting
[2023-04-04] MEDS: traMADol 50 MG Tablet PO (22:13)
[2023-04-05 06:00] VITALS: BP 150/92; PULSE 92; RESP 18; TEMP 36.7; O2SAT 96
[2023-04-05] MEDS: amLODIPine 5 MG Tablet PO (06:07)
[2023-04-05] MEDS: 0.9% Saline Lock 10 ML Syringe IV (06:18)
[2023-04-05] MEDS: Multivitamins,Therapeutic Tablet 1 TABLET PO (07:42)
[2023-04-05] MEDS: Pantoprazole Sodium 20 MG Tablet PO (07:42)
[2023-04-05] MEDS: Enoxaparin 40 MG/0.4 ML Syringe SC (07:42)
[2023-04-05] MEDS: Acetaminophen 325 MG Tablet 650 MG PO (07:45)
--- NOTE | 2023-04-05 07:47 | PCM.PN.HOSP ---
Reason for Visit Reason for Visit: Diagnoses Elevated blood-pressure reading, without diagnosis of hypertension (04/03/23) Nausea with vomiting, unspecified (04/03/23) Dizziness and giddiness (04/03/23) Subjective Subjective Symptoms resolved. Plan for patient to undergo subsequent evaluation with MRI Objective Data Objective Data Vital Signs: Vital Signs Temp Pulse Resp BP Pulse Ox O2 Del Method 98.0 F 92 18 150/92 H 96 Room Air 04/05/23 06:00 04/05/23 06:00 04/05/23 06:00 04/05/23 06:00 04/05/23 06:00 04/05/23 06:00 Oxygen Delivery Method Room Air Weight: 58.5 kg Body Mass Index (BMI) 21.4 Intake & Output: Intake and Output for Last 24 Hours 04/03/23 04/04/23 04/05/23 23:59 23:59 23:59 Intake Total 1010 / 1010 950 / 950 Output Total 600 / 600 Balance 1010 / 1010 350 / 350 Lab / Micro Data 04/04/23 07:13 04/04/23 07:13 Labs: Laboratory Results - last 24 hr 04/03/23 07:25: Urine Opiates Screen NEGATIVE, Urine Methadone Screen NEGATIVE, Ur Barbiturates Screen NEGATIVE, Ur Phencyclidine Scrn NEGATIVE, Ur Amphetamines Screen NEGATIVE, MDMA (Ecstasy) Screen NEGATIVE, U Benzodiazepines Scrn POSITIVE H, Urine Cocaine Screen NEGATIVE, U Cannabinoids Screen NEGATIVE 04/04/23 07:13: WBC 11.8 H, RBC 4.48, Hgb 12.7, Hct 40.1, MCV 89.5, MCH 28.3, MCHC 31.7 L, RDW Std Deviation 45.0 H, RDW Coeff of Eunice 13.9, Plt Count 369, MPV 9.1, Sodium 136, Potassium 3.1 L, Chloride 106, Carbon Dioxide 25.0, Anion Gap 5, BUN 6 L, Creatinine 0.43 L, Estim Creat Clear Calc 120.50, Est GFR (MDRD) Af Amer 192, Est GFR (MDRD) Non-Af 159, BUN/Creatinine Ratio 14.1, Glucose 103, Calcium 9.0 Physical Exam Narrative GENERAL: cooperative HEENT: Atraumatic; normocephalic EYES; Anicteric, Normal Conjunctiva NECK; supple, normal thyroid, RESPIRATORY: Diminished to auscultation CARDIOVASCULAR: Regular S1 S2, GI: soft, normoactive bowel sounds, : No Renal angle tenderness; EXTREMITIES: No edema, no clubbing, MUSCULOSKELETAL: no muscle wasting NEURO: Awake; no lateralizing signs. SKIN: No Rash PSYCH; Flat affect Assessment & Plan Assessment/Plan (1) Dizziness: (2) Intractable nausea and vomiting: (3) Elevated BP without diagnosis of hypertension: PLAN: Plan Patient is a 63-year-old female who presented who presented with dizziness was associated intractable nausea and vomiting 1. 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 Admitted to regular nursing floor for symptom management consult placed to neurology. Also ordered MRI to rule out posterior circulation CVA. The order for the MRI discussed with the radiology plan is to obtain old records for [facility] since patient has history of cerebral artery aneurysm clip ? 04/05/2023 MRI scheduled for this morning 2. Essential hypertension ? Patient blood pressure was elevated on admission did resume home medications in addition to hydralazine for systolic blood pressure greater than 160 as needed 3. 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 Chronic pain syndrome ? Patient is on tramadol as needed 5. GERD ? On PPI 6. Tobacco dependence - Counseled on cessation, offered nicotine patch for tobacco cravings 7. DVT prophylaxis ? SC Lovenox Time spent in the patient's overall evaluation,decision-making process, review of diagnostic data, adjustment of management, discussion with other providers, nursing nursing and ancillary staff involved in patient's care documentation, 35 Minutes Charges/Coding Visit Charges Inpatient E&M: 65515 Subs Hosp L2
[2023-04-05 09:34] VITALS: BP 137/96; PULSE 96; RESP 16; TEMP 36.4; O2SAT 97
--- NOTE | 2023-04-05 11:17 | DS.PCM_ITS ---
Providers Date of Admission: 04/03/23 Primary Care Physician: Dr. Lindsey Centeno MD Consultations 04/03/23 18:10 Consult: Tele-Neurology Routine Consulting Provider: [facility] Reason for Consult: intermittent vertigo, h/o cerebellar aneurysm repair EMERGENT Consult: No MD Notified: Yes Date Notified: 04/03/23 Time Notified: 18:47 Method of Notification: Answering Service Comments:: Dr. Kasper covering Nursing Unit Staff Notify [facility] of Tele-Neurology Consult: Yes Reason For Visit: INTRACTABLE NAUSEA AND VOMITING Diagnosis Discharge Diagnosis (1) Dizziness: Status: Acute Code(s): R42 - Dizziness and giddiness (2) Intractable nausea and vomiting: Status: Acute Code(s): R11.2 - Nausea with vomiting, unspecified (3) Elevated BP without diagnosis of hypertension: Status: Acute Code(s): R03.0 - Elevated blood-pressure reading, without diagnosis of hypertension Plan Patient is a 63-year-old female who presented who presented with dizziness was associated intractable nausea and vomiting 1. 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 Admitted to regular nursing floor for symptom management consult placed to neurology. Also ordered MRI to rule out posterior circulation CVA. The order for the MRI discussed with the radiology plan is to obtain old records for [facility] since patient has history of cerebral artery aneurysm clip ? 04/05/2023 MRI scheduled for this morning ? Patient MRI could not be performed due to logistics issues. Patient subsequently requested to be discharged to follow-up with a primary care physician at the [facility] for an MRI to be performed as outpatient 2. Essential hypertension ? Patient blood pressure was elevated on admission did resume home medications in addition to hydralazine for systolic blood pressure greater than 160 as needed 3. History of right posterior inferior cerebellar artery aneurysm - s/p aneurysmal clip place 4. Chronic pain syndrome ? Patient is on tramadol as needed 5. GERD ? On PPI 6. Tobacco dependence - Counseled on cessation, offered nicotine patch for tobacco cravings 7. DVT prophylaxis ? SC Lovenox Time spent in the patient's overall evaluation,decision-making process, review of diagnostic data, adjustment of management, discussion with other providers, nursing nursing and ancillary staff involved in patient's care documentation, 35 Minutes Medications at Discharge Home Medications ondansetron 4 mg disintegrating tablet 4 mg PO Q6H PRN NAUSEA/VOMITING 12/29/22 tramadol 50 mg tablet 50 mg PO 4X/DAY PRN PAIN 12/29/22 albuterol sulfate 90 mcg/actuation aerosol inhaler 2 puff inhalation Q4H PRN shortness of breath or wheezing 04/03/23 multivitamin 1 tab PO DAILY HEALTH MAINTENANCE 04/03/23 omeprazole 20 mg capsule,delayed release 20 mg PO DAILY ACID REFLUX 04/03/23 promethazine 12.5 mg tablet 12.5 mg PO Q6H PRN NAUSEA/VOMITING 04/03/23 meclizine 25 mg tablet 25 mg PO TID #15 tabs 04/04/23 Hospital Course Summary of Care Provided Minutes Spent on Discharge: 35 Physical Exam Narrative GENERAL: cooperative HEENT: Atraumatic; normocephalic EYES; Anicteric, Normal Conjunctiva NECK; supple, normal thyroid, RESPIRATORY: Diminished to auscultation CARDIOVASCULAR: Regular S1 S2, GI: soft, normoactive bowel sounds, : No Renal angle tenderness; EXTREMITIES: No edema, no clubbing, MUSCULOSKELETAL: no muscle wasting NEURO: Awake; no lateralizing signs. SKIN: No Rash PSYCH; Flat affect Weight / BMI Weight Weight: 58.5 kg Body Mass Index (BMI) 21.4 ABG / Lab / Microbiology Data 04/04/23 07:13 04/04/23 07:13 D/C Instructions Discharge Diet: No restrictions Discharge Activity: Return to Normal Activity Call your doctor if you observe: Fever of 101 or Higher, Shortness of breath, Fainting spells and Chest pain Meaningful Use Info Meaningful Use Diagnoses (Choose all that apply): None applicable Discharge Plan Admission Admit Date/Time: 04/03/23 16:37 Attending Provider: Joe Fong Primary Care Provider: Lindsey Centeno Consulting Providers: Kem Clarke; Kan Nguyen; Mallory Arellano; Leni Conn; Nano Vanessa; Nael Rene; Viaeny Carty; Bean Coker; Pierre Sharif; Brook Diaz; Martinez Saavedra; Lata Kasper; Melissa Romo; Felix Monroe; Ye Romeo; Israel Guallpa; Sal Dallas; Cait Mejia; Nathan Aguayo; Carlos Jimenez Discharge Orders/Prescriptions Prescriptions: New meclizine 25 mg tablet 25 mg PO TID Qty: 15 0RF Continued ondansetron 4 mg tablet,disintegrating 4 mg PO Q6H PRN (Reason: NAUSEA/VOMITING) Rx Instructions: DISSOLVE ONE TABLET ON THE TONGUE EVERY 6 HOURS NEEDED FOR NAUSEA AND VOMITING tramadol 50 mg tablet 50 mg PO 4X/DAY PRN (Reason: PAIN ) promethazine 12.5 mg tablet 12.5 mg PO Q6H PRN (Reason: NAUSEA/VOMITING ) multivitamin Tablet 1 tab PO DAILY omeprazole 20 mg capsule,delayed release(DR/EC) 20 mg PO DAILY albuterol sulfate 90 mcg/actuation HFA aerosol inhaler 2 puff INHALATION Q4H PRN (Reason: shortness of breath or wheezing) Patient Comments: PT STATES SHE DOESNT KNOW IF SHE TAKES 1 OR 2 PUFFS Other Ambulatory Orders: Occupational Therapy Eval (Routine) Location: None Selected Ordered By: Dr. Joe Fong Physical Therapy Evaluation (Routine) Location: None Selected Ordered By: Dr. Joe Fong Referrals / Follow Up: Avtar Carrillo MD [Med Staff - Active Staff] - 04/18/23 1:30 pm (come at 1330 for new patient paperwork apt with amber starts at 2pm [facility] [address] [address]) Lindsey Centeno MD [Primary Care Provider] - Within 1 Week Disposition Disposition (needs filled in before D/C Order can be placed): Home, Self Care Charges/Coding Visit Charges Inpatient E&M: 54510 Disch Hosp >30min
--- NOTE | 2023-04-05 11:25 | CASEMGMT ---
PT/ OT states no additional therapy recommended. Pt seen AMB in the halls IND at this time. Pt DC order is in .
== END 2023-04-05 11:27 | disposition home or self-care (01) ==
LOC: ED 16:29 → MS3 16:50
PROVIDERS: Admitting Provider Hospitalist; Emergency Provider Emergency Medicine; PCP Internal Medicine; Visit Provider Internal Medicine
DX: R42 Dizziness and giddiness (principal); R11.2 Nausea with vomiting, unspecified; M79.7 Fibromyalgia; Z87.891 Personal history of nicotine dependence; R03.0 Elevated blood-pressure reading, without diagnosis of hypertension; Z79.899 Other long term (current) drug therapy; K21.9 Gastro-esophageal reflux disease without esophagitis; G89.4 Chronic pain syndrome
CPT/HCPCS: 36415; 70450; 80048; 80053; 80307; 81001; 85025; 85027; 96372; 96374; 96375; 97161; 97165; 97802; 99221; 99285; J7030; A4216; G0378; J2405; J3490

== ENCOUNTER → 2023-04-18 | Outpatient (CLI) | payer MEDICAID, SELFPAY ==
[2023-04-18] VITALS (16 sets, daily range): BP systolic 107–148; BP diastolic 72–113; PULSE 97–103; RESP 15–20; TEMP 36.2; O2SAT 94–98; BMI 21.6
--- NOTE | 2023-04-18 | IMM_PTH ---
PATHOLOGY RESULTS PATIENT: GLORIA DE LA GARZA LOC: CT U#:[id number] AGE/SX: 63/F ROOM: RE04/18/[address]: Dr. Adelaida Rodriguez MD : 1960 BED: DIS: 04/18/2023 SPEC #: [id number] RECD: 04/18/23 13:51 STATUS: CUBA REQ #: [id number] AN: 04/18/23 00:[address]: Adelaida Rodriguez DEPT: IMMUNOHISTOCHEMISTRY RECD BY: Nida Robins ENTERED: 04/18/23 13:52 SP TYPE: IMMUNO OTHR DR: MD Candace Corea, ONLINE MARKETING STRATEGIST-C Tissues: Right lower lobe of lung, NOS Procedures: RCC (add) NAPSIN A (add) CK20 (add) CK5-6 (add) CK7 (add) CK8 (add) HEP PAR (add) ND (add) TTF1 (add) Pankeratin (add) P40 (add) ER (initial) PHYSICIAN & [place] [phone] SPECIMEN INFORMATION: Tissue Source: Right lower lobe lung mass Clinical Info: Right lower lobe lung mass Specimen Number: [id number] CPT code: 34928, 47495 x11 METHODOLOGY: Deparaffinized sections of prefer/formalin-fixed tissue or PAP/DQ stained slides are incubated with monoclonal/polyclonal antibodies/oligonucleotide probes. Localization is made via biotin free immunoperoxidase method. Appropriate controls are performed and reacted as expected. Results on target cell population are indicated in the following table: RESULTS: ANTIBODY / CLONE RESULT ER (6F11) negative ND (1E2) negative AE1-3 (AE1/AE3/PCK26) positive CK7 (OV-TL12/30) positive CK8 (31nhsoU58) positive CK20 (KS20.8) negative TTF-1 (8G7G3/1) positive Napsin A (Rabbit Polyclonal) positive HepPar (OCh1E5) negative RCC (PN-15) negative CK5-6 (D5 & 1684) negative P40 (BC28) negative These tests were developed and their performance characteristics determined by [facility]. They may not have been cleared or approved by the U.S. Food and Drug Administration. The FDA has determined that such clearance or approval is not necessary. The above immunohistochemical/dualISH markers are ordered and reviewed by the Pathologist. INTERPRETATION: Right lower lobe lung mass, CT-guided core biopsy: Adenocarcinoma, consistent with lung primary. SJ:gary 04/19/2023
--- NOTE | 2023-04-18 | ASPIGT_PTH ---
PATHOLOGY RESULTS PATIENT: GLORIA DE LA GARZA LOC: DE U#:[id number] AGE/SX: 63/F ROOM: RE04/18/[address]: Dr. Adelaida Rodriguez MD : 1960 BED: DIS: 04/18/2023 SPEC #: [id number] RECD: 04/18/23 10:30 STATUS: CUBA REShay #: [id number] AN: 04/18/23 00:[address]: Adelaida Rodriguez DEPT: SURGICAL PATHOLOGY RECD BY: Nida Robins ENTERED: 04/18/23 14:21 SP TYPE: ASP RAD OTHR DR: MD Candace Corea, BODY ART TECHNICIAN-C Procedures: FNA Specimen Adequacy Special Stain Group II Surgery Specimen Level IV Imprint (control) HEADER OPERATION: Right lower lobe lung, CT-guided core biopsy PRE-OP DIAGNOSIS: Right lower lobe lung mass TISSUE SUBMITTED: Right lower lobe lung mass 20-gauge x5 MICROSCOPIC DIAGNOSIS Right lower lobe lung mass, CT-guided core biopsy: Adenocarcinoma, consistent with lung primary. See comment. Dixie 04/19/2023 COMMENT The specimen is evaluated at the time of biopsy by Dr. Laura. Immediate Evaluation = Malignant cells present derived from non-small cell carcinoma. Immunohistochemistry ([id number]) supports the above diagnosis. Molecular studies on the tumor can be performed if clinically indicated. Please notify the laboratory if they are needed. Case has been reviewed in consultation with Dr. Mendoza who concurs with the above diagnosis. IDC:AM MICROSCOPIC DESCRIPTION Slides are reviewed. GROSS DESCRIPTION Received in fixative is one container labeled with the patient's name and designated right lung. The specimen consists of multiple elongated fragments of chand soft tissue that in aggregate measure 1.5 x 0.1 x 0.1 cm. The specimen is totally submitted in one cassette. Two touch imprints are prepared at the time of core biopsy. / MEETA:gary 04/18/2023 TC:0 CPT: 99657, 56508
[2023-04-18 08:38] LABS: Platelet Count 368 K/mm3 (150-450)
--- OUTSIDE RECORDS SUMMARY | 2023-04-18 08:41 | XMS RPT_ITS | CCD ---
Author Name Unknown Address [address] [place] [address] Organization [facility] Care Team Providers Care International Affairs Vice President Name Role Phone Anjum Diggs MD Primary [...] Unavailable TALAMPAS, ANJUM D Primary Care Unavailable LEIGH JOSEPH Attending Unavailable FIONA LUIS Admitting Unavailable Grisel Emanuel RN Unavailable Unavailable CARTER, FABBY Attending Unavailable TALAMPAS, ANJUM D Primary Care Unavailable CARTER, FABBY Referring Unavailable TALAMPAS, ANJUM D Primary Care Unavailable SLEIK, KHALED Referring Unavailable TALAMPAS, ANJUM D Primary Care Unavailable TALAMPAS, ANJUM D Primary Care Unavailable TALAMPAS, ANJUM D Attending Unavailable CARTER, FABBY Referring Unavailable TALAMPAS, ANJUM D Primary Care Unavailable ELSY ROSA Attending Unavailable TALAMPAS, ANJUM D Primary Care Unavailable TALAMPAS, ANJUM D Referring Unavailable EMELY WEST Attending Unavailable TALAMPAS, ANJUM D Primary Care Unavailable TALAMPAS, ANJUM D Primary Care Unavailable TALAMPAS, ANJUM D Attending Unavailable ADELAIDA ANDERSON Referring Unavailable TALAMPAS, ANJUM D Primary Care Unavailable ADELAIDA ANDERSON Referring Unavailable TALAMPAS, ANJUM D Primary Care Unavailable SLEIK, KHALED Attending Unavailable TALAMPAS, ANJUM D Primary Care Unavailable TALAMPAS, ANJUM D Primary Care Unavailable TALAMPAS, ANJUM D Attending Unavailable CARTER, FABBY Attending Unavailable TALAMPAS, ANJUM D Primary Care Unavailable CARTER, FABBY Attending Unavailable CARTER, FABBY Referring Unavailable TALAMPAS, ANJUM D Primary Care Unavailable ADELAIDA ANDERSON Attending Unavailable TALAMPAS, ANJUM D Primary Care Unavailable ADELAIDA ANDERSON Referring Unavailable TALAMPAS, ANJUM D Primary Care Unavailable TALAMPAS, ANJUM D Primary Care Unavailable TALAMPAS, ANJUM D Attending Unavailable SLEIK, KHALED Referring Unavailable TALAMPAS, ANJUM D Primary Care Unavailable SLEIK, KHALED Referring Unavailable SLEIK, KHALED Attending Unavailable TALAMPAS, ANJUM D Primary Care Unavailable TALAMPAS, ANJUM D Primary Care Unavailable TALAMPAS, ANJUM D Attending Unavailable CARTER, FABBY Referring Unavailable ELSY ROSA Attending Unavailable TALAMPAS, ANJUM D Primary Care Unavailable CARTER, FABBY Attending Unavailable TALAMPAS, ANJUM D Primary Care Unavailable CARTER, FABBY Attending Unavailable TALAMPAS, ANJUM D Primary Care Unavailable LEIGH JOSEPH Referring Unavailable TALAMPAS, ANJUM D Primary Care Unavailable Allergies Allergy Classification Reported Allergen(s) Allergy Type Date of Onset Reaction(s) Facility (20 sources) DULoxetine; Translations: [DULOXETINE] Drug Allergy 07-07-19 20 Diarrhea [facility] Work Phone: (20 sources) Sulfamethoxazole; Translations: [SULFAMETHOXAZOLE] Drug Allergy 11-05-19 18 Unknown, Other: See Comments [facility] Work Phone: (20 sources) Sulfamethoxazole / Trimethoprim; Translations: [SULFAMETHOXAZOLE-TR IMETHOPRIM] Drug Allergy 11-05-19 18 Unknown, Other: See Comments [facility] Work Phone: (20 sources) Sulfites; Translations: [SULFITES] Propensity to adverse reactions to drug 11-05-19 18 Unknown, Other: See Comments [facility] Work Phone: (20 sources) topiramate; Translations: [TOPIRAMATE] Drug Allergy 07-07-19 20 Mental Status Change [facility] Work Phone: Medications Current Medications Medication [...] Drug Class(es) Dates Sig (Normalized) Sig (Original) [id number] 200 actuat albuterol 0.09 mg/actuat metered dose inhaler (16 sources) beta2-Adrenergic Agonist Start: 12-12-2022 take 2 [...] abdominal pain; Translations: [Generalized abdominal pain] Episodic Acute cerebrovascular disease (4 sources) Cerebrovascular accident; Translations: [Cerebral infarction, unspecified] Onset: 04-07-2023 04-07-2023 Chronic Alcohol-related disorders (20 sources) Alcohol abuse; Translations: [Alcohol abuse, uncomplicated] Onset: 11-04-2017 11-07-2017 Chronic Anxiety disorders (20 sources) Mixed anxiety and depressive disorder; Translations: [Anxiety disorder, unspecified] Onset: 03-31-2019 03-31-2019 Chronic Aortic; peripheral; and visceral artery aneurysms (2 sources) Aneurysm; Translations: [Aneurysm of unspecified site] Onset: 03-24-2022 Chronic Cardiac dysrhythmias (3 sources) Palpitations; Translations: [Palpitations] Onset: 01-29-2023 01-22-2023 Episodic Chronic obstructive pulmonary disease and bronchiectasis (2 sources) Centriacinar emphysema; Translations: [Centrilobular emphysema] Onset: 02-06-2023 01-26-2023 Chronic Chronic obstructive pulmonary disease and bronchiectasis (1 source) Bronchitis, not specified as acute or chronic; Translations: [Sinobronchitis] Onset: 03-21-2023 Episodic Conditions associated with dizziness or vertigo (10 sources) Dizziness; Translations: [Dizziness and giddiness] Onset: 04-06-2023 Episodic Coronary atherosclerosis and other heart disease (2 sources) Stable angina; Translations: [Stable angina pectoris] 01-22-2023 Chronic Disorders of lipid metabolism (1 source) Mixed hyperlipidemia; Translations: [Mixed hyperlipidemia] Chronic Esophageal disorders (1 source) Gastroesophageal reflux disease; Translations: [Gastro-esophageal reflux disease without esophagitis] 01-25-2023 Chronic Essential hypertension (7 sources) Essential hypertension; Translations: [Essential (primary) hypertension] Onset: 04-06-2023 Chronic Headache; including migraine (20 sources) Refractory migraine [...] nonruptured] Onset: 03-31-2022 03-31-2022 Chronic Other and unspecified benign neoplasm [...] reading, without diagnosis of hypertension] Episodic Other circulatory disease (4 sources) H/O: cardiovascular disease; Translations: [Personal history of other diseases of the circulatory system] Onset: 04-06-2023 04-06-2023 Episodic Other connective tissue disease (4 sources) Fibromyalgia; Translations: [Fibromyalgia] Onset: 04-06-2023 04-06-2023 Episodic Other inflammatory condition of skin (1 [...] postprocedural pain] Episodic Other nervous system disorders (2 sources) Ataxic gait; Translations: [Ataxic gait] Onset: 04-06-2023 Episodic Other nervous system disorders (1 source) Ataxic gait; Translations: [Ataxic gait] 04-16-2023 Episodic Other nervous system disorders (1 source) [...] of other organs or systems] 10-09-2022 Episodic Residual codes; unclassified (4 sources) History of surgery for cerebral aneurysm; Translations: [Other specified postprocedural states] Onset: 04-06-2023 04-06-2023 Episodic Unclassified (1 source) Radiology NM Onset: 03-13-2023 Unclassified (1 source) Stable angina pectoris; Translations: [Stable angina pectoris] Onset: 05-10-2021 Past or Other Problems Problem Classification Problem Date Documented Date Episodic/Chronic Biliary tract disease (4 sources) Biliary sludge; Translations: [Other specified diseases of gallbladder] Onset: 01-08-2023 01-02-2023 Episodic Complications of surgical procedures or medical care (20 sources) Headache disorder; Translations: [Other complications of procedures, not elsewhere classified, initial encounter] Onset: 02-12-2018 02-12-2018 Episodic Fluid and electrolyte disorders (2 sources) Hypokalemia; Translations: [Hypokalemia] Onset: 01-02-2023 01-02-2023 Episodic Genitourinary symptoms and ill-defined conditions (5 sources) Urinary symptoms ; Translations: [Unspecified symptoms and signs involving the genitourinary system] Onset: 05-25-2022 Episodic Immunizations and screening for infectious disease (4 sources) Needs influenza immunization; Translations: [Encounter for immunization] Onset: 12-12-2022 Episodic Nausea and vomiting (5 sources) Vomiting without nausea; Translations: [Vomiting without [...] Neck pain; Translations: [Cervicalgia] Onset: 07-04-2022 Episodic Viral infection (1 source) Viral infection, unspecified; Translations: [Acute viral syndrome] Onset: 12-12-2022 Episodic Results Test Name Value Interpretation Reference Range Facil ity Vital Signs Date Time Vital Sign Value Performing Clinician Brenna mao 01-25-2023 08:16-0500 Diastolic blood pressure 86 mm[Hg] Fabby Carter APRN.CATHODE BUILDER Work Phone: [facility] 01-25-2023 08:16-0500 Systolic blood pressure 130 mm[Hg] Fabby Carter SWEEPER CLEANER INDUSTRIAL.CATHODE BUILDER Work Phone: [facility] 01-25-2023 08:15-0500 Body weight 57.15 kg Fabby Carter SWEEPER CLEANER INDUSTRIAL.CATHODE BUILDER Work Phone: [facility] 01-25-2023 08:15-0500 Heart rate 101 /min Fabby Carter SWEEPER CLEANER INDUSTRIAL.CATHODE BUILDER Work Phone: [facility] 01-25-2023 08:15-0500 Respiratory rate 16 /min Fabby Carter SWEEPER CLEANER INDUSTRIAL.CATHODE BUILDER Work Phone: [facility] 01-22-2023 10:19-0500 Body weight 58.51 kg Rosa Maria Kelly MD Work Phone: [facility] 01-22-2023 10:19-0500 Diastolic blood pressure 99 mm[Hg] Rosa Maria Kelly MD Work Phone: [facility] 01-22-2023 10:19-0500 Heart rate 107 /min Rosa Maria Kelly MD Work Phone: [facility] 01-22-2023 10:19-0500 SaO2% (BldA) [Mass fraction] 95 % Rosa Maria Kelly MD Work Phone: [facility] 01-22-2023 10:19-0500 Systolic blood pressure 146 mm[Hg] Rosa Maria Kelly MD Work Phone: [facility] 01-08-2023 10:32-0400 Body height 165.1 cm Elsy Rosa MD Work Phone: [facility] 01-08-2023 10:32-0400 Body temperature 97 [degF] Elsy Rosa MD Work Phone: [facility] 01-08-2023 10:32-0400 Body weight 56.7 kg Elsy Rosa MD Work Phone: [facility] 01-08-2023 10:32-0400 Diastolic blood pressure 88 mm[Hg] Elsy Rosa MD Work Phone: [facility] 01-08-2023 10:32-0400 Heart rate 110 /min Elsy Rosa MD Work Phone: [facility] 01-08-2023 10:32-0400 SaO2% (BldA) [Mass fraction] 95 % Elsy Rosa MD Work Phone: [facility] 01-08-2023 10:32-0400 Systolic blood pressure 142 mm[Hg] Elsy Rosa MD Work Phone: [facility] 01-02-2023 10:15-0400 Body weight 57.15 kg Fabby Carter SWEEPER CLEANER INDUSTRIAL.CATHODE BUILDER Work Phone: [facility] 01-02-2023 10:15-0400 Diastolic blood pressure 91 mm[Hg] Fabby Carter SWEEPER CLEANER INDUSTRIAL.CATHODE BUILDER Work Phone: [facility] 01-02-2023 10:15-0400 Heart rate 105 /min Fabby Carter SWEEPER CLEANER INDUSTRIAL.CATHODE BUILDER Work Phone: [facility] 01-02-2023 10:15-0400 Respiratory rate 16 /min Fabby Carter SWEEPER CLEANER INDUSTRIAL.CATHODE BUILDER Work Phone: [facility] 01-02-2023 10:15-0400 Systolic blood pressure 134 mm[Hg] Fabby Carter SWEEPER CLEANER INDUSTRIAL.CATHODE BUILDER Work Phone: [facility] 07-04-2022 14:52-0400 Body weight 58.51 kg Fabby Carter SWEEPER CLEANER INDUSTRIAL.CATHODE BUILDER Work Phone: [facility] 07-04-2022 14:52-0400 Diastolic blood pressure 88 mm[Hg] Fabby Carter SWEEPER CLEANER INDUSTRIAL.CATHODE BUILDER Work Phone: [facility] 07-04-2022 14:52-0400 Heart rate 101 /min Fabby Carter SWEEPER CLEANER INDUSTRIAL.CATHODE BUILDER Work Phone: [facility] 07-04-2022 14:52-0400 Respiratory rate 16 /min Fabby Carter SWEEPER CLEANER INDUSTRIAL.CATHODE BUILDER Work Phone: [facility] 07-04-2022 14:52-0400 SaO2% (BldA) [Mass fraction] 99 % Fabby Carter SWEEPER CLEANER INDUSTRIAL.CATHODE BUILDER Work Phone: [facility] 07-04-2022 14:52-0400 Systolic blood pressure 138 mm[Hg] Fabby Carter SWEEPER CLEANER INDUSTRIAL.CATHODE BUILDER Work Phone: [facility] 06-21-2022 14:56-0400 Body temperature 97.7 [degF] Anjum Diggs MD Work Phone: [facility] 06-21-2022 14:56-0400 Body weight 57.29 kg Anjum Diggs MD Work Phone: [facility] 06-21-2022 14:56-0400 Diastolic blood pressure 66 mm[Hg] Anjum Diggs MD Work Phone: [facility] 06-21-2022 14:56-0400 Heart rate 104 /min Anjum Diggs MD Work Phone: [facility] 06-21-2022 14:56-0400 Respiratory rate 18 /min Anjum Diggs MD Work Phone: [facility] 06-21-2022 14:56-0400 SaO2% (BldA) [Mass fraction] 97 % Anjum Diggs MD Work Phone: [facility] 06-21-2022 14:56-0400 Systolic blood pressure 112 mm[Hg] Anjum Diggs MD Work Phone: [facility] 04-19-2022 12:03-0500 Body temperature 97.9 [degF] Anjum Diggs MD Work Phone: [facility] 04-19-2022 12:03-0500 Body weight 58.97 kg Anjum Diggs MD Work Phone: [facility] 04-19-2022 12:03-0500 Diastolic blood pressure 88 mm[Hg] Anjum Diggs MD Work Phone: [facility] 04-19-2022 12:03-0500 Heart rate 99 /min Anjum Diggs MD Work Phone: [facility] 04-19-2022 12:03-0500 Respiratory rate 18 /min Anjum Diggs MD Work Phone: [facility] 04-19-2022 12:03-0500 SaO2% (BldA) [Mass fraction] 98 % Anjum Diggs MD Work Phone: [facility] 04-19-2022 12:03-0500 Systolic blood pressure 138 mm[Hg] Anjum Diggs MD Work Phone: [facility] 03-21-2022 15:01-0500 Body temperature 98.6 [degF] Anjum Diggs MD Work Phone: [facility] 03-21-2022 15:01-0500 Body weight 57.61 kg Anjum Diggs MD Work Phone: [facility] 03-21-2022 15:01-0500 Diastolic blood pressure 62 mm[Hg] Anjum Diggs MD Work Phone: [facility] 03-21-2022 15:01-0500 Heart rate 94 /min Anjum Diggs MD Work Phone: [facility] 03-21-2022 15:01-0500 Respiratory rate 18 /min Anjum Diggs MD Work Phone: [facility] 03-21-2022 15:01-0500 SaO2% (BldA) [Mass fraction] 96 % Anjum Diggs MD Work Phone: [facility] 03-21-2022 15:01-0500 Systolic blood pressure 116 mm[Hg] Anjum Diggs MD Work Phone: [facility] 12-20-2021 15:18-0400 Body weight 58.51 kg Anjum Diggs MD Work Phone: [facility] 12-20-2021 15:18-0400 Diastolic blood pressure 82 mm[Hg] Anjum Diggs MD Work Phone: [facility] 12-20-2021 15:18-0400 Heart rate 98 /min Anjum Diggs MD Work Phone: [facility] 12-20-2021 15:18-0400 SaO2% (BldA) [Mass fraction] 98 % Anjum Diggs MD Work Phone: [facility] 12-20-2021 15:18-0400 Systolic blood pressure 132 mm[Hg] Anjum Diggs MD Work Phone: [facility] 11-28-2021 14:47-0400 Body weight 58.97 kg Fabby Carter SWEEPER CLEANER INDUSTRIAL.CATHODE BUILDER Work Phone: [facility] 11-28-2021 14:47-0400 Diastolic blood pressure 82 mm[Hg] Fabby Carter SWEEPER CLEANER INDUSTRIAL.CATHODE BUILDER Work Phone: [facility] 11-28-2021 14:47-0400 Heart rate 80 /min Fabby Carter SWEEPER CLEANER INDUSTRIAL.CATHODE BUILDER Work Phone: [facility] 11-28-2021 14:47-0400 Respiratory rate 16 /min Fabby Carter SWEEPER CLEANER INDUSTRIAL.CATHODE BUILDER Work Phone: [facility] 11-28-2021 14:47-0400 Systolic blood pressure 136 mm[Hg] Fabby Carter SWEEPER CLEANER INDUSTRIAL.CATHODE BUILDER Work Phone: [facility] 10-17-2021 09:33-0400 Body weight 57.61 kg Jacque Vigil SWEEPER CLEANER INDUSTRIAL.CLOUD ADMINISTRATOR Work Phone: [facility] 10-17-2021 09:33-0400 Diastolic blood pressure 90 mm[Hg] Jacque Yaritza SWEEPER CLEANER INDUSTRIAL.CLOUD ADMINISTRATOR Work Phone: [facility] 10-17-2021 09:33-0400 Heart rate 96 /min Jacque Yaritza SWEEPER CLEANER INDUSTRIAL.CLOUD ADMINISTRATOR Work Phone: [facility] 10-17-2021 09:33-0400 Systolic blood pressure 150 mm[Hg] Jacque Yaritza SWEEPER CLEANER INDUSTRIAL.CLOUD ADMINISTRATOR Work Phone: [facility] 09-02-2021 11:32-0400 Body weight 58.06 kg Mili Carpenter SWEEPER CLEANER INDUSTRIAL.CLOUD ADMINISTRATOR Work Phone: [facility] 09-02-2021 11:32-0400 Diastolic blood pressure 84 mm[Hg] Mili Older SWEEPER CLEANER INDUSTRIAL.CLOUD ADMINISTRATOR Work Phone: [facility] 09-02-2021 11:32-0400 Heart rate 92 /min Mili Older SWEEPER CLEANER INDUSTRIAL.CLOUD ADMINISTRATOR Work Phone: [facility] 09-02-2021 11:32-0400 Respiratory rate 16 /min Mili Older SWEEPER CLEANER INDUSTRIAL.CLOUD ADMINISTRATOR Work Phone: [facility] 09-02-2021 11:32-0400 Systolic blood pressure 122 mm[Hg] Mili Older SWEEPER CLEANER INDUSTRIAL.CLOUD ADMINISTRATOR Work Phone: [facility] 08-15-2021 10:37-0400 Body weight 58.51 kg Anjum Diggs MD Work Phone: [facility] 08-15-2021 10:37-0400 Diastolic blood pressure 84 mm[Hg] Anjum Diggs MD Work Phone: [facility] 08-15-2021 10:37-0400 Heart rate 83 /min Anjum Diggs MD Work Phone: [facility] 08-15-2021 10:37-0400 SaO2% (BldA) [Mass fraction] 98 % Anjum Diggs MD Work Phone: [facility] 08-15-2021 10:37-0400 Systolic blood pressure 122 mm[Hg] Anjum Diggs MD Work Phone: [facility] 05-10-2021 16:04-0500 Diastolic blood pressure 88 mm[Hg] Anjum Diggs MD Work Phone: [facility] 05-10-2021 16:04-0500 Systolic blood pressure 130 mm[Hg] Anjum Diggs MD Work Phone: [facility] 05-10-2021 15:09-0500 Body weight 58.06 kg Anjum Diggs MD Work Phone: [facility] 05-10-2021 15:09-0500 Heart rate 102 /min Anjum Diggs MD Work Phone: [facility] Encounters Encounter Date Encounter Type Care Provider Facility Start: 04-16-2023 End: 04-16-2023 ambulatory LEIGH JOSEPH Facility:[facility] Procedures Date Procedure Procedure Detail Performing Clinician Start: 04-16-2023 Echo transthorac r-t 2d w/wo m-mode rec comp Leigh Joseph MD Work Phone: Start: 04-16-2023 LVEF ECHO WITH AGITA ZACHARY SALINE CONTRAST Leigh Joseph MD Work Phone: Start: 04-06-2023 Lipid 1996 panel - S filemon or Plasma Anjum Diggs MD Work Phone: Start: 01-02-2023 PFIZER-BIONTECH COVI D-19 VACCINE ( SEASON) AGE 12+ YR Fabby Carter SWEEPER CLEANER INDUSTRIAL.CATHODE BUILDER Work Phone: Start: 04-19-2022 Culture bacterial quanttative [...] MO - 64 YRS IM Fabby Carter SWEEPER CLEANER INDUSTRIAL.CATHODE BUILDER Work Phone: Start: 11-07-2021 Myocardial spect mul tiple studies Jacque Vigil SWEEPER CLEANER INDUSTRIAL.CLOUD ADMINISTRATOR Work Phone: Start: 05-09-2021 Lipid 1996 panel - S filemon or Plasma Anjum Diggs MD Work Phone: Start: 10-04-2020 Mammography Anjum hester MD Work Phone: H/O: surgery Status post Mohs surgery Da Olivier MD Work Phone: Plan of Treatment Date Care Activity Detail Author Start: 04-06-2028 Lipid panel Lipid Screening [facility] Start: 05-09-2026 Lipid 1996 panel - S filemon or Plasma Lipid Screening [facility] Start: 05-09-2026 Lipid panel Lipid Screening [facility] Start: 05-09-2026 LIPID SCREEN LIPID SCREEN [facility] Start: 04-07-2026 [facility]: 01-02-2026 [facility] Start: 12-08-2025 [facility] Start: 12-07-2025 [facility] Start: 03-24-2025 DIABETES SCREEN DIABETES SCREEN [facility] Start: 05-09-2024 DIABETES SCREEN DIABETES SCREEN [facility] Start: 04-06-2024 Hepatitis B surface antibody level LDL Cholesterol [facility] Start: 03-21-2024 Annual PCP Team Java Xml Developer dionna Disease Visit Annual PCP Team Chronic Disease Visit [facility] Start: 01-20-2024 Influenza vaccination Lung Cancer Sc reening [facility] Start: 01-20-2024 Screening for malign ant neoplasm of lung Lung Cancer Screening [facility] Start: 12-13-2023 Annual PCP Team Java Xml Developer dionna Disease Visit Annual PCP Team Chronic Disease Visit [facility] Start: 09-20-2023 SHINGRIX VACCINE (2 of 3) SHINGRIX V ACCINE (2 of 3) [facility] Immunizations Immunization Date Immunization Notes Care Provider Александр fu 01-02-2023 COVID-19 vaccine, ag e 12+ yr, season (PFIZER-BIONTTROVE [employer]) Fabby Carter SWEEPER CLEANER INDUSTRIAL.CATHODE BUILDER Work Phone: [facility] Work Phone: 12-12-2022 influenza, injectabl e, quadrivalent, contains preservative Anjum Diggs MD Work Phone: [facility] 12-20-2021 pneumococcal Conjuga te, unspecified formulation Anjum Diggs MD Work Phone: [facility] Work Phone: 12-20-2021 COVID-19 booster vaccine, age 12+ yr, bivalent (Jotky) Anjum Diggs MD Work Phone: [facility] 12-20-2021 pneumococcal (PCV20) vaccine, 20 valent (PREVNAR 20) Anjum Diggs MD Work Phone: [facility] 11-28-2021 influenza, injectabl e, quadrivalent, contains preservative Fabby Carter APRN.CNS Work Phone: [facility] Work Phone: 11-28-2021 influenza virus vacc ine, unspecified formulation Anjum Diggs MD Work Phone: [facility] 12-13-2020 influenza, injectabl e, quadrivalent, contains preservative Anjum Diggs MD Work Phone: [facility] Work Phone: 04-14-2020 influenza, seasonal, injectable Anjum Diggs MD Work Phone: [facility] Work Phone: 04-14-2020 pneumococcal polysaccharide vaccine, 23 valent Anjum Diggs MD Work Phone: [facility] Work Phone: 04-08-2019 influenza, injectabl e, quadrivalent, preservative free Anjum Diggs MD Work Phone: [facility] 03-26-2012 zoster vaccine, live Anjum pierre MD Work Phone: [facility] Payers Date Payer Category Payer Medicaid [id number] 2020 Medicaid [employer] [id number] 2020-Present [phone] [address] [place] [address] Medicaid [id number] 2020 Medicaid [id number] 2020 Medicaid [id number] Social History Date Type Detail Facility Start: 01-29-2018 End: 01-26-2023 Tobacco smoking status NHIS Ex-smoker [facility] End: 03-12-2017 History of tobacco use Current smoker [facility] End: 03-12-2017 History of tobacco use Cigarette Smoker [facility] Start: 01-29-2018 End: 09-18-2022 Cigarettes smoked current (pack per day) - Reported 0.5 [facility] Start: 01-29-2018 End: 01-26-2023 Tobacco use and exposure Smokeless tobacco non-user [facility] Start: 05-10-2021 End: 04-09-2023 Alcohol intake Current drinker of alcohol (finding) [facility] Start: 05-10-2021 History SDOH Alcohol Frequency 98 [facility] Start: 05-09-2021 History SDOH Alcohol Comment Social [facility] Start: 05-10-2021 History SDOH Social Connections Phone 5 [facility] Start: 05-10-2021 History SDOH Social Connections Membership 1 [facility] Start: 05-10-2021 History SDOH Physica l Activity MPS 6 [facility] Start: 05-10-2021 History SDOH Stress 2 [facility] Start: 05-10-2021 History SDOH Food Worry 3 [facility] Start: 07-07-2019 Education 12 [facility] Start: 1960 Sex Assigned At Not on file [facility] Start: 04-09-2021 End: 12-20-2021 Exposure to SARS-CoV-2 (event) Not sure [facility] Start: 06-25-2021 End: 07-05-2021 Exposure to SARS-CoV-2 (event) Unable to assess [facility] Work Phone: Start: 12-13-2020 End: 03-21-2022 Alcohol intake Ex-drinker (finding) [facility] Start: 05-25-[address] [facility] Start: 12-20-2021 End: 09-18-2022 Social connection and isolation panel [facility] Do you belong to any clubs or organizations such as zoroastrianism groups, unions, fraternal or athletic groups, or school groups? Yes [facility] Are you now , , , , never or living with a partner? [facility] How often to you hav e a drink containing alcohol? Never [facility] How many standard dr inks containing alcohol do you have on a typical day? Patient does not drink [facility] How hard is it for y ou to pay for the very basics like food, housing, medical care, and heating Somewhat hard [facility] Do you feel stress - tense, restless, nervous, or anxious, or unable to sleep at night because your mind is troubled all the time - these days [OSQ] Only a little [facility] (I/We) worried velia er (my/our) food would run out before (I/we) got money to buy more. Often true [facility] The food that (I/we) bought just didn't last, and (I/we) didn't have money to get more. Sometimes true [facility] In the past 12 month s, was there a time when you were not able to pay the mortgage or rent on time? No [facility] Medical Equipment Procedure Code Equipment Code Equipment Original Text Equipment Identifier Dates Lazic Clip 7mm P erm Light Cvd L-Clip [id number] Start: 04-08-2019 Patch Durepair B ovine Collagen Matrix 2x2in Dural Resorbable Duraplasty - [id number] Start: 04-08-2019 Mesh Standard Go ld Titanium 90x90x.6mm Dynamic Craniomaxillofacial - [id number] Start: 04-08-2019 Screw 1.5mm 4mm Bone Self Drill Cross Pin Craniomaxillofacial - [id number] Start: 04-08-2019 Clinical Notes 11-05-2017 to 02-06-2024 Telephone Encounter - Grisel Roger LPN - 04/17/2023 4:17 PM ESTTelephone Encounter - Fabby Carter APRN.COTY - 04/17/2023 3:52 PM Stacie Schumacher RN - 04/16/2023 2:34 PM EST Note Date & Type Note Facility 04-17-2023 Miscellaneous Notes Patient notified of providers message and verbalized understanding. Dr. Anderson had advised Gloria Pandey that she had reached out to neurology and okay to hold Plavix for 5 days prior to biopsy. Only needing aspirin. Not sure why she is questioning whether she needs to get a biopsy. Did cardiology recommend she not get the biopsy? Has she held Plavix for 5 days prior to biopsy as advised? It does not appear anyone has discontinued the order for the biopsy so should proceed if she followed the recommendations to stop Plavix 5 days prior. She also needs to contact Dr. Oseguera office regarding visit, may need to do a video visit as initial visit scheduled was done incorrectly. Pt is calling back to check on status. Pt reports it is important for this to be addressed neha so she knows if she can get biopsy done tomorrow. Cheryl Wiseman LPN Pt calling back checking status. She has a lung bx scheduled for [facility] tomorrow and needs to know if okay to do. Please call pt back neha. Ingrid Candelario LPN documented in this encounter [facility] 04-16-2023 Note HNO ID: [id number] Author: STACIE FRANCIS RN Service: ? Author Type: Registered Nurse Type: Progress Notes Filed: 04/16/2023 14:36 Note Text: 22 ga angio started to right ac. Good blood return. Flushed easily with NSS. Dressing applied. 10 cc of Agitated Normal Saline administered per protocol throughout procedure. Pt tolerated well. No C/o's, Hep lock D/c'd and dressing applied. Patient discharged ambulatory with Professor Of Education. Stacie Francis RN [facility] 04-16-2023 History of Presen t illness Narrative 22 ga angio started to right ac. Good blood return. Flushed easily with NSS. Dressing applied. 10 cc of Agitated Normal Saline administered per protocol throughout procedure. Pt tolerated well. No C/o's, Hep lock D/c'd and dressing applied. Patient discharged ambulatory with Professor Of Education. Stacie Francis RN documented in this encounter [facility] 04-16-2023 Miscellaneous Notes Called patient regarding scheduled appt on 05/02. No answer. Left VM that patient was incorrectly scheduled and unfortunately will be cancelled. Discussed if she still needs appt she is encouraged to call back for a different day or he can see her 05/02 virtually. Patient encouraged to call with any questions. Jenn Morales RN documented in this encounter [facility] 04-09-2023 Note Patient Outreach ([facility] [place] GLORIA PANDEY ([id number]) 1960 F Date Time Provider Department 04/09/23 GRISEL EMANUEL During your visit today, we recorded the following information about you: Grisel Emanuel RN 04/09/2023 12:05 PM Signed TCM Home Visit Referral Source of Stratification: [facility] Admission Status: Discharged Readmission Risk Score: 8 MICHELINE Score: 2 Patient meets program referral criteria: No Patient does not qualify for High Risk TCM Home Visit program due to: Discharged home, does not meet program criteria Grisel Emanuel RN April 09, 2023 12:04 PM TRANSITIONAL CARE MANAGEMENT (TCM) COMMUNITY MONITORING PROGRAM Provider Action/FYI: Spoke with patient, denies pain, no sob, still has chronic dizziness, PMH of right PICA aneurysm, no blurred vision, no N/V, had follow-up with PCP magdaleno taylor, doing better PCP appt 04/09/23 SUMMARY: Discharge Network Status: In-Network Discharge Pt discharged from [facility] on 04/07/23. Admitted for: Acute on chronic dizziness Contact made with patient: Yes Hi my name is rGisel Emanuel RN and I am calling from the [facility] on behalf of your PCP, Anjum [...] outreach ONLY, was a medication review completed? No-pt declined-just saw PCP earlier today SOCIAL: We would like to make sure you have what you need so that your basics needs are met - including your personal safety, food, housing and medications. Would you like to speak with a social work cafe team member to help give you support for any of these needs? No It can be normal to feel anxious or down during a time like this. Would you like to talk to a mental health professional about how you have been feeling? No ACTION TAKEN: No action taken DISCHARGE INTRUCTIONS: [...] I will send your request to a violin mechanic who will contact and assist you with [...] inform them of cough and fever symptoms NEHA if present (or call on the way if possible). [employer] Education Ordered -: No Allergies As of Date: 04/09/2023 Noted Allergy Reaction CYMBALTA (DULOXETINE) 07/07/2019 6 - Diarrhea Comments: Severe diarrhea TOPAMAX (TOPIRAMATE) 07/07/2019 1 - Mental Status Change Comments: Terrible confusion BACTRIM (SULFAMETHOXAZOLE-TRIMETH*2017 14 - Other: See Comments Comments: Yeast Infection SULFAMETHOXAZOLE 11/04/2017 14 - Other: See Comments Comments: Yeast Infection SULF (more content not included)... [facility] 04-09-2023 Note HNO ID: [id number] Author: GRISEL EMANUEL RN Service: ? Author Type: Registered Nurse Type: Progress Notes Filed: 04/09/2023 12:05 Note Text: TCM Home Visit Referral Source of Stratification: [facility] Admission Status: Discharged Readmission Risk Score: 8 MICHELINE Score: 2 Patient meets program referral criteria: No Patient does not qualify for High Risk TCM Home Visit program due to: Discharged home, does not meet program criteria Grisel Emanuel RN April 09, 2023 12:04 PM TRANSITIONAL CARE MANAGEMENT (TCM) COMMUNITY MONITORING PROGRAM Provider Action/FYI: Spoke with patient, denies pain, no sob, still has chronic dizziness, PMH of right PICA aneurysm, no blurred vision, no N/V, had follow-up with PCP this claudia, doing better PCP appt 04/09/23 SUMMARY: Discharge Network Status: In-Network Discharge Pt discharged from [facility] on 04/07/23. Admitted for: Acute on chronic dizziness Contact made with patient: Yes Hi my name is Grisel Emanuel RN and I am calling from the [facility] on behalf of your PCP, Anjum [...] outreach ONLY, was a medication review completed? No-pt declined-just saw PCP earlier today SOCIAL: We would like to make sure you have what you need so that your basics needs are met - including your personal safety, food, housing and medications. Would you like to speak with a social work cafe team member to help give you support for any of these needs? No It can be normal to feel anxious or down during a time like this. Would you like to talk to a mental health professional about how you have been feeling? No ACTION TAKEN: No action taken DISCHARGE INTRUCTIONS: [...] I will send your request to a violin mechanic who will contact and assist you with [...] inform them of cough and fever symptoms NEHA if present (or call on the way if possible). [employer] Education Ordered -: No [facility] 04-09-2023 Note HNO ID: [id number] Author: FABBY CARTER APRN.CATHODE BUILDER Service: ? Author Type: Nurse Specialist Type: Progress Notes Filed: 04/09/2023 11:17 Note Text: SUBJECTIVE: BP Controlled (<130/80) Never done Pap Testing Never done HPV Testing Never done Colorectal Cancer Screening Never done RSV Vaccine(1 - 1-dose 60+ series) Never done Mammogram Screening due on 10/04/2021 HPI Gloria Pandey is a 63 year old female. PMH significant for ACTIVE PROBLEM LIST Alcohol Abuse Former Smoker Post-Procedural Headache Intractable Migraine Without Aura and Without Status Migrainosus Anxiety and Depression At Risk for Sleep Apnea Chest Pain History of Intracranial Aneurysm H/O Cerebral Aneurysm Repair Vertigo Fibromyalgia Dizziness of Unknown Etiology Hypertension Cva (Cerebral Vascular Accident) (Hcc) Presents today fo hospital discharge follow-up. She was seen at [facility] April 03, 2023 through April 05 for dizziness nausea and vomiting. She was brought into the emergency department by squad. She was treated with IV fluids Pepcid Ativan and Zofran. She was treated with Valium for home use. MRI brain posterior circulation CVA was ordered but not completed due to report of logistical issue. She was subsequently admitted to [facility] April 06. Discharge summary Hospital course excerpted: Ms. Pandey is a 63 y/o F with a PMH of right PICA aneurysm s/p stent coiling, vertigo, substance abuse presentign with acute on chronic dizziness. She reports frequent episodes while sitting down, with a sensation of falling with nausea and vomiting. She has had multiple EMS calls for these episodes. Her orthostatic vital signs on arrival were negative, CT CTA unremarkable and MRI brain with small area of diffusion restrictionw with ADC concerning for an acute infarct. Her symptosm are not typical for a neurologic process, and her stroke does not correlate with her symptoms. We are discharging her on aspirin daily, plavix x21 days and outpatient stroke follow up. We have also placed a follow up to GI for further evalaution of dizziness/nausea/vomiting per Neuro recommendations. She is now discharging home. She was discharged on aspirin daily, Plavix x 21 days and outpatient stroke follow-up. Gastroenterology consult placed for further evaluation of nausea and vomiting per neuro recommendations. Neurology consult recommendations: To do: - ASA 81 mg and plavix 75 mg for 21 days then narrow to ASA 81 mg monotherapy indefinitely - Outpatient TTE - Outpatient stroke follow up (order placed and scheduling instructions placed in discharge instructions) - Outpatient follow up with ENT/GI for further evaluation of dizziness/nausea/vomiting given lack of clear neurological cause - Outpatient follow up with Dr. Diaz in neurosurgery to follow up on possible incidental aneurysm Review of appointments show no neurology appointment, gastroenterology appointment or echocardiogram scheduled. She reports no longer having dizziness nausea or vomiting since started taking the medications in the hospital aspirin Plavix and statin. She reports lung biopsy is scheduled at [facility] tomorrow and wonders if this needs to be rescheduled due to starting aspirin and Plavix. She defers gastroenterology appointment at this time is no longer having nausea and vomiting which was previously associated with dizziness. Not needing meclizine. Review of Systems Gastrointestinal: Negative for nausea and vomiting. Neurological: Negative for dizziness. Objective BP 134/91 Pulse 105 Resp 16 [...] sounds are normal. Palpations: Abdomen is soft. Skin: General: Skin is warm and dry. Neurological: General: No focal deficit present. Mental Status: She is alert and oriented to person, place, and time. ALLERGIES Allergen Reactions Cymbalta [Duloxetin* Diarrhea Severe diarrhea Topamax [Topiramate] Mental Status Change Terrible confusion Bactrim [Sulfametho* Other: See Comments Yeast Infection Sulfamethoxazole Other: See Comments Yeast Infection Sulfites Other: See Comments Yeast Infection Medications: aspirin 81 mg chewable tabletTake 1 tablet by mouth once daily.Disp: 30 tabletRfl: 11 atorvastatin (LIPITOR) 40 mg tabletTake 1 tablet by mouth daily at bedtime.Disp: 90 tabletRfl: 0 clopidogrel (PLAVIX (more content not included)... [facility] 04-08-2023 Note HNO ID: [id number] Author: ANJUM DIGGS MD Service: ? Author Type: Physician Type: Progress Notes Filed: 04/08/2023 20:08 Note Text: Noted. [facility] 04-08-2023 History of Presen t illness Narrative Noted. TRANSITION CARE MANAGEMENT (TCM) INITIAL CONTACT Parts Counter Clerk Outreach Provider Action/FYI: Patient was seen in [facility] for dizziness/nausea/vomiting. Patient was in hospital x 2 days. Patient does have questions about blood pressure medication. Patient was given blood pressure medication in hospital but was not sent home with prescription. Patient is going to contact Dr. Kelly's office regarding blood pressure medication. Initial contact with patient post discharge, spoke to patient. Patient identified by name and . TRANSITION CARE MANAGEMENT INITIAL OUTREACH DOCUMENTATION: No flowsheet data found. SUMMARY: -Pt discharged from [facility] on 04/05/2023. -Admitted for: Dizziness/Nausea/Vomitting Do you have a hospital follow up appointment with your PCP? Appointment on 04/09/2023 with Fabby Carter. Yes. Remind patient of appointment date, time, and location. If not within 14 calendar days of discharge - please reschedule accordingly. MEDICATIONS: Many patients have questions or concerns about their medications once they are home. Were you prescribed any new medications? If yes, what are those medications? Meclizine 25 mg Take 1 tablet three times a day Were you told to hold any medications? No Were any of your medications discontinued? No Do you have any questions about getting or taking your medications? No Your discharge instructions/After visit Summary (AVS) are important in guiding you through the recovery process. Is there anything I might help you understand? No Do you have all the necessary equipment and supplies at home? Yes Medical records from recent hospitalization: Care Everywhere documented in this encounter [facility] 04-06-2023 Note Patient Outreach (IN TMWS) GLORIA PANDEY ([id number]) 1960 F Date Time Provider Department 04/06/23 ANJUM DIGGS INTMWS During your visit today, we recorded the following information about you: Wilda Flores RN 04/08/2023 8:08 PM Signed TRANSITION CARE MANAGEMENT (TCM) INITIAL CONTACT Parts Counter Clerk Outreach Provider Action/FYI: Patient was seen in [facility] for dizziness/nausea/vomiting. Patient was in hospital x 2 days. Patient does have questions about blood pressure medication. Patient was given blood pressure medication in hospital but was not sent home with prescription. Patient is going to contact Dr. Kelly's office regarding blood pressure medication. Initial contact with patient post discharge, spoke to patient. Patient identified by name and . TRANSITION CARE MANAGEMENT INITIAL OUTREACH DOCUMENTATION: No flowsheet data found. SUMMARY: -Pt discharged from [facility] on 04/05/2023. -Admitted for: Dizziness/Nausea/Vomitting Do you have a hospital follow up appointment with your PCP? Appointment on 04/09/2023 with Fabby Carter. Yes. Remind patient of appointment date, time, and location. If not within 14 calendar days of discharge - please reschedule accordingly. MEDICATIONS: Many patients have questions or concerns about their medications once they are home. Were you prescribed any new medications? If yes, what are those medications? Meclizine 25 mg Take 1 tablet three times a day Were you told to hold any medications? No Were any of your medications discontinued? No Do you have any questions about getting or taking your medications? No Your discharge instructions/After visit Summary (AVS) are important in guiding you through the recovery process. Is there anything I might help you understand? No Do you have all the necessary equipment and supplies at home? Yes Medical records from recent hospitalization: Care Everywhere Anjum Diggs MD 04/08/2023 8:08 PM Signed Noted. Allergies As of Date: 04/06/2023 Noted Allergy Reaction CYMBALTA (DULOXETINE) 07/07/2019 6 - Diarrhea Comments: Severe diarrhea TOPAMAX (TOPIRAMATE) 07/07/2019 1 - Mental Status Change Comments: Terrible confusion BACTRIM (SULFAMETHOXAZOLE-TRIMETH*2017 14 - Other: See Comments Comments: Yeast Infection SULFAMETHOXAZOLE 11/04/2017 14 - Other: See Comments Comments: Yeast Infection SULFITES 11/04/2017 14 - Other: See Comments Comments: Yeast Infection Date Reviewed: 04/06/2023 Reviewed by: Whitmyer, Kerry, RN - Fully Assessed Prescriptions as of 04/08/2023 - aspirin 81 mg chewable tablet Take 1 tablet by mouth once daily. - atorvastatin (LIPITOR) 40 mg tablet Take 1 tablet by mouth daily at bedtime. - clopidogrel (PLAVIX) 75 mg tablet Take 1 tablet by mouth once daily for 21 days. - meclizine (ANTIVERT) 25 mg tab Take 25 mg by mouth three times a day. - amLODIPine (NORVASC) 5 mg tablet Take 1 tablet by mouth once daily. - benzonatate (TESSALON PERLE) 100 mg capsule Take 2 capsules by mouth three times a day as needed for cough. - mometasone (NASONEX) 50 mcg/actuation nasal spray Use 2 Sprays in the nose once daily. Rinse mouth after use. - promethazine (PHENERGAN) 12.5 mg tablet Take 1 tablet by mouth every 6 hours as needed for nausea/vomiting. - traMADol (ULTRAM) 50 mg tablet Take 1 tablet by mouth four times a day as needed for pain for up to 60 days. 120 for 30 day supply; with 1 RF this RX lasts 60 days - omeprazole (PRILOSEC) 20 mg capsule Take 1 capsule by mouth daily before breakfast. - sucralfate (CARAFATE) 1 gram tablet Take 1 tablet by mouth before meals and at bedtime. - multivitamin tablet Take 1 tablet by mouth once daily. - albuterol HFA (VENTOLIN HFA) 90 mcg/actuation inhaler Inhale 2 Puffs as instructed every 4 hours as needed for wheezing/shortness of breath. - methocarbamol (ROBAXIN) 750 mg tablet Take 1 tablet by mouth three times daily as needed (Neck pain/soreness). - Ceramides 1,3,6-11 (CERAVE) clsr Apply 1 application to affected area once daily. - ceramides 1,3,6-II (CERAVE) Apply to affected area as needed. Facility-Administered Medications as of 04/08/2023 - perflutren lipid microspheres 1.3 mL in NaCl (PF) 0.9% 10 mL injection (DEFINITY) - sodium chloride 0.9 % (flush) 10 mL (BD POSIFLUSH) Problem List As Of Date 04/06/2023 Noted Resolved Cerebral aneurysm without rupture [I67.1] 11/04/2017 01/12/2023 Alcohol abuse [F10.10] 11/04/2017 Cocaine abuse (HCC) [F14.10] 11/04/2017 11/06/2017 Bilateral leg numbness [R20.0] 11/05/2017 11/06/2017 Former smoker [Z87.891] 11/05/2017 Unruptured cerebral aneurysm [I67.1] 11/04/2017 01/12/2023 Post-procedural headache [T81.89XA, R51.9] 02/12/2018 Intractable migraine without aura and without s*02/12/2018 Anxiety and depression [F41.9, F32.A] 03/31/2019 Aneurysm (more content not included)... [facility] 04-06-2023 Note HNO ID: [id number] Author: WILDA FLORES RN Service: ? Author Type: Registered Nurse Type: Progress Notes Filed: 04/08/2023 20:08 Note Text: TRANSITION CARE MANAGEMENT (TCM) INITIAL CONTACT Parts Counter Clerk Outreach Provider Action/FYI: Patient was seen in [facility] for dizziness/nausea/vomiting. Patient was in hospital x 2 days. Patient does have questions about blood pressure medication. Patient was given blood pressure medication in hospital but was not sent home with prescription. Patient is going to contact Dr. Kelly's office regarding blood pressure medication. Initial contact with patient post discharge, spoke to patient. Patient identified by name and . TRANSITION CARE MANAGEMENT INITIAL OUTREACH DOCUMENTATION: No flowsheet data found. SUMMARY: -Pt discharged from [facility] on 04/05/2023. -Admitted for: Dizziness/Nausea/Vomitting Do you have a hospital follow up appointment with your PCP? Appointment on 04/09/2023 with Fabby Carter. Yes. Remind patient of appointment date, time, and location. If not within 14 calendar days of discharge - please reschedule accordingly. MEDICATIONS: Many patients have questions or concerns about their medications once they are home. Were you prescribed any new medications? If yes, what are those medications? Meclizine 25 mg Take 1 tablet three times a day Were you told to hold any medications? No Were any of your medications discontinued? No Do you have any questions about getting or taking your medications? No Your discharge instructions/After visit Summary (AVS) are important in guiding you through the recovery process. Is there anything I might help you understand? No Do you have all the necessary equipment and supplies at home? Yes Medical records from recent hospitalization: Care Everywhere [facility] 03-19-2023 Note HNO ID: [id number] Author: ROSA MARIA KELLY MD Service: ? Author Type: Physician Type: Progress Notes Filed: 03/19/2023 12:14 Note Text: Rosa Maria Kelly MD Interventional Cardiology [address] [place] [address] [phone] Chief Complaint Patient presents with: Follow Up [...] pack years: 22.50 Types: Cigarettes Quit date: 2018 Years since quittin.0 Smokeless tobacco: Never Vaping [...] bruise/bleed easily. Psychiatric/Behavio (more content not included)... [facility] 03-13-2023 Note HNO ID: [id number] Author: Eddi Rico RT(R) Service: Nuclear Medicine [...] DIAGNOSTIC CT PERFORMED: No IV SITE: Ambulatory: LA only - direct IV injection in the Right antecubital site POST EXAM PIV STATUS: Not applicable PROCEDURE TYPE: LA INJECT: PET/CT BODY SCAN. 8.3 mCi F18 FDG. No other medications given.. ADMINISTRATION TIME: 1308 PATIENT DISCHARGED TO: Ambulatory patient, left LA department area. A Diagnostic radioactive procedure has taken place, with no further precautions necessary other than routine body substance precautions. More information regarding radiation safety can be found using this link: [email or web address] SIGNATURE: RT Michael(R) PATIENT NAME: Gloria Pandey DATE: March 13, 2023 TIME: 1:06 PM PAGER/CONTACT #: [facility] 02-21-2023 Note Patient Outreach (IN TMMN) TWINSELENEGLORIA ([id number]) 1960 F Date Time Provider Department 02/21/23 [...] for screening mammogram for breast cancer [Z12.31] Order(s):[facility] SCREENING [[id number]] Order #: [id number] FUTURE Prescriptions as of 02/26/2023 - omeprazole [...] Encounter Status:Closed by EPIC, PRODUSER on 02/26/23 [facility] 02-19-2023 Note HNO ID: [id number] Author: Stacie Francis RN Service: ? Author Type: Registered Nurse Type: Progress Notes Filed: 02/19/2023 2:33 PM Note Text: Due to physical limitations patient unable to complete stress Echo. Dr. Kelly notified. Stacie Francis RN [facility] 02-19-2023 History of Presen t illness Narrative Due to physical limitations patient unable to complete stress Echo. Dr. Kelly notified. Stacie Francis RN documented in this encounter [facility] 02-06-2023 Note HNO ID: [id number] Author: Maria T Padilla RPFT Service: ? Author Type: Respiratory Therapist Type: Progress Notes Filed: 02/06/2023 2:24 PM Note Text: PULM FUNCTION SMARTBLOCK: Provider: Adelaida Anderson MD Assisting Tech: Adelaida Anderson MD Spirometry w/BD: 1 DLCO: 1 LV - Box: 1 [facility] 01-26-2023 Note HNO ID: [id number] Author: Adelaida Anderson MD Service: ? Author Type: Physician Type: Progress Notes Filed: 01/26/2023 6:01 PM Note Text: . Respiratory [place] Note Patient name: Gloria Pandey PCP: Anjum Diggs MD Referring Physician: Fabby Carter CNP Consultation requested by Fabby Carter for an opinion regarding lung nodule. My final recommendations will be communicated back to the requesting physician by way of shared Medical record or letter to requesting physician via US mail. CC: lung nodule HPI: Gloria Rosate 62 year old female former [id number] smoker, quitting in 2018 with PMH significant [...] 0.94 Low Monocytes % % 2.8 Abs [place] <0.87 k/uL 0.35 Eosinophils % % 0.0 Abs Eosin <0.46 k/uL <0.03 Basophils % % 0.1 Abs Baso <0.11 k/uL <0.03 Immature Granulocytes % % 0.4 Abs Immature Gran <0.10 k/uL 0.05 NRBC /100 WBC 0.0 Absolute nRBC <0.01 k/uL <0.01 Diff Type Auto Imaging / Diagnostic Studies: DATE OF EXAM: Jan 19 2023 8:27AM [facility] 0541 - CT CHEST WO IVCON / [...] nausea/vomiting.Disp: 20 table (more content not included)... [facility] 01-26-2023 History of Presen t illness Narrative Images from the original note were not included. . [facility] Note Patient name: Gloria Pandey PCP: Anjum Diggs MD Referring Physician: Fabby Carter CNP Consultation requested by Fabby Carter for an opinion regarding lung nodule. My final recommendations will be communicated back to the requesting physician by way of shared Medical record or letter to requesting physician via US mail. CC: lung nodule HPI: Gloria Rosate 62 year old female former [id number] smoker, quitting in 2018 with PMH significant [...] 0.94 Low Monocytes % % 2.8 Abs [place] <0.87 k/uL 0.35 Eosinophils % % 0.0 Abs Eosin <0.46 k/uL <0.03 Basophils % % 0.1 Abs Baso <0.11 k/uL <0.03 Immature Granulocytes % % 0.4 Abs Immature Gran <0.10 k/uL 0.05 NRBC /100 WBC 0.0 Absolute nRBC <0.01 k/uL <0.01 Diff Type Auto Imaging / Diagnostic Studies: DATE OF EXAM: Jan 19 2023 8:27AM [facility] 0541 - CT CHEST WO IVCON / [...] emphysema -Continue abstinence Adelaida Anderson MD [facility] documented in this encounter [facility] 01-25-2023 Note HNO ID: [id number] Author: Fabby Carter APRN.CATHODE BUILDER Service: ? Author Type: Nurse Specialist Type: [...] department follow-up visit. She was seen at [facility] December 29, 2022 for intractable nausea and vomiting abdominal pain and lightheadedness. Concern for acute pancreatitis. Initial lipase December 29, 2022 was elevated at 164, normalized with recheck on December 30, 2022. Hypokalemia noted. Sodium and chloride elevated. She reports no further nausea vomiting or RUQ abdominal pain. Notes zofran did not seem to work when occurring. Notes eating a mild diet. CXR-[facility] December 07 showed right lung nodule, [...] daily as ne (more content not included)... [facility] 01-25-2023 History of Presen t illness [...] department follow-up visit. She was seen at [facility] December 29, 2022 for intractable nausea and vomiting abdominal pain and lightheadedness. Concern for acute pancreatitis. Initial lipase December 29, 2022 was elevated at 164, normalized with recheck on December 30, 2022. Hypokalemia noted. Sodium and chloride elevated. She reports no further nausea vomiting or RUQ abdominal pain. Notes zofran did not seem to work when occurring. Notes eating a mild diet. CXR-[facility] December 07 showed right lung nodule, [...] Lymph 1.00 - 4.00 k/uL 0.94 (L) [place]% % 2.8 Abs [place] <0.87 k/uL 0.35 Eosin% % 0.0 Abs [...] Negative Ketones, Urine Negative 1+ (A) Specific [place], Ur 1.005 - 1.030 1.012 Hemoglobin/Blood,Ur Negative [...] 4 - Moderate documented in this encounter [facility] 01-22-2023 Note HNO ID: [id number] Author: Rosa Maria Kelly MD Service: ? Author Type: Physician Type: Progress Notes Filed: 01/22/2023 12:25 PM Note Text: Rosa Maria Kelly MD Interventional Cardiology [address] [address] Chief Complaint Patient presents with: Consult HISTORY [...] she vomits 2 episode required evaluation at [facility] she is also experiencing recurrent episode [...] 0.9% 10 mL injection (DEFINITY) INTRAVENOUS DIRECTED Rosa Maria Nicole MD sodium chloride 0.9 % (flush) 10 mL (BD POSIFLUSH) 10 mL INTRAVENOUS DIRECTED PRRosa Maria Perez MD perflutren lipid microspheres 1.3 mL in NaCl (PF) 0.9% 10 mL injection (DEFINITY) INTRAVENOUS DIRECTED Roas Maria Nicole MD sodium chloride 0.9 % (flush) 10 [...] sputum production, w (more content not included)... [facility] 01-22-2023 Note HNO ID: [id number] Author: Marcelina Elizondo RN Service: ? Author Type: Registered Nurse Type: Progress Notes Filed: 01/22/2023 12:25 PM Note Text: EVENT MONITOR DISPOSABLE PATCH INSTRUCTIONS Patient Name: Gloria Pandey [facility] Number: [id number] Skin prepped and cleansed with alcohol Patch secured to prepped area Monitor Activated Serial #: [id number] Patient Instructed: Prescribed order timeframe Bathing guidelines Usage of event button and diary documentation Return of monitor at the end of prescribed order Call with problems [phone] or [phone]. [phone] Patient expresses a good understanding of instructions Marcelina Elizondo RN [facility] 01-22-2023 History of Presen t illness Narrative Images from the original note were not included. Rosa Maria Kelly MD Interventional Cardiology [address] [address] Chief Complaint Patient presents with: Consult HISTORY [...] she vomits 2 episode required evaluation at [facility] she is also experiencing recurrent episode [...] mL INTRAVENOUS DIRECTED PRRosa Maria Perez MD Review of Systems Constitutional: Negative for [...] DISPOSABLE PATCH INSTRUCTIONS Patient Name: Gloria Pandey [facility] Number: [id number] Skin prepped and cleansed with alcohol Patch secured to prepped area Monitor Activated Serial #: [id number] Patient Instructed: Prescribed order timeframe Bathing guidelines Usage of event button and diary documentation Return of monitor at the end of prescribed order Call with problems [phone] or [phone]. [phone] Patient expresses a good understanding of instructions Marcelina Elizondo RN documented in this encounter [facility] 01-22-2023 Note HNO ID: [id number] Author: Rosa Maria Kelly MD Service: Cardiovascular Surgery Author Type: Physician Type: Procedures Filed: 02/16/2023 6:49 AM Note Text: Patient Name: Gloria Pandey : 1960 Ordering Provider: Rosa Maria Kelly Indication: R00.2 Palpitations Type of Monitor: Extended Monitoring-Zio Patch Enrollment Dates: 01/22/2023-02/04/2023 [facility] 01-19-2023 Note HNO ID: [id number] Author: Maddy Franks RT(R) Service: ? Author Type: Lieutenant General Type: Progress Notes Filed: 01/19/2023 12:11 PM [...] RT John(R) January 19, 2023 12:11 PM [facility] 01-19-2023 History of Presen t illness [...] 2023 12:11 PM documented in this encounter [facility] 01-18-2023 Note HNO ID: [id number] Author: Fabby Carter APRN.CATHODE BUILDER Service: ? Author Type: Nurse Specialist Type: [...] department follow-up visit. She was seen at [facility] December 29, 2022 for intractable nausea and vomiting abdominal pain and lightheadedness. Concern for acute pancreatitis. Initial lipase December 29, 2022 was elevated at 164, normalized with recheck on December 30, 2022. Hypokalemia noted. Sodium and chloride elevated. She reports no further nausea vomiting or RUQ abdominal pain. Notes zofran did not seem to work when occurring. Notes eating a mild diet. CXR[facility] December 07 showed right lung nodule, [...] Smoking status: Former (more content not included)... [facility] 01-15-2023 Miscellaneous Notes Patient calls to [...] good historian at symptoms. Protocols used: Arm [id number] documented in this encounter [facility] 01-08-2023 Note HNO ID: [id number] Author: Elsy Rosa MD Service: ? Author Type: Physician Type: Progress Notes Filed: 01/10/2023 2:49 PM Note Text: HISTORY AND PHYSICAL Gloria A Dannie 1960 REFERRING PHYSICIAN: Fabby Carter APRN.CATHODE BUILDER CHIEF COMPLAINT: Follow Up ([facility] ER 12/29/22, Ultrasound [facility] ) HPI: The patient is a 62 year old female presents with abnormal ultrasound of gallbladder. She was found to have biliary sludge. She has multiple chronic GI complaints and non specific complaints - fevers/chills, light headedness, dizziness, fainting, nausea/emesis, generalized cramping abdominal pain, alternating constipation and diarrhea. She had presented to [facility] ED on 12/29/2022 with complaint of light [...] scar tissue, injury (more content not included)... [facility] 01-08-2023 History of Presen t illness Narrative HISTORY AND PHYSICAL Gloria A Malavite 1960 REFERRING PHYSICIAN: Fabby Carter APRN.CATHODE BUILDER CHIEF COMPLAINT: Follow Up ([facility] ER 12/29/22, Ultrasound [facility] ) HPI: The patient is a 62 year old female presents with abnormal ultrasound of gallbladder. She was found to have biliary sludge. She has multiple chronic GI complaints and non specific complaints - fevers/chills, light headedness, dizziness, fainting, nausea/emesis, generalized cramping abdominal pain, alternating constipation and diarrhea. She had presented to [facility] ED on 12/29/2022 with complaint of light [...] further questions. Surgery will be scheduled at [facility] . Diagnoses: (K82.8) Gallbladder sludge I have confirmed and edited as necessary, the PFSH and ROS obtained by others. Consultation requested by Fabby Carter for an opinion regarding patient's abnormal ultrasound [...] Elsy Rosa MD documented in this encounter [facility] 01-04-2023 Miscellaneous Notes Pt called and is notified of providers results and instructions. Pt voices understanding. She states at this time she is holding off on the mammogram, and will get a hold of Dr Givens. Emerita Retana RN Metabolic panel is in acceptable range, normal potassium. All of the appointments can be made at her convenience. She will call and speak with the violin mechanic to get things set up. She needs [...] now. Please advise. documented in this encounter [facility] 01-02-2023 Miscellaneous Notes There is an [...] the decision trees. documented in this encounter [facility] 01-02-2023 Note HNO ID: [id number] Author: Fabby Carter APRN.COTY Service: ? Author Type: Nurse Specialist Type: [...] department follow-up visit. She was seen at [facility] December 29, 2022 for intractable nausea and vomiting abdominal pain and lightheadedness. Concern for acute pancreatitis. Initial lipase December 29, 2022 was elevated at 164, normalized with recheck on December 30, 2022. Hypokalemia noted. Sodium and chloride elevated. She reports no further nausea vomiting or RUQ abdominal pain. Notes zofran did not seem to work when occurring. Notes eating a mild diet. [facility] December 07 showed right lung nodule, [...] 12.37 (H) 13.88 (more content not included)... [facility] 01-02-2023 History of Presen t illness [...] department follow-up visit. She was seen at [facility] December 29, 2022 for intractable nausea and vomiting abdominal pain and lightheadedness. Concern for acute pancreatitis. Initial lipase December 29, 2022 was elevated at 164, normalized with recheck on December 30, 2022. Hypokalemia noted. Sodium and chloride elevated. She reports no further nausea vomiting or RUQ abdominal pain. Notes zofran did not seem to work when occurring. Notes eating a mild diet. [facility] December 07 showed right lung nodule, [...] Lymph 1.00 - 4.00 k/uL 0.94 (L) [place]% % 2.8 Abs [place] <0.87 k/uL 0.35 Eosin% % 0.0 Abs [...] Negative Ketones, Urine Negative 1+ (A) Specific [place], Ur 1.005 - 1.030 1.012 Hemoglobin/Blood,Ur Negative [...] immunization - ICD9: V03.89, ICD10: Z23 - [place] COVID-19 VACCINE ( SEASON) AGE 12+ YR [...] 4 - Moderate documented in this encounter [facility] 12-23-2022 Note HNO ID: [id number] Author: Note, Interface Service: ? Author Type: ? Type: Progress Notes Filed: 12/23/2022 5:55 AM Note Text: Epic Scheduled Downtime: 12/23/2022 1:00:00 AM to 12/23/2022 1:28:00 AM [facility] 12-22-2022 Miscellaneous Notes The following approved medication [...] Hilda Suero RN documented in this encounter [facility] 12-12-2022 Note HNO ID: [id number] Author: Anjum Diggs MD Service: ? Author Type: Physician Type: Progress Notes Filed: 01/12/2023 1:08 AM Note Text: This note was created using Nanophotonicariter. Subjective Gloria Pandey is a 62 year old female. Patient presents with: Hospital F/U--TCM follow up appointment SUBJECTIVE: Gloria Pandey is a 62 year old year old lady here today for Hospital/TCM follow up appointment for review of medical conditions. Noted experience in ER. Not good. Noted had severe vomiting after eating out [facility] Developed severe nausea and vomiting. Went to [...] Lymph 1.00 - 4.00 k/uL 0.94 (L) [place]% % 2.8 Abs [place] <0.87 k/uL 0.35 Eosin% % 0.0 Abs [...] Negative Ketones, Urine Negative 1+ (A) Specific [place], Ur 1.005 - 1.030 1.012 Hemoglobin/Blood,Ur Negative 2+ (A) pH, Urine 5.0 - 8.0 6.0 Protein, Urine Negative N (more content not included)... [facility] 12-11-2022 Note HNO ID: [id number] Author: Nicole Quintero RN Service: ? Author Type: Registered Nurse Type: Progress Notes Filed: 12/11/2022 4:03 PM Note Text: TCM Home Visit Referral Source of Stratification: [facility] Admission Status: Discharged Readmission Risk Score: 8 MICHELINE Score: 4 Patient meets program referral criteria: No Patient does not qualify for High Risk TCM Home Visit program due to: Discharged home, does not meet program criteria Nicole Quintero RN December 11, 2022 3:47 PM TRANSITIONAL CARE MANAGEMENT (TCM) COMMUNITY MONITORING PROGRAM Provider FYI: Future apt [facility] 12.12.22 Ambulates without assistive devices but may discuss Rx for Walker at [facility] apt Patient states or reports the following: [...] Network Status: In-Network Discharge Pt discharged from [facility] on 12.08.22. Admitted for: SIRS (systemic inflammatory response syndrome) (HCC) Contact made with patient: Yes Hi my name is Nicole Quintero RN and I am calling from the [facility] on behalf of your PCP, Anjum [...] like to speak with a social work cafe team member to help give you support for any [...] I will send your request to a violin mechanic who will contact and assist you with [...] inform them of cough and fever symptoms NEHA if present (or call on the way if possible). [employer] Education Ordered -: No Nicole Quintero RN BSN Primary Care Transitional Benefits Technician [facility] 12-11-2022 Note Patient Outreach (AM BC) GLORIA PANDEY ([id number]) 1960 F Date Time Provider Department 12/11/22 NICOLE QUINTEROG During your visit today, we recorded the following information about you: Nicole Quintero RN 12/11/2022 4:03 PM Signed TCM Home Visit Referral Source of Stratification: [facility] Admission Status: Discharged Readmission Risk Score: 8 MICHELINE Score: 4 Patient meets program referral criteria: No Patient does not qualify for High Risk TCM Home Visit program due to: Discharged home, does not meet program criteria Nicole Quintero RN December 11, 2022 3:47 PM TRANSITIONAL CARE MANAGEMENT (TCM) COMMUNITY MONITORING PROGRAM Provider FYI: Future apt [facility] 12.12.22 Ambulates without assistive devices but may discuss Rx for Walker at [facility] apt Patient states or reports the following: [...] Network Status: In-Network Discharge Pt discharged from [facility] on 12.08.22. Admitted for: SIRS (systemic inflammatory response syndrome) (HCC) Contact made with patient: Yes Hi my name is Nicole Quintero RN and I am calling from the [facility] on behalf of your PCP, Anjum [...] like to speak with a social work cafe team member to help give you support for any [...] I will send your request to a violin mechanic who will contact and assist you with [...] inform them of cough and fever symptoms NEHA if present (or call on the way if possible). [employer] Education Orde (more content not included)... [facility] documented as of this encounter (statuses as of 12/23/2022) [facility] History of Past illness Narrative* Problem Noted Date Diagnosed Date Resolved Date SIRS (systemic inflammatory response syndrome) 12/08/2022 12/08/2022 Tachycardia 12/08/2022 12/08/2022 Intractable nausea and vomiting 12/08/2022 12/08/2022 Dehydration 12/08/2022 12/08/2022 Bilateral leg numbness 11/05/201711/06 Last Assessment & Plan: -consider neurology consult for further work up of transient leg numbness Cocaine abuse 11/04/2017 11/06/2017 Last Assessment & Plan: Tested positive at [facility] PLAN: Monitor for withdrawals Avoid beta blockers documented as of this encounter (statuses as of 01/02/2023) [facility] History of Past illness Narrative* Problem Noted Date Diagnosed Date Resolved Date SIRS (systemic inflammatory response syndrome) 12/08/2022 12/08/2022 Tachycardia 12/08/2022 12/08/2022 Intractable nausea and vomiting 12/08/2022 12/08/2022 Dehydration 12/08/2022 12/08/2022 Bilateral leg numbness 11/05/201711/06 Last Assessment & Plan: -consider neurology consult for further work up of transient leg numbness Cocaine abuse 11/04/2017 11/06/2017 Last Assessment & Plan: Tested positive at [facility] PLAN: Monitor for withdrawals Avoid beta blockers documented as of this encounter (statuses as of 01/03/2023) [facility] History of Past illness Narrative* Problem Noted Date Diagnosed Date Resolved Date SIRS (systemic inflammatory response syndrome) 12/08/2022 12/08/2022 Tachycardia 12/08/2022 12/08/2022 Intractable nausea and vomiting 12/08/2022 12/08/2022 Dehydration 12/08/2022 12/08/2022 Bilateral leg numbness 11/05/201711/06 Last Assessment & Plan: -consider neurology consult for further work up of transient leg numbness Cocaine abuse 11/04/2017 11/06/2017 Last Assessment & Plan: Tested positive at [facility] PLAN: Monitor for withdrawals Avoid beta blockers documented as of this encounter (statuses as of 01/04/2023) [facility] History of Past illness Narrative* Problem Noted Date Diagnosed Date Resolved Date SIRS (systemic inflammatory response syndrome) 12/08/2022 12/08/2022 Tachycardia 12/08/2022 12/08/2022 Intractable nausea and vomiting 12/08/2022 12/08/2022 Dehydration 12/08/2022 12/08/2022 Bilateral leg numbness 11/05/201711/06 Last Assessment & Plan: -consider neurology consult for further work up of transient leg numbness Cocaine abuse 11/04/2017 11/06/2017 Last Assessment & Plan: Tested positive at [facility] PLAN: Monitor for withdrawals Avoid beta blockers documented as of this encounter (statuses as of 01/11/2023) [facility] History of Past illness Narrative* Problem [...] Last Assessment & Plan: Tested positive at [facility] PLAN: Monitor for withdrawals Avoid beta blockers Unruptured cerebral aneurysm 11/04/2017 01/12/2023 Overview: Added automatically from request for surgery [id number] documented as of this encounter (statuses as of 01/16/2023) [facility] History of Past illness Narrative* Problem [...] Last Assessment & Plan: Tested positive at [facility] PLAN: Monitor for withdrawals Avoid beta blockers Unruptured cerebral aneurysm 11/04/2017 01/12/2023 Overview: Added automatically from request for surgery [id number] documented as of this encounter (statuses as of 01/20/2023) [facility] History of Past illness Narrative* Problem [...] Last Assessment & Plan: Tested positive at [facility] PLAN: Monitor for withdrawals Avoid beta blockers Unruptured cerebral aneurysm 11/04/2017 01/12/2023 Overview: Added automatically from request for surgery [id number] documented as of this encounter (statuses as of 01/22/2023) [facility] History of Past illness Narrative* Problem [...] Last Assessment & Plan: Tested positive at [facility] PLAN: Monitor for withdrawals Avoid beta blockers Unruptured cerebral aneurysm 11/04/2017 01/12/2023 Overview: Added automatically from request for surgery [id number] documented as of this encounter (statuses as of 01/25/2023) [facility] History of Past illness Narrative* Problem [...] Last Assessment & Plan: Tested positive at [facility] PLAN: Monitor for withdrawals Avoid beta blockers Unruptured cerebral aneurysm 11/04/2017 01/12/2023 Overview: Added automatically from request for surgery [id number] documented as of this encounter (statuses as of 01/27/2023) [facility] History of Past illness Narrative* Problem [...] Last Assessment & Plan: Tested positive at [facility] PLAN: Monitor for withdrawals Avoid beta blockers Unruptured cerebral aneurysm 11/04/2017 01/12/2023 Overview: Added automatically from request for surgery [id number] documented as of this encounter (statuses as of 02/20/2023) [facility] History of Past illness Narrative* Problem [...] Last Assessment & Plan: Tested positive at [facility] PLAN: Monitor for withdrawals Avoid beta blockers Unruptured cerebral aneurysm 11/04/2017 01/12/2023 Overview: Added automatically from request for surgery [id number] documented as of this encounter (statuses as of 02/26/2023) [facility] History of Past illness Narrative* Problem [...] Last Assessment & Plan: Tested positive at [facility] PLAN: Monitor for withdrawals Avoid beta blockers Unruptured cerebral aneurysm 11/04/2017 01/12/2023 Overview: Added automatically from request for surgery [id number] documented as of this encounter (statuses as of 04/09/2023) [facility] History of Past illness Narrative* Problem [...] Last Assessment & Plan: Tested positive at [facility] PLAN: Monitor for withdrawals Avoid beta blockers Unruptured cerebral aneurysm 11/04/2017 01/12/2023 Overview: Added automatically from request for surgery [id number] documented as of this encounter (statuses as of 04/17/2023) [facility] History of Past illness Narrative* Problem [...] Last Assessment & Plan: Tested positive at [facility] PLAN: Monitor for withdrawals Avoid beta blockers Unruptured cerebral aneurysm 11/04/2017 01/12/2023 Overview: Added automatically from request for surgery [id number] documented as of this encounter (statuses as of 04/17/2023) [facility] History of Past illness Narrative* Problem [...] Last Assessment & Plan: Tested positive at [facility] PLAN: Monitor for withdrawals Avoid beta blockers Unruptured cerebral aneurysm 11/04/2017 01/12/2023 Overview: Added automatically from request for surgery [id number] documented as of this encounter (statuses as of 04/18/2023) [facility] Miscellaneous Notes* Telephone Encounter - Emerita Retana RN - 12/07/2022 3:50 PM EDT Pt states she is going to get her stuff together and will call EMS. * Telephone Encounter - Fabby Carter APRN.CNS - 12/07/2022 3:34 PM EDT Noted, agree should go to ER NEHA. * Telephone Encounter - Emerita Retana RN - 12/07/2022 2:46 PM EDT Protocol recommends go to ER now. Pt states she does not want to go to [place] ER. She asked if I would call her daughter, she wants her to take her to [place] ER. Left message on daughter VM. Care [...] head injury. 10. : Postmenopausal Protocols used: [id number] [facility] NoteHNO ID: [id number] Author: Abigail Quintero Ma Service: ? Author Type: ? Type: Progress [...] angioma Comment: scattered throughout (more content not included)...[facility]07[facility] Nurse Note* Adelaida Campos RN - [...] patient. Adelaida Campos RN [facility] Instructions* Patient Instructions* Adelaida Campos RN [...] symptoms occur, please call the office at [phone]. [facility] History of Present illness Narrative* Abigail Quintero Ma - 10/09/2022 1:28 PM EDT Images from [...] EBL: scant SURGICAL PATHOLOGY Ordered at: 10/09/22 9825 Source of specimen(s): SKIN SHAVE BIOPSY Clinical [...] degree relatives By signing my name below, Adelaida Rebollar RN, attest that this documentation has been prepared under the direction and in the presence of Emely BEASLEY. Electronically Signed: Adelaida Campos RN, Scribe. October 09, 2022 1:28 PM. Emely Rebollar, personally performed the services described in this [...] symptoms Emely West PA-C [facility]23 NoteHNO ID: [id number] Author: Elsy Rosa MD Service: ? Author Type: Physician Type: Progress Notes Filed: 09/29/2022 11:50 AM Note Text: HISTORY AND PHYSICAL Gloria Calderon [employer] 1960 REFERRING PHYSICIAN: Anjum Diggs MD CHIEF [...] entered by the nurse and reviewed by or Nursing Notes: Phyllis Anderson LPN 09/25/2022 9:55 AM Signed REVIEW OF SYSTEMS: [...] mumps, denies rheumatic fe (more content not included)...[facility] 09-19-2022 NoteHNO ID: [id number] Author: Anjum Diggs MD Service: ? Author Type: Physician Type: Progress Notes Filed: 09/20/2022 12:54 AM Note Text: This note was created using Nanophotonicariter. Subjective Gloria Pandey is a 62 year old female. Patient presents with: F/U 3 Month SUBJECTIVE: Gloria Pandey is a 62 year old year old lady here today for 3 month follow up appointment for review of medical conditions. On waiting list for housing now. [facility] [place] closer to family. Currently at [facility]. Issues with right inguinal hernia and [...] Lymph 1.00 - 4.00 k/uL 2.74 1.54 [place]% % 7.4 7.0 Abs [place] <0.87 k/uL 0.91 (H) 0.77 Eosin% % [...] 89 BUN 7 - (more content not included)...[facility]05-08-2023 Miscellaneous Notes* Telephone Encounter - Candace Veronica LPN - 07/17/2022 4:33 PM EDT Order faxed to [email or web address] in [place] and message left for patient order has [...] the bladder. Pt reports she went to [email or web address] to buy one but was advised she needs a rx from provider. Pt is asking for rx for a bladder beot to be faxed to [email or web address]. It cannot be escripted. Cheryl Wiseman LPN documented in this encounterBluffton Hospital04-25-2023 NoteHNO ID: [id number] Author: Fabby Carter APRN.CATHODE BUILDER Service: ? Author Type: Nurse Specialist Type: [...] Types: Cigarettes Quit date: 2018 Years since quittin.3 Smokeless tobacco: Never Vaping Use Vaping Use: Never used Substance Use Topics Alcohol use: Yes Comment: Rarely Drug use: Not Currently Types: Cocaine ASSESSMENT/PLAN: 1. Cervicalgia - ICD9: 723.1, ICD10: M54.2 (primary diagnosis) 2. Acute pain of right shoulder - ICD9: 719.41, ICD10: M25.511 Recommend gentle range of motion, avoid painful activities, take muscle relaxer and naproxen [id number]-[id number] for the next couple of days then as needed. If not feeling improved, consider imaging therapy, referral if needed. - METHOCARBAMOL 750 MG TABLET - NAPROXEN 500 MG TABLET - KETOROLAC 60 MG/2 ML INTRAMUSCULAR SOLUTION -in office today Fabby Carter APRN.CATHODE BUILDER Medical Decision Making: Problems: Low: Acute, uncomplicated illness or injury Risk: Moderate: Drug management Medical Decision Making Level: [facility] - [facility] [id number] History of Present illness Narrative* Fabby Carter, SWEEPER CLEANER INDUSTRIAL.CATHODE BUILDER - 07/04/2022 3:24 PM EDT SUBJECTIVE: DTAP,TDAP,TD(1 [...] Types: Cigarettes Quit date: 2018 Years since quittin.3 Smokeless tobacco: Never Vaping Use Vaping Use: Never used Substance Use Topics Alcohol use: Yes Comment: Rarely Drug use: Not Currently Types: Cocaine ASSESSMENT/PLAN: 1. Cervicalgia - ICD9: 723.1, ICD10: M54.2 (primary diagnosis) 2. Acute pain of right shoulder - ICD9: 719.41, ICD10: M25.511 Recommend gentle range of motion, avoid painful activities, take muscle relaxer and naproxen xqnofo-yiz-lnpfn for the next couple of days then as needed. If not feeling improved, consider imaging therapy, referral if needed. - METHOCARBAMOL 750 MG TABLET - NAPROXEN 500 MG TABLET - KETOROLAC 60 MG/2 ML INTRAMUSCULAR SOLUTION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 Assessment & Plan: [facility] PLAN: Monitor for withdrawals Avoid beta blockers documented as of this encounter (statuses as of 01/19/2022) [facility] History of Past illness Narrative* Problem Noted Date Resolved Date Bilateral leg numbness 11/05/2017 8 Last Assessment & Plan: -consider neurology consult for further work up of transient leg numbness Cocaine abuse 11/04/2017 11/06/2017 Last Assessment & Plan: [facility] PLAN: Monitor for withdrawals Avoid beta blockers documented as of this encounter (statuses as of 02/21/2022) [facility] History of Past illness Narrative* Problem Noted Date Resolved Date Bilateral leg numbness 11/05/2017 8 Last Assessment & Plan: -consider neurology consult for further work up of transient leg numbness Cocaine abuse 11/04/2017 11/06/2017 Last Assessment & Plan: [facility] PLAN: Monitor for withdrawals Avoid beta blockers documented as of this encounter (statuses as of 03/16/2022) [facility] History of Past illness Narrative* Problem Noted Date Resolved Date Bilateral leg numbness 11/05/2017 8 Last Assessment & Plan: -consider neurology consult for further work up of transient leg numbness Cocaine abuse 11/04/2017 11/06/2017 Last [facility] Monitor for withdrawals Avoid beta blockers documented as of this encounter (statuses as of 03/17/2022) [facility] History of Past illness Narrative* Problem Noted Date Resolved Date Bilateral leg numbness 11/05/2017 8 Last Assessment & Plan: -consider neurology consult for further work up of transient leg numbness Cocaine abuse 11/04/2017 11/06/2017 Last Assessment & Plan[facility]: Monitor for withdrawals Avoid beta blockers documented as of this encounter (statuses as of 03/24/2022) [facility] History of Past illness Narrative* Problem Noted Date Resolved Date Bilateral leg numbness 11/05/2017 8 Last Assessment & Plan: -consider neurology consult for further work up of transient leg numbness Cocaine abuse 11/04/2017 11/06/2017 Last Assessment & Plan: [facility]: Monitor for withdrawals Avoid beta blockers documented as of this encounter (statuses as of 04/04/2022) [facility] History of Past illness Narrative* Problem Noted Date Resolved Date Bilateral leg numbness 11/05/2017 8 Last Assessment & Plan: -consider neurology consult for further work up of transient leg numbness Cocaine abuse 11/04/2017 11/06/2017 Last Assessment & Plan: Tested positive at [facility] PLAN: Monitor for withdrawals Avoid beta blockers documented as of this encounter (statuses as of 04/11/2022) [facility] History of Past illness Narrative* Problem Noted Date Resolved Date Bilateral leg numbness 11/05/2017 8 Last Assessment & Plan: -consider neurology consult for further work up of transient leg numbness Cocaine abuse 11/04/2017 11/06/2017 Last Assessment & Plan[facility]: Monitor for withdrawals Avoid beta blockers documented as of this encounter (statuses as of 04/14/2022) [facility] History of Past illness Narrative* Problem Noted Date Resolved Date Bilateral leg numbness 11/05/2017 8 Last Assessment & Plan: -consider neurology consult for further work up of transient leg numbness Cocaine abuse 11/04/2017 11/06/2017 Last Assessment & Plan: [facility] PLAN: Monitor for withdrawals Avoid beta blockers documented as of this encounter (statuses as of 05/22/2022) [facility] History of Past illness Narrative* Problem Noted Date Resolved Date Bilateral leg numbness 11/05/2017 8 Last Assessment & Plan: -consider neurology consult for further work up of transient leg numbness Cocaine abuse 11/04/2017 11/06/2017 Last Assessment & Plan: [facility] PLAN: Monitor for withdrawals Avoid beta blockers documented as of this encounter (statuses as of 05/26/2022) [facility] History of Past illness Narrative* Problem Noted Date Resolved Date Bilateral leg numbness 11/05/2017 8 Last Assessment & Plan: -consider neurology consult for further work up of transient leg numbness Cocaine abuse 11/04/2017 11/06/2017 Last Assessment & Plan: [facility]: Monitor for withdrawals Avoid beta blockers documented as of this encounter (statuses as of 05/31/2022) [facility] History of Past illness Narrative* Problem Noted Date Resolved Date Bilateral leg numbness 11/05/2017 8 Last Assessment & Plan: -consider neurology consult for further work up of transient leg numbness Cocaine abuse 11/04/2017 11/06/2017 Last Assessment & Plan: Tested positive at [facility] PLAN: Monitor for withdrawals Avoid beta blockers documented as of this encounter (statuses as of 06/22/2022) [facility] History of Past illness Narrative* Problem Noted Date Resolved Date Bilateral leg numbness 11/05/2017 8 Last Assessment & Plan: -consider neurology consult for further work up of transient leg numbness Cocaine abuse 11/04/2017 11/06/2017 Last Assessment & Plan: [facility]: Monitor for withdrawals Avoid beta blockers documented as of this encounter (statuses as of 07/05/2022) [facility] History of Past illness Narrative* Problem Noted Date Resolved Date Bilateral leg numbness 11/05/2017 8 Last Assessment & Plan: -consider neurology consult for further work up of transient leg numbness Cocaine abuse 11/04/2017 11/06/2017 Last Assessment & Plan: [facility]AN: Monitor for withdrawals Avoid beta blockers documented as of this encounter (statuses as of 07/07/2022) [facility] History of Past illness Narrative* Problem Noted Date Resolved Date Bilateral leg numbness 11/05/2017 8 Last Assessment & Plan: -consider neurology consult for further work up of transient leg numbness Cocaine abuse 11/04/2017 11/06/2017 Last Assessment & Plan: Tested positive at [facility] PLAN: Monitor for withdrawals Avoid beta blockers documented as of this encounter (statuses as of 07/18/2022) [facility] History of Past illness Narrative* Problem Noted Date Diagnosed Date Resolved Date Bilateral leg numbness 11/05/201711/06 Last Assessment & Plan: -consider neurology consult for further work up of transient leg numbness Cocaine abuse 11/04/2017 11/06/2017 Last Assessment & Plan: Tested positive at [facility] PLAN: Monitor for withdrawals Avoid beta blockers documented as of this encounter (statuses as of 10/10/2022) [facility] History of Past illness Narrative* Problem Noted Date Diagnosed Date Resolved Date Bilateral leg numbness 11/05/201711/06 Last Assessment & Plan: -consider neurology consult for further work up of transient leg numbness Cocaine abuse 11/04/2017 11/06/2017 Last Assessment & Plan: Tested positive at [facility] PLAN: Monitor for withdrawals Avoid beta blockers documented as of this encounter (statuses as of 12/08/2022) [facility] Diagnosis White coat syndrome with high blood pressure but without hypertension- Primary Abnormal ECG Nonspecific abnormal electrocardiogram (ECG) (EKG) [facility]aginal prolapse Unspecified prolapse of vaginal morris Post-operative pain Other acute postoperative pain Other headache syndrome [facility] Preop exam for internal medicine- Primary Other specified pre-operative examination [facility] Diagnosis Vaginal prolapse Unspecified prolapse of vaginal morris Post-operative pain Other acute postoperative pain Other headache syndrome [facility] Diagnosis Abnormal electrocardiogram- Primary Nonspecific abnormal electrocardiogram (ECG) (EKG) Encounter for other preprocedural examination Primary hypertension Unspecified essential hypertension Mixed hyperlipidemia [facility] Screening for ischemic heart disease- Primary [facility] Diagnosis Abnormal electrocardiogram Nonspecific abnormal electrocardiogram (ECG) (EKG) Encounter for other preprocedural examination Primary hypertension Unspecified essential hypertension [facility] Diagnosis Need for influenza vaccination- Primary Need for prophylactic vaccination and inoculation against influenza Anxiety Anxiety state, unspecified Nightmares Other dysfunctions of sleep stages or arousal from sleep Injury of head, subsequent encounter Skin lesion Unspecified disorder of skin and subcutaneous tissue [facility] Diagnosis Anxiety Anxiety state, unspecified Nightmares Other dysfunctions of sleep stages or arousal from sleep Injury of head, subsequent encounter [facility] Diagnosis Vaginal prolapse Unspecified prolapse of vaginal morris Post-operative pain Other acute postoperative pain Other headache syndrome [facility] Diagnosis Vaginal prolapse- Primary Unspecified prolapse of vaginal morris Post-operative pain Other acute postoperative pain Other headache syndrome Need for vaccination Need for prophylactic vaccination and inoculation against unspecified single disease [facility] Diagnosis Scar conditions and fibrosis of skin- Primary Scar condition and fibrosis of skin Status post Mohs surgery Other postprocedural status Encounter for follow-up examination after completed treatment for malignant neoplasm Unspecified follow-up examination History of nonmelanoma skin cancer Personal history of other malignant neoplasm of skin Seborrheic dermatitis Seborrheic dermatitis, unspecified [facility] Diagnosis Aneurysm (HCC)- Primary Aneurysm of unspecified site [facility] Diagnosis UTI symptoms- Primary Other symptoms involving urinary system Aneurysm (HCC) Aneurysm of unspecified site [facility] Diagnosis Vaginal prolapse- Primary Unspecified prolapse of vaginal morris Other headache syndrome Migraine with aura and without status migrainosus, not intractable Migraine with aura, without mention of intractable migraine without mention of status migrainosus Cerebral aneurysm without rupture Cerebral aneurysm, nonruptured [facility] Diagnosis Multiple benign nevi of upper extremity, lower extremity, and trunk- Primary Lentigines Other dyschromia Seborrheic keratosis Other seborrheic keratosis Cabral angioma Nevus, non-neoplastic AK (actinic keratosis) Actinic keratosis Hx of nonmelanoma skin cancer Personal history of other malignant neoplasm of skin Neoplasm of unspecified behavior of bone, soft tissue, and skin [facility] Diagnosis UTI symptoms- Primary Other symptoms involving urinary system Vaginal prolapse Unspecified prolapse of vaginal morris Post-operative pain Other acute postoperative pain Other headache syndrome Breast cancer screening by mammogram [facility] Diagnosis Severe dizziness- Primary Dizziness and giddiness Vomiting without nausea, unspecified vomiting type Generalized abdominal pain Abdominal pain, generalized UTI symptoms Other symptoms involving urinary system Vaginal prolapse Unspecified prolapse of vaginal morris [facility] Diagnosis UTI symptoms- Primary Other symptoms involving urinary system [facility] Diagnosis Seasonal allergic rhinitis, unspecified trigger- Primary Post-operative pain Other acute postoperative pain Other headache syndrome Vaginal prolapse Unspecified prolapse of vaginal morris [facility] Diagnosis Cervicalgia- Primary Acute pain of right shoulder [facility] Diagnosis Female bladder prolapse- Primary Cystocele, midline [facility] Diagnosis Neoplasm of unspecified behavior of [...] specified malignant neoplasm [facility] Diagnosis Vaginal prolapse Unspecified prolapse of vaginal morris Post-operative pain Other acute postoperative pain Other headache syndrome [facility] Diagnosis Nausea and vomiting, unspecified vomiting type- Primary Gallbladder sludge Other specified disorder of gallbladder Hypokalemia Hypopotassemia Encounter for immunization Need for other specified prophylactic vaccination against single bacterial disease Vaginal prolapse Unspecified prolapse of vaginal morris Right upper quadrant pain Abdominal pain, right upper quadrant Lung nodules Other nonspecific abnormal finding of lung field [facility] Diagnosis Gallbladder sludge Other specified disorder of gallbladder Nausea and vomiting, unspecified vomiting type Light headedness Dizziness and giddiness Generalized abdominal pain Abdominal pain, generalized Cyst of gallbladder Other specified disorder of gallbladder documented in this encounter [facility] note* Diagnosis Lung nodules Other nonspecific abnormal finding of lung field documented in this encounter [facility] note* Diagnosis Palpitations- Primary Shortness of breath Stable angina pectoris documented in this encounter [facility] note* Diagnosis Lung nodules- Primary Other nonspecific abnormal finding of lung field Former smoker Personal history of tobacco use, presenting hazards to health Gallbladder sludge Other specified disorder of gallbladder Gastroesophageal reflux disease, unspecified whether esophagitis present Right upper quadrant pain Abdominal pain, right upper quadrant Vaginal prolapse Unspecified prolapse of vaginal morris documented in this encounter [facility] note* Diagnosis Lung nodule- Primary Solitary pulmonary nodule Centrilobular emphysema (HCC) Other emphysema Former smoker Personal history of tobacco use, presenting hazards to health documented in this encounter [facility] note* Diagnosis Palpitations Shortness of breath Stable angina pectoris documented in this encounter [facility] note* Diagnosis Encounter for screening mammogram for breast cancer documented in this encounter [facility] note* Diagnosis Ataxic gait Abnormality of gait documented in this encounter [facility] for referral (narrative)* Outpatient Procedure (Routine) - Pending Review Specialty Diagnoses / Procedures Referred By Chon solorzano Referred To [facility] Diagnoses White coat syndrome with high blood pressure but without hypertension Procedures ECG COMPLETE ECG ROUTINE ECG W/LEAST 12 LDS W/I&R Anjum Diggs MD [address] [place] [address] [facility] [address] [place] [address] Referral ID Status Reason Start Date Expiration Date Visits Requested Visits Authorized [id number] Pending Review Auto-Generat ed Referral 05/10/2021 05/10/2022 1 1 [facility] for referral (narrative)* Diagnostic Procedure Only (Routine) - Authorized Specialty Diagnoses / Procedures Referred By Chon solorzano Referred To Contact [facility] Diagnoses Abnormal electrocardiogram Encounter for other preprocedural examination Primary hypertension Procedures NM CARDIAC PERF STRESS/PHARM MYOCARDIAL SPECT MULTIPLE STUDIES Jacque Vigil, [employer]EEPER CLE[employer]ER [employer]USTRIAL.CLOUD ADMINISTRATOR [address] [place] [address] [facility] [address] [id number] Referral ID Status Reason Start Date Expiration Date Visits Requested Visits Authorized [id number] Authorized Auto-Generat ed Referral 10/17/2021 11/16/2022 1 1 [facility] for referral (narrative)* Diagnostic Procedure Only (Routine) - Closed Specialty Diagnoses / Procedures Referred By Contac t Referred To Contact [facility] Diagnoses Abnormal electrocardiogram Encounter for other preprocedural examination Primary hypertension Procedures NM CARDIAC PERF STRESS/PHARM MYOCARDIAL SPECT MULTIPLE STUDIES Jacque Vigil APRN.CLOUD ADMINISTRATOR [address] [place] [address] [facility] [address] [place] [address] Referral ID Status Reason Start Date Expiration Date V isits Requested Visits Authorized [id number] Closed Auto-Generate d Referral 10/17/2021 11/16/2022 1 1 [facility] for referral (narrative)* Diagnostic Procedure Only (Routine) - Pending Review Specialty Diagnoses / Procedures Referred By Chon solorzano Referred To Contact [facility] Diagnoses Breast cancer screening by mammogram Procedures KAY SCREENING W SY SCREENING DIGITAL BREAST TOMOSYNTHESIS BI SCREENING MAMMOGRAPHY BI 2-VIEW BREAST INC CAD Anjum Diggs MD [address] [place] [address] [facility] [address] [place] [address] Referral ID Status Reason Start Date Expiration Date Visits Requested Visits Authorized [id number] Pending Review Auto-Generat ed Referral 03/21/2022 04/20/2023 1 1 [facility] for referral (narrative)* Outpatient Procedure (Routine) - Authorized Specialty Diagnoses / Procedures Referred By Chon t Referred To Contact [facility] Diagnoses Palpitations Shortness of breath Stable angina pectoris Procedures STRESS ECHO TREADMILL ECHO TTHRC R-T 2D W/WO M-MODE COMPLETE REST&ST Rosa Maria Kelly MD [address] [place] [address] [facility] [address] [place] [id number] Referral ID Status Reason Start Date Expiration Date Visits Requested Visits Authorized [id number] Authorized Auto-Generat ed Referral 3 01/22/2024 1 1 * Outpatient Procedure (Routine) - Authorized Specialty Diagnoses / Procedures Referred By Chon solorzano Referred To Contact [facility] [facility] Palpitations Shortness of breath Stable angina pectoris Procedures ECHO ECHO TTHRC R-T 2D W/WOM-MODE COMPL SPEC&COLR D Rosa Maria Kelly MD [address] [place] [address] [address] Referral ID Status Reason Start Date Expiration Date Visits Requested Visits Authorized [id number] Authorized Auto-Generat ed Referral 3 01/22/2024 1 1 [facility] Diagnostic Procedure Only (Routine) - Open Specialty Diagnoses / Procedures Referred By Chon solorzano Referred To Contact MOLECULAR & FUNCTIONAL IMAGING Diagnoses Lung nodules Former smoker Procedures NM PET/CT WHOLE BODY INITIAL PET IMAGING FOR CT ATTENUATION WHOLE BODY Fabby Carter APRN.CNS [address] [place] [address] Molecular & Functional Imaging [address] [id number] Referral ID Status Reason Start Date Expiration Date V isits Requested Visits Authorized [id number] Open Auto-Generate d Referral 01/25/2023 02/24/2024 1 1 * Consult, Test, Treat (Routine) - Pending Review Specialty Diagnoses / Procedures Referred By Contac t Referred To Contact Pulmonary and Critical Care Medicine Diagnoses Lung nodules Former smoker Procedures CONSULT TO PULM/CRITICAL CARE OFFICE/OUTPATIENT NEW HIGH MDM 60-74 MINUTES Fabby Carter APRN.CNS [address] [place] [address] Referral ID Status Reason Start Date Expiration Date Visits Requested Visits Authorized [id number] Pending Review PCP Requested Referral 3 01/25/2024 1 1 [facility] Outpatient Procedure (Routine) - Authorized Specialty Diagnoses / Procedures Referred By Contac t Referred To Contact RESPIRATORY [place] Diagnoses Centrilobular emphysema (HCC) Procedures LUNG DIFFUSION CAPACITY (DLCO) DIFFUSING CAPACITY Adelaida Anderson MD [address] [place] [address] [address] Referral ID Status Reason Start Date Expiration Date Visits Requested Visits Authorized [id number] Authorized Auto-Generat ed Referral 3 02/25/2024 1 1 * Outpatient Procedure (Routine) - Authorized Specialty Diagnoses / Procedures Referred By Contac t Referred To [facility] Diagnoses Centrilobular emphysema (HCC) Procedures LUNG VOLUMES Adelaida Anderson MD [address] [place] [address] [facility] [address] [place] [address] Referral ID Status Reason Start Date Expiration Date Visits Requested Visits Authorized [id number] Authorized Auto-Generat ed Referral 3 02/25/2024 1 1 * Outpatient Procedure (Routine) - Authorized Specialty Diagnoses / Procedures Referred By Contac t Referred To Contact RES[facility] [place] Diagn[facility] Centrilobular emphysema (HCC) Procedures SPIROMETRY WITH DILATOR IF OBSTRUCTED BRNCDILAT RSPSE SPMTRY PRE&POST-BRNCDILAT Adelaida Wright MD [address] [place] [address] [facility] [place] [address] [place] [address] Referral ID Status Reason Start Date Expiration Date Visits Requested Visits Authorized [id number] Authorized Auto-Generat ed Referral 3 02/25/2024 1 1 [facility] for referral (narrative)* Diagnostic Procedure Only (Routine) - Pending Review Specialty Diagnoses / Procedures Referred By Chon solorzano Referred To Contact BR IMAGING Diagnoses Encounter for screening mammogram for breast cancer Procedures KAY SCREENING SCREENING MAMMOGRAPHY BI 2-VIEW BREAST INC CAD Anjum Diggs MD [address] [place] [address] [facility] [address] [place] [address] Referral ID Status Reason Start Date Expiration Date Visits Requested Visits Authorized [id number] Pending Review Auto-Generat ed Referral 3 03/22/2024 1 1 [facility] for visit Narrative* Diagnostic Procedure Only (Routine) - Closed Specialty Diagnoses / Procedures Referred By Chon solorzano Referred To Contact MOLECULAR & FUNCTIONAL IMAGING Diagnoses Abnormal electrocardiogram Encounter for other preprocedural examination Primary hypertension Procedures NM CARDIAC PERF STRESS/PHARM MYOCARDIAL SPECT MULTIPLE STUDIES Jacque Vigil, SWEEPER CLEANER INDUSTRIAL.CLOUD ADMINISTRATOR [address] [place] [address] Molecular & Functional Imaging [address] [place] [address] Referral ID Status Reason Start Date Expiration Date V isits Requested Visits Authorized [id number] Closed Auto-Generate d Referral 10/17/2021 11/16/2022 1 1 [facility] for visit Narrative* Outpatient Procedure (Routine) - Closed Specialty Diagnoses / Procedures Referred By Contac t Referred To Contact [facility]ULAR [place] Diagnoses Palpitations Shortness of breath Stable angina pectoris Procedures STRESS ECHO TREADMILL ECHO TTHRC R-T 2D W/WO M-MODE COMPLETE REST&ST SleikRosa Maria MD [address] [place] [address] [facility] [place] [address] [place] [address] Referral ID Status Reason Start Date Expiration Date V isits Requested Visits Authorized [id number] Closed Auto-Generate d Referral 01/22/2023 01/22/2024 1 [facility] Procedure (Routine) - Closed Specialty Diagnoses / Procedures Referred By Contcayetano t Referred To Contact [facility] VASCULAR [place] Diagnoses Ataxic gait Procedures ECHO WITH AGITATED SALINE CONTRAST ECHO TRANSTHORAC R-T 2D W/WO M-MODE REC COMP Leigh Joseph MD [address] [place] [address] [address] Referral ID Status Reason Start Date Expiration Date V isits Requested Visits Authorized [id number] Closed Auto-Generate d Referral 04/07/2023 04/06/2024 1 1 [facility] Summary Purpose Family History No Family History Records FoundNo Family History Records FoundNo Family History Records FoundNo Family History Records FoundNo Family History Records FoundNo Family History Records FoundNo Family History Records FoundNo Family History Records Found Advance Directives Documents on File Type Date Recorded Patient Public Service Officer Expl anation Advance Directive(s) 04/21/2021 12:38 PM [...] Documents on File Type Date Recorded Patient Public Service Officer Expl anation Advance Directive(s) 04/21/2021 12:38 PM [...] Documents on File Type Date Recorded Patient Public Service Officer Expl anation Advance Directive(s) 11/05/2017 1:24 PM Documents on File Type Date Recorded Patient Public Service Officer Expl anation Advance Directive(s) 11/05/2017 1:24 PM [...] Date Activated Date Inactivated Comments Full Code 04/06/2023 11:54 PM 04/07/2023 8:07 PM Question Answer Comments Full Code Order Discussed With: Patient Code Status History Code Status Date Activated Date Inactivated Comments Full Code 12/08/2022 3:12 AM 12/08/2022 8:16 PM Question Answer Comments Full Code Order Discussed With: Patient Latest Code Status on File Code Status Date Activated Date Inactivated Comments Full Code 04/06/2023 11:54 PM 04/07/2023 8:07 PM Question Answer Comments Full Code Order Discussed With: Patient Code Status History Code Status Date Activated Date Inactivated Comments Full Code 12/08/2022 3:12 AM 12/08/2022 8:16 PM Question Answer Comments Full Code Order Discussed With: Patient Reason for Referral Specialty Diagnoses / Procedures Referred By Contac t Referred To Contact Psychology Diagnoses Anxiety Nightmares Injury of head, subsequent encounter Procedures CONSULT TO PSYCHOLOGY OFFICE/[facility]IENT [facility] 60-74 [facility]UTES Fabby Carter, SWEEPER CLEANER INDUSTRIAL.CATHODE BUILDER [address] [place] [address] Referral ID Status Reason Start Date Expiration Date Visits Requested Visits Authorized [id number] Pending Review PCP Requested Referral 11/28/2021 11/28/2022 1 1 Specialty Diagnoses / Procedures Referred By Contac t Referred To Contact Anjum Diggs MD [address] [place] [address] Referral ID Status Reason Start Date Expiration Date Visits Re quested Visits Authorized [id number] Closed 1 1 Specialty Diagnoses / Procedures Referred By Contac t Referred To Contact CT IMAGING Diagnoses Lung nodules Procedures CT CHEST WO IVCON DIAGNOSTIC COMPUTED TOMOGRAPHY THORAX W/O CNTRST [place]Fabby, SWEEPER CLEANER INDUSTRIAL.CATHODE BUILDER [address] [place] [address] [place] [address] Referral ID Status Reason Start Date Expiration Date Visits Requested Visits Authorized [id number] Authorized Auto-Generat ed Referral 3 02/01/2024 1 1 Specialty Diagnoses / Procedures Referred By Contac t Referred To Contact General Surgery Diagnoses Gallbladder sludge Procedures CONSULT TO GENERAL SURGERY OFFICE/[facility]IENT [facility] 60-74 MINUTES Fabby Carter, 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 DATE CREATED AUTHOR AUTHOR'S ORGANIZ ATION 12/25/2022 [facility] DATE CREATED AUTHOR AUTHOR'S ORGANIZ ATION 03/22/2023 [facility] DATE CREATED AUTHOR AUTHOR'S ORGANIZ ATION 04/08/2023 [facility] DATE CREATED AUTHOR AUTHOR'S ORGANIZ ATION 04/17/2023 [facility] Source Comments (unrecognize d section and content) In the event this informatio n is protected by the Federal Confidentiality of Alcohol and Drug Abuse Patient Records regulations: The Federal rules restrict any use of the information to criminally investigate or prosecute any alcohol or drug abuse patient.[facility] the event this information is protected by the Federal Confidentiality of Alcohol and Drug Abuse Patient Records regulations: The Federal rules restrict any use of the information to criminally investigate or prosecute any alcohol or drug abuse patient.[facility] the event this information is protected by the Federal Confidentiality of Alcohol and Drug Abuse Patient Records regulations: The Federal rules restrict any use of the information to criminally investigate or prosecute any alcohol or drug abuse patient.[facility] the event this information is protected by the Federal Confidentiality of Alcohol and Drug Abuse Patient Records regulations: The Federal rules restrict any use of the information to criminally investigate or prosecute any alcohol or drug abuse patient.[facility] the event this information is protected by the Federal Confidentiality of Alcohol and Drug Abuse Patient Records regulations: The Federal rules restrict any use of the information to criminally investigate or prosecute any alcohol or drug abuse patient.[facility] the event this information is protected by the Federal Confidentiality of Alcohol and Drug Abuse Patient Records regulations: The Federal rules restrict any use of the information to criminally investigate or prosecute any alcohol or drug abuse patient.[facility] the event this information is protected by the Federal Confidentiality of Alcohol and Drug Abuse Patient Records regulations: The Federal rules restrict any use of the information to criminally investigate or prosecute any alcohol or drug abuse patient.[facility] the event this information is protected by the Federal Confidentiality of Alcohol and Drug Abuse Patient Records regulations: The Federal rules restrict any use of the information to criminally investigate or prosecute any alcohol or drug abuse patient.[facility] the event this information is protected by the Federal Confidentiality of Alcohol and Drug Abuse Patient Records regulations: The Federal rules restrict any use of the information to criminally investigate or prosecute any alcohol or drug abuse patient.[facility] the event this information is protected by the Federal Confidentiality of Alcohol and Drug Abuse Patient Records regulations: The Federal rules restrict any use of the information to criminally investigate or prosecute any alcohol or drug abuse patient.[facility] the event this information is protected by the Federal Confidentiality of Alcohol and Drug Abuse Patient Records regulations: The Federal rules restrict any use of the information to criminally investigate or prosecute any alcohol or drug abuse patient.[facility] the event this information is protected by the Federal Confidentiality of Alcohol and Drug Abuse Patient Records regulations: The Federal rules restrict any use of the information to criminally investigate or prosecute any alcohol or drug abuse patient.[facility] the event this information is protected by the Federal Confidentiality of Alcohol and Drug Abuse Patient Records regulations: The Federal rules restrict any use of the information to criminally investigate or prosecute any alcohol or drug abuse patient.[facility] the event this information is protected by the Federal Confidentiality of Alcohol and Drug Abuse Patient Records regulations: The Federal rules restrict any use of the information to criminally investigate or prosecute any alcohol or drug abuse patient.[facility] the event this information is protected by the Federal Confidentiality of Alcohol and Drug Abuse Patient Records regulations: The Federal rules restrict any use of the information to criminally investigate or prosecute any alcohol or drug abuse patient.[facility] the event this information is protected by the Federal Confidentiality of Alcohol and Drug Abuse Patient Records regulations: The Federal rules restrict any use of the information to criminally investigate or prosecute any alcohol or drug abuse patient.[facility] the event this information is protected by the Federal Confidentiality of Alcohol and Drug Abuse Patient Records regulations: The Federal rules restrict any use of the information to criminally investigate or prosecute any alcohol or drug abuse patient.[facility] the event this information is protected by the Federal Confidentiality of Alcohol and Drug Abuse Patient Records regulations: The Federal rules restrict any use of the information to criminally investigate or prosecute any alcohol or drug abuse patient.[facility] the event this information is protected by the Federal Confidentiality of Alcohol and Drug Abuse Patient Records regulations: The Federal rules restrict any use of the information to criminally investigate or prosecute any alcohol or drug abuse patient.[facility] the event this information is protected by the Federal Confidentiality of Alcohol and Drug Abuse Patient Records regulations: The Federal rules restrict any use of the information to criminally investigate or prosecute any alcohol or drug abuse patient.[facility] HospitalIn the event this information is protected by the Federal Confidentiality of Alcohol and Drug Abuse Patient Records regulations: The Federal rules restrict any use of the information to criminally investigate or prosecute any alcohol or drug abuse patient.[facility] the event this information is protected by the Federal Confidentiality of Alcohol and Drug Abuse Patient Records regulations: The Federal rules restrict any use of the information to criminally investigate or prosecute any alcohol or drug abuse patient.[facility]In the event this information is protected by the Federal Confidentiality of Alcohol and Drug Abuse Patient Records regulations: The Federal rules restrict any use of the information to criminally investigate or prosecute any alcohol or drug abuse patient.[facility] the event this information is protected by the Federal Confidentiality of Alcohol and Drug Abuse Patient Records regulations: The Federal rules restrict any use of the information to criminally investigate or prosecute any alcohol or drug abuse patient.[facility] the event this information is protected by the Federal Confidentiality of Alcohol and Drug Abuse Patient Records regulations: The Federal rules restrict any use of the information to criminally investigate or prosecute any alcohol or drug abuse patient.[facility]In the event this information is protected by the Federal Confidentiality of Alcohol and Drug Abuse Patient Records regulations: The Federal rules restrict any use of the information to criminally investigate or prosecute any alcohol or drug abuse patient.[facility] the event this information is protected by the Federal Confidentiality of Alcohol and Drug Abuse Patient Records regulations: The Federal rules restrict any use of the information to criminally investigate or prosecute any alcohol or drug abuse patient.[facility]In the event this information is protected by the Federal Confidentiality of Alcohol and Drug Abuse Patient Records regulations: The Federal rules restrict any use of the information to criminally investigate or prosecute any alcohol or drug abuse patient.[facility]In the event this information is protected by the Federal Confidentiality of Alcohol and Drug Abuse Patient Records regulations: The Federal rules restrict any use of the information to criminally investigate or prosecute any alcohol or drug abuse patient.[facility] the event this information is protected by the Federal Confidentiality of Alcohol and Drug Abuse Patient Records regulations: The Federal rules restrict any use of the information to criminally investigate or prosecute any alcohol or drug abuse patient.[facility]In the event this information is protected by the Federal Confidentiality of Alcohol and Drug Abuse Patient Records regulations: The Federal rules restrict any use of the information to criminally investigate or prosecute any alcohol or drug abuse patient.[facility]In the event this information is protected by the Federal Confidentiality of Alcohol and Drug Abuse Patient Records regulations: The Federal rules restrict any use of the information to criminally investigate or prosecute any alcohol or drug abuse patient.[facility] the event this information is protected by the Federal Confidentiality of Alcohol and Drug Abuse Patient Records regulations: The Federal rules restrict any use of the information to criminally investigate or prosecute any alcohol or drug abuse patient.[facility]In the event this information is protected by the Federal Confidentiality of Alcohol and Drug Abuse Patient Records regulations: The Federal rules restrict any use of the information to criminally investigate or prosecute any alcohol or drug abuse patient.[facility] the event this information is protected by the Federal Confidentiality of Alcohol and Drug Abuse Patient Records regulations: The Federal rules restrict any use of the information to criminally investigate or prosecute any alcohol or drug abuse patient.[facility]In the event this information is protected by the Federal Confidentiality of Alcohol and Drug Abuse Patient Records regulations: The Federal rules restrict any use of the information to criminally investigate or prosecute any alcohol or drug abuse patient.[facility]In the event this information is protected by the Federal Confidentiality of Alcohol and Drug Abuse Patient Records regulations: The Federal rules restrict any use of the information to criminally investigate or prosecute any alcohol or drug abuse patient.[facility]In the event this information is protected by the Federal Confidentiality of Alcohol and Drug Abuse Patient Records regulations: The Federal rules restrict any use of the information to criminally investigate or prosecute any alcohol or drug abuse patient.[facility]In the event this information is protected by the Federal Confidentiality of Alcohol and Drug Abuse Patient Records regulations: The Federal rules restrict any use of the information to criminally investigate or prosecute any alcohol or drug abuse patient.[facility]In the event this information is protected by the Federal Confidentiality of Alcohol and Drug Abuse Patient Records regulations: The Federal rules restrict any use of the information to criminally investigate or prosecute any alcohol or drug abuse patient.[facility]In the event this information is protected by the Federal Confidentiality of Alcohol and Drug Abuse Patient Records regulations: The Federal rules restrict any use of the information to criminally investigate or prosecute any alcohol or drug abuse patient.[facility]In the event this information is protected by the Federal Confidentiality of Alcohol and Drug Abuse Patient Records regulations: The Federal rules restrict any use of the information to criminally investigate or prosecute any alcohol or drug abuse patient.[facility]In the event this information is protected by the Federal Confidentiality of Alcohol and Drug Abuse Patient Records regulations: The Federal rules restrict any use of the information to criminally investigate or prosecute any alcohol or drug abuse patient.[facility]In the event this information is protected by the Federal Confidentiality of Alcohol and Drug Abuse Patient Records regulations: The Federal rules restrict any use of the information to criminally investigate or prosecute any alcohol or drug abuse patient.[facility] HospitalIn the event this information is protected by the Federal Confidentiality of Alcohol and Drug Abuse Patient Records regulations: The Federal rules restrict any use of the information to criminally investigate or prosecute any alcohol or drug abuse patient.[facility]In the event this information is protected by the Federal Confidentiality of Alcohol and Drug Abuse Patient Records regulations: The Federal rules restrict any use of the information to criminally investigate or prosecute any alcohol or drug abuse patient.[facility]In the event this information is protected by the Federal Confidentiality of Alcohol and Drug Abuse Patient Records regulations: The Federal rules restrict any use of the information to criminally investigate or prosecute any alcohol or drug abuse patient.[facility] HospitalIn the event this information is protected by the Federal Confidentiality of Alcohol and Drug Abuse Patient Records regulations: The Federal rules restrict any use of the information to criminally investigate or prosecute any alcohol or drug abuse patient.[facility]In the event this information is protected by the Federal Confidentiality of Alcohol and Drug Abuse Patient Records regulations: The Federal rules restrict any use of the information to criminally investigate or prosecute any alcohol or drug abuse patient.[facility]In the event this information is protected by the Federal Confidentiality of Alcohol and Drug Abuse Patient Records regulations: The Federal rules restrict any use of the information to criminally investigate or prosecute any alcohol or drug abuse patient.[facility]In the event this information is protected by the Federal Confidentiality of Alcohol and Drug Abuse Patient Records regulations: The Federal rules restrict any use of the information to criminally investigate or prosecute any alcohol or drug abuse patient.[facility]In the event this information is protected by the Federal Confidentiality of Alcohol and Drug Abuse Patient Records regulations: The Federal rules restrict any use of the information to criminally investigate or prosecute any alcohol or drug abuse patient.[facility]In the event this information is protected by the Federal Confidentiality of Alcohol and Drug Abuse Patient Records regulations: The Federal rules restrict any use of the information to criminally investigate or prosecute any alcohol or drug abuse patient.[facility]In the event this information is protected by the Federal Confidentiality of Alcohol and Drug Abuse Patient Records regulations: The Federal rules restrict any use of the information to criminally investigate or prosecute any alcohol or drug abuse patient.[facility] HospitalIn the event this information is protected by the Federal Confidentiality of Alcohol and Drug Abuse Patient Records regulations: The Federal rules restrict any use of the information to criminally investigate or prosecute any alcohol or drug abuse patient.[facility] HospitalIn the event this information is protected by the Federal Confidentiality of Alcohol and Drug Abuse Patient Records regulations: The Federal rules restrict any use of the information to criminally investigate or prosecute any alcohol or drug abuse patient.[facility] Care Teams (unrecognized sec tion and content) International Affairs Vice President Relationship Specialty Start Date End Date Anjum Diggs MD [facility] [place] [address] PCP - General Internal Medicine 03/06/19 International Affairs Vice President Relationship Specialty Start Date End Date Anjum Diggs MD [address] [place] [address], [place] [address] PCP - General Internal Medicine 03/06/19 International Affairs Vice President Relationship Specialty Start Date End Date Anjum Diggs MD [address] [place] [address], [place] [address] PCP - General Internal Medicine 03/06/19 International Affairs Vice President Relationship Specialty Start Date End Date Anjum Diggs MD [address] [place] [address], [place] [address] PCP - General Internal Medicine 03/06/19 International Affairs Vice President Relationship Specialty Start Date End Date Anjum Diggs MD [address] [place] [address], [place] [address] PCP - General Internal Medicine 03/06/19 International Affairs Vice President Relationship Specialty Start Date End Date Anjum Diggs MD [address] [place] [address], [place] [address] PCP - General Internal Medicine 03/06/19 International Affairs Vice President Relationship Specialty Start Date End Date Anjum Diggs MD [address] [place] [address], [place] [address] PCP - General Internal Medicine 03/06/19 International Affairs Vice President Relationship Specialty Start Date End Date Anjum Diggs MD [address] [place] [address], [place] [address] PCP - General Internal Medicine 03/06/19 International Affairs Vice President Relationship Specialty Start Date End Date Anjum Diggs MD [address] [place] [address], [place] [address] PCP - General Internal Medicine 03/06/19 International Affairs Vice President Relationship Specialty Start Date End Date Anjum Diggs MD [address] [place] [address], [place] [address] PCP - General Internal Medicine 03/06/19 International Affairs Vice President Relationship Specialty Start Date End Date Anjum Diggs MD [address] [place] [address], [place] [address] PCP - General Internal Medicine 03/06/19 International Affairs Vice President Relationship Specialty Start Date End Date Anjum Diggs MD [address] [place] [address], [place] [address] PCP - General Internal Medicine 03/06/19 International Affairs Vice President Relationship Specialty Start Date End Date Anjum Diggs MD [address] [place] [address], [place] [address] PCP - General Internal Medicine 03/06/19 International Affairs Vice President Relationship Specialty Start Date End Date Anjum Diggs MD [address] [place] [address] [place] [address] PCP - General Internal Medicine 03/06/19 International Affairs Vice President Relationship Specialty Start Date End Date Anjum Diggs MD [address] [place] [address] [place] [address] PCP - General Internal Medicine 03/06/19 International Affairs Vice President Relationship Specialty Start Date End Date Anjum Diggs MD [address] [place] [address] [place] [address] PCP - General Internal Medicine 03/06/19 International Affairs Vice President Relationship Specialty Start Date End Date Anjum Diggs MD [address] [facility] [place] [address] PCP - General Internal Medicine 03/06/19 International Affairs Vice President Relationship Specialty Start Date End Date Anjum Diggs MD [address] [facility] [place] [address] PCP - General Internal Medicine 03/06/19 International Affairs Vice President Relationship Specialty Start Date End Date Anjum Diggs MD [address] [facility] [place] [address] PCP - General Internal Medicine 03/06/19 International Affairs Vice President Relationship Specialty Start Date End Date Anjum Diggs MD [address] [place] [address], [place] [address] PCP - General Internal Medicine 03/06/19 International Affairs Vice President Relationship Specialty Start Date End Date Anjum Diggs MD [facility] [place] [address] PCP - General Internal Medicine 03/06/19 International Affairs Vice President Relationship Specialty Start Date End Date Anjum Diggs MD [facility] [place] [address] PCP - General Internal Medicine 03/06/19 International Affairs Vice President Relationship Specialty Start Date End Date Anjum Diggs MD [facility] [place] [address] PCP - General Internal Medicine 03/06/19 International Affairs Vice President Relationship Specialty Start Date End Date Anjum Diggs MD [address] [place] [address], [place] [address] PCP - General Internal Medicine 03/06/19 International Affairs Vice President Relationship Specialty Start Date End Date Anjum Diggs MD [address] [place] [address], [place] [address] PCP - General Internal Medicine 03/06/19 International Affairs Vice President Relationship Specialty Start Date End Date Anjum Diggs MD [address] [place] [address] PCP - General Internal Medicine 03/06/19 Nicole Quintero RN Primary Care Sales Agent [employer] Internal Medicine 12/11/22 01/07/23 International Affairs Vice President Relationship Specialty Start Date End Date Anjum Diggs MD [address] [place] [address] PCP - General Internal Medicine 03/06/19 Nicole Quintero RN Primary Care Sales Agent [employer] Internal Medicine 12/11/22 01/07/23 International Affairs Vice President Relationship Specialty Start Date End Date Anjum Diggs MD [address] [place] [address] PCP - General Internal Medicine 03/06/19 Nicole Quintero RN Primary Care Sales Agent [employer] Internal Medicine 12/11/22 01/07/23 International Affairs Vice President Relationship Specialty Start Date End Date Anjum Diggs MD [address] [place] [address] PCP - General Internal Medicine 03/06/19 Nicole Quintero RN Primary Care Sales Agent [employer] Internal Medicine 12/11/22 01/07/23 International Affairs Vice President Relationship Specialty Start Date End Date Anjum Diggs MD [address] [place] [address] PCP - General Internal Medicine 03/06/19 International Affairs Vice President Relationship Specialty Start Date End Date Anjum Diggs MD [address] [place] [address] PCP - General Internal Medicine 03/06/19 International Affairs Vice President Relationship Specialty Start Date End Date Anjum Diggs MD [address] [facility] [place] [address] PCP - General Internal Medicine 03/06/19 International Affairs Vice President Relationship Specialty Start Date End Date Anjum Diggs MD [address] [facility] [place] [address] PCP - General Internal Medicine 03/06/19 International Affairs Vice President Relationship Specialty Start Date End Date Anjum Diggs MD [address] [facility] [place] [address] PCP - General Internal Medicine 03/06/19 International Affairs Vice President Relationship Specialty Start Date End Date Anjum Diggs MD [address] [facility] [place] [address] PCP - General Internal Medicine 03/06/19 International Affairs Vice President Relationship Specialty Start Date End Date Anjum Diggs MD [address] [facility] [place] [address] PCP - General Internal Medicine 03/06/19 International Affairs Vice President Relationship Specialty Start Date End Date Anjum Diggs MD [address] [facility] [place] [address] PCP - General Internal Medicine 03/06/19 International Affairs Vice President Relationship Specialty Start Date End Date Anjum Diggs MD [address] [facility] [place] [address] PCP - General Internal Medicine 03/06/19 International Affairs Vice President Relationship Specialty Start Date End Date Anjum Diggs MD [address] [place] [address] PCP - General Internal Medicine 03/06/19 Grisel Emanuel, figure skater Sales Agent [employer] 04/09/23 International Affairs Vice President Relationship Specialty Start Date End Date Anjum Diggs MD [address] [place], [place] [address] PCP - General Internal Medicine 03/06/19 Grisel Emanuel, figure skater Sales Agent [employer] 04/09/23 International Affairs Vice President Relationship Specialty Start Date End Date Anjum Diggs MD [address] [place], [place] [address] PCP - General Internal Medicine 03/06/19 Grisel Emanuel, figure skater Sales Agent [employer] 04/09/23 Reason for Visit (unrecogniz ed section and content) Reason Comments Medication Question Reason Comments Pre-Op Exam Pre- Op Clearance Reason Comments error Reason Comments Follow Up Reason Comments Consult Reason Comments Patient Update Patient Question Reason Comments Results Reason Comments Radiology NM Specialty Diagnoses / Procedures Referred By Chon t Referred To Contact MOLECULAR & FUNCTIONAL IMAGING Diagnoses Abnormal electrocardiogram Encounter for other preprocedural examination Primary hypertension Procedures NM CARDIAC PERF STRESS/PHARM MYOCARDIAL SPECT MULTIPLE STUDIES Jacque Vigil, SWEEPER CLEANER INDUSTRIAL.CLOUD ADMINISTRATOR [address] [facility] [address] [place] [address] Molecular & Functional Imaging [address] [place] [address] Referral ID Status Reason Start Date Expiration Date V isits Requested Visits Authorized [id number] Closed Auto-Generate d Referral 10/17/2021 11/16/2022 1 [...] angiogram to eval uate possible residual s/p [place] with 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 ER 12/29/22, Ult rasound [facility] Specialty Diagnoses / Procedures Referred By Chon solorzano Referred To Contact General Surgery Diagnoses Gallbladder sludge Procedures CONSULT TO GENERAL SURGERY OFFICE/OUTPATIENT NEW HIGH MDM 60-74 MINUTES Fabby Carter, SWEEPER CLEANER INDUSTRIAL.CATHODE BUILDER [address] [place] [address] Referral ID Status Reason Start Date Expiration Date Visits Requested Visits Authorized [id number] Pending Review PCP Requested Referral 3 01/02/2024 1 1 Reason Comments Arm Pain Reason Comments Radiology CT Specialty Diagnoses / Procedures Referred By Chon solorzano Referred To Contact CT IMAGING Diagnoses Lung nodules Procedures CT CHEST WO IVCON DIAGNOSTIC COMPUTED TOMOGRAPHY THORAX W/O CNTRST Fabby Carter, SWEEPER CLEANER INDUSTRIAL.CATHODE BUILDER [address] [place] [address] Ct Imaging [facility] Referral ID Status Reason Start Date Expiration Date V isits Requested Visits Authorized [id number] Closed Auto-Generate d Referral 01/02/2023 02/01/2024 1 1 Reason Comments Consult Reason Comments Follow Up Reason Comments New Patient lung nodule Reason Comments Appointment FOR RECORDS PERTAINING TO PATIENTS WHO ARE [...] BE BASED ON THE PRIMARY CLINICAL RECORDS. [facility]. provides no warranty or guarantee of the accuracy or completeness of information in this document.
[2023-04-18 08:46] LABS: International Normalized Ratio 0.9; Prothrombin Time (Protime)PT. 12.2 SECONDS (11.7-14.9)
[2023-04-18 08:48] LABS: Partial Thromboplast Time 30.6 Seconds (24.1-36.2)
[2023-04-18] MEDS: Midazolam 2 MG/2 ML Syringe IV (09:58)
[2023-04-18] MEDS: 0.9% Normal Saline (250mL Bag) 250 ML 15 ML IV (09:58)
[2023-04-18] MEDS: fentaNYL 100 MCG/2 ML Ampul IV (10:00)
[2023-04-18] MEDS: Lidocaine 2% (20 ml mdv) 20 ML Vial INFILT (10:07)
--- NOTE | 2023-04-18 10:20 | PRO.PCM_ITS ---
Procedure Report Date of Procedure: 04/18/23 Assessment & Plan Assessment/Plan (1) Solitary pulmonary nodule: PLAN: PROCEDURE: CT GUIDED CORE NEEDLE LUNG BIOPSY ORDERING PROVIDER: Dr. Adelaida Rodriguez INDICATION: Female, 63 years old. Right lower lobe nodule. PROVIDER: ZEV Tafoya CONSENT: Written informed consent was obtained having explained the risks, benefits and alternatives in detail with the patient who accepted the risks and agreed to proceed. Laboratory review and clinical assessment was performed. PRE-PROCEDURE SEDATION ASSESSMENT: Current history and physical dictated by referring physician and reviewed. No clinical changes since date of exam. Patient has an ASA Class of 2. PROCEDURAL SEDATION PROTOCOL: The Drugs used were: 2 mg Versed, IV, and 50 mcg Fentanyl, IV. The sedation time was: 17 minutes, starting at 0958 and terminated at 1015. The procedural sedation protocol was independently monitored by the department nurse. RADIATION DOSAGE (If Supplied By Facility): CTDIvol = 14.46 mGy, DLP = 431.15 mGycm Individualized dose optimization techniques were used for this CT. TECHNIQUE: The patient was placed in a prone position. A noncontrast CT was performed to localize the lesion in the right lower lobe. The skin surface was prepped and draped in a sterile fashion. 2% lidocaine was used for local anesthesia. Using CT guidance, a 20-gauge coaxial biopsy device was advanced to the peripher y of the lesion. A total of 5 core specimens were obtained. Specimens were microscopically reviewed by pathology in the CT suite and placed in formalin solution. BioSentry tract sealant system was deployed at the biopsy site, and the biopsy needle was removed. A sterile occlusive dressing was applied to the biopsy site. The patient tolerated the procedure well. An immediate chest xray was ordered, per protocol. A negative biopsy does not exclude malignancy. Further imaging or clinical followup based on patient condition and degree of clinical suspicion for malignancy. Suggest rebiopsy, if biopsy results do not match with clinical scenario. IMPRESSION: 1. CT directed core needle biopsy of right lower lobe nodule using CT image guidance with image documentation as described. Pathology results are pending. 2. Procedural Sedation protocol utilized with independent monitoring by the department nurse. Procedures Radiology Radiology CT Procedures: 64201 Biopsy Lung
--- NOTE | 2023-04-18 10:20 | RAD_ITS ---
STUDY: X-RAY CHEST REASON FOR EXAM: Female, 63 years old. Immediately post lung biopsy -- Immediately post lung biopsy TECHNIQUE: AP inspiration and expiration views. COMPARISON: Comparison is made with prior study December 29, 2022. FINDINGS: EKG electrodes are seen. Hyperinflation. The patient is status post right lung biopsy. No evidence of pneumothorax. RAD/Chest Insp/Exp 2 View IMPRESSION: There is no evidence of pneumothorax on the immediate post right lung biopsy radiographs. Electronically Signed: Young De Oliveira MD at 10:47 EST ,
[2023-04-18] MEDS: Acetaminophen 325 MG Tablet 650 MG PO (11:37)
--- NOTE | 2023-04-18 12:18 | RAD_ITS ---
STUDY: X-RAY CHEST REASON FOR EXAM: Female, 63 years old. 2 hours post lung biopsy -- 2 hours post lung biopsy TECHNIQUE: AP inspiration and expiration views. COMPARISON: Comparison is made with prior study done earlier today. FINDINGS: No evidence of pneumothorax on the 2 hour post right lung biopsy radiographs. RAD/Chest Insp/Exp 2 View IMPRESSION: No evidence of pneumothorax on the 2 hour post right lung biopsy radiographs. Electronically Signed: Young De Oliveira MD at 12:33 EST ,
== END | disposition home or self-care (01) ==
PROVIDERS: Nurse Practitioner Acute Care; PCP Internal Medicine
DX: C34.31 Malignant neoplasm of lower lobe, right bronchus or lung (principal); R06.02 Shortness of breath; R00.2 Palpitations
CPT/HCPCS: 32408; 88161; 36415; 71046; 77012; 85049; 85610; 85730; 88172; 88305; 88313; 88341; 88342; 99156; J7050; A4216; C2613

== ENCOUNTER → 2024-05-26 | Outpatient (CLI) | payer MEDICAID, SELFPAY ==
[2024-05-26 10:15] LABS: Absolute Neutrophil Count 5.7 X10^3/uL (2.0-7.7); Basophil# 0.05 X10^3/uL; Basophil% 0.6 % (0-1); Eosinophil# 0.14 X10^3/uL; Eosinophils% 1.6 % (0-5); Hematocrit 39.7 % (37-47); Lymphocyte % 27.8 % (19-41); Mean Corp Hgb Conc 32.7 g/dL (32-36); Mean Corpuscular Hgb 30.4 pg (27.0-32.0); Mean Platelet Vol. 9.1 fl (6.2-12.0); Monocyte% 6.7 % (0-10); NRBC Flagged by Analyzer 0 % (0-5); Neutrophil # 5.67 X10^3/uL (2.7-7.7); Platelet Count 291 K/mm3 (150-450); RBC Distribution Width CV 13.4 % (11.6-14.6); Red Blood Count 4.27 M/mm3 (4.2-5.4)
[2024-05-26 13:05] LABS: ALB/GLOB Ratio 1.8 RATIO (0.9-2.4); AST(SGOT) 22 U/L (<=31); Alanine Aminotransfer ALT/SGPT 23 U/L (<=34); Albumin, Serum 4.6 g/dL (3.4-4.8); Alkaline Phosphatase 74 U/L (35-104); Anion Gap 12 (5-15); BUN 11 mg/dL (4-19); BUN/Creat Ratio 20.3 RATIO (10-20); Calcium,Total 9.3 mg/dL (7.6-11.0); Carbon Dioxide 23.4 mmol/L (21.0-32.0); Chloride 102 mmol/L (98-108); Creatinine, Serum 0.53 mg/dL (0.70-1.20); EST Glomerular Filtration Rate 103 (>60); Globulin 2.6 g/dL (2.2-4.2); Glucose 82 mg/dL (70-99); Potassium 3.7 mmol/L (3.3-5.1); Protein, Total 7.3 g/dL (5.9-8.4); Sodium Level 138 mmol/L (133-145); Total Bilirubin 0.18 mg/dL (0.00-1.30)
== END | disposition home or self-care (01) ==
PROVIDERS: PCP Internal Medicine; Referring Provider Nurse Practitioner Acute Care; Visit Provider Nurse Practitioner Acute Care
DX: K83.8 Other specified diseases of biliary tract (principal)
CPT/HCPCS: 36415; 80053; 85025

== ENCOUNTER 2024-06-05 10:27 | Day surgery (SDC) | payer MEDICAID, SELFPAY ==
--- NOTE | 2024-06-03 11:25 | PAT.ANESEVAL ---
Pre-Assessment Diagnosis/Proposed Procedure Planned Operative Procedure(s): ERCP Anesthesia History Anesthesia History - smoke eater: Anesthesia History - smoke eater Hx Hospitalization No 05/30/24 12:44 Any Problems With Anesthesia Yes: N&V, HARD TO KEEP 05/30/24 12:44 ASLEEP Cholinesterase deficiency No 05/30/24 12:44 You/Your Family Experience No 05/30/24 12:44 fever (hyperthermia) with Relationship Recent Exposure to Contagious Disease Does patient have nerve No 05/30/24 12:44 stimulator Patient instructed to have device shut off --Does patient have Pacemaker or ICD? When Was Last Pacemaker Check QUESTION #4 FULL TEXT: You/Your Family Experience fever (hyperthermia) with Anesthesia Last Oral Intake Last Oral intake: Last Oral Intake NPO since Meds taken in AM with sips of water? Meds patient instructed to take am of surgery PONV PONV - smoke eater: PONV - smoke eater Female Yes 05/30/24 12:44 HX of Motion Sickness Yes 05/30/24 12:44 HX of N/V After Surgery Yes 05/30/24 12:44 Non-Smoker Yes 05/30/24 12:44 Duration of Surgery greater No 05/30/24 12:44 than 60 minutes Number of Risk Factors 4 05/30/24 12:44 PONV Score Severe Risk 05/30/24 12:44 Height & Weight Height & Weight: Anesthesia: Height & Weight Height 5 ft 5 in 05/30/24 12:44 Weight: 54.431 kg 05/30/24 12:44 Body Mass Index (BMI) 20.0 05/30/24 12:44 Respiratory Assessment Respiratory Assessment - smoke eater: Respiratory Tract Infection Hx - smoke eater Hx Respiratory Tract Infection No 05/30/24 12:44 STOP Sleep Apnea STOP Sleep Apnea - smoke eater: STOP Sleep Apnea - smoke eater Hx Hypertension No 05/30/24 12:44 Hx Sleep Apnea No 05/30/24 12:44 CPAP BIPAP Do you snore loudly (louder No 05/30/24 12:44 than talking or can be heard Do you often feel tired/ No 05/30/24 12:44 fatigued/ sleepy during daytime? Has anyone observed you stop No 05/30/24 12:44 breathing during sleep? STOP Results Negative 05/30/24 12:44 QUESTION #5 FULL TEXT : Do you snore loudly (louder than talking or can be heard through closed doors)? 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 Specify any problems Hx of Preganancy in last 3 No 05/30/24 12:44 Months Nurse Filling Out Transfusion VCHRISTIN 05/30/24 12:44 & Questions: Date: 05/30/24 05/30/24 12:44 Time: 12:46 05/30/24 12:44 Patient unable to answer at this time (ie. confused, unrespo /Reproduction History /Reproductive History - smoke eater: /Reproductive Hx- smoke eater Hx Now Gestational Age (in weeks): EDC: Hx Hx Para Hx Section SAB PFSH Medical History (Updated 05/30/24 @ 12:44 by Shanna Wilkins) Wears glasses Wears dentures Post-menopausal Arthritis Excessive bleeding Back pain TIA (transient ischemic attack) History of diverticulitis Chronic cough History of echocardiogram History of stress test Hypertension Cardiology follow-up encounter History of sinus cancer Former tobacco use History of intracranial aneurysm Fibromyalgia Anxiety and depression History of alcohol abuse Polysubstance abuse Prolapse of intestine Prolapse of bladder Skin cancer Uterine cancer Home Medications ?Medication ?Instructions ?Recorded ?Last Taken ?Type albuterol sulfate 90 mcg/actuation 2 puff inhalation Q4H PRN 04/03/23 04/02/23 History aerosol inhaler shortness of breath or wheezing multivitamin 1 tab PO DAILY HEALTH MAINTENANCE 04/03/23 Unknown History aspirin 81 mg tablet,delayed 81 mg PO DAILY 04/18/23 04/15/23 History release (Adult Low Dose Aspirin) atorvastatin 10 mg tablet (Lipitor) 10 mg PO QHS 04/18/23 Unknown History amlodipine 5 mg tablet 5 mg PO QDAY 05/26/24 Unknown History folic acid 1 mg tablet 1 mg PO QDAY 05/26/24 Unknown History methocarbamol 750 mg tablet 750 mg PO QHS PRN pain 05/26/24 Unknown History hydrocodone 7.5 mg-acetaminophen 1 tab PO Q6H PRN pain 05/30/24 Unknown History 325 mg tablet Allergy/AdvReac Type Severity Reaction Status Date / Time sulfamethoxazole (From Allergy Mild Other Verified 05/30/24 12:26 Bactrim) trimethoprim (From Bactrim) Allergy Mild Other Verified 05/30/24 12:26 Sulfa (Sulfonamide AdvReac NEEDS Verified 05/30/24 12:26 Antibiotics) FOLLOW-UP Family History Father Melanoma Mother Brain aneurysm CVA (cerebral vascular accident) Surgical History (Updated 05/30/24 @ 12:44 by Shanna Wilkins) History of lobectomy of lung H/O cerebral aneurysm repair History of hysterectomy S/P rotator cuff repair Social History household members: none Smoking Status: Former smoker how long ago did patient quit smokin/2 ppd until quit 2018. alcohol intake: former details: Previous EtOH abuse, currently sober. substance use type: former substance user Date of last use: Cocaine. Audit: Pertinent Findings Pertinent Findings EKG Perinent findings: December 29, 2022. Normal sinus rhythm. Incomplete right bundle branch block. Left anterior fascicular block. Septal infarct, age undetermined. Cannot rule out inferior infarct. Stress test pertinent findings: June 05, 2023. SPECT perfusion study is normal. No evidence for ischemia. No infarct. Ejection fraction is 64%. Echo (EF%) pertinent findings: April 16, 2023. Ejection fraction 60%. No aortic stenosis is noted. No significant valvular abnormalities. No intracardiac shunt. Consult pertinent findings: February 18, 2024. Dr. Kelly. 1. Hypertension?controlled. Continue current medications. Check echo. 2. History of cerebral aneurysm repair. 3. 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 Recommendation Anesthesia Recommendation Anesthesia recommendation: OPTIMIZED for anesthesia
[2024-06-05] VITALS (10 sets, daily range): BP systolic 69–104; BP diastolic 49–77; PULSE 84–97; RESP 12–94; TEMP 36.3–37.1; O2SAT 92–97
--- NOTE | 2024-06-05 | FLU_PTH ---
PATIENT: GLORIA DE LA GARZA LOC: EN U#:[id number] AGE/SX: 64/F ROOM: RE06/05/[address]: Dr. Hernan Lisa DO : 1960 BED: DIS: 06/05/2024 SPEC #: [id number] RECD: 06/05/24 13:13 STATUS: CUBA REShay #: [id number] AN: 06/05/24 00:[address]: Hernan Lisa DEPT: CYTOLOGY RECD BY: Pritesh Cid ENTERED: 06/05/24 13:13 SP TYPE: Fluid OTHR DR: Dr. Lindsey Centeno MD Tissues: Bile duct, NOS Procedures: Special Stain Group II Surgery Specimen Level III Surgery Specimen Level IV Cytospin Fluid HEADER OPERATION: ERCP with balloon dilation, stent placement and common bile PRE-OP DIAGNOSIS: Dilated, cbd, acquired, choledocholithiasis TISSUE SUBMITTED: A- Distal common bile duct brush tip and brushings for cytology DIAGNOSIS CYTOLOGY A. Distal common bile duct, brushings: * No malignant cells identified. COMMENT The slides were reviewed in intradepartmental consultation by Dr Eden Carrillo ([facility]). CYTOLOGY STUDY Slides are reviewed. CYTOLOGY GROSS A. Received are 3 smears, 1 DQ and 2 PAPS labeled with the patient's name and designated per the requisition as Distal common bile duct brush tip and brushings. Submitted for staining. Mr 06/05/2024 CPT: 05763
--- NOTE | 2024-06-05 11:33 | PCM.PRE.AN2 ---
ASA Classification* ASA Classification ASA Classification: 3 Assessment & Plan Anesthesia* Anesthesia Assessment Anesthesia Assessment: Discussed sedation and/or anesthesia options, risks, benefits, and alternatives with patient/parents/legal guardian/POA. Questions invited. The patient/parents/legal guardian/POA seems to understand and agrees to proceed with anesthesia plan. Reviewed the physical assessment, medical history, allergy history and patient home medications list prior to surgery/procedure/anesthetic and documented any changes. Performed airway and anesthesia risk assessments. Anesthesia Type Anesthesia Type: General (Consider Cisco scope intubation.) History Source History Obtained from:: Patient and Chart Anesthesia Focused Assessment* Temperature: 98.8 F Pulse Rate: 96 Blood Pressure: 104/77 Respiratory Rate: 12 Pulse Ox: 97 Oxygen Delivery Method: Room Air Airway Assessment Mouth opens: >3 cm Mallampati Score: IV Teeth Condition: Dentures (Patient has full upper and lower dentures.) Neck Range of motion (ROM): Limited ROM (Significant restriction on neck extension secondary to titanium plate base of the right cranium.) Focused Labs Anesthesia Preop lab: CBC WBC 9.0 K/mm3 (4.4-11.0) 05/26/24 09:45 05/26/24 RBC 4.27 M/mm3 (4.2-5.4) 05/26/24 09:45 05/26/24 Hgb 13.0 g/dL (12.0-15.0) 05/26/24 09:45 05/26/24 Hct 39.7 % (37-47) 05/26/24 09:45 05/26/24 Plt Count 291 K/mm3 (150-450) 05/26/24 09:45 05/26/24 CHEMISTRY Potassium 3.7 mmol/L (3.3-5.1) 05/26/24 09:45 05/26/24 Sodium 138 mmol/L (133-145) 05/26/24 09:45 05/26/24 Magnesium 2.3 mg/dL (1.6-2.6) 12/29/22 12:10 12/29/22 Phosphorus 2.9 mg/dL (2.5-4.9) 12/29/22 12:10 12/29/22 BUN 11 mg/dL (4-19) 05/26/24 09:45 05/26/24 Creatinine 0.53 mg/dL (0.70-1.20) L 05/26/24 09:45 05/26/24 Glucose 82 mg/dL (70-99) 05/26/24 09:45 05/26/24 COAG PT 12.2 SECONDS (11.7-14.9) 04/18/23 08:25 04/18/23 Pre-Assessment Diagnosis/Proposed Procedure Planned Operative Procedure(s): ERCP Anesthesia History Anesthesia History - tax evaluator: Anesthesia History - tax evaluator Hx Hospitalization No 05/30/24 12:44 Any Problems With Anesthesia Yes: N&V, HARD TO KEEP 05/30/24 12:44 ASLEEP Cholinesterase deficiency No 05/30/24 12:44 You/Your Family Experience No 05/30/24 12:44 fever (hyperthermia) with Relationship Recent Exposure to Contagious Disease Does patient have nerve No 05/30/24 12:44 stimulator Patient instructed to have device shut off --Does patient have Pacemaker No 06/05/24 10:52 or ICD? When Was Last Pacemaker Check QUESTION #4 FULL TEXT: You/Your Family Experience fever (hyperthermia) with Anesthesia Last Oral Intake Last Oral intake: Last Oral Intake NPO since 22:30 06/05/24 10:52 Meds taken in AM with sips of water? Meds patient instructed to take am of surgery PONV PONV - tax evaluator: PONV - tax evaluator Female Yes 05/30/24 12:44 HX of Motion Sickness Yes 05/30/24 12:44 HX of N/V After Surgery Yes 05/30/24 12:44 Non-Smoker Yes 05/30/24 12:44 Duration of Surgery greater No 05/30/24 12:44 than 60 minutes Number of Risk Factors 4 05/30/24 12:44 PONV Score Severe Risk 05/30/24 12:44 Height & Weight Height & Weight: Anesthesia: Height & Weight Height 5 ft 5 in 06/05/24 10:52 Weight: 54.7 kg 06/05/24 10:52 Body Mass Index (BMI) 20.0 06/05/24 10:52 Respiratory Assessment Respiratory Assessment - tax evaluator: Respiratory Tract Infection Hx - tax evaluator Hx Respiratory Tract Infection No 05/30/24 12:44 Any additional information?: Yes Hx Respiratory Tract Infection: Yes (Patient has a chronic cough secondary to her lung cancer per patient.) STOP Sleep Apnea STOP Sleep Apnea - tax evaluator: STOP Sleep Apnea - tax evaluator Hx Hypertension No 05/30/24 12:44 Hx Sleep Apnea No 05/30/24 12:44 CPAP BIPAP Do you snore loudly (louder No 05/30/24 12:44 than talking or can be heard Do you often feel tired/ No 05/30/24 12:44 fatigued/ sleepy during daytime? Has anyone observed you stop No 05/30/24 12:44 breathing during sleep? STOP Results Negative 05/30/24 12:44 QUESTION #5 FULL TEXT : Do you snore loudly (louder than talking or can be heard through closed doors)? 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 Specify any problems Hx of Preganancy in last 3 No 05/30/24 12:44 Months Nurse Filling Out Transfusion VCHRISTIN 05/30/24 12:44 & Questions: Date: 05/30/24 05/30/24 12:44 Time: 12:46 05/30/24 12:44 Patient unable to answer at this time (ie. confused, unrespo /Reproduction History /Reproductive History - tax evaluator: /Reproductive Hx- tax evaluator Hx Now Gestational Age (in weeks): EDC: Hx Hx Para Hx Section SAB PFSH Medical History Wears glasses Wears dentures Post-menopausal Arthritis Excessive bleeding Back pain TIA (transient ischemic attack) History of diverticulitis Chronic cough History of echocardiogram History of stress test Hypertension Cardiology follow-up encounter History of sinus cancer Former tobacco use History of intracranial aneurysm Fibromyalgia Anxiety and depression History of alcohol abuse Polysubstance abuse Prolapse of intestine Prolapse of bladder Skin cancer Uterine cancer Home Medications ?Medication ?Instructions ?Recorded ?Last Taken ?Type albuterol sulfate 90 mcg/actuation 2 puff inhalation Q4H PRN 04/03/23 04/02/23 History aerosol inhaler shortness of breath or wheezing multivitamin 1 tab PO DAILY HEALTH MAINTENANCE 04/03/23 06/04/24 History aspirin 81 mg tablet,delayed 81 mg PO DAILY 04/18/23 06/04/24 History release (Adult Low Dose Aspirin) atorvastatin 10 mg tablet (Lipitor) 10 mg PO QHS 04/18/23 06/04/24 History amlodipine 5 mg tablet 5 mg PO QDAY 05/26/24 06/05/24 History folic acid 1 mg tablet 1 mg PO QDAY 05/26/24 Unknown History methocarbamol 750 mg tablet 750 mg PO QHS PRN pain 05/26/24 06/04/24 History hydrocodone 7.5 mg-acetaminophen 1 tab PO Q6H PRN pain 05/30/24 06/04/24 History 325 mg tablet Allergy/AdvReac Type Severity Reaction Status Date / Time sulfamethoxazole (From Allergy Mild Other Verified 06/05/24 10:51 Bactrim) trimethoprim (From Bactrim) Allergy Mild Other Verified 06/05/24 10:51 Sulfa (Sulfonamide AdvReac NEEDS Verified 06/05/24 10:51 Antibiotics) FOLLOW-UP Family History Father Melanoma Mother Brain aneurysm CVA (cerebral vascular accident) Surgical History History of lobectomy of lung H/O cerebral aneurysm repair History of hysterectomy S/P rotator cuff repair Social History household members: none Smoking Status: Former smoker how long ago did patient quit smokin/2 ppd until quit 2017. alcohol intake: former details: Previous EtOH abuse, currently sober. substance use type: former substance user Date of last use: Cocaine. Review of Systems (Anesthesia) ROS Narrative System reviewed and no additional complaints, except as documented.
--- NOTE | 2024-06-05 11:47 | PCM.HP.STD ---
HPI - General General Date of Admission: 06/05/24 Date of Service: 06/05/24 HPI Narrative Chief Complaint: abnormal MRCP Details: GLORIA DE LA GARZA, is a 64 F who presents today for ERCP - bilateral inguinal hernia with prolapse into the bladder - MRCP 04/25/2024 showing CBD 1.2cm - There was a 1 cm filling defect seen with in the ampulla looked consistent with choledocholithiasis. Common duct is dilated up to 1.2 cm. Tapers abruptly near the ampulla, where a 1 cm filling defect is seen within it. Subtle enhancement at this level following contrast. Mild intrahepatic biliary dilatation Lesion at the level of the ampulla is suspected. ERCP recommended 12/18/2023 transaminases normal and ALP normal, CBC was normal - denies any RUQ - denies any jaundice - personal history of uterine cancer 1989 - completed chemo 2023 for lung CA 2018 brain aneurysm with coil and clip - [facility] - weight loss of 10lbs with chemo in 2023 but denies any ongoing weight loss - denies any change in bowel habits - denies any bleeding - colonoscopy per patient was many years ago [facility] Medical History Wears glasses Wears dentures Post-menopausal Arthritis Excessive bleeding Back pain TIA (transient ischemic attack) History of diverticulitis Chronic cough History of echocardiogram History of stress test Hypertension Cardiology follow-up encounter History of sinus cancer Former tobacco use History of intracranial aneurysm Fibromyalgia Anxiety and depression History of alcohol abuse Polysubstance abuse Prolapse of intestine Prolapse of bladder Skin cancer Uterine cancer Home Medications ?Medication ?Instructions ?Recorded ?Last Taken ?Type albuterol sulfate 90 mcg/actuation 2 puff inhalation Q4H PRN 04/03/23 04/02/23 History aerosol inhaler shortness of breath or wheezing multivitamin 1 tab PO DAILY HEALTH MAINTENANCE 04/03/23 06/04/24 History aspirin 81 mg tablet,delayed 81 mg PO DAILY 04/18/23 06/04/24 History release (Adult Low Dose Aspirin) atorvastatin 10 mg tablet (Lipitor) 10 mg PO QHS 04/18/23 06/04/24 History amlodipine 5 mg tablet 5 mg PO QDAY 05/26/24 06/05/24 History folic acid 1 mg tablet 1 mg PO QDAY 05/26/24 Unknown History methocarbamol 750 mg tablet 750 mg PO QHS PRN pain 05/26/24 06/04/24 History hydrocodone 7.5 mg-acetaminophen 1 tab PO Q6H PRN pain 05/30/24 06/04/24 History 325 mg tablet Allergy/AdvReac Type Severity Reaction Status Date / Time sulfamethoxazole (From Allergy Mild Other Verified 06/05/24 10:51 Bactrim) trimethoprim (From Bactrim) Allergy Mild Other Verified 06/05/24 10:51 Sulfa (Sulfonamide AdvReac NEEDS Verified 06/05/24 10:51 Antibiotics) FOLLOW-UP Family History Father Melanoma Mother Brain aneurysm CVA (cerebral vascular accident) Surgical History History of lobectomy of lung H/O cerebral aneurysm repair History of hysterectomy S/P rotator cuff repair Social History household members: none Smoking Status: Former smoker how long ago did patient quit smokin/ ppd until quit 2018. alcohol intake: former details: Previous EtOH abuse, currently sober. substance use type: former substance user Date of last use: Cocaine. ROS Constitutional Constitutional: Denies fatigue, fever(s), poor appetite, weight gain or weight loss Gastrointestinal Gastrointestinal: Denies belching, bloating, change in bowel habits, change in stool character, chewing difficulty, coffee ground emesis, constipation, cramping, diarrhea, dyspepsia, dysphagia, early satiety, excessive flatus, fecal incontinence, heartburn, hematemesis, hematochezia, hemorrhoids, loose stools, melena, nausea, odynophagia, rectal bleeding, tenesmus, vomiting or weight changes Vital Signs Vital Signs Vital Signs: 06/05/24 10:52 06/05/24 11:46 Temperature 98.8 F 98.8 F Temperature Source Temporal Pulse Rate 96 96 Respiratory Rate 12 12 Blood Pressure 104/77 104/77 Blood Pressure Mean 86 Blood Pressure Source Monitor Blood Pressure Position Semi-Fowlers Blood Pressure Location Left Arm Pulse Ox 97 97 Oxygen Delivery Method Room Air Room Air Weight Weight: 120 lb 9.486 oz Body Mass Index (BMI) 20.0 Physical Exam Narrative GENERAL: cooperative HEENT: Atraumatic; normocephalic EYES; Anicteric, Normal Conjunctiva NECK; supple, normal thyroid, RESPIRATORY: Diminished to auscultation CARDIOVASCULAR: Regular S1 S2, GI: soft, normoactive bowel sounds, : No Renal angle tenderness; EXTREMITIES: No edema, no clubbing, MUSCULOSKELETAL: no muscle wasting NEURO: Awake; no lateralizing signs. SKIN: No Rash PSYCH; Flat affect Assessment & Plan Assessment/Plan (1) Dilated cbd, acquired: (2) Choledocholithiasis: PLAN: Assessment and Plan Assessment and Plan (1) Dilated cbd, acquired: Status: Acute Orders: Orders CBC W/Diff, Automated Today K83.8 - Other specified diseases of biliary tract Comprehensive Metabolic Profil Today K83.8 - Other specified diseases of biliary tract ERCP Biliary/Pancreas Today K83.8 - Other specified diseases of biliary tract Medications: Discontinued meclizine Discontinued Reason: Pt no longer taking 25 mg PO TID 15 tabs 0RF Plan 64y/o female presents for initial consultation for abnormal MRCP. MCRP completed 04/25/2024 reveals CBD dilation 1.2cm with a 1cm filling defect at the ampulla, raising concern for an obstructive lesion. She is asymptomatic with normal transaminases, ALP and bilirubin. Denies any history of jaundice. Given her history of malignancy (uterine and lung), malignancy is strongly considered. DDX includes choledocholithiasis, ampullary, biliary or pancreatic neoplasm, IPMN. Will proceed with ERCP to confirm the nature of the filling defect, remove a stone if present and biopsy of any suspicious lesion. Plan Details Follow Up: 1 Month
--- NOTE | 2024-06-05 12:00 | RAD_ITS ---
EXAM: EXAM DATE: 06/05/2024 12:40 pm PROCEDURE: ERCP BILIARY/PANCREAS CLINICAL HISTORY: PAIN COMPARISON: 12/29/2022 TECHNIQUE: Multiple intra procedural fluoroscopic spot views obtained for the purpose of ERCP. FINDINGS: ERCP spot views demonstrate cannulation of the common bile duct, contrast cholangiogram, balloon sweep and common bile duct stent placement. RAD/ERCP Biliary/Pancreas IMPRESSION: Fluoroscopic images obtained for the purpose of ERCP with intervention. Please refer to the ERCP report for additional details. [facility]
--- NOTE | 2024-06-05 12:46 | OP.ERCP_ITS ---
Patient Name: Peace Pandey Procedure Date: 06/05/2024 11:12 AM Date of : 1960 Age: 64 Procedure: ERCP Indications: Common bile duct stone(s) Providers: Hernan Lisa DO Medicines: General Anesthesia, Monitored Anesthesia Care Patient Profile: This is a 64 year old female. Refer to note in patient chart for documentation of history and physical. Patient has symptoms of acute right upper quadrant abdominal pain. This patient has no history of previous ERCP. This patient has no history of surgical alteration of the upper digestive tract anatomy. Previously obtained MRI showed a stone in the biliary tree. Complications: No immediate complications. Procedure: Pre-Anesthesia Assessment: - Prior to the procedure, a History and Physical was performed, and patient medications and allergies were reviewed. The patient is competent. The risks and benefits of the procedure and the sedation options and risks were discussed with the patient. All questions were answered and informed consent was obtained. Patient identification and proposed procedure were verified by the physician in the pre-procedure area. Mental Status Examination: alert and oriented. Airway Examination: normal oropharyngeal airway and neck mobility. Respiratory Examination: clear to auscultation. CV Examination: normal. ASA Grade Assessment: II - A patient with mild systemic disease. After reviewing the risks and benefits, the patient was deemed in satisfactory condition to undergo the procedure. The anesthesia plan was to use monitored anesthesia care (MAC). Immediately prior to administration of medications, the patient was re-assessed for adequacy to receive sedatives. The heart rate, respiratory rate, oxygen saturations, blood pressure, adequacy of pulmonary ventilation, and response to care were monitored throughout the procedure. The physical status of the patient was re-assessed after the procedure. After obtaining informed consent, the scope was passed under direct vision. Throughout the procedure, the patient's blood pressure, pulse, and oxygen saturations were monitored continuously. The Duodenoscope was introduced through the mouth, and advanced to the duodenum and used to inject contrast into the bile duct. The ERCP was accomplished without difficulty. The patient tolerated the procedure well. Scope In: 12:15:45 PM Scope Out: 12:37:05 PM Total Procedure Duration Time 0 hours 21 minutes 20 seconds Findings: The property master film was normal. The esophagus was successfully intubated under direct vision. The scope was advanced to a normal major papilla in the descending duodenum without detailed examination of the pharynx, larynx and associated structures, and upper GI tract. The upper GI tract was grossly normal. The bile duct was deeply cannulated with the short-nosed traction sphincterotome. Contrast was injected. I personally interpreted the bile duct images. Ductal flow of contrast was adequate. Image quality was adequate. Contrast extended to the main bile duct. Contrast extended to the cystic duct. Contrast extended to the gallbladder. Contrast extended to the bifurcation. Contrast extended to the hepatic ducts. Contrast extended to the entire biliary tree. The entire biliary tree was diffusely dilated, with a stone causing an obstruction. The largest diameter was 11mm. A long 0.025 inch Jagwire passed successfully into the left and right hepatic ducts and all intrahepatic branches. A 5 mm biliary sphincterotomy was made with a braided traction (standard) sphincterotome using ERBE electrocautery. There was no post-sphincterotomy bleeding. To discover objects, the biliary tree was swept with a 12 mm balloon starting at the upper third of the main bile duct, middle third of the main bile duct, lower third of the main duct, cystic duct, bifurcation and left main hepatic duct. Sludge was swept from the duct. All stones were removed. Cells for cytology were obtained by brushing in the lower third of the main bile duct. One 10 Fr by 5 cm temporary stent was placed 5 cm into the common bile duct. Bile flowed through the stent. The stent was in good position. Cells for cytology were obtained by brushing in the hepatic duct bifurcation. Impression: - The entire biliary tree was dilated, with a stone causing an obstruction. - Choledocholithiasis was found. Complete removal was accomplished by biliary sphincterotomy and balloon extraction. - A biliary sphincterotomy was performed. - The biliary tree was swept. - Cells for cytology obtained in the lower third of the main duct. - One temporary stent was placed into the common bile duct. Procedure Code(s): --- Professional --- 63533, Endoscopic retrograde cholangiopancreatography (ERCP); with placement of endoscopic stent into biliary or pancreatic duct, including pre- and post-dilation and guide wire passage, when performed, including sphincterotomy, when performed, each stent [id number], Endoscopic retrograde cholangiopancreatography (ERCP); with removal of calculi/debris from biliary/pancreatic duct(s) 73484, 26, Endoscopic catheterization of the biliary ductal system, radiological supervision and interpretation CPT copyright 2021 [employer]. All rights reserved. The codes documented in this report are preliminary and upon container coordinator review may be revised to meet current compliance requirements. Hernan Lisa DO 06/05/2024 12:46:07 PM This report has been signed electronically. Number of Addenda: 0 Note Initiated On: 06/05/2024 11:12 AM
--- NOTE | 2024-06-05 12:47 | OP.CCLET_ITS ---
06/05/2024 Lindsey Centeno [address] [place] [address] Re : ERCP procedure for Peace Pandey Dear Dr. Centeno This procedure was performed on May. My impressions and recommendations are as follows: Impressions : - The entire biliary tree was dilated, with a stone causing an obstruction. - Choledocholithiasis was found. Complete removal was accomplished by biliary sphincterotomy and balloon extraction. - A biliary sphincterotomy was performed. - The biliary tree was swept. - Cells for cytology obtained in the lower third of the main duct. - One temporary stent was placed into the common bile duct. Recommendations : My findings are described in the full procedure note, which is enclosed. If I can be of further assistance, please feel free to contact me at . Sincerely, Hernan Lisa, 06/05/2024 12:46:07 PM This report has been signed electronically.
--- NOTE | 2024-06-05 13:00 | PCM.POST.ANE ---
Anesthesia: Postop Eval I Current Vital Signs Temperature: 97.9 F Pulse Rate: 84 Blood Pressure: 72/49 Respiratory Rate: 18 Pulse Ox: 93 Oxygen Delivery Method: Room Air Assessment Airway patent: Yes Spontaneous unlabored respirations: Yes Mental status: Asleep nausea: No Vomiting: No Anesthesia Complication: No Fluid Hydration Crystalloid volume administer (ml): 60 Total IV fluid infused: 60 Progress Note Anesthesia document: Postop Eval 1 completed: Yes
--- NOTE | 2024-06-05 22:29 | PCM.POSTANE2 ---
Anesthesia Postop Eval I Sum Postop Eval Completion status Anesthesia document: Postop Eval 1 completed: Yes Anesthesia Postop Eval I Summary Anesthesia Postop Eval I Summary: Anesthesia Postop Eval I: Assessment Summary Airway patent Yes 06/05/24 13:01 [email or web address] Spontaneous unlabored Yes 06/05/24 13:01 [email or web address] respirations Mental status Asleep 06/05/24 13:01 [email or web address] nausea No 06/05/24 13:01 [email or web address] Vomiting No 06/05/24 13:01 [email or web address] Anesthesia Postop Eval I: Fluid Summary Crystalloid volume administer 60 06/05/24 13:01 [email or web address] (ml) Colloids volume administered ( ml) Blood Product volume administered (ml) Total IV fluid infused 60 06/05/24 13:01 [email or web address] Anesthesia Postop Eval I: Summary Notes Anesthesia Complication No 06/05/24 13:01 [email or web address] Anesthesia Complication Comment: Post-operative progress note Anesthesia: Postop Eval II Evaluation Mental status: Awake and Calm Pain Level: 1 nausea: No Vomiting: No Complications Anesthesia Complication: No
== END 2024-06-05 13:41 | disposition home or self-care (01) ==
LOC: EN 10:28 → AC 10:30
PROVIDERS: PCP Internal Medicine; Referring Provider Internal Medicine; Visit Provider Internal Medicine Gastroenterology
PROC: (CPT 43260; principal; 2024-06-05 11:10)
DX: K80.50 Calculus of bile duct without cholangitis or cholecystitis without obstruction (principal); I10 Essential (primary) hypertension; Z79.51 Long term (current) use of inhaled steroids; Z79.899 Other long term (current) drug therapy; Z79.82 Long term (current) use of aspirin; Z87.891 Personal history of nicotine dependence
CPT/HCPCS: 43274; 43264; 74330; 76000; 88108; 88304; 88305; 88313; 93005; C2625; A4216; J2405

== ENCOUNTER → 2024-06-12 | Outpatient (CLI) | payer MEDICAID, SELFPAY ==
[2024-06-12 10:29] LABS: Absolute Lymphocyte Count 2.15 X10^3/uL (0.83-4.51); Absolute Neutrophil Count 9.5 X10^3/uL (2.0-7.7); Basophil# 0.04 X10^3/uL; Basophil% 0.3 % (0-1); Eosinophil# 0.17 X10^3/uL; Eosinophils% 1.3 % (0-5); Hematocrit 37.9 % (37-47); Hemoglobin 12.7 g/dL (12.0-15.0); Lymphocyte # 2.15 X10^3/ul (0.83-4.51); Lymphocyte % 16.2 % (19-41); Mean Corp Hgb Conc 33.5 g/dL (32-36); Mean Corpuscular Hgb 30.9 pg (27.0-32.0); Mean Corpuscular Volume 92.2 fL (81-99); Mean Platelet Vol. 8.8 fl (6.2-12.0); Monocyte# 1.29 X10^3/uL; Monocyte% 9.7 % (0-10); NRBC Flagged by Analyzer 0 % (0-5); Neutrophil # 9.54 X10^3/uL (2.7-7.7); Neutrophil % 72.1 % (47-70); Platelet Count 355 K/mm3 (150-450); RBC Distribution Width CV 13.2 % (11.6-14.6); RBC Distribution Width SD 44.9 fl (35.1-43.9); Red Blood Count 4.11 M/mm3 (4.2-5.4); White Blood Count 13.2 K/mm3 (4.4-11.0)
[2024-06-12 11:41] LABS: AST(SGOT) 18 U/L (<=31); Alanine Aminotransfer ALT/SGPT 20 U/L (<=34); Albumin, Serum 4.4 g/dL (3.4-4.8); Alkaline Phosphatase 92 U/L (35-104); Bilirubin, Direct 0.19 mg/dL (0.00-0.30); Lipase 17 U/L (13-75); Protein, Total 7.4 g/dL (5.9-8.4); Total Bilirubin 0.39 mg/dL (0.00-1.30)
== END | disposition home or self-care (01) ==
LOC: LAB 10:04
PROVIDERS: PCP Internal Medicine; Referring Provider Nurse Practitioner Acute Care; Visit Provider Nurse Practitioner Acute Care
DX: K80.50 Calculus of bile duct without cholangitis or cholecystitis without obstruction (principal); R10.9 Unspecified abdominal pain
CPT/HCPCS: 36415; 80076; 83690; 85025

== ENCOUNTER 2024-07-14 10:44 | Day surgery (SDC) | payer MEDICAID, SELFPAY ==
--- NOTE | 2024-07-08 16:27 | PAT.ANESEVAL ---
Pre-Assessment Diagnosis/Proposed Procedure Planned Operative Procedure(s): ERCP Anesthesia History Anesthesia History - business proposal rep: Anesthesia History - business proposal rep Hx Hospitalization No 07/08/24 16:15 Any Problems With Anesthesia Yes: N&V, HARD TO KEEP 07/08/24 16:15 ASLEEP Cholinesterase deficiency No 07/08/24 16:15 You/Your Family Experience No 07/08/24 16:15 fever (hyperthermia) with Relationship Recent Exposure to Contagious Disease Does patient have nerve No 07/08/24 16:15 stimulator Patient instructed to have device shut off --Does patient have Pacemaker or ICD? When Was Last Pacemaker Check QUESTION #4 FULL TEXT: You/Your Family Experience fever (hyperthermia) with Anesthesia Last Oral Intake Last Oral intake: Last Oral Intake NPO since Meds taken in AM with sips of water? Meds patient instructed to take am of surgery PONV PONV - business proposal rep: PONV - business proposal rep Female Yes 07/08/24 16:15 HX of Motion Sickness No 07/08/24 16:15 HX of N/V After Surgery No 07/08/24 16:15 Non-Smoker Yes 07/08/24 16:15 Duration of Surgery greater Yes 07/08/24 16:15 than 60 minutes Number of Risk Factors 3 07/08/24 16:15 PONV Score Moderate Risk 07/08/24 16:15 Height & Weight Height & Weight: Anesthesia: Height & Weight Height 5 ft 5 in 06/12/24 09:29 Respiratory Assessment Respiratory Assessment - business proposal rep: Respiratory Tract Infection Hx - business proposal rep Hx Respiratory Tract Infection No 07/08/24 16:15 STOP Sleep Apnea STOP Sleep Apnea - business proposal rep: STOP Sleep Apnea - business proposal rep Hx Hypertension Yes: CONTROLLED WITH MED 07/08/24 16:15 Hx Sleep Apnea No 07/08/24 16:15 CPAP BIPAP Do you snore loudly (louder Yes 07/08/24 16:15 than talking or can be heard Do you often feel tired/ No 07/08/24 16:15 fatigued/ sleepy during daytime? Has anyone observed you stop No 07/08/24 16:15 breathing during sleep? STOP Results Positive 07/08/24 16:15 QUESTION #5 FULL TEXT : Do you snore loudly (louder than talking or can be heard through closed doors)? 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 Specify any problems Hx of Preganancy in last 3 No 07/08/24 16:15 Months Nurse Filling Out Transfusion DSCHRIBER 07/08/24 16:15 & Questions: Date: 07/08/24 07/08/24 16:15 Time: 16:16 07/08/24 16:15 Patient unable to answer at this time (ie. confused, unrespo /Reproduction History /Reproductive History - business proposal rep: /Reproductive Hx- business proposal rep Hx Now No 07/08/24 16:15 Gestational Age (in weeks): EDC: Hx Hx Para Hx Section SAB No 07/08/24 16:15 PFSH Medical History Wears glasses Wears dentures Post-menopausal Arthritis Excessive bleeding Back pain TIA (transient ischemic attack) History of diverticulitis Chronic cough History of echocardiogram History of stress test Hypertension Cardiology follow-up encounter History of sinus cancer Former tobacco use History of intracranial aneurysm Fibromyalgia Anxiety and depression History of alcohol abuse Polysubstance abuse Prolapse of intestine Prolapse of bladder Skin cancer Uterine cancer Home Medications ?Medication ?Instructions ?Recorded ?Last Taken ?Type albuterol sulfate 90 mcg/actuation 2 puff inhalation Q4H PRN 04/03/23 04/02/23 History aerosol inhaler shortness of breath or wheezing multivitamin 1 tab PO DAILY HEALTH MAINTENANCE 04/03/23 06/04/24 History aspirin 81 mg tablet,delayed 81 mg PO DAILY 04/18/23 06/04/24 History release (Adult Low Dose Aspirin) amlodipine 5 mg tablet 5 mg PO QDAY 05/26/24 06/05/24 History folic acid 1 mg tablet 1 mg PO QDAY 05/26/24 Unknown History methocarbamol 750 mg tablet 750 mg PO QHS PRN pain 05/26/24 06/04/24 History hydrocodone 7.5 mg-acetaminophen 1 tab PO Q6H PRN pain 05/30/24 06/04/24 History 325 mg tablet atorvastatin 40 mg tablet 40 mg PO QHS 07/08/24 Unknown History Allergy/AdvReac Type Severity Reaction Status Date / Time sulfamethoxazole (From Allergy Mild Other Verified 07/08/24 16:13 Bactrim) trimethoprim (From Bactrim) Allergy Mild Other Verified 07/08/24 16:13 Sulfa (Sulfonamide AdvReac NEEDS Verified 07/08/24 16:13 Antibiotics) FOLLOW-UP Family History Father Melanoma Mother Brain aneurysm CVA (cerebral vascular accident) Surgical History (Updated 07/08/24 @ 16:19 by Irene Maynard) History of ERCP History of lobectomy of lung H/O cerebral aneurysm repair History of hysterectomy S/P rotator cuff repair Social History household members: none Smoking Status: Former smoker how long ago did patient quit smokin/2 ppd until quit 2017. alcohol intake: former details: Previous EtOH abuse, currently sober. substance use type: former substance user Date of last use: Cocaine. Audit: Pertinent Findings Pertinent Findings EKG Perinent findings: June 05, 2024. Normal sinus rhythm. Left axis deviation. Incomplete right bundle branch block. Septal infarct, age undetermined. Stress test pertinent findings: June 05, 2023. SPECT perfusion study is normal. No evidence for ischemia. No infarct. Ejection fraction is 64%. Echo (EF%) pertinent findings: April 16, 2023. Ejection fraction 60%. No aortic stenosis is noted. No significant valvular abnormalities. No intracardiac shunt. Consult pertinent findings: February 18, 2024. Dr. Kelly. 1. Hypertension?controlled. Check echo. 2. History of cerebral aneurysm repair. 3. Malignant neoplasm of the lower lobe of the right lung?patient has undergone chemotherapy. Recommendation Anesthesia Recommendation Anesthesia recommendation: OPTIMIZED for anesthesia
[2024-07-14] VITALS (9 sets, daily range): BP systolic 95–121; BP diastolic 68–86; PULSE 80–93; RESP 16; TEMP 36–36.6; O2SAT 94–98; BMI 19.8
[2024-07-14] MEDS: Lactated Ringers 1,000 ML 15 ML IV (11:17)
--- NOTE | 2024-07-14 11:37 | PCM.PRE.AN2 ---
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 Also has PARVIZ ) Assessment & Plan Anesthesia* Anesthesia Assessment Anesthesia Assessment: Discussed sedation and/or anesthesia options, risks, benefits, and alternatives with patient/parents/legal guardian/POA. Questions invited. The patient/parents/legal guardian/POA seems to understand and agrees to proceed with anesthesia plan. Reviewed the physical assessment, medical history, allergy history and patient home medications list prior to surgery/procedure/anesthetic and documented any changes. Performed airway and anesthesia risk assessments. Anesthesia Type Anesthesia Type: General History Source History Obtained from:: Patient and Chart Anesthesia Focused Assessment* Temperature: 97.8 F Pulse Rate: 93 Blood Pressure: 121/86 Respiratory Rate: 16 Pulse Ox: 98 Airway Assessment Mouth opens: >3 cm Mallampati Score: IV Teeth Condition: Dentures (Patient has full upper and lower dentures.) Neck Range of motion (ROM): Limited ROM (Significant restriction on neck extension secondary to titanium plate base of the right cranium.) Focused Labs Anesthesia Preop lab: CBC WBC 13.2 K/mm3 (4.4-11.0) H 06/12/24 10:06 06/12/24 RBC 4.11 M/mm3 (4.2-5.4) L 06/12/24 10:06 06/12/24 Hgb 12.7 g/dL (12.0-15.0) 06/12/24 10:06 06/12/24 Hct 37.9 % (37-47) 06/12/24 10:06 06/12/24 Plt Count 355 K/mm3 (150-450) 06/12/24 10:06 06/12/24 CHEMISTRY Potassium 3.7 mmol/L (3.3-5.1) 05/26/24 09:45 05/26/24 Sodium 138 mmol/L (133-145) 05/26/24 09:45 05/26/24 Magnesium 2.3 mg/dL (1.6-2.6) 12/29/22 12:10 12/29/22 Phosphorus 2.9 mg/dL (2.5-4.9) 12/29/22 12:10 12/29/22 BUN 11 mg/dL (4-19) 05/26/24 09:45 05/26/24 Creatinine 0.53 mg/dL (0.70-1.20) L 05/26/24 09:45 05/26/24 Glucose 82 mg/dL (70-99) 05/26/24 09:45 05/26/24 COAG PT 12.2 SECONDS (11.7-14.9) 04/18/23 08:25 04/18/23 Pre-Assessment Diagnosis/Proposed Procedure Planned Operative Procedure(s): ERCP Anesthesia History 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 When Was Last Pacemaker Check QUESTION #4 FULL TEXT: You/Your Family Experience fever (hyperthermia) with Anesthesia Last Oral Intake Last Oral intake: Last Oral Intake NPO since 20:00 07/14/24 11:05 Meds taken in AM with sips of Yes 07/14/24 11:05 water? Meds patient instructed to take am of surgery PONV PONV - theatrical rigger: PONV - theatrical rigger Female Yes 07/08/24 16:15 HX of Motion Sickness No 07/08/24 16:15 HX of N/V After Surgery No 07/08/24 16:15 Non-Smoker Yes 07/08/24 16:15 Duration of Surgery greater Yes 07/08/24 16:15 than 60 minutes Number of Risk Factors 3 07/08/24 16:15 PONV Score Moderate Risk 07/08/24 16:15 Height & Weight Height & Weight: Anesthesia: Height & Weight Height 5 ft 5 in 07/14/24 11:05 Weight: 54.2 kg 07/14/24 11:05 Body Mass Index (BMI) 19.8 07/14/24 11:05 Respiratory Assessment Respiratory Assessment - theatrical rigger: Respiratory Tract Infection Hx - theatrical rigger Hx Respiratory Tract Infection No 07/08/24 16:15 STOP Sleep Apnea STOP Sleep Apnea - theatrical rigger: STOP Sleep Apnea - theatrical rigger Hx Hypertension Yes: CONTROLLED WITH MED 07/08/24 16:15 Hx Sleep Apnea No 07/08/24 16:15 CPAP BIPAP Do you snore loudly (louder Yes 07/08/24 16:15 than talking or can be heard Do you often feel tired/ No 07/08/24 16:15 fatigued/ sleepy during daytime? Has anyone observed you stop No 07/08/24 16:15 breathing during sleep? STOP Results Positive 07/08/24 16:15 QUESTION #5 FULL TEXT : Do you snore loudly (louder than talking or can be heard through closed doors)? 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 Specify any problems Hx of Preganancy in last 3 No 07/08/24 16:15 Months Nurse Filling Out Transfusion DSCHRIBER 07/08/24 16:15 & Questions: Date: 07/08/24 07/08/24 16:15 Time: 16:16 07/08/24 16:15 Patient unable to answer at this time (ie. confused, unrespo /Reproduction History /Reproductive History - theatrical rigger: /Reproductive Hx- theatrical rigger Hx Now No 07/08/24 16:15 Gestational Age (in weeks): EDC: Hx Hx Para Hx Section SAB No 07/08/24 16:15 Active Medications Active Medications: Current Medications Generic Name Dose Route Start Last Admin Trade Name Freq PRN Reason Stop Dose Admin Lactated Ringer's 1,000 mls @ 15 mls/hr 07/14/24 11:00 07/14/24 11:17 IV 15 mls/hr .Q48H AVELINA Administration PFSH Medical History Wears glasses Wears dentures Post-menopausal Arthritis Excessive bleeding Back pain TIA (transient ischemic attack) History of diverticulitis Chronic cough History of echocardiogram History of stress test Hypertension Cardiology follow-up encounter History of sinus cancer Former tobacco use History of intracranial aneurysm Fibromyalgia Anxiety and depression History of alcohol abuse Polysubstance abuse Prolapse of intestine Prolapse of bladder Skin cancer Uterine cancer Home Medications ?Medication ?Instructions ?Recorded ?Last Taken ?Type albuterol sulfate 90 mcg/actuation 2 puff inhalation Q4H PRN 04/03/23 04/02/23 History aerosol inhaler shortness of breath or wheezing multivitamin 1 tab PO DAILY HEALTH MAINTENANCE 04/03/23 06/04/24 History aspirin 81 mg tablet,delayed 81 mg PO DAILY 04/18/23 07/13/24 History release (Adult Low Dose Aspirin) amlodipine 5 mg tablet 5 mg PO QDAY 05/26/24 07/14/24 05:00 History folic acid 1 mg tablet 1 mg PO QDAY 05/26/24 Unknown History methocarbamol 750 mg tablet 750 mg PO QHS PRN pain 05/26/24 06/04/24 History hydrocodone 7.5 mg-acetaminophen 1 tab PO Q6H PRN pain 05/30/24 06/04/24 History 325 mg tablet atorvastatin 40 mg tablet 40 mg PO QHS 07/08/24 Unknown History Allergy/AdvReac Type Severity Reaction Status Date / Time sulfamethoxazole (From Allergy Mild Other Verified 07/14/24 11:04 Bactrim) trimethoprim (From Bactrim) Allergy Mild Other Verified 07/14/24 11:04 Sulfa (Sulfonamide AdvReac NEEDS Verified 07/14/24 11:04 Antibiotics) FOLLOW-UP Family History Father Melanoma Mother Brain aneurysm CVA (cerebral vascular accident) Surgical History (Updated 07/08/24 @ 16:19 by Irene Maynard) History of ERCP History of lobectomy of lung H/O cerebral aneurysm repair History of hysterectomy S/P rotator cuff repair Social History household members: none Smoking Status: Former smoker how long ago did patient quit smokin/2 ppd until quit 2018. alcohol intake: former details: Previous EtOH abuse, currently sober. substance use type: former substance user Date of last use: Cocaine. Review of Systems (Anesthesia) ROS Narrative System reviewed and no additional complaints, except as documented. Physical Exam Const alert, oriented x3 and average body habitus Resp normal respiratory effort, normal air movement and clear to auscultation bilaterally Cardio regular rate, regular rhythm, no murmurs and diaphoretic
--- NOTE | 2024-07-14 12:00 | FLU_PTH ---
PATIENT: GLORIA DE LA GARZA LOC: EN U#:[id number] AGE/SX: 64/F ROOM: RE07/14/[address]: Dr. Hernan Lisa DO : 1960 BED: DIS: 07/14/2024 SPEC #: [id number] RECD: 07/14/24 13:09 STATUS: CUBA ROJAS #: [id number] AN: 07/14/24 12:[address]: Hernan Lsia DEPT: CYTOLOGY RECD BY: Roque Fields ENTERED: 07/15/24 09:37 SP TYPE: Fluid OTHR DR: Dr. Lindsey Centeno MD Tissues: A - Biliary tract, NOS Procedures: Special Stain Group II Surgery Specimen Level IV Cytospin Fluid HEADER OPERATION: ERCP PRE-OP DIAGNOSIS: Abdominal pain, hyperactive bowel sounds, chills (without fever), bloating, nausea, early satiety TISSUE SUBMITTED: A- Biliary brush tip fluid for cytology DIAGNOSIS CYTOLOGY A. Biliary brush tip fluid: * No malignant cells are identified CYTOLOGY STUDY Slides are reviewed. CYTOLOGY GROSS A. Received is 1 brush with 0.2 ml of yellow fluid and 3 smears labeled with the patient's name and and designated per the requisition as Biliary brush tip. Submitted for cytology and cell block preparation. Mr 07/15/2024 CPT: 26346
--- NOTE | 2024-07-14 12:11 | PCM.HP.STD ---
HPI - General General Date of Admission: 07/14/24 Date of Service: 07/14/24 Chief Complaint: Biliary stent removal HPI Narrative 64-year-old female presents for follow-up. ERCP was performed 06/05/2024 and revealed choledocholithiasis. Sphincterotomy with balloon extraction was performed and temporary stent was placed. Postprocedure she has been experiencing a gradual onset of epigastric and LUQ abdominal pain. She reports the pain became severe yesterday (12/19) but did not prevent her from sleeping last evening. She reports waking this morning she continues to have dull aching in the upper abdomen, but denies any severe pain. She reports a long history of nausea, bloating, gas, loss of appetite. Weight has increased 4 pounds in the past month. She will have labs drawn today and we will await pathology/cytology from 06/05/2024 ERCP. She will require a repeat ERCP in 6 to 8 weeks for removal of stent. Patient Instructions: Labs today ERCP in 6-8 weeks for stent removal FODMAP Diet ERCP 06/05/2024 no malignant cells Labs completed 06/12/2024 reveal mild leukocytosis (13.2), hemoglobin 12.7, INR normal, transaminases and lipase unremarkable. - she reports having God awful chills from hell - reports she has been wearing her winter coat in the house - she is afebrile - denies any dysuria - she is having a formed BM daily - denies any constipation or diarrhea - denies any bleeding - drinking protein drinks - c/o nausea ever since stent placement - nausea and early satiety with solid foods - denies any emesis - hyperactive BS - scheduled for removal of stent 07/14/2024 - she reports seeing a surgeon at [facility] ([place]) she reports the plan is to have the stent removed and then have the CCX [facility] Medical History Wears glasses Wears dentures Post-menopausal Arthritis Excessive bleeding Back pain TIA (transient ischemic attack) History of diverticulitis Chronic cough History of echocardiogram History of stress test Hypertension Cardiology follow-up encounter History of sinus cancer Former tobacco use History of intracranial aneurysm Fibromyalgia Anxiety and depression History of alcohol abuse Polysubstance abuse Prolapse of intestine Prolapse of bladder Skin cancer Uterine cancer Home Medications ?Medication ?Instructions ?Recorded ?Last Taken ?Type albuterol sulfate 90 mcg/actuation 2 puff inhalation Q4H PRN 04/03/23 04/02/23 History aerosol inhaler shortness of breath or wheezing multivitamin 1 tab PO DAILY HEALTH MAINTENANCE 04/03/23 06/04/24 History aspirin 81 mg tablet,delayed 81 mg PO DAILY 04/18/23 07/13/24 History release (Adult Low Dose Aspirin) amlodipine 5 mg tablet 5 mg PO QDAY 05/26/24 07/14/24 05:00 History folic acid 1 mg tablet 1 mg PO QDAY 05/26/24 Unknown History methocarbamol 750 mg tablet 750 mg PO QHS PRN pain 05/26/24 06/04/24 History hydrocodone 7.5 mg-acetaminophen 1 tab PO Q6H PRN pain 05/30/24 06/04/24 History 325 mg tablet atorvastatin 40 mg tablet 40 mg PO QHS 07/08/24 Unknown History Allergy/AdvReac Type Severity Reaction Status Date / Time sulfamethoxazole (From Allergy Mild Other Verified 07/14/24 11:04 Bactrim) trimethoprim (From Bactrim) Allergy Mild Other Verified 07/14/24 11:04 Sulfa (Sulfonamide AdvReac NEEDS Verified 07/14/24 11:04 Antibiotics) FOLLOW-UP Family History Father Melanoma Mother Brain aneurysm CVA (cerebral vascular accident) Surgical History History of ERCP History of lobectomy of lung H/O cerebral aneurysm repair History of hysterectomy S/P rotator cuff repair Social History household members: none Smoking Status: Former smoker how long ago did patient quit smokin/2 ppd until quit 2018. alcohol intake: former details: Previous EtOH abuse, currently sober. substance use type: former substance user Date of last use: Cocaine. ROS Constitutional Constitutional: Denies fatigue, fever(s), poor appetite, weight gain or weight loss Gastrointestinal Gastrointestinal: Denies belching, bloating, change in bowel habits, change in stool character, chewing difficulty, coffee ground emesis, constipation, cramping, diarrhea, dyspepsia, dysphagia, early satiety, excessive flatus, fecal incontinence, heartburn, hematemesis, hematochezia, hemorrhoids, loose stools, melena, nausea, odynophagia, rectal bleeding, tenesmus, vomiting or weight changes Vital Signs Vital Signs Vital Signs: 07/14/24 11:05 07/14/24 11:05 07/14/24 11:42 Temperature 97.8 F 97.8 F Temperature Source Temporal Pulse Rate 93 93 Respiratory Rate 16 16 Respiratory Pattern Normal Blood Pressure 121/86 H 121/86 H Blood Pressure Mean 97 Blood Pressure Source Monitor Blood Pressure Position Semi-Fowlers Blood Pressure Location Left Arm Pulse Ox 98 98 Oxygen Delivery Method Room Air Weight Weight: 119 lb 7.849 oz Body Mass Index (BMI) 19.8 Physical Exam Const alert, oriented x3, no apparent distress and healthy appearing General Appearance: cooperative GI normal to inspection, nondistended, normoactive bowel sounds, soft to palpation, non-tender and non-distended Percussion: normal to percussion Rectal Exam: deferred Assessment & Plan Assessment/Plan (1) Choledocholithiasis: PLAN: Assessment and Plan Assessment and Plan (1) Abdominal pain: Status: Acute (2) Hyperactive bowel sounds: Status: Acute (3) Chills (without fever): Status: Acute (4) Bloating: Status: Acute (5) Nausea: Status: Acute (6) Early satiety: Status: Acute Orders: Orders Upper GI/w Small Bowel Today R10.9 - Unspecified abdominal pain, R11.0 - Nausea, R14.0 - Abdominal distension (gaseous), R19.12 - Hyperactive bowel sounds, R68.81 - Early satiety, R68.83 - Chills (without fever) Plan 64-year-old female presents for follow-up with complaints of chills without fever, abdominal cramping pain, hyperactive bowel sounds, bloating, nausea and early satiety post biliary stent placement on 06/05/2024. Her weight is stable with consumption of protein drinks. She reports a decrease in early satiety and nausea with liquid meals. Labs completed 06/12/2024 reveal mild leukocytosis (13.2), hemoglobin 12.7, INR normal, transaminases and lipase unremarkable. She is scheduled for ERCP with stent removal on 07/14/2024 and she understands risk of recurrent choledocholithiasis with stent removal prior to cholecystectomy. Although, there is a risk of choledocholithiasis postcholecystectomy the risk is greater pre. She is scheduled to follow-up with Dr. Browne post ERCP. She will proceed with UGI/SBFT and keep me apprised of any changes in her symptoms. Plan Details Follow Up: 4 Weeks
--- NOTE | 2024-07-14 12:25 | RAD_ITS ---
EXAM: ERCP. CLINICAL HISTORY: ERCP. COMPARISON: ERCP images dated 06/05/2024. TECHNIQUE: Limited intraoperative fluoroscopic images from an ERCP were provided. FINDINGS: Examination is very limited. Please see dictation by the gastroenterology service. Initial images demonstrates wire within the common bile duct. The common bile duct appears dilated. Later images demonstrate what appears to be a catheter within the CBD. It is unknown whether this was removed of left in place. Correlate with GI note. RAD/ERCP Biliary/Pancreas IMPRESSION: Examination is very limited. Please see dictation by the gastroenterology servi ce. Initial images demonstrates wire within the common bile duct. The common bile duct appears dilated. Later images demonstrat e what appears to be a catheter within the CBD. It is unknown whether this was removed of left in place. Correlate with GI note. Reading Location: [id number]
--- NOTE | 2024-07-14 13:02 | OP.CCLET_ITS ---
07/14/2024 Lindsey Centeno [address] [place] [address] Re : ERCP procedure for Peace Pandey Dear Dr. Centeno This procedure was performed on Sunday, July 14, 2024. My impressions and recommendations are as follows: Impressions : - A single localized biliary stricture was found in the common hepatic duct. - The common bile duct was dilated, acquired. - Choledocholithiasis was found. Complete removal was accomplished by biliary sphincterotomy and balloon extraction. - A biliary sphincterotomy was performed. - The biliary tree was swept. - One stent was removed from the biliary tree. - Cells for cytology obtained in the upper third of the main bile duct and at the hepatic duct bifurcation. Recommendations : CA 19-9, MRCP and consider Cholecystectomy My findings are described in the full procedure note, which is enclosed. If I can be of further assistance, please feel free to contact me at . Sincerely, Hernan Lisa, 07/14/2024 1:01:47 PM This report has been signed electronically.
--- NOTE | 2024-07-14 13:02 | OP.ERCP_ITS ---
Patient Name: Peace Pandey Procedure Date: 07/14/2024 12:22 PM Date of : 1960 Age: 64 Procedure: ERCP Indications: Common bile duct stone(s), Biliary stent removal Providers: Hernan Lisa DO Referring MD: Lindsey Centeno Medicines: Monitored Anesthesia Care Patient Profile: This is a 64 year old female. Refer to note in patient chart for documentation of history and physical. Patient has symptoms. Complications: No immediate complications. Procedure: Pre-Anesthesia Assessment: - Prior to the procedure, a History and Physical was performed, and patient medications and allergies were reviewed. The patient is competent. The risks and benefits of the procedure and the sedation options and risks were discussed with the patient. All questions were answered and informed consent was obtained. Patient identification and proposed procedure were verified by the physician in the pre-procedure area. Mental Status Examination: alert and oriented. Airway Examination: normal oropharyngeal airway and neck mobility. Respiratory Examination: clear to auscultation. CV Examination: normal. Prophylactic Antibiotics: The patient does not require prophylactic antibiotics. Prior Anticoagulants: The patient has taken no anticoagulant or antiplatelet agents except for NSAID medication. ASA Grade Assessment: II - A patient with mild systemic disease. After reviewing the risks and benefits, the patient was deemed in satisfactory condition to undergo the procedure. The anesthesia plan was to use monitored anesthesia care (MAC). Immediately prior to administration of medications, the patient was re-assessed for adequacy to receive sedatives. The heart rate, respiratory rate, oxygen saturations, blood pressure, adequacy of pulmonary ventilation, and response to care were monitored throughout the procedure. The physical status of the patient was re-assessed after the procedure. After obtaining informed consent, the scope was passed under direct vision. Throughout the procedure, the patient's blood pressure, pulse, and oxygen saturations were monitored continuously. The Duodenoscope was introduced through the mouth, and advanced to the duodenum and used to inject contrast into the bile duct. The ERCP was accomplished without difficulty. The patient tolerated the procedure well. Scope In: 12:32:03 PM Scope Out: 12:47:12 PM Total Procedure Duration Time 0 hours 15 minutes 9 seconds Findings: The backup sawyer film was normal. The esophagus was successfully intubated under direct vision. The scope was advanced to a normal major papilla in the descending duodenum without detailed examination of the pharynx, larynx and associated structures, and upper GI tract. The upper GI tract was grossly normal. The bile duct was deeply cannulated with the short-nosed traction sphincterotome. Contrast was injected. I personally interpreted the bile duct images. There was brisk flow of contrast through the ducts. Image quality was adequate. Contrast extended to the entire biliary tree. Opacification of the entire biliary tree was successful. The maximum diameter of the ducts was 12 mm. The common hepatic duct and hepatic duct bifurcation contained a single localized stenosis 6 mm in length. The common bile duct was diffusely dilated, acquired. The largest diameter was 14 mm. A long 0.025 inch Jagwire was passed into the biliary tree. A 5 mm biliary sphincterotomy was made with a traction (standard) sphincterotome using ERBE electrocautery. There was no post-sphincterotomy bleeding. The biliary tree was swept with a 15 mm balloon starting at the left intrahepatic duct(s). Sludge was swept from the duct. All stones were removed. One stent was removed from the biliary tree using a snare and sent for cytology. The stent was found to be partially occluded via the water column test. Cells for cytology were obtained by brushing in the upper third of the main bile duct and the hepatic duct bifurcation. Impression: - A single localized biliary stricture was found in the common hepatic duct. - The common bile duct was dilated, acquired. - Choledocholithiasis was found. Complete removal was accomplished by biliary sphincterotomy and balloon extraction. - A biliary sphincterotomy was performed. - The biliary tree was swept. - One stent was removed from the biliary tree. - Cells for cytology obtained in the upper third of the main bile duct and at the hepatic duct bifurcation. Recommendation: CA 19-9, MRCP and consider Cholecystectomy Procedure Code(s): --- Professional --- 09135, Endoscopic retrograde cholangiopancreatography (ERCP); with removal of foreign body(s) or stent(s) from biliary/pancreatic duct(s) 40868, Endoscopic retrograde cholangiopancreatography (ERCP); with removal of calculi/debris from biliary/pancreatic duct(s) 79286, Endoscopic retrograde cholangiopancreatography (ERCP); with sphincterotomy/papillotomy 79411, 26, Endoscopic catheterization of the biliary ductal system, radiological supervision and interpretation CPT copyright 2021 [employer]. All rights reserved. The codes documented in this report are preliminary and upon corporate security officer review may be revised to meet current compliance requirements. Hernan Lisa DO 07/14/2024 1:01:47 PM This report has been signed electronically. Number of Addenda: 0 Note Initiated On: 07/14/2024 12:22 PM
--- NOTE | 2024-07-14 13:06 | PCM.POST.ANE ---
Anesthesia: Postop Eval I Current Vital Signs Temperature: 97.6 F Pulse Rate: 89 Blood Pressure: 95/72 Respiratory Rate: 16 Pulse Ox: 95 Oxygen Delivery Method: Room Air Assessment Airway patent: Yes Spontaneous unlabored respirations: Yes Mental status: Awake and Calm nausea: No Vomiting: No Anesthesia Complication: No Fluid Hydration Crystalloid volume administer (ml): 800 Total IV fluid infused: 800 Progress Note Anesthesia document: Postop Eval 1 completed: Yes
--- NOTE | 2024-07-14 13:50 | PCM.POSTANE2 ---
Anesthesia Postop Eval I Sum Postop Eval Completion status Anesthesia document: Postop Eval 1 completed: Yes Anesthesia Postop Eval I Summary Anesthesia Postop Eval I Summary: Anesthesia Postop Eval I: Assessment Summary Airway patent Yes 07/14/24 13:06 [email or web address] Spontaneous unlabored Yes 07/14/24 13:06 [email or web address] respirations Mental status Awake,Calm 07/14/24 13:06 [email or web address] nausea No 07/14/24 13:06 [email or web address] Vomiting No 07/14/24 13:06 [email or web address] Anesthesia Postop Eval I: Fluid Summary Crystalloid volume administer 800 07/14/24 13:06 [email or web address] (ml) Colloids volume administered ( ml) Blood Product volume administered (ml) Total IV fluid infused 800 07/14/24 13:06 [email or web address] Anesthesia Postop Eval I: Summary Notes Anesthesia Complication No 07/14/24 13:06 [email or web address] Anesthesia Complication Comment: Post-operative progress note Anesthesia: Postop Eval II Evaluation Mental status: Awake Pain Level: 0 nausea: No Vomiting: No Complications Anesthesia Complication: No
== END 2024-07-14 13:26 | disposition home or self-care (01) ==
LOC: EN 10:45 → AC 10:46
PROVIDERS: PCP Internal Medicine; Referring Provider Internal Medicine; Visit Provider Internal Medicine Gastroenterology
PROC: (CPT 43260; principal; 2024-07-14 11:40)
DX: K80.51 Calculus of bile duct without cholangitis or cholecystitis with obstruction (principal); K83.8 Other specified diseases of biliary tract; I10 Essential (primary) hypertension; Z87.891 Personal history of nicotine dependence; Z79.82 Long term (current) use of aspirin; Z79.51 Long term (current) use of inhaled steroids; Z79.899 Other long term (current) drug therapy; Z86.73 Personal history of transient ischemic attack (TIA), and cerebral infarction without residual deficits
CPT/HCPCS: 43275; 43264; 43262; 74330; 76000; 88108; 88305; 88313; 93005; J2405